=== PATIENT | female | born 1970 | race Caucasian/White ===

== ENCOUNTER → 2016-12-04 | Outpatient (CLI) | payer MEDICAID ==
[~2016-12-04] MED LIST: /AUGM875TA OR; /DIVA50TA PO; /RANI15TA PO; ACET500C OR; ALEVE; ASPI325T OR; ASTELIN; BACL10TA2 PO; CELE20TA PO; EPIP0.3I10 INJ; FERR325T3 PO; FOLI1TAB2 PO; GABA-279 PO; GABA250S6 PO; GABA300C3 PO; IBUPOTC PO; IMIT100T PO; KLON1TAB PO; MAGN400C2 PO; METH2.5TA PO; MOTR200T4 PO; MOTR200T44 PO; OMEP40CA2 PO; OXYC5CAP28 PO; PERC7.5T12 PO; PERCOCET PO; PLAQ200T PO; PLAV75TA2 OR; PRED1TAB32 PO; PRED5TA PO; PSEU30OTC OR; RANI1TAB6 PO; SIMV20TA2 OR; TIZA2CAP3 PO; TIZA4CAP3 PO; TIZA4TAB OR; TOPA100T PO; TOPI25TA2 OR; TRAZ100T2 PO; TRAZ150T14 PO; VICO5TAB OR; ZANA6CAP PO
--- NOTE | 2016-12-27 00:47 | ECWPNPC ---
PATIENT NAME: ACOSTA ALBRIGHT : 1970 GENDER: FEMALE VISIT DATE: 12/04/2016 DISCHARGE DATE: 12/04/16 1153 VISIT LOCKED DATE TIME: PHYSICIAN: TABITHA MCCOLLUM RESOURCE: TABITHA MCCOLLUM REASON FOR APPOINTMENT 1. BACK/NECK HISTORY OF PRESENT ILLNESS HISTORY OF PRESENT ILLNESS: PAIN THE PATIENT DESCRIBES THE PAIN... FALL RISK SCREENING: SCREENING :NO FALLS IN THE PAST YEAR TODAY'S VISIT: NOTES: IS S/P TPI 10/24/16. REPORTS THIS WAS HELPFUL IN DECREASING THE PAIN BY AT LEAST 6-% AND IMPROVING HER NECK AND SHOULDER RANGE OF MOTION. THIS LAST FOR OVER 3 WEEKS AND NOW IS NOTING PAIN AND SWELLING OVER RIGHT SHOULDER SIMILIAR TO LEFT. RATES PAIN TODAY 10/10 AND NOTES THIS IS A BAD DAY.. CURRENT MEDICATIONS TAKING ASTELIN 137 MCG/SPRAY SOLUTION 1 SPRAY IN EACH NOSTRIL NASALLY TWICE A DAY TAKING PLAVIX 75 MG TABLET 1 TABLET ORALLY ONCE A DAY/DR FERRIS TAKING ZOCOR 20 20MG TABLET 1 TABLET ORALLY DAILY AT BEDTIME TAKING CITALOPRAM HYDROBROMIDE 40MG TABLET 1 TABLET ORALLY ONCE A DAY TAKING EPIPEN 2-GISELL 0.3 MG/0.3ML (1:1000) DEVICE INJECTION INTRAMUSCULAR 1 TIME NEEDED FOR ANGIOEDEMA REACTION TAKING SUMATRIPTAN SUCCINATE 100 MG TABLET 1 TABLET ORALLY TWICE A DAY NEEDED FOR MIGRAINES MAX HEADACHES 15 PER MONTH TAKING TRAZODONE HCL 150 MG TABLET 1 TABLET AT BEDTIME NEEDED ORALLY ONCE A DAY TAKING AMBIEN 10 MG TABLET 1 TAB ORAL AT BEDTIME TAKING MOTRIN 200 MG TABLET 2 TABLETS NEEDED ORALLY 2-3 TIMES DAILY TAKING REQUIP 0.25 MG TABLET 1 TAB ORALLY 30 MINUTES BEFORE BEDTIME TAKING OMEPRAZOLE 40 MG CAPSULE DELAYED RELEASE 1 CAPSULE ORALLY ONCE A DAY TAKING TIZANIDINE HCL 4 MG TABLET 1 TABLET NEEDED ORALLY EVERY 8 HRS TAKING GABAPENTIN 300 MG CAPSULE 1 CAPSULE ORALLY TWICE A DAY TAKING RANITIDINE HCL 150 MG CAPSULE 1 CAPSULE ORALLY TWICE A DAY NOT-TAKING [facility] IRON 325 (65 FE) MG TABLET 1 TABLET ORALLY ONCE A DAY NOT-TAKING FOLIC ACID 1 MG TABLET 1 TABLET ORALLY ONCE A DAY, NOTES: MONTHS NOT-TAKING ZOFRAN 4 MG TABLET 1 TABLET ORALLY 4X/DAY NEEDED NOT-TAKING FLOMAX 0.4 MG CAPSULE 1 CAPSULE ORALLY ONCE A DAY NOT-TAKING OXYCODONE HCL 5 MG TABLET 1 TABLET ORALLY EVERY 6-8 HRS PRN PAIN MDD=3 NOT-TAKING NORCO 5-325 MG TABLET 1 TABLET ORALLY TAKE 1 TAB DAILY PRN PAIN MDD=1 NOT-TAKING TOPAMAX 100 MG TABLET 1/2 TABLET ORALLY ONCE A DAY (WALKER) NOT-TAKING MAGNESIUM 400 MG TABLET 1 TAB(S) ORALLY ONCE DAILY NOT-TAKING PERCOCET 5-325 MG TABLET 1 TABLET NEEDED ORALLY EVERY 6 HRS MEDICATION LIST REVIEWED AND RECONCILED WITH THE PATIENT PAST MEDICAL HISTORY HYPERLIPIDEMIA CAROTID ATHEROSCLEROSIS -- FOLLOWS WITH DR. 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, RADIATION AND CHEMOTHERAPY BILATERAL TMJ HX OF MULTIPLE THYROID NODULES PROVEN NON-MALIGNANT HX ABNORMAL PAP SMEAR HX OF CHEST PAIN 2008 WITH NEGATIVE HEART CATHETERIZATION MIGRAINE HEADACHES LUPUS ANGIOEDEMA OBSTRUCTIVE SLEEP APNEA ARTHRITIS BOTH KNEES KIDNEY STONES ALLERGIES SULFA (FOR ALLERGY USE ONLY): HIVES: ALLERGY FLEXERIL: MIGAINES: ALLERGY ASPIRIN: UNKNOWN: ALLERGY HYDROXYCHLOROQUINE SULFATE: UNKNOWN: ALLERGY BEE STINGS: UNKNOWN: ALLERGY SURGICAL HISTORY CSECTION 1992 TROUBLE WAKING FROM ANESTHESIA AND HYPOXIA S/P ANESTHESIA 01/2015 TUBAL LIGATION 1993 HEART CATH WITHOUT STENT 2008 LEFT SIDED CAROTID STENT 09/2009 LEFT SIDED CAROTID BYPASS WITH HOMOGRAFT SECONDARY TO RE-OCCULUSION 05/2010 LASER CERVICAL SURGERY/BIOPSY SECONDARY TO ABNORMAL PAP L CARPAL TUNNEL 12/28/2013 HYSTERECTOMY WITHOUT SALPINGOOPHORECTOMY 01/2015 KIDNEY STONES REMOVED SEP 21, 2016 SOCIAL HISTORY GENERAL: TOBACCO USE ARE YOU A:NONSMOKER LEARNING BARRIERS / SPECIAL NEEDS ORIENTED TO PLAN OF CARE: PATIENT, PAIN MANAGEMENT PATIENT, ORIENTED TO PLAN OF CARE: PATIENT, PAIN MANAGEMENT PATIENT. NEW PATIENT PAIN DIARY TODAY'S VISITNOTES FROM 0-10, WHAT LEVEL IS YOUR PAIN TODAY?0 PAIN CLINIC PFS, CLERGY, PUBLIC HEALTH REFERRALS PFS REFERRAL NEEDED?NO CLERGY REFERRAL NEEDED?NO PUBLIC HEALTH REFERRAL NEEDED?NO WAS THE PROVIDER NOTIFIED OF ANY PERTINENT INFO?NO PFS REFERRAL NEEDED?NO CLERGY REFERRAL NEEDED?NO PUBLIC HEALTH REFERRAL NEEDED?NO WAS THE PROVIDER NOTIFIED OF ANY PERTINENT INFO?NO HOSPITALIZATION/MAJOR DIAGNOSTIC PROCEDURE CAROTID STENT 2008 LEFT SIDED CAROTID BYPASS WITH HOMOGRAFT SECONDARY TO RE-OCCULUSION 05/2010 MENTAL HEALTH 07/2015 REVIEW OF SYSTEMS CONSTITUTIONAL: ANY CHANGE IN YOUR MEDICAL CONDITION? NO . CHILLS NO . FEVER NO . INFECTION: DO YOU HAVE NEW INFECTIONS? NO . DO YOU HAVE HISTORY OF MRSA? NO . MUSCULOSKELETAL: ANY NEW PATTERNS OF PAIN OR NUMBNESS? YES - RIGHT SHOULDER AREA . GASTROENTEROLOGY: ANY NEW CHANGE IN BOWEL CONTROL? NO . GENITOURINARY: ANY NEW CHANGE IN BLADDER CONTROL? NO . IS THERE A CHANCE YOU COULD BE ? NO . HEMATOLOGY/LYMPH: DO YOU TAKE ANY BLOOD THINNERS? (FOR EXAMPLE- COUMADIN, PLAVIX, AGGRENOX, PLATEL, PRADAXA, OR XARELTO) YES, PLAVIX . WHEN WAS YOUR LAST DOSE? DATE: TIME: . NEUROLOGY: HAVE YOU FALLEN IN THE PAST 6 MONTHS? YES . ANY NEW EXTREMITY NUMBNESS OR WEAKNESS? NO . CARDIOLOGY: DO YOU HAVE A PACEMAKER OR DEFIBRILLATOR? YES . RESPIRATORY: HAVE YOU BEEN SICK IN THE PAST WEEK? NO . FEVER NO . FLU LIKE SYMPTOMS? NO . COUGH NO . INTEGUMENTARY: DO YOU HAVE ANY RASHES OR OPEN SORES? YES . ALLERGIC/IMMUNO: ARE YOU ALLERGIC TO SHELLFISH OR IV DYE? NO . ANY NEW ALLERGIES? NO . PSYCHIATRIC: DO YOU HAVE THOUGHTS OF HURTING YOURSELF OR SOMEONE ELSE? NO . ARE YOU ABUSED, NEGLECTED, OR IN AN UNSAFE ENVIRONMENT? NO . ENDOCRINOLOGY: ARE YOU DIABETIC? NO . OTHER: DO YOU NEED ANY PRESCRIPTIONS? YES . IF YES, PLEASE LIST: ____ . ANY NEW PROBLEMS WITH YOUR MEDICATIONS? NO . WHEN DID YOU LAST EAT? ____ . WHEN DID YOU LAST DRINK? ____ . WHAT DID YOU LAST DRINK? ____ . NAME OF PERSON DRIVING YOU HOME? ____ . DO YOU HAVE ANY OTHER QUESTIONS OR CONCERNS NO . REVIEWED BY: PROVIDER: TABITHA REILLY . VITAL SIGNS WT 241 LBS, HT 66 IN, BMI 38.89 INDEX, BP 137/68 MM HG, HR 64 /MIN, RR 16 /MIN, TEMP 98.5 F, OXYGEN SAT % 96%, NA INITIALS SC 11:11, REVIEWED BY: WHIT. EXAMINATION GENERAL EXAMINATION: PSYCHALERT , ORIENTED X 3 , APPROPRIATE MOOD AND AFFECT . LUNGS:CLEAR TO AUSCULTATION BILATERALLY. HEART:HEART RATE REGULAR. MUSCULOSKELETAL:TRIGGER POINTS:, ELICITED WITH PALPATION OVER CERVICAL SPINOUS PROCESSES AND ACROSS THE TRAPEZIUS MUSCLES BILATERALLY. RESTRICTION OF ROM IS NOTED. TENDER BILATERALLY AT LEFT > RIGHT SHOULDER, TRIGGER POINTS:, ELICITED WITH PALPATION OVER LUMBAR PARAVERTEBRAL MUSCLES AND INTO THE SECRUM. RESTRICTION OF ROM IN THIS AREA. ASSESSMENTS MYALGIA - M79.1 (PRIMARY) LEFT SHOULDER PAIN - M25.512 TREATMENT MYALGIA REFILL GABAPENTIN CAPSULE, 300 MG, 1 CAPSULE, ORALLY, TWICE A DAY, 30 DAY(S), 60 CAPSULE, REFILLS 2 TRIGGER POINT 3 + AREAS NOTES: CONTINUE CURRENT MEDS. PREVENTIVE MEDICINE PAIN CLINIC TEACHING: PROCEDURE TEACHING PRE TRIGGER POINT INJECTION INSTRUCTIONS REVIEWED WITH PT. VERBALIZED UNDERSTANDING.. PROCEDURE CODES FA211 ESTABILISHED PATIENT [facility] CHARGE FOLLOW UP AFTER INJECTION (REASON: CHECK AUTH FOR TPI) ELECTRONICALLY SIGNED BY CINDA BUSTILLO ON 12/26/2016 AT 12:31 PM EST DISCLAIMER : THIS IS A VISIT SUMMARY EXTRACTED FROM THE [employer] CHART. IT IS NOT A COPY OF THE [employer] PROGRESS NOTE. VIVEK
== END ==
LOC: M PAIN 10:40
PROVIDERS: ATTEND Nurse Practitioner Family
DX: Z09 Encounter for follow-up examination after completed treatment for conditions other than malignant neoplasm (principal); G89.29 Other chronic pain; M79.1 Myalgia; M25.512 Pain in left shoulder; G43.909 Migraine, unspecified, not intractable, without status migrainosus; G47.33 Obstructive sleep apnea (adult) (pediatric); M17.0 Bilateral primary osteoarthritis of knee; M32.9 Systemic lupus erythematosus, unspecified; E78.5 Hyperlipidemia, unspecified; I65.29 Occlusion and stenosis of unspecified carotid artery; Z79.01 Long term (current) use of anticoagulants; Z79.1 Long term (current) use of non-steroidal anti-inflammatories (NSAID); Z79.899 Other long term (current) drug therapy; Z88.2 Allergy status to sulfonamides; Z88.6 Allergy status to analgesic agent; Z88.8 Allergy status to other drugs, medicaments and biological substances; Z91.030 Bee allergy status; Z87.39 Personal history of other diseases of the musculoskeletal system and connective tissue; Z85.9 Personal history of malignant neoplasm, unspecified; Z92.3 Personal history of irradiation; Z92.21 Personal history of antineoplastic chemotherapy; Z95.5 Presence of coronary angioplasty implant and graft

== ENCOUNTER → 2016-12-06 | Outpatient (REF) | payer OTHER | LOC: M LAB REF 13:18 | PROVIDERS: ATTEND Internal Medicine Medical Oncology | DX: Z85.89 Personal history of malignant neoplasm of other organs and systems (principal) ==

== ENCOUNTER 2016-12-16 14:35 | Emergency (ER) | payer OTHER ==
--- NOTE | 2016-12-16 16:28 | EDDOCDS ---
Physician Documentation [facility] Name: Jess Mckeon Age: 46 yrs Sex: Female : 1970 Arrival Date: 12/16/2016 Time: 14:35 Bed TR1 Private MD: Jakub Dan MD Disposition: 12/16/16 16:13 Discharged to Home/Self Care. Impression: Acute sinusitis, Cough. - Condition is Stable. - Discharge Instructions: Sinusitis, [id number], Cough, Adult, [id number]. - Prescriptions for Augmentin 875- 125 mg Oral Tablet - take 1 tablet by ORAL route every 12 hours for 10 days; 20 tablet. Claritin 10 mg Oral Tablet - take 1 tablet by ORAL route once daily As needed; 30 tablet. Mucinex 600 mg - take 1 tablet by ORAL route 2 times per day; 30 tablet. Albuterol Sulfate 90 mcg/actuation Inhalation HFA Aerosol Inhaler - inhale 2 puff by INHALATION route every 4 hours As needed; 1 Inhaler. - Medication Reconciliation, Local Pharmacy Hours form. - Follow up: Jakub Dan; When: 1 - 2 days; Reason: Recheck today's complaints, Continuance of care. Follow up: Emergency Department; Reason: Worsening of conditions. - Problem is new. - Symptoms are unchanged. Historical: - Allergies: Aspirin (Hives); SULFA (SULFONAMIDES) (Hives); - Home Meds: 1. Ambien 10 mg Oral tab 1 tab once daily 2. astelin 137 mcg/spray 1 spray in each nostril twice daily 3. citalopram 40 mg Oral tab 1 tab once daily 4. folic acid 1 mg Oral tab 1 tab once daily 5. gabapentin 300 mg Oral cap twice a day 6. Iron CR Oral 325 mg daily 7. magnesium oxide 400 mg Oral tab daily 8. Motrin 100 mg Oral tab 2 tabs every 4-6 hours 9. omeprazole 40 mg Oral cpDR 1 cap once daily 10. Plavix 75 mg Oral tab 1 tab once daily 11. ranitidine HCl 150 mg Oral cap 1 cap 2 times per day 12. Imitrex 25 mg Oral tab as needed 13. Topamax 100 mg Oral tab daily 14. tizanidine 4 mg oral cap 1 cap 3 times per day 15. trazodone 150 mg Oral tab nightly 16. Zocor 20 mg Oral tab 1 tab once daily - PMHx: CAD; cancer of the neck; Fibromyalgia; Hypercholesterolemia; Lupus; planaphasia; Rheumatoid Arthritis; - PSHx: Carotid stents 2008 with Carotid Bypass; Tubal ligation; Hysterectomy; ; Carpal Tunnel Repair- Bilateral; - Social history: Smoking status: Patient states was never smoker of tobacco. No barriers to communication noted, The patient speaks fluent Macedonian. - : The pt / caregiver states he / she is on anticoagulants: Plavix. Home medication list is obtained from the patient. - Exposure Risk Screening:: None identified. 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 6 in. (167.64 cm) (R); 16:14 BP 149 / 70 LA Sitting (man/lg); Pulse 71; Resp 20; Temp 97.9(T); Pulse Ox 93% on R/A; ar3 14:37 Body Mass Index 38.90 (109.32 kg, 167.64 cm) dd6 MDM: 16:13 Recheck B/P ordered. ef1 Signatures: Mary Campbell RN RN jjEli Pham PA-C PA-C ef1 Nany Villavicencio RN RN rs3 MTDD
--- NOTE | 2016-12-16 16:28 | EDDOCDS ---
Nurse's Notes [facility] Name: Jess Mckeon Age: 46 yrs Sex: Female : 1970 Arrival Date: 12/16/2016 Time: 14:35 Bed TR1 Private MD: Jakub Dan MD Diagnosis: Acute sinusitis;Cough Presentation: 12/16 14:46 Presenting complaint: Patient states: generalized body ache, cough, chest pain with rs3 cough. No relief with Robitussin, Motrin. Adult Sepsis Screening: The patient does not have new or worsening altered mentation. Patient's respiratory rate is less than 22. Systolic blood pressure is greater than 100. Patient has a qSOFA score of 0- Negative Sepsis Screen. Suicide/Homicide risk assessment- the patient denies having any suicidal and/or homicidal ideations and does not present with any other emotional, behavioral or mental health complaints. Status: Patient is not a billing services manager or dependent. Transition of care: patient was not received from another setting of care. 14:46 Acuity: AYDEE Level 4 rs3 14:46 Method Of Arrival: Walkin/Carried/Asstd rs3 Triage Assessment: 14:49 General: Appears in no apparent distress. Pain: Location: chest. HIV screening NA for rs3 this visit Offered previously. 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 Ambien 10 mg Oral tab 1 tab once daily 2. astelin 137 mcg/spray 1 spray in each nostril twice daily 3. citalopram 40 mg Oral tab 1 tab once daily 4. folic acid 1 mg Oral tab 1 tab once daily 5. gabapentin 300 mg Oral cap twice a day 6. Iron CR Oral 325 mg daily 7. magnesium oxide 400 mg Oral tab daily 8. Motrin 100 mg Oral tab 2 tabs every 4-6 hours 9. omeprazole 40 mg Oral cpDR 1 cap once daily 10. Plavix 75 mg Oral tab 1 tab once daily 11. ranitidine HCl 150 mg Oral cap 1 cap 2 times per day 12. Imitrex 25 mg Oral tab as needed 13. Topamax 100 mg Oral tab daily 14. tizanidine 4 mg oral cap 1 cap 3 times per day 15. trazodone 150 mg Oral tab nightly 16. Zocor 20 mg Oral tab 1 tab once daily - PMHx: CAD; cancer of the neck; Fibromyalgia; Hypercholesterolemia; Lupus; planaphasia; Rheumatoid Arthritis; - PSHx: Carotid stents 2008 with Carotid Bypass; Tubal ligation; Hysterectomy; ; Carpal Tunnel Repair- Bilateral; - Social history: Smoking status: Patient states was never smoker of tobacco. No barriers to communication noted, The patient speaks fluent Portuguese. - : The pt / caregiver states he / she is on anticoagulants: Plavix. Home medication list is obtained from the patient. - Exposure Risk Screening:: None identified. Screenin:26 Screening information is obtained from the patient. Fall risk: No risks identified. jjr Assistance ADL's: requires no assistance with activities of daily living. Abuse/DV Screen: The patient / caregiver reports he/she is: not in a situation that causes fear, pain or injury. Nutritional screening: No deficits noted. Advance Directives: There is no active DNR order. home support is adequate. Assessment: 16:26 General: Appears in no apparent distress, well nourished, well groomed, Behavior is jjr appropriate for age. Respiratory: Airway is patent Respiratory effort is even, unlabored, Respiratory pattern is regular. Derm: Skin is pink, warm & dry. Vital Signs: 14:37 BP 164 / 70; Pulse 79; Resp 22 S; Temp 97.1(O); Pulse Ox 94% on R/A; Weight 109.32 kg dd6 (R); Height 5 ft. 6 in. (167.64 cm) (R); 16:14 BP 149 / 70 LA Sitting (man/lg); Pulse 71; Resp 20; Temp 97.9(T); Pulse Ox 93% on R/A; ar3 14:37 Body Mass Index 38.90 (109.32 kg, 167.64 cm) dd6 Vitals: 14:37 Log In Time: December 16, 2016 at 14:35. dd6 ED Course: 14:37 Patient visited by Mikel Oneal PCA. dd6 14:37 Jakub Dan is Private Physician. dd6 14:37 Patient moved to Waiting dd6 14:39 Patient moved to Pre RCE dd6 14:47 Triage Initiated rs3 15:37 Patient moved to Triage 3 ar3 15:49 [facility] ef1 15:49 Kimber Snow MD is Attending Physician. ef1 16:00 Patient visited by Eli Cabral PA-C. ef1 16:13 Jakub Dna is Referral Physician. ef1 16:19 Patient visited by Ana M Smith PCA. ar3 16:26 Patient moved to TR1 jjr 16:26 The patient / caregiver is instructed regarding the plan of care and ED course. jjr 16:26 No IV's were initiated during this patient's visit. No procedures done that require jjr assistance. Order Results: There are currently no results for this order. Outcome: 16:13 Discharge ordered by Provider. ef1 16:26 Discharge Assessment: patient administered narcotics - no. The following High Risk jjr Discharge criteria are identified: None. Discharged to home ambulatory. Condition: stable. Discharge instructions given to patient, Instructed on discharge instructions, follow up and referral plans. medication usage, Demonstrated understanding of instructions, medications, Prescriptions given X 4. No special radiology studies were completed. Property sent home with patient. 16:27 Patient left the ED. jjr Signatures: Mary Campbell RN RN jjr Mikel Oneal, ISMAEL DIRECTOR SALES SUPPORT dd6 Eli Cabral PA-C PA-C ef1 Nany Villavicencio RN RN rs3 Ana M Smith, DIRECTOR SALES SUPPORT DIRECTOR SALES SUPPORT ar3 Corrections: (The following items were deleted from the chart) 14:50 14:49 LMP N/A - Irregular menses rs3 rs3 MTDD
--- NOTE | 2016-12-18 17:28 | EDDOCDS ---
Physician Documentation [facility] Name: Jess Mckeon Age: 46 yrs Sex: Female : 1970 Arrival Date: 12/16/2016 Time: 14:35 Bed TR1 Private MD: Jakub Dan MD Disposition: 12/16/16 16:13 Discharged to Home/Self Care. Impression: Acute sinusitis, Cough. - Condition is Stable. - Discharge Instructions: Sinusitis, Pszm-[id number], Cough, Adult, [id number]. - Prescriptions for Augmentin 875- 125 mg Oral Tablet - take 1 tablet by ORAL route every 12 hours for 10 days; 20 tablet. Claritin 10 mg Oral Tablet - take 1 tablet by ORAL route once daily As needed; 30 tablet. Mucinex 600 mg - take 1 tablet by ORAL route 2 times per day; 30 tablet. Albuterol Sulfate 90 mcg/actuation Inhalation HFA Aerosol Inhaler - inhale 2 puff by INHALATION route every 4 hours As needed; 1 Inhaler. - Medication Reconciliation, Local Pharmacy Hours form. - Follow up: Jakub Dan; When: 1 - 2 days; Reason: Recheck today's complaints, Continuance of care. Follow up: Emergency Department; Reason: Worsening of conditions. - Problem is new. - Symptoms are unchanged. Historical: - Allergies: Aspirin (Hives); SULFA (SULFONAMIDES) (Hives); - Home Meds: 1. Ambien 10 mg Oral tab 1 tab once daily 2. astelin 137 mcg/spray 1 spray in each nostril twice daily 3. citalopram 40 mg Oral tab 1 tab once daily 4. folic acid 1 mg Oral tab 1 tab once daily 5. gabapentin 300 mg Oral cap twice a day 6. Iron CR Oral 325 mg daily 7. magnesium oxide 400 mg Oral tab daily 8. Motrin 100 mg Oral tab 2 tabs every 4-6 hours 9. omeprazole 40 mg Oral cpDR 1 cap once daily 10. Plavix 75 mg Oral tab 1 tab once daily 11. ranitidine HCl 150 mg Oral cap 1 cap 2 times per day 12. Imitrex 25 mg Oral tab as needed 13. Topamax 100 mg Oral tab daily 14. tizanidine 4 mg oral cap 1 cap 3 times per day 15. trazodone 150 mg Oral tab nightly 16. Zocor 20 mg Oral tab 1 tab once daily - PMHx: CAD; cancer of the neck; Fibromyalgia; Hypercholesterolemia; Lupus; planaphasia; Rheumatoid Arthritis; - PSHx: Carotid stents 2008 with Carotid Bypass; Tubal ligation; Hysterectomy; ; Carpal Tunnel Repair- Bilateral; - Social history: Smoking status: Patient states was never smoker of tobacco. No barriers to communication noted, The patient speaks fluent Mongolian. - : The pt / caregiver states he / she is on anticoagulants: Plavix. Home medication list is obtained from the patient. - Exposure Risk Screening:: None identified. 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 6 in. (167.64 cm) (R); 16:14 BP 149 / 70 LA Sitting (man/lg); Pulse 71; Resp 20; Temp 97.9(T); Pulse Ox 93% on R/A; ar3 14:37 Body Mass Index 38.90 (109.32 kg, 167.64 cm) dd6 MDM: 16:13 Recheck B/P ordered. ef1 16:34 Financial registration complete. ks 16:36 [facility] Payment Agreement was scanned into [employer] and attached to record. ks16 20:59 T-Sheet-- Draft Copy was scanned into [employer] and attached to record. klr Signatures: Mary Campbell RN RN jjr Eli Cabral, PA-C PA-C ef1 Nany Villavicencio RN RN rs3 Nicki Kim, Reg Reg ks16 Irais Chin klr The chart was reviewed and I authenticate all verbal orders and agree with the evaluation and treatment provided.Attachments: 16:36 [facility] Payment Agreement [email or web address] 20:59 T-Sheet-- Draft Copy klr Chart Complete MTDD
--- NOTE | 2016-12-18 17:28 | EDDOCDS ---
Nurse's Notes [facility] Name: Jess Mckeon Age: 46 yrs Sex: Female : 1970 Arrival Date: 12/16/2016 Time: 14:35 Bed TR1 Private MD: Jakub Dan MD Diagnosis: Acute sinusitis;Cough Presentation: 12/16 14:46 Presenting complaint: Patient states: generalized body ache, cough, chest pain with rs3 cough. No relief with Robitussin, Motrin. Adult Sepsis Screening: The patient does not have new or worsening altered mentation. Patient's respiratory rate is less than 22. Systolic blood pressure is greater than 100. Patient has a qSOFA score of 0- Negative Sepsis Screen. Suicide/Homicide risk assessment- the patient denies having any suicidal and/or homicidal ideations and does not present with any other emotional, behavioral or mental health complaints. Status: Patient is not a escort service attendant or dependent. Transition of care: patient was not received from another setting of care. 14:46 Acuity: AYDEE Level 4 rs3 14:46 Method Of Arrival: Walkin/Carried/Asstd rs3 Triage Assessment: 14:49 General: Appears in no apparent distress. Pain: Location: chest. HIV screening NA for rs3 this visit Offered previously. 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 Ambien 10 mg Oral tab 1 tab once daily 2. astelin 137 mcg/spray 1 spray in each nostril twice daily 3. citalopram 40 mg Oral tab 1 tab once daily 4. folic acid 1 mg Oral tab 1 tab once daily 5. gabapentin 300 mg Oral cap twice a day 6. Iron CR Oral 325 mg daily 7. magnesium oxide 400 mg Oral tab daily 8. Motrin 100 mg Oral tab 2 tabs every 4-6 hours 9. omeprazole 40 mg Oral cpDR 1 cap once daily 10. Plavix 75 mg Oral tab 1 tab once daily 11. ranitidine HCl 150 mg Oral cap 1 cap 2 times per day 12. Imitrex 25 mg Oral tab as needed 13. Topamax 100 mg Oral tab daily 14. tizanidine 4 mg oral cap 1 cap 3 times per day 15. trazodone 150 mg Oral tab nightly 16. Zocor 20 mg Oral tab 1 tab once daily - PMHx: CAD; cancer of the neck; Fibromyalgia; Hypercholesterolemia; Lupus; planaphasia; Rheumatoid Arthritis; - PSHx: Carotid stents 2008 with Carotid Bypass; Tubal ligation; Hysterectomy; ; Carpal Tunnel Repair- Bilateral; - Social history: Smoking status: Patient states was never smoker of tobacco. No barriers to communication noted, The patient speaks fluent Bengali. - : The pt / caregiver states he / she is on anticoagulants: Plavix. Home medication list is obtained from the patient. - Exposure Risk Screening:: None identified. Screenin:26 Screening information is obtained from the patient. Fall risk: No risks identified. jjr Assistance ADL's: requires no assistance with activities of daily living. Abuse/DV Screen: The patient / caregiver reports he/she is: not in a situation that causes fear, pain or injury. Nutritional screening: No deficits noted. Advance Directives: There is no active DNR order. home support is adequate. Assessment: 16:26 General: Appears in no apparent distress, well nourished, well groomed, Behavior is jjr appropriate for age. Respiratory: Airway is patent Respiratory effort is even, unlabored, Respiratory pattern is regular. Derm: Skin is pink, warm & dry. Vital Signs: 14:37 BP 164 / 70; Pulse 79; Resp 22 S; Temp 97.1(O); Pulse Ox 94% on R/A; Weight 109.32 kg dd6 (R); Height 5 ft. 6 in. (167.64 cm) (R); 16:14 BP 149 / 70 LA Sitting (man/lg); Pulse 71; Resp 20; Temp 97.9(T); Pulse Ox 93% on R/A; ar3 14:37 Body Mass Index 38.90 (109.32 kg, 167.64 cm) dd6 Vitals: 14:37 Log In Time: December 16, 2016 at 14:35. dd6 ED Course: 14:37 Patient visited by Mikel Oneal PCA. dd6 14:37 Jakub Dan is Private Physician. dd6 14:37 Patient moved to Waiting dd6 14:39 Patient moved to Pre RCE dd6 14:47 Triage Initiated rs3 15:37 Patient moved to Triage 3 ar3 15:49 [facility] ef1 15:49 Kimber Snow MD is Attending Physician. ef1 16:00 Patient visited by Eli Cabral PA-C. ef1 16:13 Jakub Dan is Referral Physician. ef1 16:19 Patient visited by Ana M Smith PCA. ar3 16:26 Patient moved to TR1 jjr 16:26 The patient / caregiver is instructed regarding the plan of care and ED course. jjr 16:26 No IV's were initiated during this patient's visit. No procedures done that require jjr assistance. 16:36 [facility] Payment Agreement was scanned into [employer] and attached to record. ks16 20:59 T-Sheet-- Draft Copy was scanned into [employer] and attached to record. klr Order Results: There are currently no results for this order. Outcome: 16:13 Discharge ordered by Provider. ef1 16:26 Discharge Assessment: patient administered narcotics - no. The following High Risk jjr Discharge criteria are identified: None. Discharged to home ambulatory. Condition: stable. Discharge instructions given to patient, Instructed on discharge instructions, follow up and referral plans. medication usage, Demonstrated understanding of instructions, medications, Prescriptions given X 4. No special radiology studies were completed. Property sent home with patient. 16:27 Patient left the ED. jjr Signatures: Mary Campbell RN RN jjr Mikel Oneal, GARMENT SEWING MACHINE OPERATOR GARMENT SEWING MACHINE OPERATOR dd6 Eli Cabral PA-C PA-C ef1 Nany Villavicencio RN RN rs3 Ana M Smith, GARMENT SEWING MACHINE OPERATOR GARMENT SEWING MACHINE OPERATOR ar3 Nicki Kim, Reg Reg ks16 Irais Chin klr Corrections: (The following items were deleted from the chart) 14:50 14:49 LMP N/A - Irregular menses rs3 rs3 Chart Complete MTDD
--- NOTE | 2016-12-18 17:28 | EDDOCDS ---
Physician Documentation [facility] Name: Jess Mckeon Age: 46 yrs Sex: Female : 1970 Arrival Date: 12/16/2016 Time: 14:35 Bed TR1 Private MD: Jakub Dan MD Disposition: 12/16/16 16:13 Discharged to Home/Self Care. Impression: Acute sinusitis, Cough. - Condition is Stable. - Discharge Instructions: Sinusitis, [id number], Cough, Adult, [id number]. - Prescriptions for Augmentin 875- 125 mg Oral Tablet - take 1 tablet by ORAL route every 12 hours for 10 days; 20 tablet. Claritin 10 mg Oral Tablet - take 1 tablet by ORAL route once daily As needed; 30 tablet. Mucinex 600 mg - take 1 tablet by ORAL route 2 times per day; 30 tablet. Albuterol Sulfate 90 mcg/actuation Inhalation HFA Aerosol Inhaler - inhale 2 puff by INHALATION route every 4 hours As needed; 1 Inhaler. - Medication Reconciliation, Local Pharmacy Hours form. - Follow up: Jakub Dan; When: 1 - 2 days; Reason: Recheck today's complaints, Continuance of care. Follow up: Emergency Department; Reason: Worsening of conditions. - Problem is new. - Symptoms are unchanged. Historical: - Allergies: Aspirin (Hives); SULFA (SULFONAMIDES) (Hives); - Home Meds: 1. Ambien 10 mg Oral tab 1 tab once daily 2. astelin 137 mcg/spray 1 spray in each nostril twice daily 3. citalopram 40 mg Oral tab 1 tab once daily 4. folic acid 1 mg Oral tab 1 tab once daily 5. gabapentin 300 mg Oral cap twice a day 6. Iron CR Oral 325 mg daily 7. magnesium oxide 400 mg Oral tab daily 8. Motrin 100 mg Oral tab 2 tabs every 4-6 hours 9. omeprazole 40 mg Oral cpDR 1 cap once daily 10. Plavix 75 mg Oral tab 1 tab once daily 11. ranitidine HCl 150 mg Oral cap 1 cap 2 times per day 12. Imitrex 25 mg Oral tab as needed 13. Topamax 100 mg Oral tab daily 14. tizanidine 4 mg oral cap 1 cap 3 times per day 15. trazodone 150 mg Oral tab nightly 16. Zocor 20 mg Oral tab 1 tab once daily - PMHx: CAD; cancer of the neck; Fibromyalgia; Hypercholesterolemia; Lupus; planaphasia; Rheumatoid Arthritis; - PSHx: Carotid stents 2008 with Carotid Bypass; Tubal ligation; Hysterectomy; ; Carpal Tunnel Repair- Bilateral; - Social history: Smoking status: Patient states was never smoker of tobacco. No barriers to communication noted, The patient speaks fluent [place]. - : The pt / caregiver states he / she is on anticoagulants: Plavix. Home medication list is obtained from the patient. - Exposure Risk Screening:: None identified. 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 6 in. (167.64 cm) (R); 16:14 BP 149 / 70 LA Sitting (man/lg); Pulse 71; Resp 20; Temp 97.9(T); Pulse Ox 93% on R/A; ar3 14:37 Body Mass Index 38.90 (109.32 kg, 167.64 cm) dd6 MDM: 16:13 Recheck B/P ordered. ef1 16:34 Financial registration complete. ks 16:36 [facility] Payment Agreement was scanned into [employer] and attached to record. ks16 20:59 T-Sheet-- Draft Copy was scanned into [employer] and attached to record. klr Signatures: Mary Campbell RN RN jjr Eli Cabral, PA-C PA-C ef1 Nany Villavicencio RN RN rs3 Nicki Kim, Reg Reg ks16 Irais Chin klr The chart was reviewed and I authenticate all verbal orders and agree with the evaluation and treatment provided.Attachments: 16:36 [facility] Payment Agreement [email or web address] 20:59 T-Sheet-- Draft Copy klr Chart Complete MTDD
== END 2016-12-16 16:27 | disposition home or self-care (01) ==
LOC: M ED 14:35
DX: J01.90 Acute sinusitis, unspecified (principal); R05 Cough; H92.03 Otalgia, bilateral; I25.10 Atherosclerotic heart disease of native coronary artery without angina pectoris; E78.00 Pure hypercholesterolemia, unspecified; M06.9 Rheumatoid arthritis, unspecified; M79.7 Fibromyalgia; M32.9 Systemic lupus erythematosus, unspecified; R47.01 Aphasia; Z79.899 Other long term (current) drug therapy; Z79.02 Long term (current) use of antithrombotics/antiplatelets; Z88.6 Allergy status to analgesic agent; Z88.2 Allergy status to sulfonamides

== ENCOUNTER 2016-12-31 14:30 | Emergency (ER) | payer MEDICAID, OTHER ==
--- NOTE | 2016-12-31 16:54 | REP ---
Clinical: Trauma. Technique: AP, lateral, bilateral oblique, and sunrise views of the left knee. Comparison: 04/16/2016. Findings: Mild tricompartmental osteoarthritic degenerative changes are appreciated including cortical irregularity and subtle spurring/early osteophyte formation at the femoral condyles and proximal tibia as well as along the posterior patellar margin. Medial joint space narrowing noted. No acute fracture or dislocation. No definite effusion. Impression: Mild tricompartmental osteoarthritic degenerative changes. No acute fracture or dislocation. Signed by Esau Ga MD 12/31/2016 04:46 P
--- NOTE | 2016-12-31 16:55 | REP ---
Clinical: Trauma. Technique: AP, lateral, bilateral oblique views of the left elbow. Findings: No acute fracture or dislocation is appreciated. Joint spaces and surrounding soft tissues appear normal. Lateral view demonstrates normal positioning to the anterior and posterior fat pads without evidence for effusion/hemarthrosis. No subcutaneous emphysema or foreign body identified. Impression: No acute fracture or dislocation. Signed by Esau Ga MD 12/31/2016 04:47 P
--- NOTE | 2016-12-31 17:32 | EDDOCDS ---
Physician Documentation [facility] Name: Jess Mckeon Age: 46 yrs Sex: Female : 1970 Arrival Date: 12/31/2016 Time: 14:30 Bed TR7 Private MD: Jakub Dan MD Disposition: 12/31/16 17:14 Discharged to Home/Self Care. Impression: Fall on same level due to ice and snow, Contusion of right thigh, Contusion of left elbow, Contusion of left knee, Sprain of unspecified site of left knee. - Condition is Stable. - Discharge Instructions: Elastic Bandage and RICE, Contusion, Knee Sprain. - Medication Reconciliation, Local Pharmacy Hours form. - Follow up: Jakub Dan; When: Call to arrange an appointment; Reason: Recheck today's complaints. Follow up: Lester Young; When: As needed; Reason: Recheck today's complaints. Follow up: Emergency Department; When: As needed; Reason: worsening bruising, severe pain, swelling and warmth over bruised area. - Problem is new. - Symptoms are unchanged. Historical: - Allergies: Aspirin (Hives); SULFA (SULFONAMIDES) (Hives); - Home Meds: 1. Ambien 10 mg Oral tab 1 tab once daily 2. astelin 137 mcg/spray 1 spray in each nostril twice daily 3. citalopram 40 mg Oral tab 1 tab once daily 4. folic acid 1 mg Oral tab 1 tab once daily 5. gabapentin 300 mg Oral cap twice a day 6. Imitrex 25 mg Oral tab as needed 7. Iron CR Oral 325 mg daily 8. magnesium oxide 400 mg Oral tab daily 9. Motrin 100 mg Oral tab 2 tabs every 4-6 hours 10. omeprazole 40 mg Oral cpDR 1 cap once daily 11. Plavix 75 mg Oral tab 1 tab once daily 12. ranitidine HCl 150 mg Oral cap 1 cap 2 times per day 13. sumatriptan succinate 6 mg/0.5 mL Sub-Q pnij 14. tizanidine 4 mg oral cap 1 cap 3 times per day 15. Topamax 100 mg Oral tab daily 16. trazodone 150 mg Oral tab nightly 17. Zocor 20 mg Oral tab 1 tab once daily - PMHx: CAD; cancer of the neck; Fibromyalgia; Hypercholesterolemia; Lupus; planaphasia; Rheumatoid Arthritis; - PSHx: neck surgery; ; Tubal ligation; Hysterectomy; Carpal Tunnel Repair- Bilateral; - Social history: Smoking status: Patient/guardian denies using No barriers to communication noted, The patient speaks fluent Yakut. - Family history: Not pertinent. - : The pt / caregiver states he / she is not on anticoagulants. Home medication list is obtained from the patient, [employer] import data. - Exposure Risk Screening:: None identified. PETAL SHAPER HAND: 12/31 14:47 LMP N/A - Hysterectomy dls Vital Signs: 14:33 BP 147 / 62; Pulse 74; Resp 18; Temp 97.6(O); Pulse Ox 95% ; Weight 115.67 kg / 255.01 ct3 lbs (R); Height 5 ft. 5 in. (165.10 cm) (R); Pain 2/10; 17:23 Pain 9/10; ct3 14:33 Body Mass Index 42.43 (115.67 kg, 165.10 cm) ct3 MDM: 16:32 Elbow, Complete Ordered. EDMS 16:32 Knee, Complete Ordered. EDMS 16:44 Financial registration complete. gjb 16:56 [facility] Payment Agreement was scanned into [employer] and attached to record. gjb 17:11 Jose Wrap ordered. ar2 Signatures: Dispatcher [employer] EDAnna Marmolejo RN RN dls Maco Henry PA-C PA-C ar2 Shirley Solorzano RN RN mk4 Reyna Pizano The chart was reviewed and I authenticate all verbal orders and agree with the evaluation and treatment provided.Attachments: 16:56 [facility] Payment Agreement gjb MTDD
--- NOTE | 2016-12-31 17:32 | EDDOCDS ---
Nurse's Notes [facility] Name: Jess Mckeon Age: 46 yrs Sex: Female : 1970 Arrival Date: 12/31/2016 Time: 14:30 Bed TR7 Private MD: Jakub Dan MD Diagnosis: Fall on same level due to ice and snow;Contusion of right thigh;Contusion of left elbow;Contusion of left knee;Sprain of unspecified site of left knee Presentation: 12/31 14:43 Presenting complaint: Patient states: Pt presents with injury to left arm and elbow dls also right knee and leg after falling 3 days ago slipped on the ice outside. Pt is on plavix states noticed bruising today. Adult Sepsis Screening: The patient does not have new or worsening altered mentation. Patient's respiratory rate is less than 22. Systolic blood pressure is greater than 100. Patient has a qSOFA score of 0- Negative Sepsis Screen. Suicide/Homicide risk assessment- the patient denies having any suicidal and/or homicidal ideations and does not present with any other emotional, behavioral or mental health complaints. Status: Patient is not a family service center director or dependent. Transition of care: patient was not received from another setting of care. 14:43 Acuity: AYDEE Level 4 dls 14:43 Method Of Arrival: Walkin/Carried/Asstd dls Triage Assessment: 14:47 General: Appears uncomfortable, Behavior is cooperative. Pain: Pain currently is 8 out dls of 10 on a pain scale. HIV screening NA for this visit Offered previously. HEAD OF MARKETING ANALYTICS: 14:47 LMP N/A - Hysterectomy dls Historical: - Allergies: Aspirin (Hives); SULFA (SULFONAMIDES) (Hives); - Home Meds: 1. Ambien 10 mg Oral tab 1 tab once daily 2. astelin 137 mcg/spray 1 spray in each nostril twice daily 3. citalopram 40 mg Oral tab 1 tab once daily 4. folic acid 1 mg Oral tab 1 tab once daily 5. gabapentin 300 mg Oral cap twice a day 6. Imitrex 25 mg Oral tab as needed 7. Iron CR Oral 325 mg daily 8. magnesium oxide 400 mg Oral tab daily 9. Motrin 100 mg Oral tab 2 tabs every 4-6 hours 10. omeprazole 40 mg Oral cpDR 1 cap once daily 11. Plavix 75 mg Oral tab 1 tab once daily 12. ranitidine HCl 150 mg Oral cap 1 cap 2 times per day 13. sumatriptan succinate 6 mg/0.5 mL Sub-Q pnij 14. tizanidine 4 mg oral cap 1 cap 3 times per day 15. Topamax 100 mg Oral tab daily 16. trazodone 150 mg Oral tab nightly 17. Zocor 20 mg Oral tab 1 tab once daily - PMHx: CAD; cancer of the neck; Fibromyalgia; Hypercholesterolemia; Lupus; planaphasia; Rheumatoid Arthritis; - PSHx: neck surgery; ; Tubal ligation; Hysterectomy; Carpal Tunnel Repair- Bilateral; - Social history: Smoking status: Patient/guardian denies using No barriers to communication noted, The patient speaks fluent Yoruba. - Family history: Not pertinent. - : The pt / caregiver states he / she is not on anticoagulants. Home medication list is obtained from the patient, [employer] import data. - Exposure Risk Screening:: None identified. Screenin:29 Screening information is obtained from the patient. Fall risk: No risks identified. mk4 Assistance ADL's: requires no assistance with activities of daily living. Abuse/DV Screen: The patient / caregiver reports he/she is: not in a situation that causes fear, pain or injury. Nutritional screening: No deficits noted. Advance Directives: Currently, there is no health care proxy. There is no active DNR order. There is no living will. There is no Power of Fresh Work Wrapper Layer. home support is adequate. Assessment: 16:24 General: Appears in no apparent distress. mk4 17:29 Neurological: Level of Consciousness is awake, alert. Musculoskeletal: Circulation, mk4 motion, and sensation intact Capillary refill < 3 seconds in left fingers toes. Vital Signs: 14:33 BP 147 / 62; Pulse 74; Resp 18; Temp 97.6(O); Pulse Ox 95% ; Weight 115.67 kg (R); ct3 Height 5 ft. 5 in. (165.10 cm) (R); Pain 2/10; 17:23 Pain 9/10; ct3 14:33 Body Mass Index 42.43 (115.67 kg, 165.10 cm) ct3 Vitals: 14:33 Log In Time: December 31, 2016 at 14:30. ct3 ED Course: 14:32 Patient visited by Luz Weiss PCA. ct3 14:32 Jakub Dan is Private Physician. ct3 14:32 Patient moved to Waiting ct3 14:34 Patient moved to Pre RCE ct3 14:44 Triage Initiated dls 16:23 Patient moved to Triage 1 kcs 16:24 Maco Henry PA-C is PHCP. ar2 16:24 Drew Zacarias MD is Attending Physician. ar2 16:24 Patient visited by Maco Henry PA-C. ar2 16:33 Patient moved to TR1 ar2 16:55 Patient visited by Shirley Solorzano RN. mk4 16:56 [facility] Payment Agreement was scanned into [employer] and attached to record. gjb 17:10 Patient moved to PR1 / 25 kcs 17:13 Jakub Dan is Referral Physician. ar2 17:13 Lester Young is Referral Physician. ar2 17:23 Knee, Complete Returned. EDMS 17:23 Elbow, Complete Returned. EDMS 17:24 Jose wrap to left knee. ct3 17:27 Patient moved to TR7 mk4 17:29 The patient / caregiver is instructed regarding the plan of care and ED course. mk4 17:29 No IV's were initiated during this patient's visit. No procedures done that require mk4 assistance. Order Results: Radiology Order: Elbow, Complete Test: Elbow, Complete REASON FOR EXAMINATION: Trauma; Clinical: Trauma.; ; Technique: AP, lateral, bilateral oblique views of the left elbow.; ; Findings:; No acute fracture or dislocation is appreciated. Joint spaces and surrounding; soft tissues appear normal. Lateral view demonstrates normal positioning to the; anterior and posterior fat pads without evidence for effusion/hemarthrosis. No; subcutaneous emphysema or foreign body identified.; ; Impression:; No acute fracture or dislocation.; ; ; Signed by; Esau Ga MD 12/31/2016 04:47 P; Radiology Order: Knee, Complete Test: Knee, Complete REASON FOR EXAMINATION: Trauma; Clinical: Trauma.; ; Technique: AP, lateral, bilateral oblique, and sunrise views of the left knee.; ; Comparison: 04/16/2016.; ; Findings:; Mild tricompartmental osteoarthritic degenerative changes are appreciated; including cortical irregularity and subtle spurring/early osteophyte formation at; the femoral condyles and proximal tibia as well as along the posterior patellar; margin. Medial joint space narrowing noted. No acute fracture or dislocation.; No definite effusion.; ; Impression:; Mild tricompartmental osteoarthritic degenerative changes.; No acute fracture or dislocation.; ; ; Signed by; Esau Ga MD 12/31/2016 04:46 P; Outcome: 17:14 Discharge ordered by Provider. ar2 17:30 Discharge Assessment: Patient awake, alert and oriented x 3. No cognitive and/or mk4 functional deficits noted. Patient verbalized understanding of disposition instructions. Patient awake and alert. Discharge Assessment: patient administered narcotics - no. The following High Risk Discharge criteria are identified: None. Condition: good Condition: stable. No special radiology studies were completed. Property sent home with patient. 17:31 Patient left the ED. mk4 Signatures: Dispatcher [employer] EDMS Oxana Barcenas RN RN Anna Jaimes RN RN dls Robertshaw, Aaron, PA-C PA-C ar2 Luz Weiss, DRY BOSS DRY BOSS ct3 Shirley Solorzano RN RN mk4 Reyna Pizano MTDLavelle
--- NOTE | 2017-01-02 18:31 | EDDOCDS ---
Nurse's Notes [facility] Name: Jess Mckeon Age: 46 yrs Sex: Female : 1970 Arrival Date: 12/31/2016 Time: 14:30 Bed TR7 Private MD: Jakub Dan MD Diagnosis: Fall on same level due to ice and snow;Contusion of right thigh;Contusion of left elbow;Contusion of left knee;Sprain of unspecified site of left knee Presentation: 12/31 14:43 Presenting complaint: Patient states: Pt presents with injury to left arm and elbow dls also right knee and leg after falling 3 days ago slipped on the ice outside. Pt is on plavix states noticed bruising today. Adult Sepsis Screening: The patient does not have new or worsening altered mentation. Patient's respiratory rate is less than 22. Systolic blood pressure is greater than 100. Patient has a qSOFA score of 0- Negative Sepsis Screen. Suicide/Homicide risk assessment- the patient denies having any suicidal and/or homicidal ideations and does not present with any other emotional, behavioral or mental health complaints. 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 Transition of care: patient was not received from another setting of care. 14:43 Acuity: AYDEE Level 4 dls 14:43 Method Of Arrival: Walkin/Carried/Asstd dls Triage Assessment: 14:47 General: Appears uncomfortable, Behavior is cooperative. Pain: Pain currently is 8 out dls of 10 on a pain scale. HIV screening NA for this visit Offered previously. 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 Ambien 10 mg Oral tab 1 tab once daily 2. astelin 137 mcg/spray 1 spray in each nostril twice daily 3. citalopram 40 mg Oral tab 1 tab once daily 4. folic acid 1 mg Oral tab 1 tab once daily 5. gabapentin 300 mg Oral cap twice a day 6. Imitrex 25 mg Oral tab as needed 7. Iron CR Oral 325 mg daily 8. magnesium oxide 400 mg Oral tab daily 9. Motrin 100 mg Oral tab 2 tabs every 4-6 hours 10. omeprazole 40 mg Oral cpDR 1 cap once daily 11. Plavix 75 mg Oral tab 1 tab once daily 12. ranitidine HCl 150 mg Oral cap 1 cap 2 times per day 13. sumatriptan succinate 6 mg/0.5 mL Sub-Q pnij 14. tizanidine 4 mg oral cap 1 cap 3 times per day 15. Topamax 100 mg Oral tab daily 16. trazodone 150 mg Oral tab nightly 17. Zocor 20 mg Oral tab 1 tab once daily - PMHx: CAD; cancer of the neck; Fibromyalgia; Hypercholesterolemia; Lupus; planaphasia; Rheumatoid Arthritis; - PSHx: neck surgery; ; Tubal ligation; Hysterectomy; Carpal Tunnel Repair- Bilateral; - Social history: Smoking status: Patient/guardian denies using No barriers to communication noted, The patient speaks fluent Slovak. - Family history: Not pertinent. - : The pt / caregiver states he / she is not on anticoagulants. Home medication list is obtained from the patient, [employer] import data. - Exposure Risk Screening:: None identified. Screenin:29 Screening information is obtained from the patient. Fall risk: No risks identified. mk4 Assistance ADL's: requires no assistance with activities of daily living. Abuse/DV Screen: The patient / caregiver reports he/she is: not in a situation that causes fear, pain or injury. Nutritional screening: No deficits noted. Advance Directives: Currently, there is no health care proxy. There is no active DNR order. There is no living will. 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 home support is adequate. Assessment: 16:24 General: Appears in no apparent distress. mk4 17:29 Neurological: Level of Consciousness is awake, alert. Musculoskeletal: Circulation, mk4 motion, and sensation intact Capillary refill < 3 seconds in left fingers toes. Vital Signs: 14:33 BP 147 / 62; Pulse 74; Resp 18; Temp 97.6(O); Pulse Ox 95% ; Weight 115.67 kg (R); ct3 Height 5 ft. 5 in. (165.10 cm) (R); Pain 2/10; 17:23 Pain 9/10; ct3 14:33 Body Mass Index 42.43 (115.67 kg, 165.10 cm) ct3 Vitals: 14:33 Log In Time: December 31, 2016 at 14:30. ct3 ED Course: 14:32 Patient visited by Luz Weiss PCA. ct3 14:32 Jakub Dan is Private Physician. ct3 14:32 Patient moved to Waiting ct3 14:34 Patient moved to Pre RCE ct3 14:44 Triage Initiated dls 16:23 Patient moved to Triage 1 kcs 16:24 Maco Henry PA-C is PHCP. ar2 16:24 Drew Zacarias MD is Attending Physician. ar2 16:24 Patient visited by Maco Henry PA-C. ar2 16:33 Patient moved to TR1 ar2 16:55 Patient visited by Shirley Solorzano RN. mk4 16:56 [facility] Payment Agreement was scanned into [employer] and attached to record. gjb 17:10 Patient moved to PR1 / 25 kcs 17:13 Jakub Dan is Referral Physician. ar2 17:13 Lester Young is Referral Physician. ar2 17:23 Knee, Complete Returned. EDMS 17:23 Elbow, Complete Returned. EDMS 17:24 Jose wrap to left knee. ct3 17:27 Patient moved to TR7 mk4 17:29 The patient / caregiver is instructed regarding the plan of care and ED course. mk4 17:29 No IV's were initiated during this patient's visit. No procedures done that require mk4 assistance. 01/01 11:41 T-Sheet-- Draft Copy was scanned into [employer] and attached to record. gb 11:41 Radiology Report was scanned into [employer] and attached to record. gb Order Results: Radiology Order: Elbow, Complete Test: Elbow, Complete REASON FOR EXAMINATION: Trauma; Clinical: Trauma.; ; Technique: AP, lateral, bilateral oblique views of the left elbow.; ; Findings:; No acute fracture or dislocation is appreciated. Joint spaces and surrounding; soft tissues appear normal. Lateral view demonstrates normal positioning to the; anterior and posterior fat pads without evidence for effusion/hemarthrosis. No; subcutaneous emphysema or foreign body identified.; ; Impression:; No acute fracture or dislocation.; ; ; Signed by; Esau Ga MD 12/31/2016 04:47 P; Radiology Order: Knee, Complete Test: Knee, Complete REASON FOR EXAMINATION: Trauma; Clinical: Trauma.; ; Technique: AP, lateral, bilateral oblique, and sunrise views of the left knee.; ; Comparison: 04/16/2016.; ; Findings:; Mild tricompartmental osteoarthritic degenerative changes are appreciated; including cortical irregularity and subtle spurring/early osteophyte formation at; the femoral condyles and proximal tibia as well as along the posterior patellar; margin. Medial joint space narrowing noted. No acute fracture or dislocation.; No definite effusion.; ; Impression:; Mild tricompartmental osteoarthritic degenerative changes.; No acute fracture or dislocation.; ; ; Signed by; Esau Ga MD 12/31/2016 04:46 P; Outcome: 12/31 17:14 Discharge ordered by Provider. ar2 17:30 Discharge Assessment: Patient awake, alert and oriented x 3. No cognitive and/or mk4 functional deficits noted. Patient verbalized understanding of disposition instructions. Patient awake and alert. Discharge Assessment: patient administered narcotics - no. The following High Risk Discharge criteria are identified: None. Condition: good Condition: stable. No special radiology studies were completed. Property sent home with patient. 17:31 Patient left the ED. mk4 Signatures: Dispatcher [employer] EDMS Oxana Barcenas, RN RN Anna Jaimes RN RN dls Mercy Orta, Jack Reg Maco Guillermo PA-C PA-C ar2 Luz Weiss, FIRER ELECTRIC LOCOMOTIVE FIRER ELECTRIC LOCOMOTIVE ct3 Shirley Solorzano RN RN mk4 Reyna Pizano Chart Complete MTDD
--- NOTE | 2017-01-02 18:31 | EDDOCDS ---
Physician Documentation [facility] Name: Jess Mckeon Age: 46 yrs Sex: Female : 1970 Arrival Date: 12/31/2016 Time: 14:30 Bed TR7 Private MD: Jakub Dan MD Disposition: 12/31/16 17:14 Discharged to Home/Self Care. Impression: Fall on same level due to ice and snow, Contusion of right thigh, Contusion of left elbow, Contusion of left knee, Sprain of unspecified site of left knee. - Condition is Stable. - Discharge Instructions: Elastic Bandage and RICE, Contusion, Knee Sprain. - Medication Reconciliation, Local Pharmacy Hours form. - Follow up: Jakub Dan; When: Call to arrange an appointment; Reason: Recheck today's complaints. Follow up: Lester Young; When: As needed; Reason: Recheck today's complaints. Follow up: Emergency Department; When: As needed; Reason: worsening bruising, severe pain, swelling and warmth over bruised area. - Problem is new. - Symptoms are unchanged. Historical: - Allergies: Aspirin (Hives); SULFA (SULFONAMIDES) (Hives); - Home Meds: 1. Ambien 10 mg Oral tab 1 tab once daily 2. astelin 137 mcg/spray 1 spray in each nostril twice daily 3. citalopram 40 mg Oral tab 1 tab once daily 4. folic acid 1 mg Oral tab 1 tab once daily 5. gabapentin 300 mg Oral cap twice a day 6. Imitrex 25 mg Oral tab as needed 7. Iron CR Oral 325 mg daily 8. magnesium oxide 400 mg Oral tab daily 9. Motrin 100 mg Oral tab 2 tabs every 4-6 hours 10. omeprazole 40 mg Oral cpDR 1 cap once daily 11. Plavix 75 mg Oral tab 1 tab once daily 12. ranitidine HCl 150 mg Oral cap 1 cap 2 times per day 13. sumatriptan succinate 6 mg/0.5 mL Sub-Q pnij 14. tizanidine 4 mg oral cap 1 cap 3 times per day 15. Topamax 100 mg Oral tab daily 16. trazodone 150 mg Oral tab nightly 17. Zocor 20 mg Oral tab 1 tab once daily - PMHx: CAD; cancer of the neck; Fibromyalgia; Hypercholesterolemia; Lupus; planaphasia; Rheumatoid Arthritis; - PSHx: neck surgery; ; Tubal ligation; Hysterectomy; Carpal Tunnel Repair- Bilateral; - Social history: Smoking status: Patient/guardian denies using No barriers to communication noted, The patient speaks fluent Serbian. - Family history: Not pertinent. - : The pt / caregiver states he / she is not on anticoagulants. Home medication list is obtained from the patient, [employer] import data. - Exposure Risk Screening:: None identified. 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 5 in. (165.10 cm) (R); Pain 2/10; 17:23 Pain 9/10; ct3 14:33 Body Mass Index 42.43 (115.67 kg, 165.10 cm) ct3 MDM: 16:32 Elbow, Complete Ordered. EDMS 16:32 Knee, Complete Ordered. EDMS 16:44 Financial registration complete. gjb 16:56 [facility] [place] Agreement was scanned into [employer] and attached to record. gjb 17:11 Jose Wrap ordered. ar2 01/01 11:41 T-Sheet-- Draft Copy was scanned into [employer] and attached to record. gb 11:41 Radiology Report was scanned into [employer] and attached to record. gb Signatures: Dispatcher [employer] EDAnna Marmolejo RN RN dls Barnhardt, Gloria, Reg Reg gb Maco Henry, PAMelchor PAMelchor ar2 Shirley Solorzano RN RN mk4 Beck, Gabriela gjb The chart was reviewed and I authenticate all verbal orders and agree with the evaluation and treatment provided.Attachments: 12/31 16:56 [facility] Payment Agreement b 01/01 11:41 T-Sheet-- Draft Copy gb Chart Complete MTDD
--- NOTE | 2017-01-02 18:31 | EDDOCDS ---
Physician Documentation [facility] Name: Jess Mckeon Age: 46 yrs Sex: Female : 1970 Arrival Date: 12/31/2016 Time: 14:30 Bed TR7 Private MD: Jakub Dan MD Disposition: 12/31/16 17:14 Discharged to Home/Self Care. Impression: Fall on same level due to ice and snow, Contusion of right thigh, Contusion of left elbow, Contusion of left knee, Sprain of unspecified site of left knee. - Condition is Stable. - Discharge Instructions: Elastic Bandage and RICE, Contusion, Knee Sprain. - Medication Reconciliation, Local Pharmacy Hours form. - Follow up: Jakub Dan; When: Call to arrange an appointment; Reason: Recheck today's complaints. Follow up: Lester Young; When: As needed; Reason: Recheck today's complaints. Follow up: Emergency Department; When: As needed; Reason: worsening bruising, severe pain, swelling and warmth over bruised area. - Problem is new. - Symptoms are unchanged. Historical: - Allergies: Aspirin (Hives); SULFA (SULFONAMIDES) (Hives); - Home Meds: 1. Ambien 10 mg Oral tab 1 tab once daily 2. astelin 137 mcg/spray 1 spray in each nostril twice daily 3. citalopram 40 mg Oral tab 1 tab once daily 4. folic acid 1 mg Oral tab 1 tab once daily 5. gabapentin 300 mg Oral cap twice a day 6. Imitrex 25 mg Oral tab as needed 7. Iron CR Oral 325 mg daily 8. magnesium oxide 400 mg Oral tab daily 9. Motrin 100 mg Oral tab 2 tabs every 4-6 hours 10. omeprazole 40 mg Oral cpDR 1 cap once daily 11. Plavix 75 mg Oral tab 1 tab once daily 12. ranitidine HCl 150 mg Oral cap 1 cap 2 times per day 13. sumatriptan succinate 6 mg/0.5 mL Sub-Q pnij 14. tizanidine 4 mg oral cap 1 cap 3 times per day 15. Topamax 100 mg Oral tab daily 16. trazodone 150 mg Oral tab nightly 17. Zocor 20 mg Oral tab 1 tab once daily - PMHx: CAD; cancer of the neck; Fibromyalgia; Hypercholesterolemia; Lupus; planaphasia; Rheumatoid Arthritis; - PSHx: neck surgery; ; Tubal ligation; Hysterectomy; Carpal Tunnel Repair- Bilateral; - Social history: Smoking status: Patient/guardian denies using No barriers to communication noted, The patient speaks fluent Turkmen. - Family history: Not pertinent. - : The pt / caregiver states he / she is not on anticoagulants. Home medication list is obtained from the patient, [employer] import data. - Exposure Risk Screening:: None identified. 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 5 in. (165.10 cm) (R); Pain 2/10; 17:23 Pain 9/10; ct3 14:33 Body Mass Index 42.43 (115.67 kg, 165.10 cm) ct3 MDM: 16:32 Elbow, Complete Ordered. EDMS 16:32 Knee, Complete Ordered. EDMS 16:44 Financial registration complete. gjb 16:56 [facility] Payment Agreement was scanned into [employer] and attached to record. gjb 17:11 Jose Wrap ordered. ar2 01/01 11:41 T-Sheet-- Draft Copy was scanned into [employer] and attached to record. gb 11:41 Radiology Report was scanned into [employer] and attached to record. gb Signatures: Dispatcher [employer] EDAnna Marmolejo RN RN dls Barnhardt, Gloria, Reg Reg gb Maco Henry, PAMelchor PAMelchor ar2 Shirley Solorzano RN RN mk4 Beck, Gabriela gjb The chart was reviewed and I authenticate all verbal orders and agree with the evaluation and treatment provided.Attachments: 12/31 16:56 [facility] Payment Agreement b 01/01 11:41 T-Sheet-- Draft Copy gb Chart Complete MTDD
== END 2016-12-31 17:31 | disposition home or self-care (01) ==
LOC: M ED 14:30
DX: S50.02XA Contusion of left elbow, initial encounter (principal); S70.12XA Contusion of left thigh, initial encounter; S80.02XA Contusion of left knee, initial encounter; S83.92XA Sprain of unspecified site of left knee, initial encounter; W00.0XXA Fall on same level due to ice and snow, initial encounter; Y92.018 Other place in single-family (private) house as the place of occurrence of the external cause; Y93.89 Activity, other specified; Y99.8 Other external cause status; I25.10 Atherosclerotic heart disease of native coronary artery without angina pectoris; E78.00 Pure hypercholesterolemia, unspecified; M79.7 Fibromyalgia; D68.62 Lupus anticoagulant syndrome; M06.9 Rheumatoid arthritis, unspecified; Z85.89 Personal history of malignant neoplasm of other organs and systems; Z79.899 Other long term (current) drug therapy; Z79.01 Long term (current) use of anticoagulants; Z88.2 Allergy status to sulfonamides; Z88.6 Allergy status to analgesic agent

== ENCOUNTER 2017-01-16 18:24 | Emergency (ER) | payer OTHER ==
[~2017-01-16] VITALS: Ht 167.6 cm; Wt 113.4 kg
[2017-01-16] MEDS ORDERED: AUGM875T27 PO (18:52)
[2017-01-16] MEDS ORDERED: MORPHINE 4 MG/ML 1ML SYRINGE IV ONE ×2 (19:45→22:15)
[2017-01-16] MEDS ORDERED: KETOROLAC 30 MG/ML VIAL (J1885) IV ONE (19:45)
[2017-01-16] MEDS ORDERED: ONDANSETRON 4MG/2ML VIAL (J2405) IV ONE (19:45)
[2017-01-16 19:47] LABS: BASO % 0.7 % (0.0-1.0); EOS # 0.2 K/mm3 (0.0-0.50); EOS % 6.7 % (0.0-3.0); LARGE UNSTAINED CELL # 0.1 K/mm3 (0.0-0.4); LARGE UNSTAINED CELL % 2.2 % (0.0-4.0); LYMPH % 24.1 % (24.0-44.0); MEAN CORPUSCULAR HEMOGLOBIN 29.1 pg (27.0-33.0); MEAN CORPUSCULAR HGB CONC 32.9 g/dl (32.0-36.5); MEAN CORPUSCULAR VOLUME 88.4 fl (80.0-96.0); MONO # 0.2 K/mm3 (0.0-0.8); MONO % 5.9 % (0.0-5.0); NEUTROPHILS # 2.3 K/mm3 (1.8-7.7); NEUTROPHILS % 60.4 % (36.0-66.0); PLATELET COUNT, AUTOMATED 173 k/mm3 (150-450); RED CELL DISTRIBUTION WIDTH 14.6 % (11.5-14.5); WHITE BLOOD COUNT 3.8 K/mm3 (4.0-10.0)
--- NOTE | 2017-01-16 19:52 | ECGEPIP ---
Stationary ECG Study [facility] - ED Test Date: 2017-01-16 Pat Name: ACOSTA ALBRIGHT Department: Room: - Gender: F Book Author: lucian : 1970 Requested By: Mimi Rosales Order Number: [id number] Reading MD: Ellis Campbell Measurements Intervals [place] Rate: 71 P: 5 IN: 156 QRS: 31 QRSD: 93 T: 30 QT: 366 QTc: 400 Interpretive Statements SINUS RHYTHM EARLY REPOLARIZATION POSSIBLE PRIOR INFERIOR INFARCT SIMILAR TO 10/30/16 Electronically Signed On 01-16-2017 19:52:07 EST by Ellis Campbell
[2017-01-16 20:54] LABS: ANION GAP 6 MEQ/L (8-16); BLOOD UREA NITROGEN 13 MG/DL (7-18); CALCIUM LEVEL 9.1 MG/DL (8.5-10.1); CARBON DIOXIDE LEVEL 28 MEQ/L (21-32); CHLORIDE LEVEL 110 MEQ/L (98-107); CREATININE FOR GFR 0.76 MG/DL (0.55-1.02); GLOMERULAR FILTRATION RATE > 60.0 (>58); GLUCOSE, FASTING 102 MG/DL (70-105); POTASSIUM SERUM 4.3 MEQ/L (3.5-5.1); SODIUM LEVEL 144 MEQ/L (136-145)
[2017-01-16] MEDS ORDERED: OXYCODONE/APAP 5MG/325MG(BULK) 1 TAB TAB PO ONE (22:15)
[2017-01-16] MEDS ORDERED: PERC5TAB6 PO (22:31)
[2017-01-16] MEDS ORDERED: NAPR500T PO (22:31)
[2017-01-16 23:05] VITALS: BP 127/63
--- NOTE | 2017-01-17 07:26 | REP ---
AP PORTABLE CHEST: 01/16/2017 COMPARISON: 10/30/2016, 10/06/2013. CLINICAL HISTORY: 46-year-old female with chest pain. FINDINGS: Lung mariano are marginally adequate in the degree of inflation. There is no pleural effusion or definite infiltrate. No pleural thickening apical scarring or pneumothorax. Heart size not enlarged for portable technique and this degree of inflation. There is no vascular redistribution or pulmonary edema. No definite consolidation or mass. Bones intact. IMPRESSION: 1. Borderline degree of inflation but otherwise negative portable chest. No cardiomegaly, edema, effusion or visible infiltrate. Signed by Erick Castellon MD 01/17/2017 04:22 P
== END 2017-01-16 23:20 | disposition home or self-care (01) ==
LOC: EDBD 18:24 → M ED 19:54
DX: R07.89 Other chest pain (principal); Z88.6 Allergy status to analgesic agent; Z79.899 Other long term (current) drug therapy; Z88.2 Allergy status to sulfonamides; Z88.8 Allergy status to other drugs, medicaments and biological substances; Z95.5 Presence of coronary angioplasty implant and graft; D86.9 Sarcoidosis, unspecified; Z87.442 Personal history of urinary calculi; D64.9 Anemia, unspecified; F41.9 Anxiety disorder, unspecified; F32.9 Major depressive disorder, single episode, unspecified
CPT/HCPCS: 36415; 71010; 80048; 82550; 82553; 85025; 93005; 93041; 94760; 96374; 96375; 96376; 99285; J1885; J2405

== ENCOUNTER 2017-01-28 20:47 | Emergency (ER) | payer OTHER ==
[~2017-01-28] VITALS: Ht 165.1 cm; Wt 111.1 kg
[~2017-01-28 20:47] MED LIST changes: +AUGM875T27 PO; +NAPR500T PO; +PERC5TAB6 PO
[2017-01-28] MEDS ORDERED: AMBI10TA PO (21:25)
[2017-01-29] MEDS ORDERED: NORCO 5/325MG TABLET (BULK) PO ONE (01:00)
[2017-01-29 01:07] VITALS: BP 170/75
== END 2017-01-29 01:24 | disposition home or self-care (01) ==
LOC: M ED 22:40
DX: G56.03 Carpal tunnel syndrome, bilateral upper limbs (principal); I25.10 Atherosclerotic heart disease of native coronary artery without angina pectoris; Z95.5 Presence of coronary angioplasty implant and graft; Z79.02 Long term (current) use of antithrombotics/antiplatelets

== ENCOUNTER → 2017-02-07 | Outpatient (CLI) | payer OTHER, MEDICAID ==
[~2017-02-07] MED LIST changes: +AMBI10TA PO; +BUPIVACAINE HCL 0.25% 10 ML VIAL As Ordered ONE; +BUPIVACAINE HCL 0.25% 30 ML VIAL As Ordered ONE; +TRIAMCINOLONE ACETONIDE SUSP 40 MG/ML VIAL (J3301) As Ordered ONE
--- NOTE | 2017-02-12 01:58 | ECWPNPC ---
PATIENT NAME: ACOSTA ALBRIGHT : 1970 GENDER: FEMALE VISIT DATE: 02/07/2017 DISCHARGE DATE: 02/07/17 1354 VISIT LOCKED DATE TIME: PHYSICIAN: LUIS JAIMES RESOURCE: LUIS JAIMES REASON FOR APPOINTMENT 1. TPI, NECK AND SHOULDER HISTORY OF PRESENT ILLNESS HISTORY OF PRESENT ILLNESS: PAIN THE PATIENT DESCRIBES THE PAIN... FALL RISK SCREENING: SCREENING :NO FALLS IN THE PAST YEAR CURRENT MEDICATIONS TAKING ASTELIN 137 MCG/SPRAY SOLUTION 1 SPRAY IN EACH NOSTRIL NASALLY TWICE A DAY, NOTES: 02-06-172099 TAKING PLAVIX 75 MG TABLET 1 TABLET ORALLY ONCE A DAY/DR FERRIS, NOTES: 02-01-172129 TAKING ZOCOR 20 20MG TABLET 1 TABLET ORALLY DAILY AT BEDTIME, NOTES: 02-06-172099 TAKING CITALOPRAM HYDROBROMIDE 40MG TABLET 1 TABLET ORALLY ONCE A DAY, NOTES: 02-07-17729 TAKING EPIPEN 2-GISELL 0.3 MG/0.3ML (1:1000) DEVICE INJECTION INTRAMUSCULAR 1 TIME NEEDED FOR ANGIOEDEMA REACTION TAKING TRAZODONE HCL 150 MG TABLET 1 TABLET AT BEDTIME NEEDED ORALLY ONCE A DAY, NOTES: 02-06-172099 TAKING AMBIEN 10 MG TABLET 1 TAB ORAL AT BEDTIME, NOTES: FEW NIGHTS AGO TAKING MOTRIN 200 MG TABLET 2 TABLETS NEEDED ORALLY 2-3 TIMES DAILY, NOTES: 02-07-17729 TAKING RANITIDINE HCL 150 MG CAPSULE 1 CAPSULE ORALLY TWICE A DAY, NOTES: 02-07-17729 TAKING TIZANIDINE HCL 4 MG TABLET 1 TABLET NEEDED ORALLY EVERY 8 HRS, NOTES: 02-06-172099 TAKING GABAPENTIN 300 MG CAPSULE 1 CAPSULE ORALLY TWICE A DAY, NOTES: 02-06-172099 TAKING ALBUTEROL SULFATE HFA 108 (90 BASE) MCG/ACT AEROSOL SOLUTION 2 PUFFS NEEDED INHALATION EVERY 4 HRS, NOTES: NONE RECENT TAKING OMEPRAZOLE 40 MG CAPSULE DELAYED RELEASE 1 CAPSULE ORALLY ONCE A DAY, NOTES: 02-07-17729 TAKING FOLIC ACID 1 MG TABLET 1 TABLET ORALLY ONCE A DAY, NOTES: MONTHS TAKING MAGNESIUM 400 MG TABLET 1 TAB(S) ORALLY ONCE DAILY NOT-TAKING LORATADINE 10 MG TABLET 1 TABLET ORALLY ONCE A DAY DISCONTINUED SUMATRIPTAN SUCCINATE 100 MG TABLET 1 TABLET ORALLY TWICE A DAY NEEDED FOR MIGRAINES MAX HEADACHES 15 PER MONTH DISCONTINUED AMOXICILLIN-POT CLAVULANATE 875-125 MG TABLET 1 TABLET ORALLY EVERY 12 HRS DISCONTINUED MUCINEX 600 MG TABLET EXTENDED RELEASE 12 HOUR 1 TABLET NEEDED ORALLY EVERY 12 HRS DISCONTINUED REQUIP 0.25 MG TABLET 1 TAB ORALLY 30 MINUTES BEFORE BEDTIME DISCONTINUED [employer] IRON 325 (65 FE) MG TABLET 1 TABLET ORALLY ONCE A DAY DISCONTINUED ZOFRAN 4 MG TABLET 1 TABLET ORALLY 4X/DAY NEEDED DISCONTINUED FLOMAX 0.4 MG CAPSULE 1 CAPSULE ORALLY ONCE A DAY DISCONTINUED OXYCODONE HCL 5 MG TABLET 1 TABLET ORALLY EVERY 6-8 HRS PRN PAIN MDD=3 DISCONTINUED NORCO 5-325 MG TABLET 1 TABLET ORALLY TAKE 1 TAB DAILY PRN PAIN MDD=1 DISCONTINUED TOPAMAX 100 MG TABLET 1/2 TABLET ORALLY ONCE A DAY (CHUN) DISCONTINUED PERCOCET 5-325 MG TABLET 1 TABLET NEEDED ORALLY EVERY 6 HRS MEDICATION LIST REVIEWED AND RECONCILED WITH THE PATIENT PAST MEDICAL HISTORY HYPERLIPIDEMIA CAROTID ATHEROSCLEROSIS -- FOLLOWS WITH DR. 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 NO . CHILLS NO . FEVER NO . INFECTION: DO YOU HAVE NEW INFECTIONS? NO . DO YOU HAVE HISTORY OF MRSA? NO . MUSCULOSKELETAL: ANY NEW PATTERNS OF PAIN OR NUMBNESS? NO . GASTROENTEROLOGY: ANY NEW CHANGE IN BOWEL CONTROL? NO . GENITOURINARY: ANY NEW CHANGE IN BLADDER CONTROL? NO . IS THERE A CHANCE YOU COULD BE ? NO . HEMATOLOGY/LYMPH: DO YOU TAKE ANY BLOOD THINNERS? (FOR EXAMPLE- COUMADIN, PLAVIX, AGGRENOX, PLATEL, PRADAXA, OR XARELTO) YES, PLAVIX . WHEN WAS YOUR LAST DOSE? DATE: TIME: 02-01-17 @ 9:30 PM . NEUROLOGY: HAVE YOU FALLEN IN THE PAST 6 MONTHS? NO . ANY NEW EXTREMITY NUMBNESS OR WEAKNESS? NO . CARDIOLOGY: DO YOU HAVE A PACEMAKER OR DEFIBRILLATOR? NO . RESPIRATORY: HAVE YOU BEEN SICK IN THE PAST WEEK? NO . FEVER NO . FLU LIKE SYMPTOMS? NO . COUGH NO . INTEGUMENTARY: DO YOU HAVE ANY RASHES OR OPEN SORES? NO . ALLERGIC/IMMUNO: ARE YOU ALLERGIC TO SHELLFISH OR IV DYE? NO . ANY NEW ALLERGIES? NO . PSYCHIATRIC: DO YOU HAVE THOUGHTS OF HURTING YOURSELF OR SOMEONE ELSE? NO . ARE YOU ABUSED, NEGLECTED, OR IN AN UNSAFE ENVIRONMENT? NO . ENDOCRINOLOGY: ARE YOU DIABETIC? NO . OTHER: DO YOU NEED ANY PRESCRIPTIONS? NO . IF YES, PLEASE LIST: ____ . ANY NEW PROBLEMS WITH YOUR MEDICATIONS? NO . WHEN DID YOU LAST EAT? 02-06-17 730 PM . WHEN DID YOU LAST DRINK? 02-07-17 0730 . WHAT DID YOU LAST DRINK? WATER . NAME OF PERSON DRIVING YOU HOME? REYNA NELSON . DO YOU HAVE ANY OTHER QUESTIONS OR CONCERNS NO . REVIEWED BY: PROVIDER: . VITAL SIGNS WT 267.8 LBS, HT 66 IN, BMI 43.22 INDEX, BP 169/94 MM HG, HR 70 /MIN, RR 16 /MIN, TEMP 97.9 F, OXYGEN SAT % 97%, NA INITIALS SC 11:53, REVIEWED BY: CM. ASSESSMENTS MYALGIA - M79.1 (PRIMARY) PROCEDURES PN TRIGGER POINT INJECTION WITH STEROIDS PRE PROCEDURE DIAGNOSIS 1. MYALGIA 2. PAIN AT BILATERAL NECK AREA, BILATERAL SHOULDER AREA, AND BILATERAL LOWER BACK AREA. POST PROCEDURE DIAGNOSIS 1. MYALGIA 2. PAIN AT BILATERAL NECK AREA, BILATERAL SHOULDER AREA, AND BILATERAL LOWER BACK AREA. PROCEDURE TRIGGER POINT INJECTION AT BILATERAL NECK AREA, BILATERAL SHOULDER AREA, AND BILATERAL LOWER BACK AREA. SURGEON DR. LUIS JAIMES PRIMARY OPERATOR NONE ANESTHESIA LOCAL PRE PROCEDURE NOTE THE PATIENT HAS A HISTORY OF CHRONIC PAIN AT THE RIGHT AND LEFT NECK AREA, RIGHT AND LEFT SHOULDER AREA, AND RIGHT AND LEFT LOW BACK AREA. I EVALUATE THE PATIENT AND REVIEWED THE CHART. THERE IS EVIDENCE OF BANDS OF TISSUE WITH RESTRICTION OF MOVEMENT AND PRESENCE OF TRIGGER POINT AT THE AFFECTED AREA. I WENT OVER THE RISKS, ALTERNATIVES, AND BENEFITS ASSOCIATED WITH THIS PROCEDURE. THE PATIENT WOULD LIKE TO PROCEED AND GIVE CONSENT TO PERFORMED THE PROCEDURE. THE PATIENT DENIES UNEXPLAINABLE WEIGHT LOSS, FEVER, CHILLS, OR NEW CHANGES IN URINARY OR BOWEL CONTROL DESCRIPTION OF PROCEDURE THE PATIENT WAS BROUGHT TO THE PROCEDURE ROOM AND PLACED IN THE SITTING POSITION. THE AREA WAS CLEANED WITH ALCOHOL. THE PROCEDURE WAS DONE USING ASEPTIC STERILE TECHNIQUE. I CHECKED LATERALITY AND THE LEVEL WHERE THE PROCEDURE WAS GOING TO BE PERFORMED WITH THE PATIENT AND THE SUPPORTING STAFF AT THE MOMENT OF THE TIME OUT IN THE PROCEDURE ROOM. USING A 25-GAUGE NEEDLE, TRIGGER POINTS WERE INJECTED AT THE RIGHT AND LEFT NECK AREA, RIGHT AND LEFT SHOULDER AREA, AND RIGHT AND LEFT LOW BACK AREA WITH A TOTAL OF 40 ML OF BUPIVACAINE 0.25% AND KENALOG 40 MG. THERE WAS NO EVIDENCE OF BLOOD, PARESTHESIA OR CEREBROSPINAL FLUID DURING THE PROCEDURE. THE PATIENT WAS SENT TO THE RECOVERY ROOM. THE PATIENT WAS MOVING THE EXTREMITIES AND DOING WELL. THERE WAS NO COMPLICATION DURING THE PROCEDURE POST PROCEDURE NOTE THE PATIENT WILL BE SEEN IN A FOLLOW UP IN THE NEXT FEW WEEKS. INSTRUCTIONS WERE GIVEN, QUESTIONS WERE ANSWERED, AND THE PATIENT EXPRESSED UNDERSTANDING AND AGREES WITH THE PLAN. I, JELANI SO, DOCUMENTED THE ABOVE INFORMATION ACTING A SCRIBE FOR DR. JAIMES. I HAVE REVIEWED THE ABOVE DOCUMENT, WRITTEN BY JELANI SARMIENTOIBRaissa AND I VERIFY THAT IT IS ACCURATE PROCEDURE CODES 67503 INJECT TRIGGER POINTS 3/> DISPOSITION & COMMUNICATION FOLLOW UP 3 WEEKS ELECTRONICALLY SIGNED BY LUIS JAIMES MD ON 02/11/2017 AT 06:00 PM EDT DISCLAIMER : THIS IS A VISIT SUMMARY EXTRACTED FROM THE [employer] CHART. IT IS NOT A COPY OF THE [employer] PROGRESS NOTE. VIVEK
== END ==
LOC: M PAIN 11:40
PROVIDERS: ATTEND Anesthesiology
DX: G89.29 Other chronic pain (principal); M79.1 Myalgia; M54.2 Cervicalgia; M25.511 Pain in right shoulder; M25.512 Pain in left shoulder; M54.5 Low back pain; E78.5 Hyperlipidemia, unspecified; I65.29 Occlusion and stenosis of unspecified carotid artery; M32.9 Systemic lupus erythematosus, unspecified; G47.33 Obstructive sleep apnea (adult) (pediatric); M17.0 Bilateral primary osteoarthritis of knee; Z88.2 Allergy status to sulfonamides; Z88.8 Allergy status to other drugs, medicaments and biological substances; Z88.6 Allergy status to analgesic agent; Z91.030 Bee allergy status; Z79.01 Long term (current) use of anticoagulants; Z79.899 Other long term (current) drug therapy
CPT/HCPCS: 20553; J3301

== ENCOUNTER → 2017-02-27 | Outpatient (REF) | payer OTHER, MEDICAID ==
[~2017-02-27] MED LIST changes: -BUPIVACAINE HCL 0.25% 10 ML VIAL As Ordered ONE; -BUPIVACAINE HCL 0.25% 30 ML VIAL As Ordered ONE; +GABA-282 PO; -GABA300C3 PO; -TRIAMCINOLONE ACETONIDE SUSP 40 MG/ML VIAL (J3301) As Ordered ONE
[2017-02-27 18:19] LABS: MEAN CORPUSCULAR HGB CONC 32.8 g/dl (32.0-36.5); MEAN CORPUSCULAR VOLUME 88.6 fl (80.0-96.0); RED CELL DISTRIBUTION WIDTH 14.7 % (11.5-14.5)
[2017-02-27 19:05] LABS: ALBUMIN 3.8 GM/DL (3.2-5.2); ALBUMIN/GLOBULIN RATIO 1.36 (1.00-1.93); ALKALINE PHOSPHATASE 84 U/L (45-117); ALT/SGPT 24 U/L (12-78); ANION GAP 6 MEQ/L (8-16); AST/SGOT 18 U/L (15-37); BILIRUBIN,TOTAL 0.4 MG/DL (0.2-1.0); BLOOD UREA NITROGEN 19 MG/DL (7-18); CALCIUM LEVEL 9.9 MG/DL (8.5-10.1); CARBON DIOXIDE LEVEL 28 MEQ/L (21-32); CHLORIDE LEVEL 109 MEQ/L (98-107); CREATININE FOR GFR 0.84 MG/DL (0.55-1.02); GLOMERULAR FILTRATION RATE > 60.0 (>58); GLUCOSE, FASTING 87 MG/DL (70-105); POTASSIUM SERUM 4.5 MEQ/L (3.5-5.1); SODIUM LEVEL 143 MEQ/L (136-145); TOTAL PROTEIN 6.6 GM/DL (6.4-8.2)
== END ==
LOC: M SFHCLERA 13:34
PROVIDERS: ATTEND Family Medicine
DX: Z87.39 Personal history of other diseases of the musculoskeletal system and connective tissue (principal)

== ENCOUNTER → 2017-02-28 | Outpatient (CLI) | payer OTHER ==
--- NOTE | 2017-02-28 16:03 | REPMRS ---
Patient History The patient states she has not had a clinical breast exam in over a year. Patient has history of other cancer at age 2. Family history of unknown cancer in father at age 48, unknown cancer in mother at age 50 or over, and breast cancer in maternal aunt. Took hormonal contraceptives for 2 years. Digital Mammo Screening Bilat: February 28, 2017 - Exam #: [id number] Bilateral CC and MLO view(s) were taken. Technologist: Marielos Bro, Technologist Prior study comparison: February 13, 2016, digital bilateral screening mammo, performed at [facility]. October 29, 2014, bilateral digital mammo screening bilat performed at [facility]. FINDINGS: There are scattered fibroglandular densities. There has been no change in the appearance of the mammogram from the prior studies. There is a mild amount of residual fibroglandular tissue which is fairly symmetric. There is no interval development of dominant mass, architectural distortion, or clustered microcalcification suggestive of malignancy. ASSESSMENT: BI-RADS/ACR category 1 mammogram. Negative. Recommendation Routine screening mammogram in 1 year (for women over age 40). This mammogram was interpreted with the aid of an FDA-approved computer-aided dectection system. Electronically Signed By: Mason Jade MD 02/28/17 [id number]
== END ==
LOC: M RAD 09:25
PROVIDERS: ATTEND Family Medicine
DX: Z12.31 Encounter for screening mammogram for malignant neoplasm of breast (principal)

== ENCOUNTER → 2017-03-06 | Outpatient (CLI) | payer OTHER, MEDICAID ==
--- NOTE | 2017-03-21 01:07 | ECWPNPC ---
PATIENT NAME: ACOSTA ALBRIGHT : 1970 GENDER: FEMALE VISIT DATE: 03/06/2017 DISCHARGE DATE: 03/06/17 1128 VISIT LOCKED DATE TIME: PHYSICIAN: TABITHA MCCOLLUM RESOURCE: TABITHA MCCOLLUM REASON FOR APPOINTMENT 1. POST PROC, NECK AND BACK HISTORY OF PRESENT ILLNESS HISTORY OF PRESENT ILLNESS: PAIN THE PATIENT DESCRIBES THE PAIN... FALL RISK SCREENING: SCREENING :NO FALLS IN THE PAST YEAR TODAY'S VISIT: NOTES: RATES PAIN TODAY 07/28. IS S/P TPI TONECK/SHOULDER AND LOW BACK ON 02/07/17 WITH SOME DECREASE IN PAIN IN NECK AND SHOULDER AREAS FOR 2 WEEKS. NOTED NO IMPROVEMENT IN LOW BACK. HAD A FLAIR OF SEVERE LUNG PAIN - WAS BROUGHT TO ER BY AMBULANCE. IS TRYING TO GET INTO [facility] FOR NEUROLOGY AND RHEUM.WAS HAVING MORE PAIN IN LEFT HIPAND BACK AND LEG. . CURRENT MEDICATIONS TAKING ASTELIN 137 MCG/SPRAY SOLUTION 1 SPRAY IN EACH NOSTRIL NASALLY TWICE A DAY TAKING PLAVIX 75 MG TABLET 1 TABLET ORALLY ONCE A DAY/DR FERRIS TAKING ZOCOR 20 20MG TABLET 1 TABLET ORALLY DAILY AT BEDTIME TAKING CITALOPRAM HYDROBROMIDE 40MG TABLET 1 TABLET ORALLY ONCE A DAY TAKING EPIPEN 2-GISELL 0.3 MG/0.3ML (1:1000) DEVICE INJECTION INTRAMUSCULAR 1 TIME NEEDED FOR ANGIOEDEMA REACTION TAKING TRAZODONE HCL 150 MG TABLET 1 TABLET AT BEDTIME NEEDED ORALLY ONCE A DAY TAKING AMBIEN 10 MG TABLET 1 TAB ORAL AT BEDTIME, NOTES: FEW NIGHTS AGO TAKING MOTRIN 200 MG TABLET 2 TABLETS NEEDED ORALLY 2-3 TIMES DAILY TAKING TIZANIDINE HCL 4 MG TABLET 1 TABLET NEEDED ORALLY EVERY 8 HRS TAKING GABAPENTIN 300 MG CAPSULE 1 CAPSULE ORALLY TWICE A DAY TAKING ALBUTEROL SULFATE HFA 108 (90 BASE) MCG/ACT AEROSOL SOLUTION 2 PUFFS NEEDED INHALATION EVERY 4 HRS, NOTES: NONE RECENT TAKING OMEPRAZOLE 40 MG CAPSULE DELAYED RELEASE 1 CAPSULE ORALLY ONCE A DAY TAKING FOLIC ACID 1 MG TABLET 1 TABLET ORALLY ONCE A DAY, NOTES: MONTHS TAKING MAGNESIUM 400 MG TABLET 1 TAB(S) ORALLY ONCE DAILY TAKING KLONOPIN 0.5 MG TABLET 1 TABLET ORALLY TWICE A DAY TAKING SUMATRIPTAN SUCCINATE 25 MG TABLET 1 TABLET NEEDED ORALLY ONCE A DAY PRN 0.5 TAB AND IF NEEDED FULL TAB TAKING RANITIDINE HCL 150 MG CAPSULE 1 CAPSULE ORALLY TWICE A DAY NOT-TAKING LORATADINE 10 MG TABLET 1 TABLET ORALLY ONCE A DAY MEDICATION LIST REVIEWED AND RECONCILED WITH THE PATIENT PAST MEDICAL HISTORY HYPERLIPIDEMIA CAROTID ATHEROSCLEROSIS -- FOLLOWS WITH DR. 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NO PFS REFERRAL NEEDED?NO PUBLIC HEALTH REFERRAL NEEDED?NO PATIENT: ____. REVIEW OF SYSTEMS CONSTITUTIONAL: ANY CHANGE IN YOUR MEDICAL CONDITION? NO . CHILLS NO . FEVER NO . INFECTION: DO YOU HAVE NEW INFECTIONS? NO . DO YOU HAVE HISTORY OF MRSA? NO . MUSCULOSKELETAL: ANY NEW PATTERNS OF PAIN OR NUMBNESS? NO . GASTROENTEROLOGY: ANY NEW CHANGE IN BOWEL CONTROL? NO . GENITOURINARY: ANY NEW CHANGE IN BLADDER CONTROL? NO . IS THERE A CHANCE YOU COULD BE ? NO . HEMATOLOGY/LYMPH: DO YOU TAKE ANY BLOOD THINNERS? (FOR EXAMPLE- COUMADIN, PLAVIX, AGGRENOX, PLATEL, PRADAXA, OR XARELTO) NO . WHEN WAS YOUR LAST DOSE? DATE: TIME: . NEUROLOGY: HAVE YOU FALLEN IN THE PAST 6 MONTHS? NO . ANY NEW EXTREMITY NUMBNESS OR WEAKNESS? NO . CARDIOLOGY: DO YOU HAVE A PACEMAKER OR DEFIBRILLATOR? NO . RESPIRATORY: HAVE YOU BEEN SICK IN THE PAST WEEK? NO . FEVER NO . FLU LIKE SYMPTOMS? NO . COUGH NO . INTEGUMENTARY: DO YOU HAVE ANY RASHES OR OPEN SORES? NO . ALLERGIC/IMMUNO: ARE YOU ALLERGIC TO SHELLFISH OR IV DYE? NO . ANY NEW ALLERGIES? NO . PSYCHIATRIC: DO YOU HAVE THOUGHTS OF HURTING YOURSELF OR SOMEONE ELSE? NO . ARE YOU ABUSED, NEGLECTED, OR IN AN UNSAFE ENVIRONMENT? NO . ENDOCRINOLOGY: ARE YOU DIABETIC? NO . OTHER: DO YOU NEED ANY PRESCRIPTIONS? NO . IF YES, PLEASE LIST: ____ . ANY NEW PROBLEMS WITH YOUR MEDICATIONS? NO . WHEN DID YOU LAST EAT? ____ . WHEN DID YOU LAST DRINK? ____ . WHAT DID YOU LAST DRINK? ____ . NAME OF PERSON DRIVING YOU HOME? ____ . DO YOU HAVE ANY OTHER QUESTIONS OR CONCERNS NO . REVIEWED BY: PROVIDER: TABITHA REILLY . VITAL SIGNS WT 263.2 LBS, HT 66 IN, BMI 42.48 INDEX, BP 138/71 MM HG, HR 68 /MIN, RR 18 /MIN, TEMP 98.0 F, OXYGEN SAT % 94%, NA INITIALS SC 10:56, REVIEWED BY: KG. EXAMINATION GENERAL EXAMINATION: GENERAL APPEARANCE:NO ACUTE DISTRESS, WELL NOURISHED AND HYDRATED. LUNGS:CLEAR TO AUSCULTATION BILATERALLY, NO WHEEZES, RHONCHI, RALES. HEART:NO MURMURS, REGULAR RATE AND RHYTHM. MUSCULOSKELETAL:TRIGGER POINTS AND TIGHT FIBROUS BANDS PRESENT BUT WITH LESS RESTRICTION IN ROM OVER SHOULDERS AND NECK, LEFT > RIGHT.. EXTREMITIES:NO CLUBBING, NO EDEMA. NEUROLOGIC EXAM:INTACT, NO DEFICITS. ASSESSMENTS MYALGIA - M79.1 (PRIMARY) LEFT SHOULDER PAIN - M25.512 LUMBAGO WITH SCIATICA, LEFT SIDE - M54.42 OTHER CHRONIC PAIN - G89.29 LUMBAR BACK PAIN WITH RADICULOPATHY AFFECTING LEFT LOWER EXTREMITY - M54.17 TREATMENT MYALGIA [facility] MRI SPINE, L.S. WITHOUT [id number],SUSAN M 03/06/2017 11:23:16 AM > LEFT LUMBAR RADICULOPATHY NOTES: KEEP WALKING. PROCEDURE CODES FA211 ESTABILISHED PATIENT [facility] CHARGE DISPOSITION & COMMUNICATION FOLLOW UP 1 MONTH ELECTRONICALLY SIGNED BY CINDA BUSTILLO ON 03/20/2017 AT 08:45 AM EDT DISCLAIMER : THIS IS A VISIT SUMMARY EXTRACTED FROM THE [employer] CHART. IT IS NOT A COPY OF THE [employer] PROGRESS NOTE. VIVEK
== END ==
LOC: M PAIN 10:40
PROVIDERS: ATTEND Nurse Practitioner Family
DX: G89.29 Other chronic pain (principal); M79.1 Myalgia; M25.512 Pain in left shoulder; M54.42 Lumbago with sciatica, left side; M54.17 Radiculopathy, lumbosacral region; E78.5 Hyperlipidemia, unspecified; I25.10 Atherosclerotic heart disease of native coronary artery without angina pectoris; G43.909 Migraine, unspecified, not intractable, without status migrainosus; M32.9 Systemic lupus erythematosus, unspecified; G47.33 Obstructive sleep apnea (adult) (pediatric); M17.0 Bilateral primary osteoarthritis of knee; Z88.2 Allergy status to sulfonamides; Z88.6 Allergy status to analgesic agent; Z88.8 Allergy status to other drugs, medicaments and biological substances; Z91.030 Bee allergy status; Z79.899 Other long term (current) drug therapy

== ENCOUNTER → 2017-03-28 | Outpatient (REF) | payer OTHER ==
[2017-03-28 10:34] LABS: BASO % 0.5 % (0.0-1.0); EOS # 0.1 K/mm3 (0.0-0.50); EOS % 3.5 % (0.0-3.0); LARGE UNSTAINED CELL # 0.1 K/mm3 (0.0-0.4); LARGE UNSTAINED CELL % 1.8 % (0.0-4.0); LYMPH % 31.8 % (24.0-44.0); MEAN CORPUSCULAR HEMOGLOBIN 29.6 pg (27.0-33.0); MEAN CORPUSCULAR HGB CONC 33.1 g/dl (32.0-36.5); MEAN CORPUSCULAR VOLUME 89.5 fl (80.0-96.0); MONO # 0.2 K/mm3 (0.0-0.8); MONO % 5.7 % (0.0-5.0); NEUTROPHILS # 1.7 K/mm3 (1.8-7.7); NEUTROPHILS % 56.7 % (36.0-66.0); PLATELET COUNT, AUTOMATED 149 k/mm3 (150-450); RED CELL DISTRIBUTION WIDTH 14.5 % (11.5-14.5); WHITE BLOOD COUNT 2.9 K/mm3 (4.0-10.0)
[2017-03-28 11:56] LABS: ERYTHROCYTE SEDIMENTATION RATE 7 mm/hr (0-20)
[2017-03-30 00:06] LABS: Lyme Disease IgG/IgM Antibodie <0.91 ISR (0.00-0.90); Lyme Disease IgM Ab Quantitati <0.80 index (0.00-0.79)
== END ==
LOC: M LABDRAW1 09:23
PROVIDERS: ATTEND Orthopaedic Surgery
DX: G56.03 Carpal tunnel syndrome, bilateral upper limbs (principal)

== ENCOUNTER → 2017-04-05 | Outpatient (CLI) | payer OTHER, MEDICAID ==
--- NOTE | 2017-04-23 00:26 | ECWPNPC ---
PATIENT NAME: ACOSTA ALBRIGHT : 1970 GENDER: FEMALE VISIT DATE: 04/05/2017 DISCHARGE DATE: 04/05/17 1201 VISIT LOCKED DATE TIME: PHYSICIAN: TABITHA MCCOLLUM RESOURCE: TABITHA MCCOLLUM REASON FOR APPOINTMENT 1. SHOULDER/NECK /BACK HISTORY OF PRESENT ILLNESS HISTORY OF PRESENT ILLNESS: PAIN THE PATIENT DESCRIBES THE PAIN... FALL RISK SCREENING: SCREENING :NO FALLS IN THE PAST YEAR CURRENT MEDICATIONS TAKING ASTELIN 137 MCG/SPRAY SOLUTION 1 SPRAY IN EACH NOSTRIL NASALLY TWICE A DAY TAKING PLAVIX 75 MG TABLET 1 TABLET ORALLY ONCE A DAY/DR FERRIS TAKING ZOCOR 20 20MG TABLET 1 TABLET ORALLY DAILY AT BEDTIME TAKING CITALOPRAM HYDROBROMIDE 40MG TABLET 1 TABLET ORALLY ONCE A DAY TAKING EPIPEN 2-GISELL 0.3 MG/0.3ML (1:1000) DEVICE INJECTION INTRAMUSCULAR 1 TIME NEEDED FOR ANGIOEDEMA REACTION TAKING TRAZODONE HCL 150 MG TABLET 1 TABLET AT BEDTIME NEEDED ORALLY ONCE A DAY TAKING AMBIEN 10 MG TABLET 1 TAB ORAL AT BEDTIME, NOTES: FEW NIGHTS AGO TAKING MOTRIN 200 MG TABLET 2 TABLETS NEEDED ORALLY 2-3 TIMES DAILY TAKING TIZANIDINE HCL 4 MG TABLET 1 TABLET NEEDED ORALLY EVERY 8 HRS TAKING ALBUTEROL SULFATE HFA 108 (90 BASE) MCG/ACT AEROSOL SOLUTION 2 PUFFS NEEDED INHALATION EVERY 4 HRS, NOTES: NONE RECENT TAKING OMEPRAZOLE 40 MG CAPSULE DELAYED RELEASE 1 CAPSULE ORALLY ONCE A DAY TAKING FOLIC ACID 1 MG TABLET 1 TABLET ORALLY ONCE A DAY, NOTES: MONTHS TAKING MAGNESIUM 400 MG TABLET 1 TAB(S) ORALLY ONCE DAILY TAKING KLONOPIN 0.5 MG TABLET 1 TABLET ORALLY TWICE A DAY TAKING SUMATRIPTAN SUCCINATE 25 MG TABLET 1 TABLET NEEDED ORALLY ONCE A DAY PRN 0.5 TAB AND IF NEEDED FULL TAB TAKING RANITIDINE HCL 150 MG CAPSULE 1 CAPSULE ORALLY TWICE A DAY TAKING GABAPENTIN 300 MG CAPSULE 1 CAPSULE ORALLY TWICE A DAY NOT-TAKING LORATADINE 10 MG TABLET 1 TABLET ORALLY ONCE A DAY MEDICATION LIST REVIEWED AND RECONCILED WITH THE PATIENT PAST MEDICAL HISTORY HYPERLIPIDEMIA CAROTID ATHEROSCLEROSIS -- FOLLOWS WITH DR. 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, RADIATION AND CHEMOTHERAPY BILATERAL TMJ HX OF MULTIPLE THYROID NODULES PROVEN NON-MALIGNANT HX ABNORMAL PAP SMEAR HX OF CHEST PAIN 2008 WITH NEGATIVE HEART CATHETERIZATION MIGRAINE HEADACHES LUPUS ANGIOEDEMA OBSTRUCTIVE SLEEP APNEA ARTHRITIS BOTH KNEES KIDNEY STONES ALLERGIES SULFA (FOR ALLERGY USE ONLY): HIVES: ALLERGY FLEXERIL: MIGAINES: ALLERGY ASPIRIN: UNKNOWN: ALLERGY HYDROXYCHLOROQUINE SULFATE: UNKNOWN: ALLERGY BEE STINGS: UNKNOWN: ALLERGY SURGICAL HISTORY CSECTION 1992 TROUBLE WAKING FROM ANESTHESIA AND HYPOXIA S/P ANESTHESIA 01/2015 TUBAL LIGATION 1994 HEART CATH WITHOUT STENT 2009 LEFT SIDED CAROTID STENT 09/2009 LEFT SIDED CAROTID BYPASS WITH HOMOGRAFT SECONDARY TO RE-OCCULUSION 05/2010 LASER CERVICAL SURGERY/BIOPSY SECONDARY TO ABNORMAL PAP L CARPAL TUNNEL 12/28/2013 HYSTERECTOMY WITHOUT SALPINGOOPHORECTOMY 01/2015 KIDNEY STONES REMOVED SEP 21, 2016 HOSPITALIZATION/MAJOR DIAGNOSTIC PROCEDURE CAROTID STENT 2008 LEFT SIDED CAROTID BYPASS WITH HOMOGRAFT SECONDARY TO RE-OCCULUSION 05/2010 MENTAL HEALTH 07/2015 REVIEW OF SYSTEMS CONSTITUTIONAL: ANY CHANGE IN YOUR MEDICAL CONDITION? NO . CHILLS NO . FEVER NO . INFECTION: DO YOU HAVE NEW INFECTIONS? NO . DO YOU HAVE HISTORY OF MRSA? NO . MUSCULOSKELETAL: ANY NEW PATTERNS OF PAIN OR NUMBNESS? YES, LEG BILAT PAIN IS NEW . PT STATES MORE LEG PAIN REGARDLESS OF ACTIVITY OR REST. PT STATES SHE WAS SUPPOSED TO HAVE MRI DONE BUT IT HASN'T BEEN SCHEDULED YET, PT NOT SURE WHY.&NBSP;. GASTROENTEROLOGY: ANY NEW CHANGE IN BOWEL CONTROL? NO . GENITOURINARY: ANY NEW CHANGE IN BLADDER CONTROL? NO . IS THERE A CHANCE YOU COULD BE ? NO . HEMATOLOGY/LYMPH: DO YOU TAKE ANY BLOOD THINNERS? (FOR EXAMPLE- COUMADIN, PLAVIX, AGGRENOX, PLATEL, PRADAXA, OR XARELTO) NO . WHEN WAS YOUR LAST DOSE? DATE: TIME: . NEUROLOGY: HAVE YOU FALLEN IN THE PAST 6 MONTHS? NO . ANY NEW EXTREMITY NUMBNESS OR WEAKNESS? NO . CARDIOLOGY: DO YOU HAVE A PACEMAKER OR DEFIBRILLATOR? NO . RESPIRATORY: HAVE YOU BEEN SICK IN THE PAST WEEK? NO . FEVER NO . FLU LIKE SYMPTOMS? NO . COUGH NO . INTEGUMENTARY: DO YOU HAVE ANY RASHES OR OPEN SORES? NO . ALLERGIC/IMMUNO: ARE YOU ALLERGIC TO SHELLFISH OR IV DYE? NO . ANY NEW ALLERGIES? NO . PSYCHIATRIC: DO YOU HAVE THOUGHTS OF HURTING YOURSELF OR SOMEONE ELSE? NO . ARE YOU ABUSED, NEGLECTED, OR IN AN UNSAFE ENVIRONMENT? NO . ENDOCRINOLOGY: ARE YOU DIABETIC? NO . OTHER: DO YOU NEED ANY PRESCRIPTIONS? NO. PT TO DISCUSS WITH Newton MCCOLLUM . IF YES, PLEASE LIST: ____ . ANY NEW PROBLEMS WITH YOUR MEDICATIONS? NO . WHEN DID YOU LAST EAT? ____ . WHEN DID YOU LAST DRINK? ____ . WHAT DID YOU LAST DRINK? ____ . NAME OF PERSON DRIVING YOU HOME? ____ . DO YOU HAVE ANY OTHER QUESTIONS OR CONCERNS NO . REVIEWED BY: PROVIDER: TABITHA REILLY . VITAL SIGNS WT 264.0 LBS, HT 66 IN, BMI 42.61 INDEX, BP 154/93 MM HG, HR 77 /MIN, RR 16 /MIN, TEMP 97.1 F, OXYGEN SAT % 94%, SAFE IN ENV? (Y/N) Y, NA INITIALS TL 1041, REVIEWED BY: EM. EXAMINATION GENERAL EXAMINATION: GENERAL APPEARANCE:NO ACUTE DISTRESS, WELL NOURISHED AND HYDRATED. LUNGS:CLEAR TO AUSCULTATION BILATERALLY, NO WHEEZES, RHONCHI, RALES. HEART:NO MURMURS, REGULAR RATE AND RHYTHM. MUSCULOSKELETAL:TRIGGER POINTS AND TIGHT FIBROUS BANDS PRESENT BUT WITH LESS RESTRICTION IN ROM OVER SHOULDERS AND NECK, LEFT > RIGHT.. EXTREMITIES:NO CLUBBING, NO EDEMA. NO ERYTHEMA, NO EXCESSIVE WARTHM, NEGATIVE HOMANS SIGN BILATERALLY. ASSESSMENTS MYALGIA - M79.1 (PRIMARY) LEFT SHOULDER PAIN - M25.512 LUMBAGO WITH SCIATICA, LEFT SIDE - M54.42 OTHER CHRONIC PAIN - G89.29 LUMBAR BACK PAIN WITH RADICULOPATHY AFFECTING LEFT LOWER EXTREMITY - M54.17 TREATMENT MYALGIA TRIGGER POINT 3 + TABITHA SALEH 04/05/2017 11:45:06 AM > NECK/BILATERAL SHOULDERS NOTES: CALL PRIMARY ABOUT STOMACH PAIN. PREDISONE TAPER? CALL PULMONOLOGY ABOUT BREATHING. WEAR CPAP. PROCEDURE CODES FA211 ESTABILISHED PATIENT [facility] CHARGE DISPOSITION & COMMUNICATION FOLLOW UP AFTER INJECTION (REASON: CHECK AUTH FOR TPI) ELECTRONICALLY SIGNED BY CINDA BUSTILLO ON 04/22/2017 AT 10:49 AM EDT DISCLAIMER : THIS IS A VISIT SUMMARY EXTRACTED FROM THE [employer] CHART. IT IS NOT A COPY OF THE [employer] PROGRESS NOTE. MTDD
== END ==
LOC: M PAIN 10:40
PROVIDERS: ATTEND Nurse Practitioner Family
DX: G89.29 Other chronic pain (principal); M79.1 Myalgia; M25.512 Pain in left shoulder; M54.42 Lumbago with sciatica, left side; M54.17 Radiculopathy, lumbosacral region; E78.5 Hyperlipidemia, unspecified; G43.909 Migraine, unspecified, not intractable, without status migrainosus; G47.33 Obstructive sleep apnea (adult) (pediatric); M17.0 Bilateral primary osteoarthritis of knee; Z88.2 Allergy status to sulfonamides; Z88.6 Allergy status to analgesic agent; Z91.030 Bee allergy status; Z88.8 Allergy status to other drugs, medicaments and biological substances; Z79.899 Other long term (current) drug therapy

== ENCOUNTER → 2017-04-23 | Outpatient (CLI) | payer OTHER ==
--- NOTE | 2017-04-23 16:05 | REP ---
MR LUMBAR SPINE WITHOUT CONTRAST: HISTORY: Myalgias. Decreased signal intensity on T2-weighted images is present in the T12-L1 and L2-3 through L5-S1 intervertebral discs. The discs are decreased in height. These findings are consistent with disc degeneration. There is no disc bulge or herniation at the L1-2 through L3-4 and L5-S1 levels. There is hypertrophy of the posterior articulating facets at the L3-4 and L5-S1 levels. The nerves exit the neural foramina without compression. A diffuse disc bulge is present at the L4-5 level. There is minimal compression of the thecal sac. There is hypertrophy of the posterior articulating facets. The L4 nerves exit the neural foramina without compression. The conus medullaris is normal in appearance terminating at the level of the L1 intervertebral disc. Normal signal intensity is present in the lumbar vertebral bodies. IMPRESSION: Diffuse disc bulge at the L4-5 level with minimal thecal sac compression. Signed by Guille Elizalde MD 04/23/2017 04:36 P
== END ==
LOC: M RAD 14:04
PROVIDERS: ATTEND Nurse Practitioner Family
DX: M79.1 Myalgia (principal); M51.27 Other intervertebral disc displacement, lumbosacral region

== ENCOUNTER → 2017-05-01 | Outpatient (CLI) | payer OTHER, MEDICAID ==
[~2017-05-01] MED LIST changes: +BUPIVACAINE HCL 0.25% 10 ML VIAL As Ordered ONE; +BUPIVACAINE HCL 0.25% 30 ML VIAL As Ordered ONE; +TRIAMCINOLONE ACETONIDE SUSP 40 MG/ML VIAL (J3301) As Ordered ONE
--- NOTE | 2017-05-10 00:58 | ECWPNPC ---
PATIENT NAME: ACOSTA ALBRIGHT : 1970 GENDER: FEMALE VISIT DATE: 05/01/2017 DISCHARGE DATE: 05/01/17936 VISIT LOCKED DATE TIME: PHYSICIAN: LUIS JAIMES RESOURCE: LUIS JAIMES REASON FOR APPOINTMENT 1. TPI HISTORY OF PRESENT ILLNESS HISTORY OF PRESENT ILLNESS: PAIN THE PATIENT DESCRIBES THE PAIN... FALL RISK SCREENING: SCREENING :NO FALLS IN THE PAST YEAR CURRENT MEDICATIONS TAKING ASTELIN 137 MCG/SPRAY SOLUTION 1 SPRAY IN EACH NOSTRIL NASALLY TWICE A DAY, NOTES: 04-30-172199 TAKING PLAVIX 75 MG TABLET 1 TABLET ORALLY ONCE A DAY/DR FERRIS, NOTES: 04-25-17 08 TAKING ZOCOR 20 20MG TABLET 1 TABLET ORALLY DAILY AT BEDTIME, NOTES: 04-30-172199 TAKING CITALOPRAM HYDROBROMIDE 40MG TABLET 1 TABLET ORALLY ONCE A DAY, NOTES: 04-30-17 06 TAKING EPIPEN 2-GISELL 0.3 MG/0.3ML (1:1000) DEVICE INJECTION INTRAMUSCULAR 1 TIME NEEDED FOR ANGIOEDEMA REACTION TAKING TRAZODONE HCL 150 MG TABLET 1 TABLET AT BEDTIME NEEDED ORALLY ONCE A DAY, NOTES: 04-30-172199 TAKING AMBIEN 10 MG TABLET 1 TAB ORAL AT BEDTIME, NOTES: FEW NIGHTS AGO TAKING MOTRIN 200 MG TABLET 2 TABLETS NEEDED ORALLY 2-3 TIMES DAILY, NOTES: 04-29-172199 TAKING TIZANIDINE HCL 4 MG TABLET 1 TABLET NEEDED ORALLY EVERY 8 HRS, NOTES: 04-30-172199 TAKING ALBUTEROL SULFATE HFA 108 (90 BASE) MCG/ACT AEROSOL SOLUTION 2 PUFFS NEEDED INHALATION EVERY 4 HRS, NOTES: NONE RECENT TAKING OMEPRAZOLE 40 MG CAPSULE DELAYED RELEASE 1 CAPSULE ORALLY ONCE A DAY, NOTES: 599 TAKING FOLIC ACID 1 MG TABLET 1 TABLET ORALLY ONCE A DAY, NOTES: MONTHS TAKING KLONOPIN 0.5 MG TABLET 1 TABLET ORALLY TWICE A DAY, NOTES: 04-30-172199 TAKING SUMATRIPTAN SUCCINATE 25 MG TABLET 1 TABLET NEEDED ORALLY ONCE A DAY PRN 0.5 TAB AND IF NEEDED FULL TAB, NOTES: 04-30-172199 TAKING RANITIDINE HCL 150 MG CAPSULE 1 CAPSULE ORALLY TWICE A DAY, NOTES: 6-13-17 2200 TAKING GABAPENTIN 300 MG CAPSULE 1 CAPSULE ORALLY TWICE A DAY, NOTES: 05-01-17 0600 TAKING BUPROPION HCL ER (XL) 150 MG TABLET EXTENDED RELEASE 24 HOUR 1 TABLET IN THE MORNING ORALLY ONCE A DAY TAKING HYDROCHLOROTHIAZIDE 25 MG TABLET 1 TABLET IN THE MORNING ORALLY DAILY NOT-TAKING MAGNESIUM 400 MG TABLET 1 TAB(S) ORALLY ONCE DAILY, NOTES: 6- NOT-TAKING LORATADINE 10 MG TABLET 1 TABLET ORALLY ONCE A DAY MEDICATION LIST REVIEWED AND RECONCILED WITH THE PATIENT PAST MEDICAL HISTORY HYPERLIPIDEMIA CAROTID ATHEROSCLEROSIS -- FOLLOWS WITH DR. 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, RADIATION AND CHEMOTHERAPY BILATERAL TMJ HX OF MULTIPLE THYROID NODULES PROVEN NON-MALIGNANT HX ABNORMAL PAP SMEAR HX OF CHEST PAIN 2008 WITH NEGATIVE HEART CATHETERIZATION MIGRAINE HEADACHES LUPUS ANGIOEDEMA OBSTRUCTIVE SLEEP APNEA ARTHRITIS BOTH KNEES KIDNEY STONES ALLERGIES SULFA (FOR ALLERGY USE ONLY): HIVES: ALLERGY FLEXERIL: MIGAINES: ALLERGY ASPIRIN: UNKNOWN: ALLERGY HYDROXYCHLOROQUINE SULFATE: UNKNOWN: ALLERGY BEE STINGS: UNKNOWN: ALLERGY REVIEW OF SYSTEMS REVIEWED BY: PROVIDER: . CONSTITUTIONAL: ANY CHANGE IN YOUR MEDICAL CONDITION? NO . CHILLS NO . FEVER NO . INFECTION: DO YOU HAVE NEW INFECTIONS? NO . DO YOU HAVE HISTORY OF MRSA? NO . MUSCULOSKELETAL: ANY NEW PATTERNS OF PAIN OR NUMBNESS? NO . GASTROENTEROLOGY: ANY NEW CHANGE IN BOWEL CONTROL? NO . GENITOURINARY: ANY NEW CHANGE IN BLADDER CONTROL? NO . IS THERE A CHANCE YOU COULD BE ? NO . HEMATOLOGY/LYMPH: DO YOU TAKE ANY BLOOD THINNERS? (FOR EXAMPLE- COUMADIN, PLAVIX, AGGRENOX, PLATEL, PRADAXA, OR XARELTO) NO . WHEN WAS YOUR LAST DOSE? DATE: TIME: . NEUROLOGY: HAVE YOU FALLEN IN THE PAST 6 MONTHS? NO . ANY NEW EXTREMITY NUMBNESS OR WEAKNESS? NO . CARDIOLOGY: DO YOU HAVE A PACEMAKER OR DEFIBRILLATOR? NO . RESPIRATORY: HAVE YOU BEEN SICK IN THE PAST WEEK? NO . FEVER NO . FLU LIKE SYMPTOMS? NO . COUGH NO . INTEGUMENTARY: DO YOU HAVE ANY RASHES OR OPEN SORES? NO . ALLERGIC/IMMUNO: ARE YOU ALLERGIC TO SHELLFISH OR IV DYE? NO . ANY NEW ALLERGIES? NO . PSYCHIATRIC: DO YOU HAVE THOUGHTS OF HURTING YOURSELF OR SOMEONE ELSE? NO . ARE YOU ABUSED, NEGLECTED, OR IN AN UNSAFE ENVIRONMENT? NO . ENDOCRINOLOGY: ARE YOU DIABETIC? NO . OTHER: DO YOU NEED ANY PRESCRIPTIONS? NO . IF YES, PLEASE LIST: ____ . ANY NEW PROBLEMS WITH YOUR MEDICATIONS? NO . WHEN DID YOU LAST EAT? LAST NIGHT AT MIDNIGHT____ . WHEN DID YOU LAST DRINK? ____0555 THIS AM . WHAT DID YOU LAST DRINK? ____WATER . NAME OF PERSON DRIVING YOU HOME? ____ROXANA NELSON . DO YOU HAVE ANY OTHER QUESTIONS OR CONCERNS NO . VITAL SIGNS WT 265 LBS, HT 66 IN, BMI 42.77 INDEX, BP 148/87 MM HG, HR 66 /MIN, RR 16 /MIN, TEMP 98.9 F, OXYGEN SAT % 94%, NA INITIALS SC 08:40. ASSESSMENTS MYALGIA - M79.1 (PRIMARY) PROCEDURES PN TRIGGER POINT INJECTION WITH STEROIDS PRE PROCEDURE DIAGNOSIS 1. MYALGIA 2. PAIN AT BILATERAL SHOULDER AREA AND BILATERAL LOWER BACK AREA POST PROCEDURE DIAGNOSIS 1. MYALGIA 2. PAIN AT BILATERAL SHOULDER AREA AND BILATERAL LOWER BACK AREA PROCEDURE TRIGGER POINT INJECTION AT BILATERAL SHOULDER AREA AND BILATERAL LOWER BACK AREA SURGEON DR. LUIS JAIMES FEED PROJECT ENGINEER NONE ANESTHESIA LOCAL PRE PROCEDURE NOTE THE PATIENT HAS A HISTORY OF CHRONIC PAIN AT THE RIGHT AND LEFT SHOULDER AREA AND RIGHT AND LEFT LOWER BACK AREA. I EVALUATE THE PATIENT AND REVIEWED THE CHART. THERE IS EVIDENCE OF BANDS OF TISSUE WITH RESTRICTION OF MOVEMENT AND PRESENCE OF TRIGGER POINT AT THE AFFECTED AREA. I WENT OVER THE RISKS, ALTERNATIVES, AND BENEFITS ASSOCIATED WITH THIS PROCEDURE. THE PATIENT WOULD LIKE TO PROCEED AND GIVE CONSENT TO PERFORMED THE PROCEDURE. THE PATIENT DENIES UNEXPLAINABLE WEIGHT LOSS, FEVER, CHILLS, OR NEW CHANGES IN URINARY OR BOWEL CONTROL DESCRIPTION OF PROCEDURE THE PATIENT WAS BROUGHT TO THE PROCEDURE ROOM AND PLACED IN THE SITTING POSITION. THE AREA WAS CLEANED WITH ALCOHOL. THE PROCEDURE WAS DONE USING ASEPTIC STERILE TECHNIQUE. I CHECKED LATERALITY AND THE LEVEL WHERE THE PROCEDURE WAS GOING TO BE PERFORMED WITH THE PATIENT AND THE SUPPORTING STAFF AT THE MOMENT OF THE TIME OUT IN THE PROCEDURE ROOM. USING A 25-GAUGE NEEDLE, TRIGGER POINTS WERE INJECTED AT THE RIGHT AND LEFT SHOULDER AREA AND RIGHT AND LEFT LOWER BACK AREA WITH A TOTAL OF 40 ML OF BUPIVACAINE 0.25% AND KENALOG 40 MG. THERE WAS NO EVIDENCE OF BLOOD, PARESTHESIA OR CEREBROSPINAL FLUID DURING THE PROCEDURE. THE PATIENT WAS SENT TO THE RECOVERY ROOM. THE PATIENT WAS MOVING THE EXTREMITIES AND DOING WELL. THERE WAS NO COMPLICATION DURING THE PROCEDURE POST PROCEDURE NOTE THE PATIENT WILL BE SEEN IN A FOLLOW UP IN THE NEXT FEW WEEKS. INSTRUCTIONS WERE GIVEN, QUESTIONS WERE ANSWERED, AND THE PATIENT EXPRESSED UNDERSTANDING AND AGREES WITH THE PLAN. I, GEORGE BARRIOS, DOCUMENTED THE ABOVE INFORMATION ACTING A SCRIBE FOR DR. JAIMES. I HAVE REVIEWED THE ABOVE DOCUMENT, WRITTEN BY GEORGE JULES AND I VERIFY THAT IT IS ACCURATE PROCEDURE CODES 80022 INJECT TRIGGER POINTS 3/> DISPOSITION & COMMUNICATION FOLLOW UP 3 WEEKS ELECTRONICALLY SIGNED BY LUIS JAIMES MD ON 05/09/2017 AT 11:59 AM EDT DISCLAIMER : THIS IS A VISIT SUMMARY EXTRACTED FROM THE [employer] CHART. IT IS NOT A COPY OF THE [employer] PROGRESS NOTE. VIVEK
== END ==
LOC: M PAIN 08:30
PROVIDERS: ATTEND Anesthesiology
DX: G89.29 Other chronic pain (principal); M79.1 Myalgia; M25.511 Pain in right shoulder; M25.512 Pain in left shoulder; E78.5 Hyperlipidemia, unspecified; I65.29 Occlusion and stenosis of unspecified carotid artery; G43.909 Migraine, unspecified, not intractable, without status migrainosus; M32.9 Systemic lupus erythematosus, unspecified; G47.33 Obstructive sleep apnea (adult) (pediatric); M17.0 Bilateral primary osteoarthritis of knee; Z91.030 Bee allergy status; Z88.2 Allergy status to sulfonamides; Z88.6 Allergy status to analgesic agent; Z88.8 Allergy status to other drugs, medicaments and biological substances; Z79.1 Long term (current) use of non-steroidal anti-inflammatories (NSAID); Z79.899 Other long term (current) drug therapy

== ENCOUNTER → 2017-05-09 | Outpatient (CLI) | payer OTHER, MEDICAID ==
[~2017-05-09] MED LIST changes: -BUPIVACAINE HCL 0.25% 10 ML VIAL As Ordered ONE; -BUPIVACAINE HCL 0.25% 30 ML VIAL As Ordered ONE; -TRIAMCINOLONE ACETONIDE SUSP 40 MG/ML VIAL (J3301) As Ordered ONE
[2017-05-09 17:22] LABS: ANION GAP 6 MEQ/L (8-16); BLOOD UREA NITROGEN 21 MG/DL (7-18); CALCIUM LEVEL 10.1 MG/DL (8.5-10.1); CARBON DIOXIDE LEVEL 31 MEQ/L (21-32); CHLORIDE LEVEL 104 MEQ/L (98-107); CREATININE FOR GFR 0.84 MG/DL (0.55-1.02); GLOMERULAR FILTRATION RATE > 60.0 (>58); GLUCOSE, FASTING 84 MG/DL (70-105); POTASSIUM SERUM 4.1 MEQ/L (3.5-5.1); SODIUM LEVEL 141 MEQ/L (136-145)
== END ==
LOC: M LRY 13:58
PROVIDERS: ATTEND Internal Medicine Cardiovascular Disease
DX: I10 Essential (primary) hypertension (principal)

== ENCOUNTER → 2017-05-30 | Outpatient (CLI) | payer OTHER ==
[~2017-05-30] MED LIST changes: -AUGM875T27 PO; +AUGM875T28 PO; +CYMB1CAP5 PO; -FOLI1TAB2 PO; +FOLI1TAB4 PO; +PERC5TAB12 PO; -PERC5TAB6 PO; +PLAV1TAB2 PO; -TRAZ150T14 PO; +TRAZ1TAB14 PO
--- NOTE | 2017-06-24 00:15 | ECWPNPC ---
PATIENT NAME: ACOSTA ALBRIGHT : 1970 GENDER: FEMALE VISIT DATE: 05/30/2017 DISCHARGE DATE: 05/30/17 1043 VISIT LOCKED DATE TIME: PHYSICIAN: TABITHA MCCOLLUM RESOURCE: TABITHA MCCOLLUM HISTORY OF PRESENT ILLNESS HISTORY OF PRESENT ILLNESS: PAIN THE PATIENT DESCRIBES THE PAIN... FALL RISK SCREENING: SCREENING :NO FALLS IN THE PAST YEAR TODAY'S VISIT: NOTES: RATES PAIN 08/27. IS S/P TPI WITH STEROIDS. .05/01/17 IS NOTING MARKED PAIN IN ALL JOINTS ESPECIALLY KNEES. WILL BE SEEING RHEUMATOLOGY 06/17/17 AND IS STILL LOOKING FOR A NEUROLOGY. HAD EMG BUT WAS NOT ABLE TO DO FULL STUDY YET DUE TO PLAVIX. . CURRENT MEDICATIONS TAKING ASTELIN 137 MCG/SPRAY SOLUTION 1 SPRAY IN EACH NOSTRIL NASALLY TWICE A DAY TAKING PLAVIX 75 MG TABLET 1 TABLET ORALLY ONCE A DAY/DR FERRIS TAKING ZOCOR 20 20MG TABLET 1 TABLET ORALLY DAILY AT BEDTIME TAKING CITALOPRAM HYDROBROMIDE 40MG TABLET 1 TABLET ORALLY ONCE A DAY TAKING EPIPEN 2-GISELL 0.3 MG/0.3ML (1:1000) DEVICE INJECTION INTRAMUSCULAR 1 TIME NEEDED FOR ANGIOEDEMA REACTION TAKING TRAZODONE HCL 150 MG TABLET 1 TABLET AT BEDTIME NEEDED ORALLY ONCE A DAY TAKING AMBIEN 10 MG TABLET 1 TAB ORAL AT BEDTIME TAKING MOTRIN 200 MG TABLET 2 TABLETS NEEDED ORALLY 2-3 TIMES DAILY TAKING TIZANIDINE HCL 4 MG TABLET 1 TABLET NEEDED ORALLY EVERY 8 HRS TAKING ALBUTEROL SULFATE HFA 108 (90 BASE) MCG/ACT AEROSOL SOLUTION 2 PUFFS NEEDED INHALATION EVERY 4 HRS TAKING FOLIC ACID 1 MG TABLET 1 TABLET ORALLY ONCE A DAY TAKING KLONOPIN 0.5 MG TABLET 1 TABLET ORALLY TWICE A DAY TAKING SUMATRIPTAN SUCCINATE 25 MG TABLET 1 TABLET NEEDED ORALLY ONCE A DAY PRN 0.5 TAB AND IF NEEDED FULL TAB TAKING RANITIDINE HCL 150 MG CAPSULE 1 CAPSULE ORALLY TWICE A DAY TAKING GABAPENTIN 300 MG CAPSULE 1 CAPSULE ORALLY TWICE A DAY TAKING BUPROPION HCL ER (XL) 150 MG TABLET EXTENDED RELEASE 24 HOUR 1 TABLET IN THE MORNING ORALLY ONCE A DAY TAKING HYDROCHLOROTHIAZIDE 25 MG TABLET 1 TABLET IN THE MORNING ORALLY DAILY TAKING OMEPRAZOLE 40 MG CAPSULE DELAYED RELEASE 1 CAPSULE ORALLY ONCE A DAY TAKING WELLBUTRIN SR 150 MG TABLET EXTENDED RELEASE 12 HOUR 1 TABLET ORALLY ONCE A DAY NOT-TAKING MAGNESIUM 400 MG TABLET 1 TAB(S) ORALLY ONCE DAILY, NOTES: 6- NOT-TAKING LORATADINE 10 MG TABLET 1 TABLET ORALLY ONCE A DAY MEDICATION LIST REVIEWED AND RECONCILED WITH THE PATIENT PAST MEDICAL HISTORY HYPERLIPIDEMIA CAROTID ATHEROSCLEROSIS -- FOLLOWS WITH DR. 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, RADIATION AND CHEMOTHERAPY BILATERAL TMJ HX OF MULTIPLE THYROID NODULES PROVEN NON-MALIGNANT HX ABNORMAL PAP SMEAR HX OF CHEST PAIN 2008 WITH NEGATIVE HEART CATHETERIZATION MIGRAINE HEADACHES LUPUS ANGIOEDEMA OBSTRUCTIVE SLEEP APNEA ARTHRITIS BOTH KNEES KIDNEY STONES ALLERGIES SULFA (FOR ALLERGY USE ONLY): HIVES: ALLERGY FLEXERIL: MIGAINES: ALLERGY ASPIRIN: UNKNOWN: ALLERGY HYDROXYCHLOROQUINE SULFATE: UNKNOWN: ALLERGY BEE STINGS: UNKNOWN: ALLERGY REVIEW OF SYSTEMS REVIEWED BY: PROVIDER: TABITHA REILLY . CONSTITUTIONAL: ANY CHANGE IN YOUR MEDICAL CONDITION? NO . CHILLS NO . FEVER NO . INFECTION: DO YOU HAVE NEW INFECTIONS? NO . DO YOU HAVE HISTORY OF MRSA? NO . MUSCULOSKELETAL: ANY NEW PATTERNS OF PAIN OR NUMBNESS? YES, KNEES HURT MORE AND THEY KEEP GIVING OUT. . GASTROENTEROLOGY: ANY NEW CHANGE IN BOWEL CONTROL? NO . GENITOURINARY: ANY NEW CHANGE IN BLADDER CONTROL? NO . IS THERE A CHANCE YOU COULD BE ? NO . HEMATOLOGY/LYMPH: DO YOU TAKE ANY BLOOD THINNERS? (FOR EXAMPLE- COUMADIN, PLAVIX, AGGRENOX, PLATEL, PRADAXA, OR XARELTO) YES PLAVIX . WHEN WAS YOUR LAST DOSE? DATE: TIME: 05-29-17 9PM . NEUROLOGY: HAVE YOU FALLEN IN THE PAST 6 MONTHS? YES, FELL SATURDAY BECAUSE LEFT KNEE GAVE OUT. . ANY NEW EXTREMITY NUMBNESS OR WEAKNESS? NO . CARDIOLOGY: DO YOU HAVE A PACEMAKER OR DEFIBRILLATOR? NO . RESPIRATORY: HAVE YOU BEEN SICK IN THE PAST WEEK? NO . FEVER NO . FLU LIKE SYMPTOMS? NO . COUGH NO . INTEGUMENTARY: DO YOU HAVE ANY RASHES OR OPEN SORES? NO . ALLERGIC/IMMUNO: ARE YOU ALLERGIC TO SHELLFISH OR IV DYE? NO . ANY NEW ALLERGIES? NO . PSYCHIATRIC: DO YOU HAVE THOUGHTS OF HURTING YOURSELF OR SOMEONE ELSE? NO . ARE YOU ABUSED, NEGLECTED, OR IN AN UNSAFE ENVIRONMENT? NO . ENDOCRINOLOGY: ARE YOU DIABETIC? NO . OTHER: DO YOU NEED ANY PRESCRIPTIONS? NO . IF YES, PLEASE LIST: ____ . ANY NEW PROBLEMS WITH YOUR MEDICATIONS? NO . WHEN DID YOU LAST EAT? ____ . WHEN DID YOU LAST DRINK? ____ . WHAT DID YOU LAST DRINK? ____ . NAME OF PERSON DRIVING YOU HOME? ____ . DO YOU HAVE ANY OTHER QUESTIONS OR CONCERNS YES, TRIGGER POINT INJECTIONS HELPED FOR LIKE 5 DAYS. HAD AN EMG STUDY DONE AT ORTHOPEDIC OFFICE ON MAY 23. . VITAL SIGNS WT 266.6 LBS, HT 66 IN, BMI 43.03 INDEX, BP 142/71 MM HG, HR 72 /MIN, RR 16 /MIN, TEMP 98.8 F, OXYGEN SAT % 93%, NA INITIALS SC 10:02, REVIEWED BY: MAGDALENA. EXAMINATION GENERAL EXAMINATION: GENERAL APPEARANCE:NO ACUTE DISTRESS, WELL NOURISHED AND HYDRATED. PSYCHAPPROPRIATE MOOD AND AFFECT . LUNGS:CLEAR TO AUSCULTATION BILATERALLY, NO WHEEZES, RHONCHI, RALES. HEART:NO MURMURS, REGULAR RATE AND RHYTHM. ABDOMEN:SOFT, NON-TENDER, NO ORGANOMEGALY, BOWEL SOUNDS ARE NORMAL. MUSCULOSKELETAL:MUSCLE STRENGTH TESTING 5/5 BILATERAL UPPER AND LOWER EXTREMITIES., TRIGGER POINTS: ACROSS TRAP AND LSA. . JOINTS:BILATERAL, KNEE , PAIN , AT REST , WITH RANGE OF MOTION . DIAGNOSTIC TESTS REVIEWEDMRI OF LUMBARE SPINE COMPLETED 04/23/17 REVIEWED WITH PATIENT. DIFFUSE DISC BULGE WITH MINIMAL COMPRESSION OF THECAL SAC NOTED AT L4-5. HYPERTROPHY OF POSTERIOR ARTICULATING FACETS NOTED AT L3-4, L4-5 AND L5-S1. ASSESSMENTS MYALGIA - M79.1 (PRIMARY) LEFT SHOULDER PAIN - M25.512 LUMBAGO WITH SCIATICA, LEFT SIDE - M54.42 OTHER CHRONIC PAIN - G89.29 LUMBAR BACK PAIN WITH RADICULOPATHY AFFECTING LEFT LOWER EXTREMITY - M54.17 TREATMENT MYALGIA STOP GABAPENTIN CAPSULE, 300 MG, 1 CAPSULE, ORALLY, TWICE A DAY STOP TIZANIDINE HCL TABLET, 4 MG, 1 TABLET NEEDED, ORALLY, EVERY 8 HRS TRIGGER POINT 3 + DELFINOTABITHA Poppy 05/30/2017 10:29:05 AM > NECK OR LOW BACK NOTES: USE ICE AND HEAT NEEDED. DO EXERCISES AND STRETCHES . STOP PLAVIX 5 DAYS BEFORE IJECTION,TRIGGER POINT INJECTION MATERIAL WAS PRINTED. PROCEDURE CODES FA211 ESTABILISHED PATIENT [facility] CHARGE DISPOSITION & COMMUNICATION FOLLOW UP MID JUN TRIGGER POINTS (REASON: CHECK AUTH TPI - ON PLAVIX) ELECTRONICALLY SIGNED BY CINDA BUSTILLO ON 06/23/2017 AT 11:24 AM EDT DISCLAIMER : THIS IS A VISIT SUMMARY EXTRACTED FROM THE [employer] CHART. IT IS NOT A COPY OF THE [employer] PROGRESS NOTE. VIVEK
== END ==
LOC: M PAIN 09:40
PROVIDERS: ATTEND Nurse Practitioner Family
DX: G89.29 Other chronic pain (principal); M25.512 Pain in left shoulder; M54.42 Lumbago with sciatica, left side; M54.17 Radiculopathy, lumbosacral region; M79.1 Myalgia; E78.5 Hyperlipidemia, unspecified; G43.909 Migraine, unspecified, not intractable, without status migrainosus; M32.9 Systemic lupus erythematosus, unspecified; G47.33 Obstructive sleep apnea (adult) (pediatric); M17.0 Bilateral primary osteoarthritis of knee; Z88.2 Allergy status to sulfonamides; Z88.6 Allergy status to analgesic agent; Z88.8 Allergy status to other drugs, medicaments and biological substances; Z91.030 Bee allergy status; Z79.01 Long term (current) use of anticoagulants; Z79.899 Other long term (current) drug therapy

== ENCOUNTER → 2017-06-10 | Outpatient (CLI) | payer OTHER ==
[2017-06-10 10:45] LABS: BLOOD UREA NITROGEN 16 MG/DL (7-18); CREATININE FOR GFR 0.83 MG/DL (0.55-1.02); GLOMERULAR FILTRATION RATE > 60.0 (>58)
== END ==
LOC: M LAB 09:14
PROVIDERS: ATTEND Orthopaedic Surgery
DX: M54.12 Radiculopathy, cervical region (principal)

== ENCOUNTER → 2017-06-17 | Outpatient (CLI) | payer OTHER ==
--- NOTE | 2017-06-17 17:41 | REP ---
MR CERVICAL SPINE WITHOUT AND WITH CONTRAST: HISTORY: Radiculopathy. CONTRAST: ProHance 24 mL. COMPARISON: 06/28/2014. There is no disc bulge or herniation. The spinal canal and the neural foramina are patent. The spinal cord is normal in signal intensity. There is no abnormal enhancement. Normal signal intensity is present in the cervical vertebral bodies. A hemangioma is present in the T1 vertebral body. IMPRESSION:There is no disc bulge or herniation. Signed by Guille Elizalde MD 06/18/2017 08:12 A
== END ==
LOC: M RAD 14:55
PROVIDERS: ATTEND Orthopaedic Surgery
DX: M54.12 Radiculopathy, cervical region (principal)

== ENCOUNTER → 2017-07-02 | Outpatient (CLI) | payer OTHER ==
[~2017-07-02] MED LIST changes: +BUPIVACAINE HCL 0.25% 10 ML VIAL As Ordered ONE; +BUPIVACAINE HCL 0.25% 30 ML VIAL As Ordered ONE; +TRIAMCINOLONE ACETONIDE SUSP 40 MG/ML VIAL (J3301) As Ordered ONE
--- NOTE | 2017-07-08 00:23 | ECWPNPC ---
PATIENT NAME: ACOSTA ALBRIGHT : 1970 GENDER: FEMALE VISIT DATE: 07/02/2017 DISCHARGE DATE: 07/02/17955 VISIT LOCKED DATE TIME: PHYSICIAN: LUIS JAIMES RESOURCE: LUIS JAIMES REASON FOR APPOINTMENT 1. NECK/LOW BACK HISTORY OF PRESENT ILLNESS HISTORY OF PRESENT ILLNESS: PAIN THE PATIENT DESCRIBES THE PAIN... FALL RISK SCREENING: SCREENING :NO FALLS IN THE PAST YEAR CURRENT MEDICATIONS TAKING ASTELIN 137 MCG/SPRAY SOLUTION 1 SPRAY IN EACH NOSTRIL NASALLY TWICE A DAY, NOTES: 07/01 2100 TAKING PLAVIX 75 MG TABLET 1 TABLET ORALLY ONCE A DAY/DR FERRIS, NOTES: 06/26/172099 TAKING ZOCOR 20 20MG TABLET 1 TABLET ORALLY DAILY AT BEDTIME, NOTES: 07/01/172099 TAKING CITALOPRAM HYDROBROMIDE 40MG TABLET 1 TABLET ORALLY ONCE A DAY, NOTES: 07/02/17629 TAKING EPIPEN 2-GISELL 0.3 MG/0.3ML (1:1000) DEVICE INJECTION INTRAMUSCULAR 1 TIME NEEDED FOR ANGIOEDEMA REACTION TAKING TRAZODONE HCL 150 MG TABLET 1 TABLET AT BEDTIME NEEDED ORALLY ONCE A DAY, NOTES: 07/01/172099 TAKING AMBIEN 10 MG TABLET 1 TAB ORAL AT BEDTIME, NOTES: 06/29/172099 TAKING MOTRIN 200 MG TABLET 2 TABLETS NEEDED ORALLY 2-3 TIMES DAILY, NOTES: 07/02/17629 TAKING ALBUTEROL SULFATE HFA 108 (90 BASE) MCG/ACT AEROSOL SOLUTION 2 PUFFS NEEDED INHALATION EVERY 4 HRS, NOTES: 07/01/172099 TAKING FOLIC ACID 1 MG TABLET 1 TABLET ORALLY ONCE A DAY, NOTES: 07/02/17629 TAKING KLONOPIN 0.5 MG TABLET 1 TABLET ORALLY TWICE A DAY, NOTES: 07/01/172099 TAKING SUMATRIPTAN SUCCINATE 25 MG TABLET 1 TABLET NEEDED ORALLY ONCE A DAY PRN 0.5 TAB AND IF NEEDED FULL TAB, NOTES: 07/01/17899 TAKING RANITIDINE HCL 150 MG CAPSULE 1 CAPSULE ORALLY TWICE A DAY, NOTES: 07/02/17629 TAKING BUPROPION HCL ER (XL) 150 MG TABLET EXTENDED RELEASE 24 HOUR 1 TABLET IN THE MORNING ORALLY ONCE A DAY, NOTES: 07/02/17629 TAKING HYDROCHLOROTHIAZIDE 25 MG TABLET 1 TABLET IN THE MORNING ORALLY DAILY, NOTES: 07/02/17629 TAKING OMEPRAZOLE 40 MG CAPSULE DELAYED RELEASE 1 CAPSULE ORALLY ONCE A DAY, NOTES: 07/02/17629 TAKING WELLBUTRIN SR 150 MG TABLET EXTENDED RELEASE 12 HOUR 1 TABLET ORALLY ONCE A DAY, NOTES: 07/02/17629 NOT-TAKING MAGNESIUM 400 MG TABLET 1 TAB(S) ORALLY ONCE DAILY, NOTES: 6- NOT-TAKING LORATADINE 10 MG TABLET 1 TABLET ORALLY ONCE A DAY MEDICATION LIST REVIEWED AND RECONCILED WITH THE PATIENT PAST MEDICAL HISTORY HYPERLIPIDEMIA CAROTID ATHEROSCLEROSIS -- FOLLOWS WITH DR. 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, RADIATION AND CHEMOTHERAPY BILATERAL TMJ HX OF MULTIPLE THYROID NODULES PROVEN NON-MALIGNANT HX ABNORMAL PAP SMEAR HX OF CHEST PAIN 2008 WITH NEGATIVE HEART CATHETERIZATION MIGRAINE HEADACHES LUPUS ANGIOEDEMA OBSTRUCTIVE SLEEP APNEA ARTHRITIS BOTH KNEES KIDNEY STONES ALLERGIES SULFA (FOR ALLERGY USE ONLY): HIVES: ALLERGY FLEXERIL: MIGAINES: ALLERGY ASPIRIN: UNKNOWN: ALLERGY HYDROXYCHLOROQUINE SULFATE: UNKNOWN: ALLERGY BEE STINGS: UNKNOWN: ALLERGY REVIEW OF SYSTEMS REVIEWED BY: PROVIDER: . CONSTITUTIONAL: ANY CHANGE IN YOUR MEDICAL CONDITION? NO . CHILLS NO . FEVER NO . INFECTION: DO YOU HAVE NEW INFECTIONS? NO . DO YOU HAVE HISTORY OF MRSA? NO . MUSCULOSKELETAL: ANY NEW PATTERNS OF PAIN OR NUMBNESS? YES PT REPORTS SHE WAS TAKEN OFF HER GABAPENTIN AND HER TIZANIDINE BECAUSE SHE FELT THEY WERE INEFFECTIVE. NOW STATES HER PAIN IS WORSE, &QUOT;PAIN IS REALLY BAD ALL OVER THE PLACE&QUOT; . GASTROENTEROLOGY: ANY NEW CHANGE IN BOWEL CONTROL? NO . GENITOURINARY: ANY NEW CHANGE IN BLADDER CONTROL? NO . IS THERE A CHANCE YOU COULD BE ? NO . HEMATOLOGY/LYMPH: DO YOU TAKE ANY BLOOD THINNERS? (FOR EXAMPLE- COUMADIN, PLAVIX, AGGRENOX, PLATEL, PRADAXA, OR XARELTO) YES . WHEN WAS YOUR LAST DOSE? DATE: TIME: 06/26/17 2100 . NEUROLOGY: HAVE YOU FALLEN IN THE PAST 6 MONTHS? NO . ANY NEW EXTREMITY NUMBNESS OR WEAKNESS? NO . CARDIOLOGY: DO YOU HAVE A PACEMAKER OR DEFIBRILLATOR? NO . RESPIRATORY: HAVE YOU BEEN SICK IN THE PAST WEEK? NO . FEVER NO . FLU LIKE SYMPTOMS? NO . COUGH NO . INTEGUMENTARY: DO YOU HAVE ANY RASHES OR OPEN SORES? NO . ALLERGIC/IMMUNO: ARE YOU ALLERGIC TO SHELLFISH OR IV DYE? NO . ANY NEW ALLERGIES? NO . PSYCHIATRIC: DO YOU HAVE THOUGHTS OF HURTING YOURSELF OR SOMEONE ELSE? NO . ARE YOU ABUSED, NEGLECTED, OR IN AN UNSAFE ENVIRONMENT? NO . ENDOCRINOLOGY: ARE YOU DIABETIC? NO . OTHER: DO YOU NEED ANY PRESCRIPTIONS? NO . IF YES, PLEASE LIST: ____ . ANY NEW PROBLEMS WITH YOUR MEDICATIONS? NO . WHEN DID YOU LAST EAT? ____07/01/17 2400 . WHEN DID YOU LAST DRINK? ____07/02/17 0700 . WHAT DID YOU LAST DRINK? ____WATER . NAME OF PERSON DRIVING YOU HOME? ____DONNALEE . DO YOU HAVE ANY OTHER QUESTIONS OR CONCERNS NO . VITAL SIGNS WT 273.6 LBS, HT 66 IN, BMI 44.16 INDEX, BP 114/63 MM HG, HR 66 /MIN, RR 16 /MIN, TEMP 97.4 F, OXYGEN SAT % 94%, NA INITIALS AW 0851. ASSESSMENTS MYALGIA - M79.1 (PRIMARY) PROCEDURES PN TRIGGER POINT INJECTION WITH STEROIDS PRE PROCEDURE DIAGNOSIS 1. MYALGIA 2. PAIN AT BILATERAL LOWER NECK AREA AND BILATERAL LOWER BACK AREA POST PROCEDURE DIAGNOSIS 1. MYALGIA 2. PAIN AT BILATERAL LOWER BACK AREA AND BILATERAL NECK AREA PROCEDURE TRIGGER POINT INJECTION AT BILATERAL NECK AREA AND BILATERAL LOWER BACK AREA SURGEON DR. LUIS JAIMES CATHOLIC PRIEST NONE ANESTHESIA LOCAL PRE PROCEDURE NOTE THE PATIENT HAS A HISTORY OF CHRONIC PAIN AT THE RIGHT AND LEFT NECK AREA AND RIGHT AND LEFT LOWER BACK AREA. I EVALUATE THE PATIENT AND REVIEWED THE CHART. THERE IS EVIDENCE OF BANDS OF TISSUE WITH RESTRICTION OF MOVEMENT AND PRESENCE OF TRIGGER POINT AT THE AFFECTED AREA. I WENT OVER THE RISKS, ALTERNATIVES, AND BENEFITS ASSOCIATED WITH THIS PROCEDURE. THE PATIENT WOULD LIKE TO PROCEED AND GIVE CONSENT TO PERFORMED THE PROCEDURE. THE PATIENT DENIES UNEXPLAINABLE WEIGHT LOSS, FEVER, CHILLS, OR NEW CHANGES IN URINARY OR BOWEL CONTROL DESCRIPTION OF PROCEDURE THE PATIENT WAS BROUGHT TO THE PROCEDURE ROOM AND PLACED IN THE SITTING POSITION. THE AREA WAS CLEANED WITH ALCOHOL. THE PROCEDURE WAS DONE USING ASE[employer]IC STERILE TECHNIQUE. I CHECKED LATERALITY AND THE LEVEL WHERE THE PROCEDURE WAS GOING TO BE PERFORMED WITH THE PATIENT AND THE SUPPORTING STAFF AT THE MOMENT OF THE TIME OUT IN THE PROCEDURE ROOM. USING A 25-GAUGE NEEDLE, TRIGGER POINTS WERE INJECTED AT THE RIGHT AND LEFT NECK AREA AND RIGHT AND LOWER BACK AREA WITH A TOTAL OF 40 ML OF BUPIVACAINE 0.25% AND KENALOG 40 MG. THERE WAS NO EVIDENCE OF BLOOD, PARESTHESIA OR CEREBROSPINAL FLUID DURING THE PROCEDURE. THE PATIENT WAS SENT TO THE RECOVERY ROOM. THE PATIENT WAS MOVING THE EXTREMITIES AND DOING WELL. THERE WAS NO COMPLICATION DURING THE PROCEDURE POST PROCEDURE NOTE THE PATIENT WILL BE SEEN IN A FOLLOW UP IN THE NEXT FEW WEEKS. INSTRUCTIONS WERE GIVEN, QUESTIONS WERE ANSWERED, AND THE PATIENT EXPRESSED UNDERSTANDING AND AGREES WITH THE PLAN. I, GEORGE BARRIOS, DOCUMENTED THE ABOVE INFORMATION ACTING A SCRIBE FOR DR. JAIMES. I, DR. JAIMES, HAVE REVIEWED THE ABOVE DOCUMENT, SCRIBED BY GEORGE BARRIOS, AND I VERIFY THAT IT IS ACCURATE PROCEDURE CODES 69539 INJECT TRIGGER POINTS 3/> DISPOSITION & COMMUNICATION FOLLOW UP 3 WEEKS ELECTRONICALLY SIGNED BY LUIS JAIMES MD ON 07/07/2017 AT 07:08 PM EDT DISCLAIMER : THIS IS A VISIT SUMMARY EXTRACTED FROM THE [employer] CHART. IT IS NOT A COPY OF THE [employer] PROGRESS NOTE. MTDD
== END ==
LOC: M PAIN 08:30
PROVIDERS: ATTEND Anesthesiology
DX: G89.29 Other chronic pain (principal); M54.2 Cervicalgia; M54.5 Low back pain; M79.1 Myalgia; E78.5 Hyperlipidemia, unspecified; G43.909 Migraine, unspecified, not intractable, without status migrainosus; M32.9 Systemic lupus erythematosus, unspecified; G47.33 Obstructive sleep apnea (adult) (pediatric); M17.0 Bilateral primary osteoarthritis of knee; Z88.2 Allergy status to sulfonamides; Z88.6 Allergy status to analgesic agent; Z88.8 Allergy status to other drugs, medicaments and biological substances; Z91.030 Bee allergy status; Z79.01 Long term (current) use of anticoagulants; Z79.1 Long term (current) use of non-steroidal anti-inflammatories (NSAID); Z79.899 Other long term (current) drug therapy
CPT/HCPCS: 20553; J3301

== ENCOUNTER → 2017-07-03 | Outpatient (CLI) | payer OTHER ==
[~2017-07-03] MED LIST changes: -BUPIVACAINE HCL 0.25% 10 ML VIAL As Ordered ONE; -BUPIVACAINE HCL 0.25% 30 ML VIAL As Ordered ONE; +GASTROGRAFIN SOLUTION 30ML (Q9963) As Ordered ONE; +ISOVUE-370 76% 100ML VIAL (Q9967) As Ordered ONE; -TRIAMCINOLONE ACETONIDE SUSP 40 MG/ML VIAL (J3301) As Ordered ONE
--- NOTE | 2017-07-03 11:15 | REP ---
CT of the abdomen and pelvis without and with IV and bowel contrast. Imaging without IV contrast is performed through the liver. Following this scanning is performed of the abdomen and pelvis with IV contrast. Comparison is 09/03/2016. The visualized lung mariano are unremarkable. The hepatic parenchyma, gallbladder, pancreas and spleen are unremarkable on both phases of the study. The adrenals, kidneys and abdominal aorta are unremarkable. The previous left hydronephrosis has resolved. The previous distal left ureteral calculus is no longer present. There is no bowel distension or obstruction. No inflammatory changes in the mesentery. Pelvis: The appendix has a normal appearance. There is a hysterectomy. Vaginal cuff and adnexa are unremarkable. The bladder is unremarkable. There is no ascites or adenopathy. The pelvic bowel loops are unremarkable. Impression: Essentially negative CT study of the abdomen and pelvis. The previous left ureteral calculus and hydronephrosis have resolved. Signed by Mason Floyd MD 07/03/2017 11:07 A
== END ==
LOC: M RAD 08:09
PROVIDERS: ATTEND Internal Medicine Gastroenterology
DX: R10.13 Epigastric pain (principal)
CPT/HCPCS: 74178; Q9963; Q9967

== ENCOUNTER → 2017-07-04 | Outpatient (CLI) | payer OTHER ==
[~2017-07-04] MED LIST changes: +E-Z-GAS II EFFERVESCENT PACKET (SODIUM BICARB./CITRIC ACID/SIMETHICONE) As Ordered ONE; +E-Z-HD 98% w/w 340GM SUSP BTL As Ordered ONE; +E-Z-PAQUE 96% w/w SUSP 176GM BTL As Ordered ONE; -GASTROGRAFIN SOLUTION 30ML (Q9963) As Ordered ONE; -ISOVUE-370 76% 100ML VIAL (Q9967) As Ordered ONE
--- NOTE | 2017-07-04 16:24 | REP ---
ESOPHAGRAM: The procedure was performed by VERNON Ang under the direct supervision of Dr. Jade. All imaging was reviewed with Dr Jade prior to dictation. The patient was able to ingest liquid barium and air in a quantity sufficient to produce a double contrast examination. The oral and pharyngeal stages of deglutition appeared unremarkable. Esophageal transport was prompt and efficient. There was no evidence of esophagitis, stricture, mucosal ring or hiatal hernia. Gastroesophageal reflux was observed on this exam to above the level of the francis. IMPRESSION: Gastroesophageal reflux to above the francis, otherwise unremarkable esophagram. Fluoroscopy time of 1 minute and 33 seconds. Reviewed by VERNON Henson 07/04/2017 04:29 PEdited and Signed by Mason Jade MD 07/04/2017 04:59 P
== END ==
LOC: M RAD 09:28
PROVIDERS: ATTEND Internal Medicine Gastroenterology
DX: R10.13 Epigastric pain (principal); K21.9 Gastro-esophageal reflux disease without esophagitis

== ENCOUNTER → 2017-07-11 | Outpatient (CLI) | payer OTHER ==
[~2017-07-11] MED LIST changes: -E-Z-GAS II EFFERVESCENT PACKET (SODIUM BICARB./CITRIC ACID/SIMETHICONE) As Ordered ONE; -E-Z-HD 98% w/w 340GM SUSP BTL As Ordered ONE; -E-Z-PAQUE 96% w/w SUSP 176GM BTL As Ordered ONE; +ISOVUE-370 76% 100ML VIAL (Q9967) As Ordered ONE
--- NOTE | 2017-07-11 17:43 | REP ---
CT NECK WITH CONTRAST: HISTORY: Dysphagia. CONTRAST: Isovue-370, 75 mL. The naso- latricia- and hypopharynx, larynx and subglottic trachea are normal in appearance. The parotid glands are normal in size and density. The submandibular glands are normal in density, however, atrophic. The thyroid gland is heterogeneous in density. There is slight enlargement of the right thyroid lobe. Atherosclerotic calcification is present at the carotid bifurcations. Degenerative change is present in the cervical spine. The lung apices are clear. The visualized sinuses are clear. IMPRESSION: 1. There is no neck mass or adenopathy. 2. The thyroid gland is heterogeneous in density. The right thyroid lobe is enlarged. Ultrasound may be helpful for further evaluation. Signed by Guille Elizalde MD 07/12/2017 08:24 A
== END ==
LOC: M RAD 16:24
PROVIDERS: ATTEND Internal Medicine Gastroenterology
DX: R10.13 Epigastric pain (principal); E04.9 Nontoxic goiter, unspecified
CPT/HCPCS: 70491; Q9967

== ENCOUNTER → 2017-07-24 | Outpatient (CLI) | payer OTHER ==
[~2017-07-24] MED LIST changes: -ISOVUE-370 76% 100ML VIAL (Q9967) As Ordered ONE
--- NOTE | 2017-08-13 01:20 | ECWPNPC ---
PATIENT NAME: ACOSTA ALBRIGHT : 1970 GENDER: FEMALE VISIT DATE: 07/24/2017 DISCHARGE DATE: 07/24/17 1037 VISIT LOCKED DATE TIME: PHYSICIAN: TABITHA MCCOLLUM RESOURCE: TABITHA MCCOLLUM REASON FOR APPOINTMENT 1. POST PROCEDURE HISTORY OF PRESENT ILLNESS HISTORY OF PRESENT ILLNESS: PAIN THE PATIENT DESCRIBES THE PAIN... FALL RISK SCREENING: SCREENING :NO FALLS IN THE PAST YEAR TODAY'S VISIT: NOTES: S/P TRIGGER POINT INJECTIONS WITH STEROIDS COMPLETED 07/02/17. PAIN LEVEL WAS 9/10 PRIOR TO INJECTION AND DECREASED TO 5/10 TIMES 1 WEE. GRADUALLY HAS BEEN INCREASING BACK TO BASELINE. . CURRENT MEDICATIONS TAKING ASTELIN 137 MCG/SPRAY SOLUTION 1 SPRAY IN EACH NOSTRIL NASALLY TWICE A DAY TAKING PLAVIX 75 MG TABLET 1 TABLET ORALLY ONCE A DAY/DR FERRIS TAKING ZOCOR 20 20MG TABLET 1 TABLET ORALLY DAILY AT BEDTIME TAKING CITALOPRAM HYDROBROMIDE 40MG TABLET 1 TABLET ORALLY ONCE A DAY TAKING EPIPEN 2-GISELL 0.3 MG/0.3ML (1:1000) DEVICE INJECTION INTRAMUSCULAR 1 TIME NEEDED FOR ANGIOEDEMA REACTION TAKING TRAZODONE HCL 150 MG TABLET 1 TABLET AT BEDTIME NEEDED ORALLY ONCE A DAY TAKING AMBIEN 10 MG TABLET 1 TAB ORAL AT BEDTIME TAKING MOTRIN 200 MG TABLET 2 TABLETS NEEDED ORALLY 2-3 TIMES DAILY TAKING ALBUTEROL SULFATE HFA 108 (90 BASE) MCG/ACT AEROSOL SOLUTION 2 PUFFS NEEDED INHALATION EVERY 4 HRS TAKING FOLIC ACID 1 MG TABLET 1 TABLET ORALLY ONCE A DAY TAKING KLONOPIN 0.5 MG TABLET 1 TABLET ORALLY TWICE A DAY TAKING SUMATRIPTAN SUCCINATE 25 MG TABLET 1 TABLET NEEDED ORALLY ONCE A DAY PRN 0.5 TAB AND IF NEEDED FULL TAB TAKING RANITIDINE HCL 150 MG CAPSULE 1 CAPSULE ORALLY TWICE A DAY TAKING BUPROPION HCL ER (XL) 150 MG TABLET EXTENDED RELEASE 24 HOUR 1 TABLET IN THE MORNING ORALLY ONCE A DAY TAKING HYDROCHLOROTHIAZIDE 25 MG TABLET 1 TABLET IN THE MORNING ORALLY DAILY TAKING OMEPRAZOLE 40 MG CAPSULE DELAYED RELEASE 1 CAPSULE ORALLY ONCE A DAY TAKING WELLBUTRIN SR 150 MG TABLET EXTENDED RELEASE 12 HOUR 1 TABLET ORALLY ONCE A DAY NOT-TAKING MAGNESIUM 400 MG TABLET 1 TAB(S) ORALLY ONCE DAILY, NOTES: 6- NOT-TAKING LORATADINE 10 MG TABLET 1 TABLET ORALLY ONCE A DAY MEDICATION LIST REVIEWED AND RECONCILED WITH THE PATIENT PAST MEDICAL HISTORY HYPERLIPIDEMIA CAROTID ATHEROSCLEROSIS -- FOLLOWS WITH DR. 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, RADIATION AND CHEMOTHERAPY BILATERAL TMJ HX OF MULTIPLE THYROID NODULES PROVEN NON-MALIGNANT HX ABNORMAL PAP SMEAR HX OF CHEST PAIN 2009 WITH NEGATIVE HEART CATHETERIZATION MIGRAINE HEADACHES LUPUS ANGIOEDEMA OBSTRUCTIVE SLEEP APNEA ARTHRITIS BOTH KNEES KIDNEY STONES ALLERGIES SULFA (FOR ALLERGY USE ONLY): HIVES: ALLERGY FLEXERIL: MIGAINES: ALLERGY ASPIRIN: UNKNOWN: ALLERGY HYDROXYCHLOROQUINE SULFATE: UNKNOWN: ALLERGY BEE STINGS: UNKNOWN: ALLERGY REVIEW OF SYSTEMS REVIEWED BY: PROVIDER: TABITHA REILLY . CONSTITUTIONAL: ANY CHANGE IN YOUR MEDICAL CONDITION? NO . CHILLS NO . FEVER NO . INFECTION: DO YOU HAVE NEW INFECTIONS? NO . DO YOU HAVE HISTORY OF MRSA? NO . MUSCULOSKELETAL: ANY NEW PATTERNS OF PAIN OR NUMBNESS? NO . GASTROENTEROLOGY: ANY NEW CHANGE IN BOWEL CONTROL? NO . GENITOURINARY: ANY NEW CHANGE IN BLADDER CONTROL? YES, URGENCY WITH INCONTINENCE . IS THERE A CHANCE YOU COULD BE ? NO . HEMATOLOGY/LYMPH: DO YOU TAKE ANY BLOOD THINNERS? (FOR EXAMPLE- COUMADIN, PLAVIX, AGGRENOX, PLATEL, PRADAXA, OR XARELTO) NO . WHEN WAS YOUR LAST DOSE? DATE: TIME: . NEUROLOGY: HAVE YOU FALLEN IN THE PAST 6 MONTHS? YES, FALL 1 WEEK AGO/ KNEE GAVE OUT FALL A COUPLE DAYS AGO/ HURT LEFT ARM . ANY NEW EXTREMITY NUMBNESS OR WEAKNESS? NO . CARDIOLOGY: DO YOU HAVE A PACEMAKER OR DEFIBRILLATOR? NO . RESPIRATORY: HAVE YOU BEEN SICK IN THE PAST WEEK? NO . FEVER NO . FLU LIKE SYMPTOMS? NO . COUGH NO . INTEGUMENTARY: DO YOU HAVE ANY RASHES OR OPEN SORES? NO . ALLERGIC/IMMUNO: ARE YOU ALLERGIC TO SHELLFISH OR IV DYE? NO . ANY NEW ALLERGIES? NO . PSYCHIATRIC: DO YOU HAVE THOUGHTS OF HURTING YOURSELF OR SOMEONE ELSE? NO . ARE YOU ABUSED, NEGLECTED, OR IN AN UNSAFE ENVIRONMENT? NO . ENDOCRINOLOGY: ARE YOU DIABETIC? NO . OTHER: DO YOU NEED ANY PRESCRIPTIONS? NO . IF YES, PLEASE LIST: ____ . ANY NEW PROBLEMS WITH YOUR MEDICATIONS? NO . WHEN DID YOU LAST EAT? ____ . WHEN DID YOU LAST DRINK? ____ . WHAT DID YOU LAST DRINK? ____ . NAME OF PERSON DRIVING YOU HOME? ____ . DO YOU HAVE ANY OTHER QUESTIONS OR CONCERNS FALLING ALOT/ DOES NOT LIKE WALKER/ COULD SHE GET A QUAD CANE?? . UROLOGY: URINARY INCONTINENCE URINARY URGENCY AND LOSS OF URINE CONTROL - OCCURRING 3-4X/WEEK . VITAL SIGNS WT 273.6 LBS, HT 66 IN, BMI 44.16 INDEX, BP 120/58 MM HG, HR 70 /MIN, RR 16 /MIN, TEMP 96.8 F, OXYGEN SAT % 93%, NA INITIALS SC 09:49, REVIEWED BY: NL. EXAMINATION GENERAL EXAMINATION: GENERAL APPEARANCE:NO ACUTE DISTRESS, WELL NOURISHED AND HYDRATED. PSYCHAPPROPRIATE MOOD AND AFFECT . LUNGS:CLEAR TO AUSCULTATION BILATERALLY, NO WHEEZES, RHONCHI, RALES. HEART:NO MURMURS, REGULAR RATE AND RHYTHM. ABDOMEN:SOFT, NON-TENDER, NO ORGANOMEGALY, BOWEL SOUNDS ARE NORMAL. MUSCULOSKELETAL:MUSCLE STRENGTH TESTING 5/5 BILATERAL UPPER AND LOWER EXTREMITIES., TRIGGER POINTS: ACROSS TRAP AND LSA. . JOINTS:BILATERAL, KNEE , PAIN , AT REST , WITH RANGE OF MOTION . SKIN:MULTIPLE ECCYMOTIC AREAS ON LEFT BUTTUCK AND LEFT FOREARM.. ASSESSMENTS MYALGIA - M79.1 (PRIMARY) LEFT SHOULDER PAIN - M25.512 LUMBAGO WITH SCIATICA, LEFT SIDE - M54.42 OTHER CHRONIC PAIN - G89.29 LUMBAR BACK PAIN WITH RADICULOPATHY AFFECTING LEFT LOWER EXTREMITY - M54.17 FIBROMYALGIA - M79.7 TREATMENT MYALGIA START CYMBALTA CAPSULE DELAYED RELEASE PARTICLES, 30 MG, 1 CAPSULE, ORALLY, BEFORE BEDTIME, 30 DAY(S), 30, REFILLS 1 NOTES: CALL DR CARY ABOUT POSSIBLE LEFT SHOULDER SURGERY. PROCEDURE CODES FA211 ESTABILISHED PATIENT [facility] FACILITY CHARGE DISPOSITION & COMMUNICATION FOLLOW UP 1 MONTH (REASON: FIBRO, NECK PAIN) ELECTRONICALLY SIGNED BY CINDA BUSTILLO ON 08/12/2017 AT 07:09 PM EDT DISCLAIMER : THIS IS A VISIT SUMMARY EXTRACTED FROM THE [employer] CHART. IT IS NOT A COPY OF THE [employer] PROGRESS NOTE. VIVEK
== END ==
LOC: M PAIN 09:45
PROVIDERS: ATTEND Nurse Practitioner Family
DX: G89.29 Other chronic pain (principal); M25.512 Pain in left shoulder; M54.42 Lumbago with sciatica, left side; M54.17 Radiculopathy, lumbosacral region; M79.7 Fibromyalgia; I10 Essential (primary) hypertension; G47.00 Insomnia, unspecified; G43.909 Migraine, unspecified, not intractable, without status migrainosus; Z88.2 Allergy status to sulfonamides; Z88.6 Allergy status to analgesic agent; Z88.8 Allergy status to other drugs, medicaments and biological substances; Z91.030 Bee allergy status; Z79.899 Other long term (current) drug therapy

== ENCOUNTER 2017-08-06 07:20 | Outpatient (CLI) | payer OTHER ==
[~2017-08-06] VITALS: Ht 165.1 cm; Wt 124.7 kg
[2017-08-06] MEDS ORDERED: NS 1,000 ML IV SCH (07:45)
[2017-08-06] MEDS ORDERED: PROPOFOL 200 MG/20 ML VIAL As Ordered ONE (08:14)
[2017-08-06] MEDS ORDERED: LIDOCAINE 2% INJ 100 MG/5 ML SDV (FOR ANES.) As Ordered ONE (08:14)
--- NOTE | 2017-08-06 08:28 | ROOR ---
Patient Name: Jess Mckeon Procedure Date: 08/06/2017 8:02 AM Date of : 1970 Age: 46 Room: [facility] Gender: Female Note Status: Finalized Procedure: Colonoscopy Indications: Hematochezia, Constipation Providers: Bardley Chaves MD Referring MD: Jakub Dan MD Requesting Provider: Medicines: Monitored Anesthesia Care Complications: No immediate complications. Procedure: Pre-Anesthesia Assessment: - Prior to the procedure, a History and Physical was performed, and patient medications and allergies were reviewed. The patient is competent. The risks and benefits of the procedure and the sedation options and risks were discussed with the patient. All questions were answered and informed consent was obtained. Patient identification and proposed procedure were verified by the physician, the nurse and the financial service representative in the procedure room. Mental Status Examination: alert and oriented. Airway Examination: normal oropharyngeal airway and neck mobility. Respiratory Examination: clear to auscultation. CV Examination: normal. Prophylactic Antibiotics: The patient does not require prophylactic antibiotics. Prior Anticoagulants: The patient has taken no previous anticoagulant or antiplatelet agents. ASA Grade Assessment: IV - A patient with severe systemic disease that is a constant threat to life. After reviewing the risks and benefits, the patient was deemed in satisfactory condition to undergo the procedure. The anesthesia plan was to use monitored anesthesia care (MAC). Immediately prior to administration of medications, the patient was re-assessed for adequacy to receive sedatives. The heart rate, respiratory rate, oxygen saturations, blood pressure, adequacy of pulmonary ventilation, and response to care were monitored throughout the procedure. The physical status of the patient was re-assessed after the procedure. The Colonoscope was introduced through the anus and advanced to the terminal ileum, with identification of the appendiceal orifice and IC valve. The colonoscopy was performed without difficulty. The patient tolerated the procedure well. The quality of the bowel preparation was good. The terminal ileum, ileocecal valve, appendiceal orifice, and rectum were photographed. Scope insertion time was 4 minutes. Scope withdrawal time was 11 minutes. The total duration of the procedure was 15 minutes. Findings: The perianal and digital rectal examinations were normal. External hemorrhoids were found during retroflexion. The hemorrhoids were medium-sized. The exam was otherwise without abnormality on direct and retroflexion views. The terminal ileum appeared normal. Impression: - External hemorrhoids. - The examination was otherwise normal on direct and retroflexion views. - The examined portion of the ileum was normal. - No specimens collected. Recommendation: - Patient has a contact number available for emergencies. The signs and symptoms of potential delayed complications were discussed with the patient. Return to normal activities tomorrow. Written discharge instructions were provided to the patient. - High fiber diet. - Continue present medications. - Resume Plavix (clopidogrel) at prior dose today. - Repeat colonoscopy in 10 years for screening purposes. - Return to GI clinic as previously scheduled. - Return to primary care physician. Bradley Chaves MD Bradley Chaves MD 08/06/2017 8:27:56 AM This report has been signed electronically. Number of Addenda: 0 Note Initiated On: 08/06/2017 8:02 AM Estimated Blood Loss: Estimated blood loss: none.
[2017-08-06 08:48] VITALS: BP 155/88
== END 2017-08-06 08:50 | disposition home or self-care (01) ==
LOC: M OPP 07:20
PROVIDERS: ATTEND Internal Medicine Gastroenterology
DX: K92.1 Melena (principal); K59.00 Constipation, unspecified; K64.4 Residual hemorrhoidal skin tags; K21.9 Gastro-esophageal reflux disease without esophagitis; I10 Essential (primary) hypertension; I25.10 Atherosclerotic heart disease of native coronary artery without angina pectoris; E78.5 Hyperlipidemia, unspecified; R01.1 Cardiac murmur, unspecified; I73.9 Peripheral vascular disease, unspecified; R12 Heartburn; R23.3 Spontaneous ecchymoses; F41.9 Anxiety disorder, unspecified; M32.13 Lung involvement in systemic lupus erythematosus; R06.02 Shortness of breath; M19.90 Unspecified osteoarthritis, unspecified site; M79.7 Fibromyalgia; E66.9 Obesity, unspecified; M81.0 Age-related osteoporosis without current pathological fracture; G43.909 Migraine, unspecified, not intractable, without status migrainosus; G47.30 Sleep apnea, unspecified; G47.00 Insomnia, unspecified; R06.83 Snoring; Z92.3 Personal history of irradiation; Z92.21 Personal history of antineoplastic chemotherapy; Z87.442 Personal history of urinary calculi; Z95.5 Presence of coronary angioplasty implant and graft; Z88.8 Allergy status to other drugs, medicaments and biological substances; Z88.2 Allergy status to sulfonamides; Z91.030 Bee allergy status; Z79.01 Long term (current) use of anticoagulants; Z79.899 Other long term (current) drug therapy; Z80.9 Family history of malignant neoplasm, unspecified

== ENCOUNTER → 2017-08-13 | Outpatient (CLI) | payer OTHER ==
[2017-08-13 19:53] LABS: BASO % 0.9 % (0.0-1.0); EOS # 0.1 10^3/uL (0.0-0.50); IMMATURE GRANULOCYTE % 0.2 % (0-0); LYMPH # 1.3 10^3/uL (1.5-4.5); LYMPH % 29.4 % (24.0-44.0); MEAN CORPUSCULAR HEMOGLOBIN 28.8 pg (27.0-33.0); MEAN CORPUSCULAR HGB CONC 32.1 g/dl (32.0-36.5); MEAN CORPUSCULAR VOLUME 89.7 fl (80.0-96.0); MONO # 0.3 10^3/uL (0.0-0.8); MONO % 5.8 % (0.0-5.0); NEUTROPHILS # 2.6 10^3/uL (1.8-7.7); NEUTROPHILS % 60.7 % (36.0-66.0); PLATELET COUNT, AUTOMATED 169 10^3/uL (150-450); RED CELL DISTRIBUTION WIDTH 14.4 % (11.5-14.5); WHITE BLOOD COUNT 4.3 10^3/uL (4.0-10.0)
[2017-08-13 20:24] LABS: ADD MORPHOLOGY? NO
== END ==
LOC: M LAB 17:01
PROVIDERS: ATTEND Orthopaedic Surgery
DX: Z01.818 Encounter for other preprocedural examination (principal)

== ENCOUNTER → 2017-08-28 | Outpatient (CLI) | payer OTHER ==
--- NOTE | 2017-10-07 00:41 | ECWPNPC ---
PATIENT NAME: ACOSTA ALBRIGHT : 1970 GENDER: FEMALE VISIT DATE: 08/28/2017 DISCHARGE DATE: 08/28/17 0957 VISIT LOCKED DATE TIME: PHYSICIAN: TABITHA MCCOLLUM RESOURCE: TABITHA MCCOLLUM REASON FOR APPOINTMENT 1. NECK,BACK, SHOULDERS HISTORY OF PRESENT ILLNESS HISTORY OF PRESENT ILLNESS: PAIN THE PATIENT DESCRIBES THE PAIN... FALL RISK SCREENING: SCREENING :NO FALLS IN THE PAST YEAR TODAY'S VISIT: NOTES: RATES PAIN TODAY 9/10. DESCRIBES PAIN ACHING, SHARP, STABBING TENDER AND ORE. WAS ADVISED BY HER NEUROLOGY IN [place] TO STOP CYMBALTA AND CITALOPRAM AND START VENLAFAXINE. SHOULDER SURGERY IS SCHED FOR OCTOBER. NOTES TIGHTNESS ACROSS SHOULDERS AND IS WONDERING IF SHE CAN HAVE TRIGGER POINTS TO THIS AREA. . CURRENT MEDICATIONS TAKING ASTELIN 137 MCG/SPRAY SOLUTION 1 SPRAY IN EACH NOSTRIL NASALLY TWICE A DAY TAKING PLAVIX 75 MG TABLET 1 TABLET ORALLY ONCE A DAY/DR FERRIS TAKING ZOCOR 20 20MG TABLET 1 TABLET ORALLY DAILY AT BEDTIME TAKING EPIPEN 2-GISELL 0.3 MG/0.3ML (1:1000) DEVICE INJECTION INTRAMUSCULAR 1 TIME NEEDED FOR ANGIOEDEMA REACTION TAKING TRAZODONE HCL 150 MG TABLET 1 TABLET AT BEDTIME NEEDED ORALLY ONCE A DAY TAKING AMBIEN 10 MG TABLET 1 TAB ORAL AT BEDTIME TAKING ALBUTEROL SULFATE HFA 108 (90 BASE) MCG/ACT AEROSOL SOLUTION 2 PUFFS NEEDED INHALATION EVERY 4 HRS TAKING FOLIC ACID 1 MG TABLET 1 TABLET ORALLY ONCE A DAY TAKING KLONOPIN 0.5 MG TABLET 1 TABLET ORALLY TWICE A DAY TAKING RANITIDINE HCL 150 MG CAPSULE 1 CAPSULE ORALLY TWICE A DAY TAKING BUPROPION HCL ER (XL) 150 MG TABLET EXTENDED RELEASE 24 HOUR 1 TABLET IN THE MORNING ORALLY ONCE A DAY TAKING HYDROCHLOROTHIAZIDE 25 MG TABLET 1 TABLET IN THE MORNING ORALLY DAILY NEEDED FOR LEG EDEMA TAKING OMEPRAZOLE 40 MG CAPSULE DELAYED RELEASE 1 CAPSULE ORALLY ONCE A DAY TAKING WELLBUTRIN SR 150 MG TABLET EXTENDED RELEASE 12 HOUR 1 TABLET ORALLY ONCE A DAY TAKING CYMBALTA 30 MG CAPSULE DELAYED RELEASE PARTICLES 1 CAPSULE ORALLY BEFORE BEDTIME TAKING SUMATRIPTAN SUCCINATE 25 MG TABLET 1 TABLET NEEDED ORALLY ONCE A DAY PRN 0.5 TAB AND IF NEEDED FULL TAB TAKING ALEVE 220 MG TABLET 1 TABLET NEEDED ORALLY EVERY 12 HRS TAKING VENLAFAXINE HCL ER 37.5 MG CAPSULE EXTENDED RELEASE 24 HOUR 1 CAPSULE WITH FOOD ORALLY ONCE A DAY, NOTES: NOT STARTED DISCONTINUED CITALOPRAM HYDROBROMIDE 40MG TABLET 1 TABLET ORALLY ONCE A DAY DISCONTINUED MOTRIN 200 MG TABLET 2 TABLETS NEEDED ORALLY 2-3 TIMES DAILY UNKNOWN MAGNESIUM 400 MG TABLET 1 TAB(S) ORALLY ONCE DAILY, NOTES: 6- UNKNOWN LORATADINE 10 MG TABLET 1 TABLET ORALLY ONCE A DAY MEDICATION LIST REVIEWED AND RECONCILED WITH THE PATIENT PAST MEDICAL HISTORY HYPERLIPIDEMIA CAROTID ATHEROSCLEROSIS -- FOLLOWS WITH DR. 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, RADIATION AND CHEMOTHERAPY BILATERAL TMJ HX OF MULTIPLE THYROID NODULES PROVEN NON-MALIGNANT HX ABNORMAL PAP SMEAR HX OF CHEST PAIN 2008 WITH NEGATIVE HEART CATHETERIZATION MIGRAINE HEADACHES LUPUS ANGIOEDEMA OBSTRUCTIVE SLEEP APNEA ARTHRITIS BOTH KNEES KIDNEY STONES ALLERGIES SULFA (FOR ALLERGY USE ONLY): HIVES: ALLERGY FLEXERIL: MIGAINES: ALLERGY ASPIRIN: UNKNOWN: ALLERGY HYDROXYCHLOROQUINE SULFATE: UNKNOWN: ALLERGY BEE STINGS: UNKNOWN: ALLERGY SOCIAL HISTORY GENERAL: TOBACCO USE ARE YOU A:NONSMOKER PAIN CLINIC PFS, CLERGY, PUBLIC HEALTH REFERRALS PFS REFERRAL NEEDED?NO CLERGY REFERRAL NEEDED?NO PUBLIC HEALTH REFERRAL NEEDED?NO WAS THE PROVIDER NOTIFIED OF ANY PERTINENT INFO?NO HAS THE PATIENT BEEN EDUCATED REGARDING HIS/HER PLAN OF CARE?YES HAS THE PATIENT BEEN EDUCATED REGARDING PAIN, THE RISK FOR PAIN, THE IMPORTANCE OF EFFECTIVE PAIN MANAGEMENT, AND THE PAIN ASSESSMENT PROCESS?YES PATIENT: ____. REVIEW OF SYSTEMS REVIEWED BY: PROVIDER: TABITHA REILLY . CONSTITUTIONAL: ANY CHANGE IN YOUR MEDICAL CONDITION? NO . CHILLS NO . FEVER NO . INFECTION: DO YOU HAVE NEW INFECTIONS? NO . DO YOU HAVE HISTORY OF MRSA? NO . MUSCULOSKELETAL: ANY NEW PATTERNS OF PAIN OR NUMBNESS? NO . GASTROENTEROLOGY: ANY NEW CHANGE IN BOWEL CONTROL? NO . GENITOURINARY: ANY NEW CHANGE IN BLADDER CONTROL? NO . IS THERE A CHANCE YOU COULD BE ? NO . HEMATOLOGY/LYMPH: DO YOU TAKE ANY BLOOD THINNERS? (FOR EXAMPLE- COUMADIN, PLAVIX, AGGRENOX, PLATEL, PRADAXA, OR XARELTO) YES, PLAVIX . WHEN WAS YOUR LAST DOSE? DATE: TIME: 08-27-17 9 PM . NEUROLOGY: HAVE YOU FALLEN IN THE PAST 6 MONTHS? YES . ANY NEW EXTREMITY NUMBNESS OR WEAKNESS? NO . CARDIOLOGY: DO YOU HAVE A PACEMAKER OR DEFIBRILLATOR? NO . CHEST PAIN RECENT CARDIAC STRESS TEST - ALL OK. HAVING INTERMITTANT CHEST PAIN. HAS 75-80% BLOCKED RIGHT CAROTID ARTERY. . RESPIRATORY: HAVE YOU BEEN SICK IN THE PAST WEEK? NO . FEVER NO . FLU LIKE SYMPTOMS? NO . COUGH NO . INTEGUMENTARY: DO YOU HAVE ANY RASHES OR OPEN SORES? NO . ALLERGIC/IMMUNO: ARE YOU ALLERGIC TO SHELLFISH OR IV DYE? NO . ANY NEW ALLERGIES? NO . PSYCHIATRIC: DO YOU HAVE THOUGHTS OF HURTING YOURSELF OR SOMEONE ELSE? NO . ARE YOU ABUSED, NEGLECTED, OR IN AN UNSAFE ENVIRONMENT? NO . ENDOCRINOLOGY: ARE YOU DIABETIC? NO . OTHER: DO YOU NEED ANY PRESCRIPTIONS? NO . IF YES, PLEASE LIST: ____ . ANY NEW PROBLEMS WITH YOUR MEDICATIONS? NO . WHEN DID YOU LAST EAT? ____ . WHEN DID YOU LAST DRINK? ____ . WHAT DID YOU LAST DRINK? ____ . NAME OF PERSON DRIVING YOU HOME? ____ . DO YOU HAVE ANY OTHER QUESTIONS OR CONCERNS NO . VITAL SIGNS WT 265. LBS, HT 66 IN, BMI 42.77 INDEX, BP 120/58 MM HG, HR 76 /MIN, RR 16 /MIN, TEMP 98.1 F, OXYGEN SAT % 94%, NA INITIALS CM 0902. EXAMINATION GENERAL EXAMINATION: GENERAL APPEARANCE:NO ACUTE DISTRESS, WELL NOURISHED AND HYDRATED. PSYCHAPPROPRIATE MOOD AND AFFECT . LUNGS:CLEAR TO AUSCULTATION BILATERALLY, NO WHEEZES, RHONCHI, RALES. HEART:NO MURMURS, REGULAR RATE AND RHYTHM. ABDOMEN:SOFT, NON-TENDER, NO ORGANOMEGALY, BOWEL SOUNDS ARE NORMAL. MUSCULOSKELETAL:MUSCLE STRENGTH TESTING 5/5 BILATERAL UPPER AND LOWER EXTREMITIES., TRIGGER POINTS: ACROSS TRAPEZIUS AND ACROSS THE LUMBOSACRAL AXIS. SPECIFIC TENDERNESS OVER BILATERAL SACRAL ILIAC JOINTS.. ASSESSMENTS MYALGIA - M79.1 (PRIMARY) LEFT SHOULDER PAIN - M25.512 LUMBAGO WITH SCIATICA, LEFT SIDE - M54.42 OTHER CHRONIC PAIN - G89.29 LUMBAR BACK PAIN WITH RADICULOPATHY AFFECTING LEFT LOWER EXTREMITY - M54.17 FIBROMYALGIA - M79.7 TREATMENT MYALGIA TRIGGER POINT 3 + TABITHA SALEH 08/28/2017 9:42:39 AM > NECK/SHOULDERS NOTES: OK TO STOP THE CYMBALTA.,TRIGGER POINT INJECTION MATERIAL WAS PRINTED. PROCEDURE CODES FA211 ESTABILISHED PATIENT [facility] FACILITY CHARGE DISPOSITION & COMMUNICATION FOLLOW UP AFTER INJECTION (REASON: CHECK AUTH FOR TPI) ELECTRONICALLY SIGNED BY CINDA BUSTILLO ON 10/06/2017 AT 07:44 PM EST DISCLAIMER : THIS IS A VISIT SUMMARY EXTRACTED FROM THE [employer] CHART. IT IS NOT A COPY OF THE [employer] PROGRESS NOTE. VIVEK
== END ==
LOC: M PAIN 09:00
PROVIDERS: ATTEND Nurse Practitioner Family
DX: M79.1 Myalgia (principal); M25.512 Pain in left shoulder; M54.42 Lumbago with sciatica, left side; G89.29 Other chronic pain; M54.17 Radiculopathy, lumbosacral region; I10 Essential (primary) hypertension; E78.5 Hyperlipidemia, unspecified; Z79.01 Long term (current) use of anticoagulants; Z79.899 Other long term (current) drug therapy; Z88.2 Allergy status to sulfonamides; Z88.8 Allergy status to other drugs, medicaments and biological substances; Z88.6 Allergy status to analgesic agent; Z91.030 Bee allergy status

== ENCOUNTER → 2017-08-29 | Outpatient (CLI) | payer OTHER ==
--- NOTE | 2017-09-03 23:37 | SLEEPCENT ---
DATE OF PROCEDURE: 08/29/2017 ORDERED BY: Raven Lambert Nocturnal polysomnography was performed for the titration of pressure therapy in this patient with obstructive sleep apnea syndrome. For testing, a [employer]Med Mirage Quattro full face mask of extra-small size was used, 4 cm of water pressure was initially applied to the circuit and the lights were extinguished. 8 hours and 28 minutes of data were reviewed. There were 462 minutes of sleep identified. Sleep latency was short at 30 seconds. Rapid eye movement (REM) latency was prolonged at 253 minutes. The sleep architecture improved late in the study. Overall sleep efficiency was 92%. The EKG showed a sinus rhythm with an average heart rate of 75 beats per minute. EEG showed fairly normal waveforms for awake and sleep. Pressure titration was performed between 4 and 7 cm. On review, best sleep was seen at a pressure of 7 cm. There were some persistent hypopneic events and an occasional central apnea but oxygen saturations were maintained at 89% or better. Some limb activity was noted, particularly late in the study. Limb movement arousal index was only 5.1. IMPRESSION: Obstructive sleep apnea syndrome (G47.33). RECOMMENDATION: Nightly use of pressure therapy 7 cm of water. Copy To: Newton Mata NP
== END ==
LOC: M SLEEP 19:40
PROVIDERS: ATTEND Nurse Practitioner Adult Health
DX: G47.33 Obstructive sleep apnea (adult) (pediatric) (principal)

== ENCOUNTER → 2017-09-04 | Outpatient (REF) | payer OTHER, MEDICAID ==
[2017-09-04 13:54] LABS: ALBUMIN 3.9 GM/DL (3.2-5.2); ALBUMIN/GLOBULIN RATIO 1.56 (1.00-1.93); ALKALINE PHOSPHATASE 83 U/L (45-117); ALT/SGPT 20 U/L (12-78); ANION GAP 6 MEQ/L (8-16); AST/SGOT 13 U/L (15-37); BILIRUBIN,TOTAL 0.4 MG/DL (0.2-1.0); BLOOD UREA NITROGEN 12 MG/DL (7-18); CALCIUM LEVEL 9.4 MG/DL (8.5-10.1); CARBON DIOXIDE LEVEL 27 MEQ/L (21-32); CHLORIDE LEVEL 110 MEQ/L (98-107); CHOLESTEROL LEVEL 148 MG/DL (<200); CREATININE FOR GFR 0.75 MG/DL (0.55-1.02); GLOMERULAR FILTRATION RATE > 60.0 (>58); GLUCOSE, FASTING 99 MG/DL (70-105); SODIUM LEVEL 143 MEQ/L (136-145); TOTAL PROTEIN 6.4 GM/DL (6.4-8.2); TRIGLYCERIDES LEVEL 55 MG/DL (<150)
== END ==
LOC: M LAB REF 12:36
PROVIDERS: ATTEND Family Medicine Addiction Medicine
DX: E78.5 Hyperlipidemia, unspecified (principal)

== ENCOUNTER → 2017-11-25 | Outpatient (CLI) | payer OTHER | LOC: M PAIN 08:45 | DX: M25.512 Pain in left shoulder (principal); M54.42 Lumbago with sciatica, left side; G89.29 Other chronic pain; M54.17 Radiculopathy, lumbosacral region; M79.7 Fibromyalgia; E78.5 Hyperlipidemia, unspecified; I65.23 Occlusion and stenosis of bilateral carotid arteries; G43.909 Migraine, unspecified, not intractable, without status migrainosus; M32.9 Systemic lupus erythematosus, unspecified; G47.33 Obstructive sleep apnea (adult) (pediatric); M17.0 Bilateral primary osteoarthritis of knee; F17.200 Nicotine dependence, unspecified, uncomplicated; Z88.2 Allergy status to sulfonamides; Z88.6 Allergy status to analgesic agent; Z88.8 Allergy status to other drugs, medicaments and biological substances; Z91.030 Bee allergy status; Z79.01 Long term (current) use of anticoagulants; Z79.899 Other long term (current) drug therapy | CPT/HCPCS: G0463 ==

== ENCOUNTER 2017-12-11 13:24 | Outpatient (RCR) | payer OTHER | END 2017-12-18 | LOC: M PT 13:24 | DX: Z51.89 Encounter for other specified aftercare (principal); Z98.890 Other specified postprocedural states | CPT/HCPCS: 97010 ==

== ENCOUNTER 2017-12-23 12:34 | Outpatient (RCR) | payer OTHER | END 2018-01-15 | LOC: M PT 12:34 | DX: Z51.89 Encounter for other specified aftercare (principal); Z98.890 Other specified postprocedural states; M25.512 Pain in left shoulder | CPT/HCPCS: 97010 ==

== ENCOUNTER → 2018-01-03 | Outpatient (CLI) | payer OTHER ==
[~2018-01-03] MED LIST changes: -/AUGM875TA OR; -/DIVA50TA PO; -/RANI15TA PO; -ACET500C OR; -ALEVE; -AMBI10TA PO; -ASPI325T OR; -ASTELIN; -AUGM875T28 PO; -BACL10TA2 PO; +BUPIVACAINE HCL 0.25% 10 ML VIAL As Ordered; +BUPIVACAINE HCL 0.25% 30 ML VIAL As Ordered; -CELE20TA PO; -CYMB1CAP5 PO; -EPIP0.3I10 INJ; -FERR325T3 PO; -FOLI1TAB4 PO; -GABA-279 PO; -GABA-282 PO; -GABA250S6 PO; -IBUPOTC PO; -IMIT100T PO; -KLON1TAB PO; -MAGN400C2 PO; -METH2.5TA PO; -MOTR200T4 PO; -MOTR200T44 PO; -NAPR500T PO; -OMEP40CA2 PO; -OXYC5CAP28 PO; -PERC5TAB12 PO; -PERC7.5T12 PO; -PERCOCET PO; -PLAQ200T PO; -PLAV1TAB2 PO; -PLAV75TA2 OR; -PRED1TAB32 PO; -PRED5TA PO; -PSEU30OTC OR; -RANI1TAB6 PO; -SIMV20TA2 OR; -TIZA2CAP3 PO; -TIZA4CAP3 PO; -TIZA4TAB OR; -TOPA100T PO; -TOPI25TA2 OR; -TRAZ100T2 PO; -TRAZ1TAB14 PO; +TRIAMCINOLONE ACETONIDE SUSP 40 MG/ML VIAL (J3301) As Ordered; -VICO5TAB OR; -ZANA6CAP PO; +diazePAM 5 MG TAB As Ordered; +oxyCODONE 5MG TAB As Ordered
== END ==
LOC: M PAIN 11:45
DX: G89.29 Other chronic pain (principal); M25.511 Pain in right shoulder; M25.512 Pain in left shoulder; M54.2 Cervicalgia; M79.1 Myalgia; E78.5 Hyperlipidemia, unspecified; I65.29 Occlusion and stenosis of unspecified carotid artery; G43.909 Migraine, unspecified, not intractable, without status migrainosus; M32.9 Systemic lupus erythematosus, unspecified; G47.33 Obstructive sleep apnea (adult) (pediatric); M17.0 Bilateral primary osteoarthritis of knee; Z79.01 Long term (current) use of anticoagulants; Z79.899 Other long term (current) drug therapy; Z88.2 Allergy status to sulfonamides; Z88.6 Allergy status to analgesic agent; Z88.8 Allergy status to other drugs, medicaments and biological substances; Z91.030 Bee allergy status; Z92.21 Personal history of antineoplastic chemotherapy; Z92.3 Personal history of irradiation; Z85.831 Personal history of malignant neoplasm of soft tissue
CPT/HCPCS: J3301

== ENCOUNTER → 2018-01-16 | Outpatient (REF) | payer OTHER ==
[2018-01-16 14:05] LABS: INFLUENZA A AMPLIFICATION NEGATIVE (NEGATIVE); INFLUENZA B AMPLIFICATION NEGATIVE (NEGATIVE)
== END ==
LOC: M LAB REF 12:59
DX: Z11.59 Encounter for screening for other viral diseases (principal)

== ENCOUNTER → 2018-01-22 | Outpatient (CLI) | payer OTHER | LOC: M PAIN 08:30 | DX: M79.1 Myalgia (principal); M25.512 Pain in left shoulder; M54.42 Lumbago with sciatica, left side; G89.29 Other chronic pain; M54.17 Radiculopathy, lumbosacral region; M32.10 Systemic lupus erythematosus, organ or system involvement unspecified; I10 Essential (primary) hypertension; E78.5 Hyperlipidemia, unspecified; Z79.899 Other long term (current) drug therapy; Z88.8 Allergy status to other drugs, medicaments and biological substances; Z91.030 Bee allergy status | CPT/HCPCS: G0463 ==

== ENCOUNTER 2018-01-28 12:24 | Day surgery (SDC) | payer OTHER ==
[2018-01-28] MEDS: NS 1,000 ML IV (12:45)
[2018-01-28] MEDS ORDERED: LEVALBUTEROL 1.25 MG/0.5 ML CONCENTRATE NEB NEB (13:30)
[2018-01-28] MEDS ORDERED: PROPOFOL 200 MG/20 ML VIAL As Ordered (13:53)
[2018-01-28] MEDS ORDERED: LIDOCAINE 2% INJ 100 MG/5 ML SDV (FOR ANES.) As Ordered (13:53)
== END 2018-01-28 14:27 | disposition home or self-care (01) ==
LOC: M OPP 12:24
DX: K21.9 Gastro-esophageal reflux disease without esophagitis (principal); K31.89 Other diseases of stomach and duodenum; R07.89 Other chest pain; I25.10 Atherosclerotic heart disease of native coronary artery without angina pectoris; I10 Essential (primary) hypertension; E78.5 Hyperlipidemia, unspecified; R01.1 Cardiac murmur, unspecified; I73.9 Peripheral vascular disease, unspecified; E04.1 Nontoxic single thyroid nodule; R12 Heartburn; D64.9 Anemia, unspecified; R23.3 Spontaneous ecchymoses; M32.13 Lung involvement in systemic lupus erythematosus; R06.02 Shortness of breath; M19.90 Unspecified osteoarthritis, unspecified site; M79.7 Fibromyalgia; M81.0 Age-related osteoporosis without current pathological fracture; G47.00 Insomnia, unspecified; F41.9 Anxiety disorder, unspecified; F32.9 Major depressive disorder, single episode, unspecified; F34.1 Dysthymic disorder; G43.909 Migraine, unspecified, not intractable, without status migrainosus; F43.10 Post-traumatic stress disorder, unspecified; R56.9 Unspecified convulsions; G47.30 Sleep apnea, unspecified; E66.9 Obesity, unspecified; Z87.442 Personal history of urinary calculi; Z92.21 Personal history of antineoplastic chemotherapy; Z88.8 Allergy status to other drugs, medicaments and biological substances; Z88.2 Allergy status to sulfonamides; Z91.030 Bee allergy status; Z79.02 Long term (current) use of antithrombotics/antiplatelets; Z79.899 Other long term (current) drug therapy; Z80.8 Family history of malignant neoplasm of other organs or systems; Z80.1 Family history of malignant neoplasm of trachea, bronchus and lung
CPT/HCPCS: 91035

== ENCOUNTER → 2018-03-03 | Outpatient (CLI) | payer OTHER | LOC: M RAD 08:59 | DX: Z12.31 Encounter for screening mammogram for malignant neoplasm of breast (principal) | CPT/HCPCS: 77067 ==

== ENCOUNTER → 2018-03-04 | Outpatient (CLI) | payer OTHER | LOC: M PAIN 14:45 | DX: G89.29 Other chronic pain (principal); M79.1 Myalgia; M54.5 Low back pain; E78.5 Hyperlipidemia, unspecified; G43.909 Migraine, unspecified, not intractable, without status migrainosus; M32.9 Systemic lupus erythematosus, unspecified; G47.30 Sleep apnea, unspecified; M17.0 Bilateral primary osteoarthritis of knee; Z79.01 Long term (current) use of anticoagulants; Z79.899 Other long term (current) drug therapy; Z88.2 Allergy status to sulfonamides; Z88.6 Allergy status to analgesic agent; Z88.8 Allergy status to other drugs, medicaments and biological substances; Z91.030 Bee allergy status; Z92.21 Personal history of antineoplastic chemotherapy; Z92.3 Personal history of irradiation; Z85.9 Personal history of malignant neoplasm, unspecified; Z86.79 Personal history of other diseases of the circulatory system | CPT/HCPCS: J3301 ==

== ENCOUNTER → 2018-04-08 | Outpatient (CLI) | payer OTHER | LOC: M PAIN 14:15 | DX: M25.552 Pain in left hip (principal); M79.1 Myalgia; M54.42 Lumbago with sciatica, left side; E78.5 Hyperlipidemia, unspecified; G43.909 Migraine, unspecified, not intractable, without status migrainosus; M32.9 Systemic lupus erythematosus, unspecified; G47.33 Obstructive sleep apnea (adult) (pediatric); M17.0 Bilateral primary osteoarthritis of knee; Z79.01 Long term (current) use of anticoagulants; Z79.899 Other long term (current) drug therapy; Z88.2 Allergy status to sulfonamides; Z88.6 Allergy status to analgesic agent; Z88.8 Allergy status to other drugs, medicaments and biological substances; Z91.030 Bee allergy status; Z95.5 Presence of coronary angioplasty implant and graft | CPT/HCPCS: G0463 ==

== ENCOUNTER 2018-04-20 21:37 | Emergency (ER) | payer OTHER ==
[2018-04-20] MEDS ORDERED: NITROGLYCERIN 0.4 MG SUBL TABLET SL (22:30)
[2018-04-20 22:38] LABS: BASO % 0.7 % (0.0-1.0); EOS # 0.1 10^3/uL (0.0-0.50); EOS % 2.4 % (0.0-3.0); HEMATOCRIT 39.4 % (36.0-47.0); HEMOGLOBIN 12.9 g/dl (12.0-15.5); IMMATURE GRANULOCYTE % 0.4 % (0-3.0); LYMPH # 1.3 10^3/uL (1.5-4.5); LYMPH % 27.7 % (24.0-44.0); MEAN CORPUSCULAR HEMOGLOBIN 29.3 pg (27.0-33.0); MEAN CORPUSCULAR HGB CONC 32.7 g/dl (32.0-36.5); MEAN CORPUSCULAR VOLUME 89.3 fl (80.0-96.0); MONO # 0.3 10^3/uL (0.0-0.8); MONO % 7.3 % (0.0-5.0); NEUTROPHILS # 2.8 10^3/uL (1.8-7.7); NEUTROPHILS % 61.5 % (36.0-66.0); PLATELET COUNT, AUTOMATED 156 10^3/uL (150-450); RED BLOOD COUNT 4.41 10^6/uL (4.00-5.40); RED CELL DISTRIBUTION WIDTH 14.3 % (11.5-14.5); WHITE BLOOD COUNT 4.5 10^3/uL (4.0-10.0)
[2018-04-20 22:41] LABS: INR 0.97
[2018-04-20 22:53] LABS: ALBUMIN 3.6 GM/DL (3.2-5.2); ALBUMIN/GLOBULIN RATIO 1.06 (1.00-1.93); ALKALINE PHOSPHATASE 80 U/L (45-117); ALT/SGPT 21 U/L (12-78); ANION GAP 5 MEQ/L (8-16); AST/SGOT 14 U/L (7-37); BILIRUBIN,DIRECT 0.1 MG/DL (0.0-0.2); BILIRUBIN,TOTAL 0.3 MG/DL (0.2-1.0); BLOOD UREA NITROGEN 20 MG/DL (7-18); CALCIUM LEVEL 9.3 MG/DL (8.5-10.1); CARBON DIOXIDE LEVEL 28 MEQ/L (21-32); CHLORIDE LEVEL 109 MEQ/L (98-107); CPK CREATINE PHOSPHOKINASE 66 U/L (26-192); CREATININE FOR GFR 0.76 MG/DL (0.55-1.30); GLOMERULAR FILTRATION RATE > 60.0 (>58); GLUCOSE, FASTING 107 MG/DL (70-100); LIPASE 77 U/L (73-393); POTASSIUM SERUM 3.8 MEQ/L (3.5-5.1); SODIUM LEVEL 142 MEQ/L (136-145); TROPONIN I < 0.02 NG/ML (< 0.10)
[2018-04-20 22:54] LABS: CK-MB VALUE MASS < 1.0 NG/ML (<3.6); MB/CK RELATIVE INDEX 1.51 (< OR =4)
[2018-04-21] MEDS ORDERED: ACETAMINOPHEN 325 MG TAB As Ordered (00:07)
[2018-04-21] MEDS: ACETAMINOPHEN TAB 650MG DOSE (2X325MG) PO (00:10)
[2018-04-21 03:50] LABS: CK-MB VALUE MASS < 1.0 NG/ML (<3.6); CPK CREATINE PHOSPHOKINASE 68 U/L (26-192); MB/CK RELATIVE INDEX 1.47 (< OR =4); TROPONIN I < 0.02 NG/ML (< 0.10)
== END 2018-04-21 05:18 | disposition home or self-care (01) ==
LOC: M ED 04-21 05:18
DX: R07.89 Other chest pain (principal); I51.9 Heart disease, unspecified; I10 Essential (primary) hypertension; J45.909 Unspecified asthma, uncomplicated; Z79.899 Other long term (current) drug therapy; Z88.6 Allergy status to analgesic agent; Z88.2 Allergy status to sulfonamides; Z88.8 Allergy status to other drugs, medicaments and biological substances
CPT/HCPCS: 71045

== ENCOUNTER → 2018-05-19 | Outpatient (CLI) | payer OTHER | LOC: M PAIN 10:00 | DX: M25.552 Pain in left hip (principal); M79.1 Myalgia; M54.42 Lumbago with sciatica, left side; E78.5 Hyperlipidemia, unspecified; Z79.899 Other long term (current) drug therapy; Z88.8 Allergy status to other drugs, medicaments and biological substances; Z91.030 Bee allergy status; Z95.828 Presence of other vascular implants and grafts | CPT/HCPCS: G0463 ==

== ENCOUNTER → 2018-06-30 | Outpatient (CLI) | payer OTHER | LOC: M PAIN 11:00 | DX: M25.552 Pain in left hip (principal); M54.42 Lumbago with sciatica, left side; M79.7 Fibromyalgia; M32.9 Systemic lupus erythematosus, unspecified; M54.12 Radiculopathy, cervical region; E78.5 Hyperlipidemia, unspecified; I65.29 Occlusion and stenosis of unspecified carotid artery; G43.909 Migraine, unspecified, not intractable, without status migrainosus; G47.33 Obstructive sleep apnea (adult) (pediatric); M17.0 Bilateral primary osteoarthritis of knee; Z87.442 Personal history of urinary calculi; Z85.89 Personal history of malignant neoplasm of other organs and systems; Z79.02 Long term (current) use of antithrombotics/antiplatelets; Z79.899 Other long term (current) drug therapy; Z88.2 Allergy status to sulfonamides; Z88.6 Allergy status to analgesic agent; Z88.8 Allergy status to other drugs, medicaments and biological substances; Z91.030 Bee allergy status | CPT/HCPCS: G0463 ==

== ENCOUNTER → 2018-08-14 | Outpatient (CLI) | payer OTHER | LOC: M PAIN 11:15 | DX: M79.1 Myalgia (principal); M25.552 Pain in left hip; M54.42 Lumbago with sciatica, left side; M32.9 Systemic lupus erythematosus, unspecified; M54.12 Radiculopathy, cervical region; E78.5 Hyperlipidemia, unspecified; G43.909 Migraine, unspecified, not intractable, without status migrainosus; G47.33 Obstructive sleep apnea (adult) (pediatric); M17.0 Bilateral primary osteoarthritis of knee; Z87.442 Personal history of urinary calculi; M26.603 Bilateral temporomandibular joint disorder, unspecified; Z85.89 Personal history of malignant neoplasm of other organs and systems; Z92.21 Personal history of antineoplastic chemotherapy; Z92.3 Personal history of irradiation; Z79.02 Long term (current) use of antithrombotics/antiplatelets; Z79.899 Other long term (current) drug therapy; Z88.2 Allergy status to sulfonamides; Z88.8 Allergy status to other drugs, medicaments and biological substances; Z88.6 Allergy status to analgesic agent; Z91.030 Bee allergy status | CPT/HCPCS: G0463 ==

== ENCOUNTER → 2018-09-02 | Outpatient (CLI) | payer OTHER ==
[2018-09-02 15:08] LABS: PTH INTACT 135.8 PG/ML (18.5-88.0)
== END ==
LOC: M LAB 13:52
DX: E21.0 Primary hyperparathyroidism (principal)
CPT/HCPCS: 82310

== ENCOUNTER → 2018-09-02 | Outpatient (CLI) | payer OTHER ==
[~2018-09-02] MED LIST changes: -BUPIVACAINE HCL 0.25% 10 ML VIAL As Ordered
== END ==
LOC: M PAIN 14:30
DX: M79.18 Myalgia, other site (principal); M32.9 Systemic lupus erythematosus, unspecified; G47.33 Obstructive sleep apnea (adult) (pediatric); M17.0 Bilateral primary osteoarthritis of knee; G43.909 Migraine, unspecified, not intractable, without status migrainosus; M26.603 Bilateral temporomandibular joint disorder, unspecified; Z87.442 Personal history of urinary calculi; Z88.2 Allergy status to sulfonamides; Z88.6 Allergy status to analgesic agent; Z88.8 Allergy status to other drugs, medicaments and biological substances; Z91.030 Bee allergy status
CPT/HCPCS: J3301

== ENCOUNTER → 2018-10-02 | Outpatient (CLI) | payer OTHER | LOC: M PAIN 13:00 | DX: M79.7 Fibromyalgia (principal); E78.5 Hyperlipidemia, unspecified; G43.909 Migraine, unspecified, not intractable, without status migrainosus; G47.33 Obstructive sleep apnea (adult) (pediatric); M17.0 Bilateral primary osteoarthritis of knee; Z79.01 Long term (current) use of anticoagulants; Z79.899 Other long term (current) drug therapy; Z88.2 Allergy status to sulfonamides; Z88.6 Allergy status to analgesic agent; Z88.8 Allergy status to other drugs, medicaments and biological substances; Z91.030 Bee allergy status; Z87.39 Personal history of other diseases of the musculoskeletal system and connective tissue; Z86.79 Personal history of other diseases of the circulatory system | CPT/HCPCS: G0463 ==

== ENCOUNTER → 2018-10-13 | Outpatient (CLI) | payer OTHER | LOC: M RAD 09:06 | DX: M47.812 Spondylosis without myelopathy or radiculopathy, cervical region (principal); E07.9 Disorder of thyroid, unspecified; M79.7 Fibromyalgia | CPT/HCPCS: 72125 ==

== ENCOUNTER → 2018-12-15 | Outpatient (CLI) | payer OTHER ==
[~2018-12-15] MED LIST changes: +/AUGM875TA OR; +/DIVA50TA PO; +/RANI15TA PO; +ACET500C OR; +ALEVE; +AMBI10TA PO; +ASPI325T OR; +ASTELIN; +AUGM875T28 PO; +BACL10TA2 PO; +BENA25CA4 PO; -BUPIVACAINE HCL 0.25% 30 ML VIAL As Ordered; +CELE20TA PO; +CLON0.5T8 PO; +CVS20TAB PO; +CYMB1CAP5 PO; +CYMB60CA3 PO; +EPIP0.3I10 INJ; +FERR325T3 PO; +FOLI1TAB11 PO; +GABA-1171 PO; +GABA-843 PO; +GABA250S6 PO; +IBUPOTC PO; +IMIT100T PO; +KLON1TAB PO; +MAGN400C2 PO; +METH2.5T48 PO; +MOTR200T4 PO; +MOTR200T44 PO; +NAPR-50 PO; +OMEP40CA2 PO; +OXYC5CAP28 PO; +PERC5TAB12 PO; +PERC7.5T12 PO; +PERCOCET PO; +PLAQ200T PO; +PLAV1TAB2 PO; +PLAV75TA2 OR; +PRED1TAB32 PO; +PRED5TA PO; +PSEU30OTC OR; +RANI1TAB6 PO; +SIMV20TA2 OR; +TIZA2CAP PO; +TIZA4CAP PO; +TIZA4TAB OR; +TOPA100T PO; +TOPI25TA2 OR; +TRAZ100T2 PO; +TRAZ1TAB14 PO; -TRIAMCINOLONE ACETONIDE SUSP 40 MG/ML VIAL (J3301) As Ordered; +VENTAER IN; +VICO5TAB OR; +WELLTAB38 PO; +ZANA6CAP PO; -diazePAM 5 MG TAB As Ordered; -oxyCODONE 5MG TAB As Ordered
--- NOTE | 2018-12-27 00:45 | ECWPNPC ---
PATIENT NAME: ACOSTA ALBRIGHT : 1970 GENDER: FEMALE VISIT DATE: 12/15/2018 DISCHARGE DATE: 12/15/18 1400 VISIT LOCKED DATE TIME: PHYSICIAN: GERMÁN YI RESOURCE: GERMÁN YI REASON FOR APPOINTMENT 1. NECK/BACK/SHOULDERS HISTORY OF PRESENT ILLNESS HISTORY OF PRESENT ILLNESS: HERE FOR F/U AND MEDICINE MANAGEMENT OF CHRONIC PAIN.LAST VISIT WE STARTED LYRICA 100MG BID AT LAST VISIT AND AFTR 2 DOSES SHE BEGAN TO HAVE FACIAL SWELLING.HAS TRIALED MULTIPLE PAIN MEDICATIONS OVER THE YEARS AND THEY ALL HAVE CAUSED ANAPHYLACTIC LIKE SIDE EFFECTS.CONTINUES TO HAVE GENERALIZED BODY PAIN AND RATING PAIN VAS 8/10. PAIN THE PATIENT DESCRIBES THE PAIN... THE PATIENT DESCRIBES THE PAIN... FALL RISK SCREENING: SCREENING :NO FALLS IN THE PAST YEAR :NO FALLS IN THE PAST YEAR SCREENING :NO FALLS IN THE PAST YEAR :NO FALLS IN THE PAST YEAR CURRENT MEDICATIONS TAKING ASTELIN 137 MCG/SPRAY SOLUTION 1 SPRAY IN EACH NOSTRIL NASALLY TWICE A DAY TAKING PLAVIX 75 MG TABLET 1 TABLET ORALLY ONCE A DAY/DR FERRIS TAKING EPIPEN 2-GISELL 0.3 MG/0.3ML (1:1000) DEVICE INJECTION INTRAMUSCULAR 1 TIME NEEDED FOR ANGIOEDEMA REACTION TAKING TRAZODONE HCL 150 MG TABLET 1 TABLET AT BEDTIME NEEDED ORALLY ONCE A DAY TAKING ALBUTEROL SULFATE HFA 108 (90 BASE) MCG/ACT AEROSOL SOLUTION 2 PUFFS NEEDED INHALATION EVERY 4 HRS TAKING KLONOPIN 0.5 MG TABLET 1 TABLET ORALLY TWICE A DAY NEEDED TAKING SUMATRIPTAN SUCCINATE 25 MG TABLET 100MG TABLET NEEDED ORALLY BID, MDD 2 IN 24 HOURS TAKING OMEPRAZOLE 20 MG CAPSULE DELAYED RELEASE 1 CAPSULE ORALLY ONCE A DAY TAKING RANITIDINE HCL 150 MG CAPSULE 1 CAPSULE ORALLY TWICE A DAY TAKING SOY ISOFLAVONES EXTRACT 50 MG CAPSULE 40 MG ORALLY BID TAKING VITAMIN D3 COMPLETE - TABLET 1,000 ORALLY DAILY TAKING CURCUMIN 95 500 MG CAPSULE ORALLY TAKING STOOL SOFTENER 100 MG CAPSULE 1 CAPSULE NEEDED ORALLY BID TAKING TYLENOL EXTRA STRENGTH 500 MG TABLET 2 TABLET NEEDED ORALLY BID TAKING DIPHENHYDRAMINE HCL 25 MG CAPSULE 2 CAPSULE NEEDED ORALLY AT BEDTIME NEEDED TAKING ATORVASTATIN CALCIUM 20 MG TABLET 1 TABLET ORALLY BEFORE BEDTIME TAKING VERAPAMIL HCL 40 MG TABLET 1 TABLET ORALLY DAILY TAKING REFRESH LIQUIGEL 1 % SOLUTION 2 DROP INTO AFFECTED EYE NEEDED OPHTHALMIC BID TAKING KETOCONAZOLE 2 % CREAM 1 APPLICATION TO AFFECTED AREA EXTERNALLY BID TAKING MELATONIN 10 MG CAPSULE ORALLY DAILY TAKING DULOXETINE HCL 30 MG CAPSULE DELAYED RELEASE PARTICLES 1 CAPSULE ORALLY ONCE A DAY TDD=90 MG TAKING CYMBALTA 60 MG CAPSULE DELAYED RELEASE PARTICLES 1 CAPSULE ORALLY ONCE DAILY NOT-TAKING DIVALPROEX SODIUM 500 MG TABLET DELAYED RELEASE ORALLY NOT-TAKING LYRICA 100 MG CAPSULE 1 CAPSULE ORALLY BID MDD2 UNKNOWN [id number] 50-325-40 MG TABLET 1 TABLET NEEDED ORALLY EVERY 4 HRS PRN PAIN MDD=2 UNKNOWN TRAMADOL HCL 50 MG TABLET 1 TABLET NEEDED ORALLY BID PRN PAIN MDD=2 UNKNOWN ZOCOR 20 20MG TABLET 1 TABLET ORALLY DAILY AT BEDTIME UNKNOWN PREDNISONE TAPER 1 TAB ORAL , NOTES: DIRECTED FOR [employer] UNKNOWN MOTRIN 200MG PO PRN, NOTES: NONE RECENT MEDICATION LIST REVIEWED AND RECONCILED WITH THE PATIENT PAST MEDICAL HISTORY HYPERLIPIDEMIA CAROTID ATHEROSCLEROSIS -- FOLLOWS WITH DR. 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, RADIATION AND CHEMOTHERAPY BILATERAL TMJ HX OF MULTIPLE THYROID NODULES PROVEN NON-MALIGNANT HX ABNORMAL PAP SMEAR HX OF CHEST PAIN 2008 WITH NEGATIVE HEART CATHETERIZATION MIGRAINE HEADACHES LUPUS ANGIOEDEMA OBSTRUCTIVE SLEEP APNEA ARTHRITIS BOTH KNEES KIDNEY STONES RIGHT 4TH TOE BROKEN 09/2018 ALLERGIES SULFA (FOR ALLERGY USE ONLY): HIVES: ALLERGY FLEXERIL: MIGAINES: ALLERGY ASPIRIN: UNKNOWN: ALLERGY HYDROXYCHLOROQUINE SULFATE: UNKNOWN: ALLERGY BEE STINGS: UNKNOWN: ALLERGY VENLAFEXINE: WORSENING SYMPTOMS/ BLACKED OUT WELLBUTRIN: WORSENS MIGRAINS,SWEATS: ALLERGY LYRICA: FACIAL SWELLING SURGICAL HISTORY CSECTION 1992 TROUBLE WAKING FROM ANESTHESIA AND HYPOXIA S/P ANESTHESIA 01/2015 TUBAL LIGATION 1994 HEART CATH WITHOUT STENT 2008 LEFT SIDED CAROTID STENT 09/2009 LEFT SIDED CAROTID BYPASS WITH HOMOGRAFT SECONDARY TO RE-OCCULUSION 05/2010 LASER CERVICAL SURGERY/BIOPSY SECONDARY TO ABNORMAL PAP L CARPAL TUNNEL 12/28/2013 HYSTERECTOMY WITHOUT SALPINGOOPHORECTOMY 01/2015 KIDNEY STONES REMOVED SEP 21, 2016 FAMILY HISTORY FATHER: , DIAGNOSED WITH HYPERTENSION, HEART DISEASE MOTHER: , DIAGNOSED WITH CANCER HOSPITALIZATION/MAJOR DIAGNOSTIC PROCEDURE CAROTID STENT 2008 LEFT SIDED CAROTID BYPASS WITH HOMOGRAFT SECONDARY TO RE-OCCULUSION 05/2010 MENTAL HEALTH 07/2015 REVIEW OF SYSTEMS REVIEWED BY: PROVIDER: , GERMÁN YI MAINSPRING STRIP INSPECTOR . CONSTITUTIONAL: ANY CHANGE IN YOUR MEDICAL CONDITION? NO, NO . CHILLS NO, NO . FEVER NO, NO . INFECTION: DO YOU HAVE NEW INFECTIONS? NO, NO . DO YOU HAVE HISTORY OF MRSA? NO, NO . MUSCULOSKELETAL: ANY NEW PATTERNS OF PAIN OR NUMBNESS? NO, NO . GASTROENTEROLOGY: ANY NEW CHANGE IN BOWEL CONTROL? NO, NO . GENITOURINARY: ANY NEW CHANGE IN BLADDER CONTROL? NO, NO . IS THERE A CHANCE YOU COULD BE ? NO, NO . HEMATOLOGY/LYMPH: DO YOU TAKE ANY BLOOD THINNERS? (FOR EXAMPLE- COUMADIN, PLAVIX, AGGRENOX, PLATEL, PRADAXA, OR XARELTO) NO, NO . WHEN WAS YOUR LAST DOSE? DATE: TIME: , DATE: TIME: . NEUROLOGY: HAVE YOU FALLEN IN THE PAST 12 MONTHS? NO, NO . ANY NEW EXTREMITY NUMBNESS OR WEAKNESS? NO, NO . CARDIOLOGY: DO YOU HAVE A PACEMAKER OR DEFIBRILLATOR? NO, NO . RESPIRATORY: HAVE YOU BEEN SICK IN THE PAST WEEK? NO, NO . FEVER NO, NO . FLU LIKE SYMPTOMS? NO, NO . COUGH NO, NO . INTEGUMENTARY: DO YOU HAVE ANY RASHES OR OPEN SORES? YES RSH AROUND HER MOUTH PUTTING OINTMENT ON . ALLERGIC/IMMUNO: ARE YOU ALLERGIC TO IV DYE? NO, NO . ANY NEW ALLERGIES? NO, NO . PSYCHIATRIC: DO YOU HAVE THOUGHTS OF HURTING YOURSELF OR SOMEONE ELSE? NO, NO . ARE YOU ABUSED, NEGLECTED, OR IN AN UNSAFE ENVIRONMENT? NO, NO . ENDOCRINOLOGY: ARE YOU DIABETIC? NO, NO . OTHER: DO YOU NEED ANY PRESCRIPTIONS? NO, NO . IF YES, PLEASE LIST: ____, ____ . ANY NEW PROBLEMS WITH YOUR MEDICATIONS? NO, NO . WHEN DID YOU LAST EAT? ____, ____ . WHEN DID YOU LAST DRINK? ____, ____ . WHAT DID YOU LAST DRINK? ____, ____ . NAME OF PERSON DRIVING YOU HOME? ____, ____ . DO YOU HAVE ANY OTHER QUESTIONS OR CONCERNS NO, NO . VITAL SIGNS WT 268.6 LBS, HT 66 IN, BMI 43.35 INDEX, BP 145/76 MM HG, HR 90 /MIN, RR 16 /MIN, TEMP 97.9 F, OXYGEN SAT % 93%, REVIEWED BY: WHIT. EXAMINATION GENERAL EXAMINATION: GENERAL APPEARANCE:AWAKE,ALERT ,PLEAASANT . PSYCHAFFECT NORMAL . LUNGS:LUNG HARPER ARE CLEAR TO AUSCULTATION BILATERALLY. GOOD MOVEMENT OF AIR . HEART:S1, S2 IN A REGULAR RATE AND RHYTHM. NO SIGNIFICANT MURMURS, RUBS OR GALLOPS NOTED . MUSCULOSKELETAL:MUSCLE STRENGTH TESTING 5/5 BILATERAL UPPER/LOWER EXTREMITIES. LUMBAR SACRAL SPINEPALPATION: + FOR PAIN OVER L/S SPINE. + FOR PAIN OVER L/S PARSPINALS. CERVICAL+ FOR PAIN WITH PALPATION OF CERVICAL SPINE. + FOR PAIN WITH PALPATION OF CERVICAL PARASPINALS. + FOR PAIN WITH PALPATION OF TRAPEZIUS BILAT. DIAGNOSTIC TESTS REVIEWEDCT EXAM-10/13/18-REVIEWED. MULTIPLE AREAS OF TENDER SPOTS UPPER/LOWER TORSO INDICATIVE OF FIBROMYALGIA. ASSESSMENTS LUPUS (SYSTEMIC LUPUS ERYTHEMATOSUS) - M32.9 (PRIMARY) FIBROMYALGIA - M79.7 TREATMENT LUPUS (SYSTEMIC LUPUS ERYTHEMATOSUS) START BUTRANS PATCH WEEKLY, 10 MCG/HR, 1 PATCH TO SKIN, TRANSDERMAL, 1 PATCH Q7 DAYS=MDD, 30 DAY(S), 4, REFILLS 2 NOTES: ISTOP REGISTRY REVIEWED AND DEMONSTRATES COMPLLIANCE. PROCEDURE CODES FA211 ESTABILISHED PATIENT [facility] FAC[facility] CHARGE DISPOSITION & COMMUNICATION FOLLOW UP 3 MONTHS ELECTRONICALLY SIGNED BY TOMMIE WEBB ON 12/26/2018 AT 03:54 PM EST DISCLAIMER : THIS IS A VISIT SUMMARY EXTRACTED FROM THE [employer] CHART. IT IS NOT A COPY OF THE [employer] PROGRESS NOTE. VIVEK
== END ==
LOC: M PAIN 13:00
PROVIDERS: ATTEND Nurse Practitioner Family
DX: M32.9 Systemic lupus erythematosus, unspecified (principal); M79.7 Fibromyalgia; G89.29 Other chronic pain; E78.5 Hyperlipidemia, unspecified; G43.909 Migraine, unspecified, not intractable, without status migrainosus; G47.33 Obstructive sleep apnea (adult) (pediatric); M17.0 Bilateral primary osteoarthritis of knee; E66.01 Morbid (severe) obesity due to excess calories; Z68.41 Body mass index [BMI] 40.0-44.9, adult; Z79.899 Other long term (current) drug therapy; Z88.2 Allergy status to sulfonamides; Z88.6 Allergy status to analgesic agent; Z88.8 Allergy status to other drugs, medicaments and biological substances; Z91.030 Bee allergy status; Z86.79 Personal history of other diseases of the circulatory system

== ENCOUNTER → 2018-12-23 | Outpatient (CLI) | payer OTHER ==
--- NOTE | 2018-12-23 20:19 | REP ---
Parathyroid sestamibi nuclear scintigraphy with SPECT imaging: History: Hyperparathyroidism. Technique: 26.8 mCi of technetium 99 sestamibi is injected. 15-minute delay and three hour delayed planar images are acquired along with a 180 degrees SPECT acquisition. Multiplanar re-formation images are generated and reviewed as well as the 3-D acquisition images. Scintigraphic findings: Initial 15-minute delayed images demonstrate normal salivary gland and bilateral thyroid lobe uptake. Delayed images demonstrate normal expected washout from the thyroid lobes. No persistent uptake focus is seen in the chest or mediastinum to suggest a parathyroid adenoma. Tomographic images show no focal abnormality. Impression: Negative sestamibi parathyroid nuclear scintigraphy. Electronically Signed by Derick Rodriguez MD 12/23/2018 08:45 P
== END ==
LOC: M RAD 09:48
PROVIDERS: ATTEND Internal Medicine Endocrinology, Diabetes & Metabolism
DX: E21.3 Hyperparathyroidism, unspecified (principal)

== ENCOUNTER → 2019-03-16 | Outpatient (CLI) | payer OTHER ==
[~2019-03-16] MED LIST changes: -/DIVA50TA PO; -/RANI15TA PO; -CVS20TAB PO; +DEPA1TAB3 PO; -NAPR-50 PO; +NAPR-837 PO; +OMEP20TA9 PO; +OXYC1TAB23 PO; -PERCOCET PO; +RANI1TAB17 PO; +TIZA6CAP8 PO; -ZANA6CAP PO
--- NOTE | 2019-04-02 01:50 | ECWPNPC ---
PATIENT NAME: ACOSTA ALBRIGHT : 1970 GENDER: FEMALE VISIT DATE: 03/16/2019 DISCHARGE DATE: 03/16/19 1344 VISIT LOCKED DATE TIME: PHYSICIAN: GERMÁN YI RESOURCE: GERMÁN YI DISCLAIMER : THIS IS A VISIT SUMMARY [facility]TRACTED FROM THE [facility]. IT IS NOT A COPY OF THE [employer] PROGRESS NOTE. VIVEK
== END ==
LOC: M PAIN 13:00
PROVIDERS: ATTEND Nurse Practitioner Family
DX: M32.9 Systemic lupus erythematosus, unspecified (principal); M79.7 Fibromyalgia; E78.5 Hyperlipidemia, unspecified; Z92.3 Personal history of irradiation; Z92.21 Personal history of antineoplastic chemotherapy; G43.909 Migraine, unspecified, not intractable, without status migrainosus; G47.33 Obstructive sleep apnea (adult) (pediatric); M17.0 Bilateral primary osteoarthritis of knee; Z88.2 Allergy status to sulfonamides; Z88.5 Allergy status to narcotic agent; Z88.6 Allergy status to analgesic agent; Z88.8 Allergy status to other drugs, medicaments and biological substances; Z91.030 Bee allergy status; Z79.01 Long term (current) use of anticoagulants; E66.01 Morbid (severe) obesity due to excess calories; Z68.41 Body mass index [BMI] 40.0-44.9, adult; Z79.899 Other long term (current) drug therapy

== ENCOUNTER → 2019-05-27 | Outpatient (CLI) | payer OTHER ==
--- NOTE | 2019-06-02 01:47 | ECWPNPC ---
PATIENT NAME: ACOSTA ALBRIGHT : 1970 GENDER: FEMALE VISIT DATE: 05/27/2019 DISCHARGE DATE: 05/27/19 1429 VISIT LOCKED DATE TIME: PHYSICIAN: KUSHAL MONTGOMERY RESOURCE: KUSHAL MONTGOMERY REASON FOR APPOINTMENT 1. 2 MONTHS HISTORY OF PRESENT ILLNESS HISTORY OF PRESENT ILLNESS: PAIN THE PATIENT DESCRIBES THE PAIN... 48 YEAR OLD FEMALE IN FOR FOLLOW UP RELATED TO CHRONIC PAIN. SHE DENIES MED SIDE EFFECTS AT THIS TIME AND FEELS THE MEDICATIONS HAVE BEEN HELPFUL. SHE CURRENTLY RATES HER PAIN AT AN 8/10. FALL RISK SCREENING: SCREENING :NO FALLS REPORTED IN THE LAST YEAR CURRENT MEDICATIONS TAKING ASTELIN 137 MCG/SPRAY SOLUTION 1 SPRAY IN EACH NOSTRIL NASALLY TWICE A DAY TAKING PLAVIX 75 MG TABLET 1 TABLET ORALLY ONCE A DAY/DR FERRIS TAKING EPIPEN 2-GISELL 0.3 MG/0.3ML (1:1000) DEVICE INJECTION INTRAMUSCULAR 1 TIME NEEDED FOR ANGIOEDEMA REACTION, NOTES: PRN TAKING TRAZODONE HCL 150 MG TABLET 1 TABLET AT BEDTIME NEEDED ORALLY ONCE A DAY TAKING ALBUTEROL SULFATE HFA 108 (90 BASE) MCG/ACT AEROSOL SOLUTION 2 PUFFS NEEDED INHALATION EVERY 4 HRS, NOTES: PRN TAKING SUMATRIPTAN SUCCINATE 25 MG TABLET 100MG TABLET NEEDED ORALLY BID, MDD 2 IN 24 HOURS TAKING OMEPRAZOLE 20 MG CAPSULE DELAYED RELEASE 1 CAPSULE ORALLY ONCE A DAY TAKING RANITIDINE HCL 150 MG CAPSULE 1 CAPSULE ORALLY DAILY TAKING VITAMIN D3 COMPLETE - TABLET 3,000 ORALLY DAILY TAKING STOOL SOFTENER 100 MG CAPSULE 1 CAPSULE NEEDED ORALLY BID TAKING DIPHENHYDRAMINE HCL 25 MG CAPSULE 2 CAPSULE NEEDED ORALLY AT BEDTIME NEEDED, NOTES: AT NIGHT TAKING ATORVASTATIN CALCIUM 20 MG TABLET 1 TABLET ORALLY BEFORE BEDTIME TAKING REFRESH LIQUIGEL 1 % SOLUTION 2 DROP INTO AFFECTED EYE NEEDED OPHTHALMIC BID TAKING DULOXETINE HCL 30 MG CAPSULE DELAYED RELEASE PARTICLES 1 CAPSULE ORALLY DAILY TAKING VERAPAMIL HCL ER 120 MG TABLET EXTENDED RELEASE 1 TABLET ORALLY ONCE A DAY TAKING TRIAMCINOLONE ACETONIDE 0.025 % OINTMENT 1 APPLICATION TO FACIAL RASH EXTERNALLY TWICE A DAY TAKING KLONOPIN 0.5 MG TABLET 1 TABLET ORALLY TWICE A DAY NEEDED, NOTES: PRN TAKING XTAMPZA ER 9 MG CAPSULE ER 12 HOUR ABUSE-DETERRENT 1 CAPSULE WITH FOOD ORALLY EVERY 12 HRS MDD2 NOT-TAKING TYLENOL EXTRA STRENGTH 500 MG TABLET 2 TABLET NEEDED ORALLY BID NOT-TAKING CYMBALTA 60 MG CAPSULE DELAYED RELEASE PARTICLES 1 CAPSULE ORALLY ONCE DAILY, NOTES: 90MG TOTAL ONCE DAILY NOT-TAKING VERAPAMIL HCL 40 MG TABLET 1 TABLET ORALLY DAILY MEDICATION LIST REVIEWED AND RECONCILED WITH THE PATIENT PAST MEDICAL HISTORY CAROTID ATHEROSCLEROSIS -- FOLLOWS WITH DR. 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, RADIATION AND CHEMOTHERAPY BILATERAL TMJ HYPER PARA THYROIDISM HX OF MULTIPLE THYROID NODULES PROVEN NON-MALIGNANT HX ABNORMAL PAP SMEAR HX OF CHEST PAIN 2008 WITH NEGATIVE HEART CATHETERIZATION MIGRAINE HEADACHES LUPUS ANGIOEDEMA OBSTRUCTIVE SLEEP APNEA ARTHRITIS BOTH KNEES KIDNEY STONES RIGHT 4TH TOE BROKEN 09/2018 CHRONIC PAIN ALLERGIES SULFA (FOR ALLERGY USE ONLY): HIVES - ALLERGY FLEXERIL: MIGAINES - ALLERGY ASPIRIN: UNKNOWN - ALLERGY HYDROXYCHLOROQUINE SULFATE: UNKNOWN - ALLERGY BEE STINGS: UNKNOWN - ALLERGY VENLAFEXINE: WORSENING SYMPTOMS/ BLACKED OUT WELLBUTRIN: WORSENS MIGRAINS,SWEATS - ALLERGY LYRICA: ANAPHYLAXIS - ALLERGY BUTRANS: NAUSEA/BLISTERS - ALLERGY SURGICAL HISTORY CSECTION 1992 TROUBLE WAKING FROM ANESTHESIA AND HYPOXIA S/P ANESTHESIA 01/2015 TUBAL LIGATION 1993 HEART CATH WITHOUT STENT 2008 LEFT SIDED CAROTID STENT 09/2009 LEFT SIDED CAROTID BYPASS WITH HOMOGRAFT SECONDARY TO RE-OCCULUSION 05/2010 LASER CERVICAL SURGERY/BIOPSY SECONDARY TO ABNORMAL PAP L CARPAL TUNNEL 12/28/2013 HYSTERECTOMY WITHOUT SALPINGOOPHORECTOMY 01/2015 KIDNEY STONES REMOVED SEP 21, 2016 COLONOSCOPY AND EDG AT [facility] 2017 FAMILY HISTORY FATHER: , DIAGNOSED WITH HYPERTENSION, HEART DISEASE MOTHER: , CANCER 1 SISTER\N1 SHARED BROTHER THRU DAD--STOMACH CANCER 60% REMOVED\N2 BROTHERS\N. SOCIAL HISTORY GENERAL: TOBACCO USE ARE YOU A:NONSMOKER PAIN CLINIC PFS, CLERGY, PUBLIC HEALTH REFERRALS PFS REFERRAL NEEDED?NO CLERGY REFERRAL NEEDED?NO PUBLIC HEALTH REFERRAL NEEDED?NO WAS THE PROVIDER NOTIFIED OF ANY PERTINENT INFO?YES HAS THE PATIENT BEEN EDUCATED REGARDING HIS/HER PLAN OF CARE?YES HAS THE PATIENT BEEN EDUCATED REGARDING PAIN, THE RISK FOR PAIN, THE IMPORTANCE OF EFFECTIVE PAIN MANAGEMENT, AND THE PAIN ASSESSMENT PROCESS?YES LATEX QUESTIONNAIRE LATEX ALLERGY : HAVE YOU EVER DEVELOPED ANY TYPE OF REACTION AFTER HANDLING LATEX PRODUCTS SUCH RUBBER GLOVES, CONDOMS, DIAPHRAGMS, BALLOONS, SOCKS, OR UNDERWEAR?NO LATEX ALLERGY : HAVE YOU EVER DEVELOPED ANY TYPE OF REACTION DURING OR AFTER DENTAL APPOINTMENT, VAGINAL/RECTAL EXAMINATION, SURGICAL PROCEDURE, OR ANY OTHER EXPOSURE?NO LATEX RISK : HAVE YOU EVER HAD ANY DIFFICULTY BREATHING OR HIVES AFTER EATING OR HANDLING ANY FRUITS, OR VEGETABLES; SUCH KIWI, BANANAS, STONE FRUITS, OR CHESTNUTSNO LATEX RISK : DO YOU HAVE A PREVIOUS PERSONAL HISTORY OF MORE THAN NINE SURGERIES, SPINA BIFIDA, OR REPEATED CATHERTIZATIONS? YES - PLEASE INDICATE : > 9 SURGERIES LATEX RISK : ARE YOU FREQUENTLY EXPOSED TO LATEX PRODUCTS IN YOUR OCCUPATION?YES DATE ASKED : 03/16/2019 HIV / HEP-C SCREENING HIV TEST OFFERED TO PATIENT:YES DATE OFFERED:03/11/2019 TEST ACCEPTED:NO HEP-C TEST OFFERED TO PATIENT:YES DATE OFFERED:03/11/2019 REASON:PATIENT DECLINED TEST ACCEPTED:NO REASON:PATIENT DECLINED BROCHURE PROVIDED TO PATIENTYES CAFFEINE CAFFEINE USE?YES HOW OFTEN AND HOW MUCH? 2 SODAS DAILY ADVANCE DIRECTIVE ADVANCE DIRECTIVE DISCUSSED WITH PATIENT:YES HCP - BRUNA YNES PEDRAZA (DAUGHTER) [phone] VOODOO [id number] SABIANIST LANGUAGE LANGUAGES SPOKEN:SINGAPOREAN ALCOHOL SCREENING DID YOU HAVE A DRINK CONTAINING ALCOHOL IN THE PAST YEAR?YES HOW OFTEN DID YOU HAVE SIX OR MORE DRINKS ON ONE OCCASION IN THE PAST YEAR?NEVER (0 POINTS) HOW MANY DRINKS DID YOU HAVE ON A TYPICAL DAY WHEN YOU WERE DRINKING IN THE PAST YEAR?1 OR 2 (0 POINTS) HOW OFTEN DID YOU HAVE A DRINK CONTAINING ALCOHOL IN THE PAST YEAR?MONTHLY OR LESS (1 POINT) POINTS1 INTERPRETATIONNEGATIVE RECREATIONAL DRUG USE DRUG USE?NO LEARNING BARRIERS / SPECIAL NEEDS CHANGE FROM LAST VISIT?NO BARRIERS TO LEARNING?NO HEARING IMPAIRED?NO VISION IMPAIRED?NO COGNITIVELY IMPAIRED?NO READINESS TO LEARN?YES LEARNING PREFERENCES?NO LEARNING CAPABILITIES PRESENT?YES EMOTIONAL BARRIERS?NO SPECIAL DEVICES?NO REMOTE SENSING ANALYST NEEDED?NO REVIEWED WITH PATIENT 08/14/18 1151 JSREVIEWED WITH PATIENT 03/16/19 1307 JSREVIEWED WITH PATIENT 05/27/19 1335 LAS. HOSPITALIZATION/MAJOR DIAGNOSTIC PROCEDURE CAROTID STENT 2008 LEFT SIDED CAROTID BYPASS WITH HOMOGRAFT SECONDARY TO RE-OCCULUSION 05/2010 MENTAL HEALTH 07/2015 REVIEW OF SYSTEMS REVIEWED BY: PROVIDER: ADITI LOO . CONSTITUTIONAL: ANY CHANGE IN YOUR MEDICAL CONDITION? NO . CHILLS NO . FEVER NO . INFECTION: DO YOU HAVE NEW INFECTIONS? NO . DO YOU HAVE HISTORY OF MRSA? NO . MUSCULOSKELETAL: ANY NEW PATTERNS OF PAIN OR NUMBNESS? NO . GASTROENTEROLOGY: ANY NEW CHANGE IN BOWEL CONTROL? NO . GENITOURINARY: ANY NEW CHANGE IN BLADDER CONTROL? YES PT REPORTS INCREASE IN URINARY URGENCY, STRESS INCONTINENCE. . IS THERE A CHANCE YOU COULD BE ? NO . HEMATOLOGY/LYMPH: DO YOU TAKE ANY BLOOD THINNERS? (FOR EXAMPLE- COUMADIN, PLAVIX, AGGRENOX, PLATEL, PRADAXA, OR XARELTO) NO . WHEN WAS YOUR LAST DOSE? DATE: TIME: . NEUROLOGY: HAVE YOU FALLEN IN THE PAST 12 MONTHS? NO . ANY NEW EXTREMITY NUMBNESS OR WEAKNESS? NO . CARDIOLOGY: DO YOU HAVE A PACEMAKER OR DEFIBRILLATOR? NO . RESPIRATORY: HAVE YOU BEEN SICK IN THE PAST WEEK? NO . FEVER NO . FLU LIKE SYMPTOMS? NO . COUGH NO . INTEGUMENTARY: DO YOU HAVE ANY RASHES OR OPEN SORES? NO . ALLERGIC/IMMUNO: ARE YOU ALLERGIC TO IV DYE? NO . ANY NEW ALLERGIES? NO . PSYCHIATRIC: DO YOU HAVE THOUGHTS OF HURTING YOURSELF OR SOMEONE ELSE? NO . ARE YOU ABUSED, NEGLECTED, OR IN AN UNSAFE ENVIRONMENT? NO . ENDOCRINOLOGY: ARE YOU DIABETIC? NO . OTHER: DO YOU NEED ANY PRESCRIPTIONS? NO . IF YES, PLEASE LIST: ____ . ANY NEW PROBLEMS WITH YOUR MEDICATIONS? NO . WHEN DID YOU LAST EAT? ____ . WHEN DID YOU LAST DRINK? ____ . WHAT DID YOU LAST DRINK? ____ . NAME OF PERSON DRIVING YOU HOME? ____ . DO YOU HAVE ANY OTHER QUESTIONS OR CONCERNS NO . VITAL SIGNS WT 274.8 LBS, HT 66 IN, BMI 44.35 INDEX, BP 158/62 MM HG, HR 83 /MIN, RR 18 /MIN, TEMP 97.4 F, OXYGEN SAT % 96%, SAFE IN ENV? (Y/N) YES, NA INITIALS SC 13:22, REVIEWED BY: TONNY. EXAMINATION GENERAL EXAMINATION: GENERALNO ACUTE DISTRESS, WELL NOURISHED AND HYDRATED. PSYCHAPPROPRIATE MOOD AND AFFECT . LUNGS:CLEAR TO AUSCULTATION BILATERALLY, NO WHEEZES, RHONCHI, RALES. HEART: HRR,, II/ SYSTOLIC MURMUR. ASSESSMENTS LUPUS (SYSTEMIC LUPUS ERYTHEMATOSUS) - M32.9 (PRIMARY) FIBROMYALGIA - M79.7 TREATMENT LUPUS (SYSTEMIC LUPUS ERYTHEMATOSUS) CONTINUE XTAMPZA ER CAPSULE ER 12 HOUR ABUSE-DETERRENT, 9 MG, 1 CAPSULE WITH FOOD, ORALLY, EVERY 12 HRS MDD2 CLINICAL NOTES: 48 YEAR OLD FEMALE IN FOR FOLLOW UP RELATED TO CHRONIC PAIN. GIVEN PRESENTING SYMPTOMS AND RESULTS OF PHYSICAL EXAMINATION RECOMMENDED CONTINUATION OF CURRENT MEDICATION REGIMEN WITH FOLLOW UP IN 3 MONTHS. PATIENT HAS EXPRESSED UNDERSTANDING OF AND WAS IN AGREEMENT WITH TX PLAN. GIVEN TIME TO ASK QUESTIONS AND EXPRESS CONCERNS. ENCOURAGED TO CALL OR COME IN SHOULD FURTHER ASSISTANCE BE NEEDED. [employer] REGISTRY REVIEWED AND DEMONSTRATES COMPLLIANCE. (REF #[id number] ) BRINGS IN MEDICATIONS WHICH IS APPROPRIATE FOR WHAT WAS DISPENSED. RECENT URINE TOXICOLOGY REVIEWED. NO UNAUTHORIZED MEDICATIONS. NO ILLICIT SUBSTANCES AND PRESCRIBED MEDICATIONS WERE PRESENT. , REVIEWED WITH PATIENT THE POTENTIAL RISK OF INCREASED SEDATION, RESPIRATORY SUPPRESSION AND WITH THE COMBINATION OF BENZODIAZAPINE AND OPIOD MEDICATIONS. PATIENT STATES HE UNDERSTANDS THIS RISK AND WISHES TO CONTINUE WITH THERAPY , RISKS AND BENEFITS OF NARCOTIC/OPIOD MEDICATIONS WERE REVIEWED WITH PATIENT - THIS INCLUDES BUT IS NOT LIMITED TO RISK OF DEPENDANCE/DEVELOPMENT OF ADDICTION, MOOD DISTURBANCE AND DEPRESSION, OSTEOPOROSIS, HORMONAL AND LABIDAL CHANGES, RESPIRATORY DEPRESSION AND . PATIENT IS ADVISED NOT TO DRIVE OR DRINK ALCOHOL WHILE ON THESE MEDICATIONS. PROCEDURE CODES FA211 ESTABILISHED PATIENT [facility] CHARGE DISPOSITION & COMMUNICATION FOLLOW UP 3 MONTHS (REASON: CHRONIC PAIN FOLLOW UP ) ELECTRONICALLY SIGNED BY TOMMIE MURILLO ON 06/01/2019 AT 03:59 PM EDT DISCLAIMER : THIS IS A VISIT SUMMARY EXTRACTED FROM THE [employer] CHART. IT IS NOT A COPY OF THE [employer] PROGRESS NOTE. VIVEK
== END ==
LOC: M PAIN 13:15
PROVIDERS: ATTEND Nurse Practitioner Family
DX: M32.9 Systemic lupus erythematosus, unspecified (principal); M79.7 Fibromyalgia; G89.29 Other chronic pain; E78.5 Hyperlipidemia, unspecified; G47.33 Obstructive sleep apnea (adult) (pediatric); M17.0 Bilateral primary osteoarthritis of knee; I65.29 Occlusion and stenosis of unspecified carotid artery; M26.603 Bilateral temporomandibular joint disorder, unspecified; Z87.442 Personal history of urinary calculi; Z90.710 Acquired absence of both cervix and uterus; E21.3 Hyperparathyroidism, unspecified; Z85.89 Personal history of malignant neoplasm of other organs and systems; Z79.02 Long term (current) use of antithrombotics/antiplatelets; Z79.899 Other long term (current) drug therapy; Z88.2 Allergy status to sulfonamides; Z88.6 Allergy status to analgesic agent; Z88.8 Allergy status to other drugs, medicaments and biological substances; Z91.013 Allergy to seafood

== ENCOUNTER → 2019-07-07 | Outpatient (CLI) | payer MEDICARE, MEDICAID ==
[~2019-07-07] MED LIST changes: +EPIP0.3I2 IM; +ISOVUE-370 76% 100ML VIAL (Q9967) As Ordered ONE; +SIMV20TA2 PO; +SUMA100T2 PO; +VERA120C PO
--- NOTE | 2019-07-07 16:49 | REP ---
HISTORY: Pulmonary fibrosis. COMPARISON: 06/26/2013, the latest prior. CONTRAST: 100 mL Isovue-370 There is no mediastinal or hilar adenopathy. The superior pericardial recess is generous, status quo. There are no pleural or pericardial effusions. The imaged upper abdomen is within normal limits. The imaged osseous structures are within normal limits for the patient's age. Evaluation of the lung mariano show no abnormal nodules, masses, or opacities. There is no evidence of bronchiectasis. There are no abnormal septal opacities on this standard contrast enhanced chest CT. IMPRESSION: CT findings are within normal limits. The parenchymal abnormality seen on the prior examination have all resolved. Electronically Signed by Lopez Levi DO 07/07/2019 05:06 P
== END ==
LOC: M RAD 15:04
PROVIDERS: ATTEND Internal Medicine Pulmonary Disease
DX: J84.10 Pulmonary fibrosis, unspecified (principal)
CPT/HCPCS: 71260; Q9967

== ENCOUNTER → 2019-08-03 | Outpatient (CLI) | payer MEDICARE, MEDICAID ==
[~2019-08-03] MED LIST changes: +CLON0.5T2 PO; -CLON0.5T8 PO; -ISOVUE-370 76% 100ML VIAL (Q9967) As Ordered ONE; +RANI-397 PO; -RANI1TAB6 PO; -SIMV20TA2 PO; +SIMV20TA22 PO
[2019-08-03 10:07] LABS: ALBUMIN 3.8 GM/DL (3.2-5.2); ALT/SGPT 16 U/L (12-78); BILIRUBIN,TOTAL 0.4 MG/DL (0.2-1.0); BLOOD UREA NITROGEN 17 MG/DL (7-18); CALCIUM LEVEL 9.9 MG/DL (8.5-10.1); CARBON DIOXIDE LEVEL 27 MEQ/L (21-32); CHLORIDE LEVEL 110 MEQ/L (98-107); FREE T4 0.79 NG/DL (0.76-1.46); GLOMERULAR FILTRATION RATE > 60.0 (>51); GLUCOSE, FASTING 103 MG/DL (70-100); SODIUM LEVEL 143 MEQ/L (136-145); TOTAL PROTEIN 6.7 GM/DL (6.4-8.2)
== END ==
LOC: M LAB 08:45
PROVIDERS: ATTEND Nurse Practitioner Adult Health
DX: M32.9 Systemic lupus erythematosus, unspecified (principal); E05.90 Thyrotoxicosis, unspecified without thyrotoxic crisis or storm

== ENCOUNTER → 2019-08-06 | Outpatient (REF) | payer MEDICARE, MEDICAID ==
[~2019-08-06] MED LIST changes: -CLON0.5T2 PO; +CLON0.5T8 PO; +RANI-356 PO; -RANI-397 PO; +SIMV20TA2 PO; -SIMV20TA22 PO
== END ==
LOC: M LAB REF 12:35
PROVIDERS: ATTEND Physician Assistant
DX: J02.9 Acute pharyngitis, unspecified (principal)

== ENCOUNTER → 2019-08-28 | Outpatient (CLI) | payer MEDICARE, MEDICAID | LOC: M PAIN 08:45 | PROVIDERS: ATTEND Family Medicine | DX: M32.9 Systemic lupus erythematosus, unspecified (principal); I65.29 Occlusion and stenosis of unspecified carotid artery; E78.5 Hyperlipidemia, unspecified; M26.603 Bilateral temporomandibular joint disorder, unspecified; Z85.89 Personal history of malignant neoplasm of other organs and systems; E21.3 Hyperparathyroidism, unspecified; G43.909 Migraine, unspecified, not intractable, without status migrainosus; G47.33 Obstructive sleep apnea (adult) (pediatric); Z87.442 Personal history of urinary calculi; G89.29 Other chronic pain; Z79.02 Long term (current) use of antithrombotics/antiplatelets; Z79.899 Other long term (current) drug therapy; Z88.2 Allergy status to sulfonamides; Z88.6 Allergy status to analgesic agent; Z88.8 Allergy status to other drugs, medicaments and biological substances; Z91.030 Bee allergy status ==

== ENCOUNTER → 2019-09-07 | Outpatient (CLI) | payer MEDICARE, MEDICAID ==
--- NOTE | 2019-09-07 15:43 | REPMRS ---
Patient History The patient states she has not had a clinical breast exam in over a year. Family history of breast cancer in maternal aunt, unknown cancer at age 48 in father, unknown cancer at age 50 or over in mother. Took hormonal contraceptives for 2 years. 3D TOMOSYNTHESIS WAS PERFORMED. [facility] for [facility] 10.4%. Digital Mammo Screening Bilat: September 07, 2019 - Exam #: [id number] Bilateral CC and MLO view(s) were taken. Technologist: Ana M Garcia, Technologist Prior study comparison: March 03, 2018, bilateral digital mammo screening bilat performed at [facility], [place]. February 28, 2017, bilateral digital mammo screening bilat performed at [facility], [place]. FINDINGS: There are scattered fibroglandular densities. There has been no change in the appearance of the mammogram from the prior studies. There is a mild amount of residual fibroglandular tissue which is fairly symmetric. There is no interval development of dominant mass, architectural distortion, or clustered microcalcification suggestive of malignancy. Assessment: BI-RADS/ACR category 1 mammogram. Negative Mammogram. Recommendation Routine screening mammogram in 1 year (for women over age 40). This mammogram was interpreted with the aid of an FDA-approved computer-aided dectection system. Electronically Signed By: Mason Jade MD 09/07/19 2548
== END ==
LOC: M RAD 14:14
PROVIDERS: ATTEND Internal Medicine Hematology & Oncology
DX: Z12.31 Encounter for screening mammogram for malignant neoplasm of breast (principal)

== ENCOUNTER → 2019-10-07 | Outpatient (CLI) | payer MEDICARE, MEDICAID ==
--- NOTE | 2019-10-09 01:13 | ECWPNPC ---
PATIENT NAME: ACOSTA ALBRIGHT : 1970 GENDER: FEMALE VISIT DATE: 10/07/2019 DISCHARGE DATE: 10/07/19 1415 VISIT LOCKED DATE TIME: PHYSICIAN: KUSHAL MONTGOMERY RESOURCE: KUSHAL MONTGOMERY REASON FOR APPOINTMENT 1. CHRONIC PAIN HISTORY OF PRESENT ILLNESS HISTORY OF PRESENT ILLNESS: PAIN THE PATIENT DESCRIBES THE PAIN... 48-YEAR-OLD FEMALE IN FOR CHRONIC PAIN FOLLOW-UP. SHE RATES HER PAIN CURRENTLY AT A 9 OUT OF 10 AND DESCRIBES IT ACHING, STABBING, SORE, AND TENDER. SHE STARTED ON TIZANIDINE AT LAST CLINIC VISIT AND HAD TO DISCONTINUE USE IT WAS CAUSING HER TO HAVE MIGRAINE HEADACHES. FALL RISK SCREENING: SCREENING :NO FALLS REPORTED IN THE LAST YEAR CURRENT MEDICATIONS TAKING PLAVIX 75 MG TABLET 1 TABLET ORALLY ONCE A DAY/DR FERRIS TAKING EPIPEN 2-GISELL 0.3 MG/0.3ML (1:1000) DEVICE INJECTION INTRAMUSCULAR 1 TIME NEEDED FOR ANGIOEDEMA REACTION TAKING ALBUTEROL SULFATE HFA 108 (90 BASE) MCG/ACT AEROSOL SOLUTION 2 PUFFS NEEDED INHALATION EVERY 4 HRS TAKING SUMATRIPTAN SUCCINATE 25 MG TABLET 100MG TABLET NEEDED ORALLY BID, MDD 2 IN 24 HOURS TAKING VITAMIN D3 COMPLETE - TABLET 3,000 ORALLY DAILY TAKING STOOL SOFTENER 100 MG CAPSULE 1 CAPSULE NEEDED ORALLY BID TAKING DIPHENHYDRAMINE HCL 25 MG CAPSULE 2 CAPSULE NEEDED ORALLY AT BEDTIME NEEDED TAKING REFRESH LIQUIGEL 1 % SOLUTION 2 DROP INTO AFFECTED EYE NEEDED OPHTHALMIC BID TAKING DULOXETINE HCL 30 MG CAPSULE DELAYED RELEASE PARTICLES 1 CAPSULE ORALLY DAILY TAKING VERAPAMIL HCL ER 120 MG TABLET EXTENDED RELEASE 1 TABLET ORALLY ONCE A DAY TAKING KLONOPIN 0.5 MG TABLET 1 TABLET ORALLY TWICE A DAY NEEDED, NOTES: PRN- MAXIMUM OF 10 TABS PER MONTH TAKING OMEPRAZOLE 20 MG CAPSULE DELAYED RELEASE 1 CAPSULE ORALLY ONCE A DAY TAKING ASTELIN 137 MCG/SPRAY SOLUTION 1 SPRAY IN EACH NOSTRIL NASALLY TWICE A DAY TAKING TRAZODONE HCL 150 MG TABLET 1 TABLET AT BEDTIME NEEDED ORALLY ONCE A DAY TAKING ATORVASTATIN CALCIUM 20 MG TABLET 1 TABLET ORALLY DAILY TAKING ERYTHROMYCIN 5 MG/GM OINTMENT 1 APPLICATION OPHTHALMIC BID TO AREAS OF FACE WHEN RASH FLARES (VERY SMALL AMOUNT NEEDED, 1/4 PEA SIZE) TAKING TIZANIDINE HCL 4 MG TABLET 1 TABLET NEEDED ORALLY THREE TIMES A DAY, NOTES: STOPPED TAKING BECAUSE IT MAKES HEADACHES WORSE TAKING XTAMPZA ER 9 MG CAPSULE ER 12 HOUR ABUSE-DETERRENT 1 CAPSULE WITH FOOD ORALLY EVERY 12 HRS MDD2 NOT-TAKING TYLENOL EXTRA STRENGTH 500 MG TABLET 2 TABLET NEEDED ORALLY BID NOT-TAKING CYMBALTA 60 MG CAPSULE DELAYED RELEASE PARTICLES 1 CAPSULE ORALLY ONCE DAILY, NOTES: 90MG TOTAL ONCE DAILY NOT-TAKING VERAPAMIL HCL 40 MG TABLET 1 TABLET ORALLY DAILY MEDICATION LIST REVIEWED AND RECONCILED WITH THE PATIENT PAST MEDICAL HISTORY CAROTID ATHEROSCLEROSIS -- FOLLOWS WITH DR. 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, RADIATION AND CHEMOTHERAPY BILATERAL TMJ HYPER PARA THYROIDISM HX OF MULTIPLE THYROID NODULES PROVEN NON-MALIGNANT HX ABNORMAL PAP SMEAR HX OF CHEST PAIN 2008 WITH NEGATIVE HEART CATHETERIZATION MIGRAINE HEADACHES LUPUS ANGIOEDEMA OBSTRUCTIVE SLEEP APNEA ARTHRITIS BOTH KNEES KIDNEY STONES RIGHT 4TH TOE BROKEN 09/2018 CHRONIC PAIN ALLERGIES SULFA (FOR ALLERGY USE ONLY): HIVES - ALLERGY FLEXERIL: MIGAINES - ALLERGY ASPIRIN: UNKNOWN - ALLERGY HYDROXYCHLOROQUINE SULFATE: UNKNOWN - ALLERGY BEE STINGS: UNKNOWN - ALLERGY VENLAFEXINE: WORSENING SYMPTOMS/ BLACKED OUT WELLBUTRIN: WORSENS MIGRAINS,SWEATS - ALLERGY LYRICA: ANAPHYLAXIS - ALLERGY BUTRANS: NAUSEA/BLISTERS - ALLERGY TIZANIDINE : MAKES HEADACHES WORSE - SIDE EFFECTS SURGICAL HISTORY CSECTION 1992 TROUBLE WAKING FROM ANESTHESIA AND HYPOXIA S/P ANESTHESIA 01/2015 TUBAL LIGATION 1993 HEART CATH WITHOUT STENT 2008 LEFT SIDED CAROTID STENT 09/2009 LEFT SIDED CAROTID BYPASS WITH HOMOGRAFT SECONDARY TO RE-OCCULUSION 05/2010 LASER CERVICAL SURGERY/BIOPSY SECONDARY TO ABNORMAL PAP L CARPAL TUNNEL 12/28/2013 HYSTERECTOMY WITHOUT SALPINGOOPHORECTOMY 01/2015 KIDNEY STONES REMOVED SEP 21, 2016 COLONOSCOPY AND EDG AT [facility] 2018 FAMILY HISTORY FATHER: , DIAGNOSED WITH HYPERTENSION, UNSPECIFIED HEART DISEASE MOTHER: , OTHER MALIGNANT NEOPLASM OF UNSPECIFIED SITE 1 SISTER\N1 SHARED BROTHER THRU DAD--STOMACH CANCER 60% REMOVED\N2 BROTHERS\N. PT DENIES FH OF MELANOMA OR PANCREATIC CANCER. SOCIAL HISTORY GENERAL: TOBACCO USE ARE YOU A:NONSMOKER PAIN CLINIC PFS, CLERGY, PUBLIC HEALTH REFERRALS PFS REFERRAL NEEDED?NO CLERGY REFERRAL NEEDED?NO PUBLIC HEALTH REFERRAL NEEDED?NO WAS THE PROVIDER NOTIFIED OF ANY PERTINENT INFO?YES HAS THE PATIENT BEEN EDUCATED REGARDING HIS/HER PLAN OF CARE?YES HAS THE PATIENT BEEN EDUCATED REGARDING PAIN, THE RISK FOR PAIN, THE IMPORTANCE OF EFFECTIVE PAIN MANAGEMENT, AND THE PAIN ASSESSMENT PROCESS?YES LATEX QUESTIONNAIRE LATEX ALLERGY : HAVE YOU EVER DEVELOPED ANY TYPE OF REACTION AFTER HANDLING LATEX PRODUCTS SUCH RUBBER GLOVES, CONDOMS, DIAPHRAGMS, BALLOONS, SOCKS, OR UNDERWEAR?NO LATEX ALLERGY : HAVE YOU EVER DEVELOPED ANY TYPE OF REACTION DURING OR AFTER DENTAL APPOINTMENT, VAGINAL/RECTAL EXAMINATION, SURGICAL PROCEDURE, OR ANY OTHER EXPOSURE?NO DATE ASKED : 03/16/2019 LATEX RISK : HAVE YOU EVER HAD ANY DIFFICULTY BREATHING OR HIVES AFTER EATING OR HANDLING ANY FRUITS, OR VEGETABLES; SUCH KIWI, BANANAS, STONE FRUITS, OR CHESTNUTSNO LATEX RISK : DO YOU HAVE A PREVIOUS PERSONAL HISTORY OF MORE THAN NINE SURGERIES, SPINA BIFIDA, OR REPEATED CATHERIZATIONS? YES - PLEASE INDICATE : > 9 SURGERIES LATEX RISK : ARE YOU FREQUENTLY EXPOSED TO LATEX PRODUCTS IN YOUR OCCUPATION?YES HIV / HEP-C SCREENING HIV TEST OFFERED TO PATIENT:YES DATE OFFERED:03/11/2019 TEST ACCEPTED:NO HEP-C TEST OFFERED TO PATIENT:YES DATE OFFERED:03/11/2019 REASON:PATIENT DECLINED TEST ACCEPTED:NO REASON:PATIENT DECLINED BROCHURE PROVIDED TO PATIENTYES CAFFEINE CAFFEINE USE?YES HOW OFTEN AND HOW MUCH? 2 SODAS DAILY ADVANCE DIRECTIVE ADVANCE DIRECTIVE DISCUSSED WITH PATIENT:YES HCP - BRUNARaissa QUICK MILO (DAUGHTER) [phone] MANDAEN [id number] GNOSTICISM LANGUAGE LANGUAGES SPOKEN:GUAMANIAN ALCOHOL SCREENING DID YOU HAVE A DRINK CONTAINING ALCOHOL IN THE PAST YEAR?YES HOW OFTEN DID YOU HAVE SIX OR MORE DRINKS ON ONE OCCASION IN THE PAST YEAR?NEVER (0 POINTS) HOW MANY DRINKS DID YOU HAVE ON A TYPICAL DAY WHEN YOU WERE DRINKING IN THE PAST YEAR?1 OR 2 (0 POINTS) HOW OFTEN DID YOU HAVE A DRINK CONTAINING ALCOHOL IN THE PAST YEAR?MONTHLY OR LESS (1 POINT) POINTS1 INTERPRETATIONNEGATIVE RECREATIONAL DRUG USE DRUG USE?NO LEARNING BARRIERS / SPECIAL NEEDS CHANGE FROM LAST VISIT?NO 08/27/19 BARRIERS TO LEARNING?NO HEARING IMPAIRED?NO VISION IMPAIRED?YES COGNITIVELY IMPAIRED?NO :CORRECTIVE LENSES READINESS TO LEARN?YES LEARNING PREFERENCES?NO LEARNING CAPABILITIES PRESENT?YES EMOTIONAL BARRIERS?NO SPECIAL DEVICES?NO MARKETING ACCOUNT MANAGER NEEDED?NO REVIEWED WITH PATIENT 08/14/18 1151 JSREVIEWED WITH PATIENT 03/16/19 1307 JSREVIEWED WITH PATIENT 05/27/19 1335 LASREVIEWED WITH PAIENT 08/28/19 0850 NLJREVIEWED WITH PATIENT 10/07/19 1333 NLJ. HOSPITALIZATION/MAJOR DIAGNOSTIC PROCEDURE CAROTID STENT 2008 LEFT SIDED CAROTID BYPASS WITH HOMOGRAFT SECONDARY TO RE-OCCULUSION 05/2010 MENTAL HEALTH 07/2015 REVIEW OF SYSTEMS REVIEWED BY: PROVIDER: ADITI REILLY-C . CONSTITUTIONAL: ANY CHANGE IN YOUR MEDICAL CONDITION? NO . CHILLS NO . FEVER NO . INFECTION: DO YOU HAVE NEW INFECTIONS? NO . DO YOU HAVE HISTORY OF MRSA? NO . MUSCULOSKELETAL: ANY NEW PATTERNS OF PAIN OR NUMBNESS? YES- STATES LEG AND FOOT PAIN IS WORSE . GASTROENTEROLOGY: ANY NEW CHANGE IN BOWEL CONTROL? NO . GENITOURINARY: ANY NEW CHANGE IN BLADDER CONTROL? NO . IS THERE A CHANCE YOU COULD BE ? NO . HEMATOLOGY/LYMPH: DO YOU TAKE ANY BLOOD THINNERS? (FOR EXAMPLE- COUMADIN, PLAVIX, AGGRENOX, PLATEL, PRADAXA, OR XARELTO) YES- PLAVIX . WHEN WAS YOUR LAST DOSE? DATE:10/06/19 TIME:2129 . NEUROLOGY: HAVE YOU FALLEN IN THE PAST 12 MONTHS? NO- NO FALLS SINCE LAST VISIT . ANY NEW EXTREMITY NUMBNESS OR WEAKNESS? YES- STATES BILATERAL KNEES FEEL LIKE THEY ARE TWISTING, STATES LIKE IT FEELS WEAK . CARDIOLOGY: DO YOU HAVE A PACEMAKER OR DEFIBRILLATOR? NO . RESPIRATORY: HAVE YOU BEEN SICK IN THE PAST WEEK? NO . FEVER NO . FLU LIKE SYMPTOMS? NO . COUGH NO . INTEGUMENTARY: DO YOU HAVE ANY RASHES OR OPEN SORES? NO . ALLERGIC/IMMUNO: ARE YOU ALLERGIC TO IV DYE? NO . ANY NEW ALLERGIES? NO . PSYCHIATRIC: DO YOU HAVE THOUGHTS OF HURTING YOURSELF OR SOMEONE ELSE? NO . ARE YOU ABUSED, NEGLECTED, OR IN AN UNSAFE ENVIRONMENT? NO . ENDOCRINOLOGY: ARE YOU DIABETIC? NO . OTHER: DO YOU NEED ANY PRESCRIPTIONS? NO . IF YES, PLEASE LIST: ____ . ANY NEW PROBLEMS WITH YOUR MEDICATIONS? NO . WHEN DID YOU LAST EAT? ____ . WHEN DID YOU LAST DRINK? ____ . WHAT DID YOU LAST DRINK? ____ . NAME OF PERSON DRIVING YOU HOME? ____ . DO YOU HAVE ANY OTHER QUESTIONS OR CONCERNS YES- INCREASE IN PAIN IN BILATERAL KNEES, STATES SHE STOPPED TAKING TIZANIDINE BECASUE IT MAKES HEADAHES WORSE . VITAL SIGNS WT 282.2 LBS, HT 66 IN, BMI 45.54 INDEX, BP 143/71 MM HG, HR 92 /MIN, RR 18 /MIN, TEMP 96.3 F, OXYGEN SAT % 98%, SAFE IN ENV? (Y/N) YES, REVIEWED BY: TRAM. EXAMINATION GENERAL EXAMINATION: GENERALNO ACUTE DISTRESS, WELL NOURISHED AND HYDRATED. PSYCHAPPROPRIATE MOOD AND AFFECT . LUNGS:CLEAR TO AUSCULTATION BILATERALLY, NO WHEEZES, RHONCHI, RALES. HEART:NO MURMURS, REGULAR RATE AND RHYTHM. ASSESSMENTS LUMBAR BACK PAIN WITH RADICULOPATHY AFFECTING LEFT LOWER EXTREMITY - M54.17 (PRIMARY) TREATMENT LUMBAR BACK PAIN WITH RADICULOPATHY AFFECTING LEFT LOWER EXTREMITY INCREASE XTAMPZA ER CAPSULE ER 12 HOUR ABUSE-DETERRENT, 13.5 MG, 1 CAPSULE WITH FOOD, ORALLY, EVERY 12 HRS MDD2, 30 DAYS, 60 CLINICAL NOTES: 48-YEAR-OLD FEMALE IN FOR CHRONIC PAIN FOLLOW-UP. GIVEN PRESENTING SYMPTOMS AND RESULTS OF PHYSICAL EXAMINATION RECOMMENDED INCREASING XTAMPZA WITH FOLLOW-UP IN 2 MONTHS TO DETERMINE EFFICACY OF TREATMENT. PATIENT HAS EXPRESSED UNDERSTANDING OF AND WAS IN AGREEMENT WITH TREATMENT PLAN. GIVEN TIME TO ASK QUESTIONS AND EXPRESS CONCERNS., ISTOP REGISTRY REVIEWED AND DEMONSTRATES COMPLLIANCE. (REF # [id number] ) BRINGS IN MEDICATIONS WHICH IS APPROPRIATE FOR WHAT WAS DISPENSED. RECENT URINE TOXICOLOGY REVIEWED. NO UNAUTHORIZED MEDICATIONS. NO ILLICIT SUBSTANCES AND PRESCRIBED MEDICATIONS WERE PRESENT. PROCEDURE CODES [id number] ESTABILISHED PATIENT [facility] CHARGE DISPOSITION & COMMUNICATION FOLLOW UP 2 MONTHS (REASON: LOW BACK PAIN WITH RADICULOPATHY) ELECTRONICALLY SIGNED BY TOMMIE MURILLO ON 10/08/2019 AT 01:17 PM EST DISCLAIMER : THIS IS A VISIT SUMMARY EXTRACTED FROM THE [employer] CHART. IT IS NOT A COPY OF THE [employer] PROGRESS NOTE. VIVEK
== END ==
LOC: M PAIN 13:30
PROVIDERS: ATTEND Family Medicine
DX: M54.17 Radiculopathy, lumbosacral region (principal); G89.29 Other chronic pain; E78.5 Hyperlipidemia, unspecified; G43.909 Migraine, unspecified, not intractable, without status migrainosus; G47.33 Obstructive sleep apnea (adult) (pediatric); Z88.2 Allergy status to sulfonamides; Z88.6 Allergy status to analgesic agent; Z88.8 Allergy status to other drugs, medicaments and biological substances; Z91.030 Bee allergy status; E66.01 Morbid (severe) obesity due to excess calories; Z68.42 Body mass index [BMI] 45.0-49.9, adult; Z79.891 Long term (current) use of opiate analgesic; Z79.899 Other long term (current) drug therapy

== ENCOUNTER → 2019-12-07 | Outpatient (CLI) | payer MEDICARE, MEDICAID ==
[~2019-12-07] MED LIST changes: +CLON0.5T2 PO; -CLON0.5T8 PO; -RANI-356 PO; +RANI-397 PO; -SIMV20TA2 PO; +SIMV20TA22 PO
--- NOTE | 2019-12-09 05:02 | ECWPNPC ---
PATIENT NAME: ACOSTA ALBRIGHT : 1970 GENDER: FEMALE VISIT DATE: 12/07/2019 DISCHARGE DATE: 12/07/19 1402 VISIT LOCKED DATE TIME: PHYSICIAN: KUSHAL MONTGOMERY RESOURCE: KUSHAL MONTGOMERY REASON FOR APPOINTMENT 1. LOW BACK PAIN WITH RADICULOPATHY HISTORY OF PRESENT ILLNESS HISTORY OF PRESENT ILLNESS: PAIN THE PATIENT DESCRIBES THE PAIN... 49-YEAR-OLD FEMALE IN FOR CHRONIC PAIN FOLLOW-UP. HER XTAMPZA WAS INCREASED AT LAST VISIT AND SHE FEELS THIS HAS BEEN HELPFUL HOWEVER SHE IS QUESTIONING AN INCREASE IN MEDICATION TO BETTER MANAGE HER SYMPTOMS. SHE RATES HER PAIN CURRENTLY AT A 7 OUT OF 10 AND DESCRIBES IT ACHING, SHARP, STABBING, SHOOTING, AND TENDER. FALL RISK SCREENING: SCREENING :NO FALLS REPORTED IN THE LAST YEAR CURRENT MEDICATIONS TAKING PLAVIX 75 MG TABLET 1 TABLET ORALLY ONCE A DAY/DR FERRIS TAKING EPIPEN 2-GISELL 0.3 MG/0.3ML (1:1000) DEVICE INJECTION INTRAMUSCULAR 1 TIME NEEDED FOR ANGIOEDEMA REACTION TAKING ALBUTEROL SULFATE HFA 108 (90 BASE) MCG/ACT AEROSOL SOLUTION 2 PUFFS NEEDED INHALATION EVERY 4 HRS TAKING SUMATRIPTAN SUCCINATE 100 MG TABLET DIRECTED ORALLY BID, MDD 2 IN 24 HOURS TAKING VITAMIN D3 COMPLETE - TABLET 3,000 ORALLY DAILY TAKING STOOL SOFTENER 100 MG CAPSULE 1 CAPSULE NEEDED ORALLY BID TAKING DIPHENHYDRAMINE HCL 25 MG CAPSULE 2 CAPSULE NEEDED ORALLY AT BEDTIME NEEDED TAKING REFRESH LIQUIGEL 1 % SOLUTION 2 DROP INTO AFFECTED EYE NEEDED OPHTHALMIC BID TAKING DULOXETINE HCL 30 MG CAPSULE DELAYED RELEASE PARTICLES 1 CAPSULE ORALLY DAILY TAKING VERAPAMIL HCL ER 120 MG TABLET EXTENDED RELEASE 1 TABLET ORALLY ONCE A DAY TAKING KLONOPIN 0.5 MG TABLET 1 TABLET ORALLY TWICE A DAY NEEDED, NOTES: PRN- MAXIMUM OF 10 TABS PER MONTH TAKING OMEPRAZOLE 20 MG CAPSULE DELAYED RELEASE 1 CAPSULE ORALLY ONCE A DAY TAKING ASTELIN 137 MCG/SPRAY SOLUTION 1 SPRAY IN EACH NOSTRIL NASALLY TWICE A DAY TAKING TRAZODONE HCL 150 MG TABLET 1 TABLET AT BEDTIME NEEDED ORALLY ONCE A DAY TAKING ATORVASTATIN CALCIUM 20 MG TABLET 1 TABLET ORALLY DAILY TAKING ERYTHROMYCIN 5 MG/GM OINTMENT 1 APPLICATION OPHTHALMIC BID TO AREAS OF FACE WHEN RASH FLARES (VERY SMALL AMOUNT NEEDED, 1/4 PEA SIZE) TAKING XTAMPZA ER 13.5 MG CAPSULE ER 12 HOUR ABUSE-DETERRENT 1 CAPSULE WITH FOOD ORALLY EVERY 12 HRS MDD2 NOT-TAKING TYLENOL EXTRA STRENGTH 500 MG TABLET 2 TABLET NEEDED ORALLY BID NOT-TAKING CYMBALTA 60 MG CAPSULE DELAYED RELEASE PARTICLES 1 CAPSULE ORALLY ONCE DAILY, NOTES: 90MG TOTAL ONCE DAILY NOT-TAKING VERAPAMIL HCL 40 MG TABLET 1 TABLET ORALLY DAILY DISCONTINUED TIZANIDINE HCL 4 MG TABLET 1 TABLET NEEDED ORALLY THREE TIMES A DAY, NOTES: STOPPED TAKING BECAUSE IT MAKES HEADACHES WORSE MEDICATION LIST REVIEWED AND RECONCILED WITH THE PATIENT PAST MEDICAL HISTORY CAROTID ATHEROSCLEROSIS -- FOLLOWS WITH DR. 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, RADIATION AND CHEMOTHERAPY BILATERAL TMJ HYPER PARA THYROIDISM HX OF MULTIPLE THYROID NODULES PROVEN NON-MALIGNANT HX ABNORMAL PAP SMEAR HX OF CHEST PAIN 2008 WITH NEGATIVE HEART CATHETERIZATION MIGRAINE HEADACHES LUPUS ANGIOEDEMA OBSTRUCTIVE SLEEP APNEA ARTHRITIS BOTH KNEES KIDNEY STONES RIGHT 4TH TOE BROKEN 09/2018 CHRONIC PAIN ALLERGIES SULFA (FOR ALLERGY USE ONLY): HIVES - ALLERGY FLEXERIL: MIGAINES - ALLERGY ASPIRIN: UNKNOWN - ALLERGY HYDROXYCHLOROQUINE SULFATE: UNKNOWN - ALLERGY BEE STINGS: UNKNOWN - ALLERGY VENLAFEXINE: WORSENING SYMPTOMS/ BLACKED OUT WELLBUTRIN: WORSENS MIGRAINS,SWEATS - ALLERGY LYRICA: ANAPHYLAXIS - ALLERGY BUTRANS: NAUSEA/BLISTERS - ALLERGY TIZANIDINE : MAKES HEADACHES WORSE - SIDE EFFECTS SURGICAL HISTORY CSECTION 1992 TROUBLE WAKING FROM ANESTHESIA AND HYPOXIA S/P ANESTHESIA 01/2015 TUBAL LIGATION 1993 HEART CATH WITHOUT STENT 2008 LEFT SIDED CAROTID STENT 09/2009 LEFT SIDED CAROTID BYPASS WITH HOMOGRAFT SECONDARY TO RE-OCCULUSION 05/2010 LASER CERVICAL SURGERY/BIOPSY SECONDARY TO ABNORMAL PAP L CARPAL TUNNEL 12/28/2013 HYSTERECTOMY WITHOUT SALPINGOOPHORECTOMY 01/2015 KIDNEY STONES REMOVED SEP 21, 2016 COLONOSCOPY AND EDG AT [facility] 2017 FAMILY HISTORY FATHER: , DIAGNOSED WITH HYPERTENSION, UNSPECIFIED HEART DISEASE MOTHER: , OTHER MALIGNANT NEOPLASM OF UNSPECIFIED SITE 1 SISTER\\N1 SHARED BROTHER THRU DAD--STOMACH CANCER 60% REMOVED\\N2 BROTHERS\\N. PT DENIES FH OF MELANOMA OR PANCREATIC CANCER. SOCIAL HISTORY GENERAL: TOBACCO USE ARE YOU A:NONSMOKER PAIN CLINIC PFS, CLERGY, PUBLIC HEALTH REFERRALS PFS REFERRAL NEEDED?NO CLERGY REFERRAL NEEDED?NO PUBLIC HEALTH REFERRAL NEEDED?NO WAS THE PROVIDER NOTIFIED OF ANY PERTINENT INFO?YES HAS THE PATIENT BEEN EDUCATED REGARDING HIS/HER PLAN OF CARE?YES HAS THE PATIENT BEEN EDUCATED REGARDING PAIN, THE RISK FOR PAIN, THE IMPORTANCE OF EFFECTIVE PAIN MANAGEMENT, AND THE PAIN ASSESSMENT PROCESS?YES LATEX QUESTIONNAIRE LATEX ALLERGY : HAVE YOU EVER DEVELOPED ANY TYPE OF REACTION AFTER HANDLING LATEX PRODUCTS SUCH RUBBER GLOVES, CONDOMS, DIAPHRAGMS, BALLOONS, SOCKS, OR UNDERWEAR?NO LATEX ALLERGY : HAVE YOU EVER DEVELOPED ANY TYPE OF REACTION DURING OR AFTER DENTAL APPOINTMENT, VAGINAL/RECTAL EXAMINATION, SURGICAL PROCEDURE, OR ANY OTHER EXPOSURE?NO LATEX RISK : HAVE YOU EVER HAD ANY DIFFICULTY BREATHING OR HIVES AFTER EATING OR HANDLING ANY FRUITS, OR VEGETABLES; SUCH KIWI, BANANAS, STONE FRUITS, OR CHESTNUTSNO LATEX RISK : DO YOU HAVE A PREVIOUS PERSONAL HISTORY OF MORE THAN NINE SURGERIES, SPINA BIFIDA, OR REPEATED CATHERIZATIONS? YES - PLEASE INDICATE : > 9 SURGERIES LATEX RISK : ARE YOU FREQUENTLY EXPOSED TO LATEX PRODUCTS IN YOUR OCCUPATION?YES DATE ASKED : 03/16/2019 HIV / HEP-C SCREENING HIV TEST OFFERED TO PATIENT:YES DATE OFFERED:03/11/2019 TEST ACCEPTED:NO HEP-C TEST OFFERED TO PATIENT:YES DATE OFFERED:03/11/2019 REASON:PATIENT DECLINED TEST ACCEPTED:NO REASON:PATIENT DECLINED BROCHURE PROVIDED TO PATIENTYES CAFFEINE CAFFEINE USE?YES HOW OFTEN AND HOW MUCH? 2 SODAS DAILY ADVANCE DIRECTIVE ADVANCE DIRECTIVE DISCUSSED WITH PATIENT:YES HCP - BRUNA QUICK MILO (DAUGHTER) [phone] BAHAI [id number] [employer] L[employer] SPOKEN:ROMANIAN ALCOHOL SCREENING DID YOU HAVE A DRINK CONTAINING ALCOHOL IN THE PAST YEAR?YES HOW OFTEN DID YOU HAVE SIX OR MORE DRINKS ON ONE OCCASION IN THE PAST YEAR?NEVER (0 POINTS) HOW MANY DRINKS DID YOU HAVE ON A TYPICAL DAY WHEN YOU WERE DRINKING IN THE PAST YEAR?1 OR 2 (0 POINTS) HOW OFTEN DID YOU HAVE A DRINK CONTAINING ALCOHOL IN THE PAST YEAR?MONTHLY OR LESS (1 POINT) POINTS1 INTERPRETATIONNEGATIVE RECREATIONAL DRUG USE DRUG USE?NO LEARNING BARRIERS / SPECIAL NEEDS CHANGE FROM LAST VISIT?NO 08/27/19 BARRIERS TO LEARNING?NO HEARING IMPAIRED?NO VISION IMPAIRED?YES COGNITIVELY IMPAIRED?NO :CORRECTIVE LENSES READINESS TO LEARN?YES LEARNING PREFERENCES?NO LEARNING CAPABILITIES PRESENT?YES EMOTIONAL BARRIERS?NO SPECIAL DEVICES?NO TECHNICAL OPERATIONS MANAGER NEEDED?NO REVIEWED WITH PATIENT 08/14/18 1151 JSREVIEWED WITH PATIENT 03/16/19 1307 JSREVIEWED WITH PATIENT 05/27/19 1335 LASREVIEWED WITH PAIENT 08/28/19 0850 NLJREVIEWED WITH PATIENT 10/07/19 1333 NLJREVIEWED WITH PATIENT 12/07/19 1336 BV. HOSPITALIZATION/MAJOR DIAGNOSTIC PROCEDURE CAROTID STENT 2008 LEFT SIDED CAROTID BYPASS WITH HOMOGRAFT SECONDARY TO RE-OCCULUSION 05/2010 MENTAL HEALTH 07/2015 REVIEW OF SYSTEMS REVIEWED BY: PROVIDER: ADITI LOO . CONSTITUTIONAL: ANY CHANGE IN YOUR MEDICAL CONDITION? NO . CHILLS NO . FEVER NO . INFECTION: DO YOU HAVE NEW INFECTIONS? NO . DO YOU HAVE HISTORY OF MRSA? NO . MUSCULOSKELETAL: ANY NEW PATTERNS OF PAIN OR NUMBNESS? NO . GASTROENTEROLOGY: ANY NEW CHANGE IN BOWEL CONTROL? NO . GENITOURINARY: ANY NEW CHANGE IN BLADDER CONTROL? NO . IS THERE A CHANCE YOU COULD BE ? NO . HEMATOLOGY/LYMPH: DO YOU TAKE ANY BLOOD THINNERS? (FOR EXAMPLE- COUMADIN, PLAVIX, AGGRENOX, PLATEL, PRADAXA, OR XARELTO) NO . WHEN WAS YOUR LAST DOSE? DATE: TIME: . NEUROLOGY: HAVE YOU FALLEN IN THE PAST 12 MONTHS? NO . ANY NEW EXTREMITY NUMBNESS OR WEAKNESS? NO . CARDIOLOGY: DO YOU HAVE A PACEMAKER OR DEFIBRILLATOR? NO . RESPIRATORY: HAVE YOU BEEN SICK IN THE PAST WEEK? NO . FEVER NO . FLU LIKE SYMPTOMS? NO . COUGH NO . INTEGUMENTARY: DO YOU HAVE ANY RASHES OR OPEN SORES? NO . ALLERGIC/IMMUNO: ARE YOU ALLERGIC TO IV DYE? NO . ANY NEW ALLERGIES? NO . PSYCHIATRIC: DO YOU HAVE THOUGHTS OF HURTING YOURSELF OR SOMEONE ELSE? NO . ARE YOU ABUSED, NEGLECTED, OR IN AN UNSAFE ENVIRONMENT? NO . ENDOCRINOLOGY: ARE YOU DIABETIC? NO . OTHER: DO YOU NEED ANY PRESCRIPTIONS? NO . IF YES, PLEASE LIST: ____ . ANY NEW PROBLEMS WITH YOUR MEDICATIONS? NO . WHEN DID YOU LAST EAT? ____ . WHEN DID YOU LAST DRINK? ____ . WHAT DID YOU LAST DRINK? ____ . NAME OF PERSON DRIVING YOU HOME? ____ . DO YOU HAVE ANY OTHER QUESTIONS OR CONCERNS PT STATES SHE HAS BEEN HAVING TROUBLE WITH LEFT KNEE FEELING LIKE IT IS "TWISTING" ON HER . VITAL SIGNS WT 286.6 LBS, HT 66 IN, BMI 46.25 INDEX, BP 123/60 MM HG, HR 80 /MIN, RR 18 /MIN, TEMP 97.8 F, OXYGEN SAT % 92%, NA INITIALS 1331, REVIEWED BY: BV. EXAMINATION GENERAL EXAMINATION: GENERALNO ACUTE DISTRESS, WELL NOURISHED AND HYDRATED. PSYCHAPPROPRIATE MOOD AND AFFECT . LUNGS:CLEAR TO AUSCULTATION BILATERALLY, NO WHEEZES, RHONCHI, RALES. HEART:NO MURMURS, REGULAR RATE AND RHYTHM. ASSESSMENTS LUMBAR BACK PAIN WITH RADICULOPATHY AFFECTING LEFT LOWER EXTREMITY - M54.17 (PRIMARY) TREATMENT LUMBAR BACK PAIN WITH RADICULOPATHY AFFECTING LEFT LOWER EXTREMITY INCREASE XTAMPZA ER CAPSULE ER 12 HOUR ABUSE-DETERRENT, 18 MG, 1 CAPSULE WITH FOOD, ORALLY, EVERY 12 HRS MDD2, 30 DAYS, 60 CLINICAL NOTES: 49-YEAR-OLD FEMALE IN FOR CHRONIC PAIN FOLLOW-UP. GIVEN PRESENTING SYMPTOMS AND RESULTS OF PHYSICAL EXAMINATION RECOMMENDED INCREASING XTAMPZA WITH FOLLOW-UP IN 2 MONTHS TO DETERMINE EFFICACY OF TREATMENT. PATIENT EXPRESSED UNDERSTANDING OF AND WAS IN AGREEMENT WITH TREATMENT PLAN. GIVEN TIME TO ASK QUESTIONS AND EXPRESS CONCERNS., ISTOP REGISTRY REVIEWED AND DEMONSTRATES COMPLLIANCE. (REF # [id number] ) BRINGS IN MEDICATIONS WHICH IS APPROPRIATE FOR WHAT WAS DISPENSED. RECENT URINE TOXICOLOGY REVIEWED. NO UNAUTHORIZED MEDICATIONS. NO ILLICIT SUBSTANCES AND PRESCRIBED MEDICATIONS WERE PRESENT. PROCEDURE CODES FA211 ESTABILISHED [facility] DISPOSITION & COMMUNICATION FOLLOW UP 2 MONTHS (REASON: LOW BACK PAIN, INCREASE IN MEDICATION) ELECTRONICALLY SIGNED BY TOMMIE MURILLO ON 12/08/2019 AT 10:01 AM EST DISCLAIMER : THIS IS A VISIT SUMMARY EXTRACTED FROM THE [employer] CHART. IT IS NOT A COPY OF THE [employer] PROGRESS NOTE. VIVEK
== END ==
LOC: M PAIN 13:15
PROVIDERS: ATTEND Family Medicine
DX: M54.17 Radiculopathy, lumbosacral region (principal); G89.29 Other chronic pain; E78.5 Hyperlipidemia, unspecified; G43.909 Migraine, unspecified, not intractable, without status migrainosus; G47.33 Obstructive sleep apnea (adult) (pediatric); Z88.2 Allergy status to sulfonamides; Z88.6 Allergy status to analgesic agent; Z88.8 Allergy status to other drugs, medicaments and biological substances; Z91.030 Bee allergy status; E66.01 Morbid (severe) obesity due to excess calories; Z68.42 Body mass index [BMI] 45.0-49.9, adult; Z79.01 Long term (current) use of anticoagulants; Z79.891 Long term (current) use of opiate analgesic; Z79.899 Other long term (current) drug therapy

== ENCOUNTER → 2020-03-07 | Outpatient (CLI) | payer MEDICARE, MEDICAID ==
--- NOTE | 2020-03-09 03:17 | ECWPNPC ---
PATIENT NAME: ACOSTA ALBRIGHT : 1970 GENDER: FEMALE VISIT DATE: 03/07/2020 DISCHARGE DATE: 03/07/20 1039 VISIT LOCKED DATE TIME: PHYSICIAN: KUSHAL MONTGOMERY RESOURCE: KUSHAL MONTGOMERY REASON FOR APPOINTMENT 1. LOW BACK PAIN, INCREASE IN [phone] HISTORY OF PRESENT ILLNESS HISTORY OF PRESENT ILLNESS: PAIN THE PATIENT DESCRIBES THE PAIN... PERMISSION REQUESTED AND RECEIVED FROM PATIENT TO PERFORM TELEHEALTH VISIT. 49-YEAR-OLD FEMALE IN FOR CHRONIC PAIN FOLLOW-UP. AT LAST CLINIC VISIT HER X-TAMPAZA WAS INCREASED TO 18 MG TWICE A DAY SHE ADMITS TODAY THAT SHE FEELS THIS HELPS WITH HER PAIN BUT DOES NOT LAST THROUGHOUT THE DAY. SHE RATES HER PAIN CURRENTLY AT A 9 OUT OF 10. FALL RISK SCREENING: SCREENING :NO FALLS REPORTED IN THE LAST YEAR CURRENT MEDICATIONS TAKING PLAVIX 75 MG TABLET 1 TABLET ORALLY ONCE A DAY/DR FERRIS TAKING EPIPEN 2-GISELL 0.3 MG/0.3ML (1:1000) DEVICE INJECTION INTRAMUSCULAR 1 TIME NEEDED FOR ANGIOEDEMA REACTION TAKING ALBUTEROL SULFATE HFA 108 (90 BASE) MCG/ACT AEROSOL SOLUTION 2 PUFFS NEEDED INHALATION EVERY 4 HRS TAKING SUMATRIPTAN SUCCINATE 100 MG TABLET DIRECTED ORALLY BID, MDD 2 IN 24 HOURS TAKING VITAMIN D3 COMPLETE - TABLET 3,000 ORALLY DAILY TAKING STOOL SOFTENER 100 MG CAPSULE 1 CAPSULE NEEDED ORALLY BID TAKING DIPHENHYDRAMINE HCL 25 MG CAPSULE 2 CAPSULE NEEDED ORALLY AT BEDTIME NEEDED TAKING REFRESH LIQUIGEL 1 % SOLUTION 2 DROP INTO AFFECTED EYE NEEDED OPHTHALMIC BID TAKING DULOXETINE HCL 30 MG CAPSULE DELAYED RELEASE PARTICLES 1 CAPSULE ORALLY DAILY TAKING VERAPAMIL HCL ER 120 MG TABLET EXTENDED RELEASE 1 TABLET ORALLY ONCE A DAY TAKING KLONOPIN 0.5 MG TABLET 1 TABLET ORALLY TWICE A DAY NEEDED, NOTES: PRN- MAXIMUM OF 10 TABS PER MONTH TAKING ASTELIN 137 MCG/SPRAY SOLUTION 1 SPRAY IN EACH NOSTRIL NASALLY TWICE A DAY TAKING TRAZODONE HCL 150 MG TABLET 1 TABLET AT BEDTIME NEEDED ORALLY ONCE A DAY TAKING ATORVASTATIN CALCIUM 20 MG TABLET 1 TABLET ORALLY DAILY TAKING ERYTHROMYCIN 5 MG/GM OINTMENT 1 APPLICATION OPHTHALMIC BID TO AREAS OF FACE WHEN RASH FLARES (VERY SMALL AMOUNT NEEDED, 1/4 PEA SIZE) TAKING OMEPRAZOLE 20 MG CAPSULE DELAYED RELEASE 1 CAPSULE ORALLY ONCE A DAY TAKING XTAMPZA ER 18 MG CAPSULE ER 12 HOUR ABUSE-DETERRENT 1 CAPSULE WITH FOOD ORALLY EVERY 12 HRS MDD2 NOT-TAKING TYLENOL EXTRA STRENGTH 500 MG TABLET 2 TABLET NEEDED ORALLY BID NOT-TAKING CYMBALTA 60 MG CAPSULE DELAYED RELEASE PARTICLES 1 CAPSULE ORALLY ONCE DAILY, NOTES: 90MG TOTAL ONCE DAILY NOT-TAKING VERAPAMIL HCL 40 MG TABLET 1 TABLET ORALLY DAILY MEDICATION LIST REVIEWED AND RECONCILED WITH THE PATIENT PAST MEDICAL HISTORY CAROTID ATHEROSCLEROSIS -- FOLLOWS WITH DR. 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, RADIATION AND CHEMOTHERAPY BILATERAL TMJ HYPER PARA THYROIDISM HX OF MULTIPLE THYROID NODULES PROVEN NON-MALIGNANT HX ABNORMAL PAP SMEAR HX OF CHEST PAIN 2008 WITH NEGATIVE HEART CATHETERIZATION MIGRAINE HEADACHES LUPUS ANGIOEDEMA OBSTRUCTIVE SLEEP APNEA ARTHRITIS BOTH KNEES KIDNEY STONES RIGHT 4TH TOE BROKEN 09/2018 CHRONIC PAIN ALLERGIES SULFA (FOR ALLERGY USE ONLY): HIVES - ALLERGY FLEXERIL: MIGAINES - ALLERGY ASPIRIN: UNKNOWN - ALLERGY HYDROXYCHLOROQUINE SULFATE: UNKNOWN - ALLERGY BEE STINGS: UNKNOWN - ALLERGY VENLAFEXINE: WORSENING SYMPTOMS/ BLACKED OUT WELLBUTRIN: WORSENS MIGRAINS,SWEATS - ALLERGY LYRICA: ANAPHYLAXIS - ALLERGY BUTRANS: NAUSEA/BLISTERS - ALLERGY TIZANIDINE : MAKES HEADACHES WORSE - SIDE EFFECTS SURGICAL HISTORY CSECTION 1992 TROUBLE WAKING FROM ANESTHESIA AND HYPOXIA S/P ANESTHESIA 01/2015 TUBAL LIGATION 1993 HEART CATH WITHOUT STENT 2008 LEFT SIDED CAROTID STENT 09/2009 LEFT SIDED CAROTID BYPASS WITH HOMOGRAFT SECONDARY TO RE-OCCULUSION 05/2010 LASER CERVICAL SURGERY/BIOPSY SECONDARY TO ABNORMAL PAP L CARPAL TUNNEL 12/28/2013 HYSTERECTOMY WITHOUT SALPINGOOPHORECTOMY 01/2015 KIDNEY STONES REMOVED SEP 21, 2016 COLONOSCOPY AND EDG AT [facility] 2018 FAMILY HISTORY FATHER: , DIAGNOSED WITH HYPERTENSION, UNSPECIFIED HEART DISEASE MOTHER: , OTHER MALIGNANT NEOPLASM OF UNSPECIFIED SITE 1 SISTER\N1 SHARED BROTHER THRU DAD--STOMACH CANCER 60% REMOVED\N2 BROTHERS\N. PT DENIES FH OF MELANOMA OR PANCREATIC CANCER. SOCIAL HISTORY GENERAL: TOBACCO USE ARE YOU A:NONSMOKER LATEX QUESTIONNAIRE LATEX ALLERGY : HAVE YOU EVER DEVELOPED ANY TYPE OF REACTION AFTER HANDLING LATEX PRODUCTS SUCH RUBBER GLOVES, CONDOMS, DIAPHRAGMS, BALLOONS, SOCKS, OR UNDERWEAR?NO LATEX ALLERGY : HAVE YOU EVER DEVELOPED ANY TYPE OF REACTION DURING OR AFTER DENTAL APPOINTMENT, VAGINAL/RECTAL EXAMINATION, SURGICAL PROCEDURE, OR ANY OTHER EXPOSURE?NO DATE ASKED : 03/16/2019 LATEX RISK : HAVE YOU EVER HAD ANY DIFFICULTY BREATHING OR HIVES AFTER EATING OR HANDLING ANY FRUITS, OR VEGETABLES; SUCH KIWI, BANANAS, STONE FRUITS, OR CHESTNUTSNO LATEX RISK : DO YOU HAVE A PREVIOUS PERSONAL HISTORY OF MORE THAN NINE SURGERIES, SPINA BIFIDA, OR REPEATED CATHERIZATIONS? YES - PLEASE INDICATE : > 9 SURGERIES LATEX RISK : ARE YOU FREQUENTLY EXPOSED TO LATEX PRODUCTS IN YOUR OCCUPATION?YES ALCOHOL SCREENING DID YOU HAVE A DRINK CONTAINING ALCOHOL IN THE PAST YEAR?YES HOW OFTEN DID YOU HAVE SIX OR MORE DRINKS ON ONE OCCASION IN THE PAST YEAR?NEVER (0 POINTS) HOW MANY DRINKS DID YOU HAVE ON A TYPICAL DAY WHEN YOU WERE DRINKING IN THE PAST YEAR?1 OR 2 (0 POINTS) HOW OFTEN DID YOU HAVE A DRINK CONTAINING ALCOHOL IN THE PAST YEAR?MONTHLY OR LESS (1 POINT) POINTS1 INTERPRETATIONNEGATIVE RECREATIONAL DRUG USE DRUG USE?NO CAFFEINE CAFFEINE USE?YES HOW OFTEN AND HOW MUCH? 2 SODAS DAILY HIV / HEP-C SCREENING HIV TEST OFFERED TO PATIENT:YES DATE OFFERED:03/11/2019 TEST ACCEPTED:NO HEP-C TEST OFFERED TO PATIENT:YES DATE OFFERED:03/11/2019 REASON:PATIENT DECLINED TEST ACCEPTED:NO REASON:PATIENT DECLINED BROCHURE PROVIDED TO PATIENTYES JUDAISM [id number] [employer]ANG[employer] LANGUAGES SPOKEN:TAMAZIGHT LEARNING BARRIERS / SPECIAL NEEDS CHANGE FROM LAST VISIT?NO 08/27/19 BARRIERS TO LEARNING?NO HEARING IMPAIRED?NO VISION IMPAIRED?YES COGNITIVELY IMPAIRED?NO :CORRECTIVE LENSES READINESS TO LEARN?YES LEARNING PREFERENCES?NO LEARNING CAPABILITIES PRESENT?YES EMOTIONAL BARRIERS?NO SPECIAL DEVICES?NO CLOCK AND WATCH HANDS MOUNTER NEEDED?NO NEW PATIENT PAIN DIARY TODAY'S VISIT 03/07/20 PATIENT DESCRIBES PAIN :ACHING, IT COMES AND GOES, THROBBING, SHOOTING FROM 0-10, WHAT LEVEL IS YOUR PAIN TODAY?9 PAIN CLINIC PFS, CLERGY, PUBLIC HEALTH REFERRALS PFS REFERRAL NEEDED?NO CLERGY REFERRAL NEEDED?NO PUBLIC HEALTH REFERRAL NEEDED?NO WAS THE PROVIDER NOTIFIED OF ANY PERTINENT INFO?YES HAS THE PATIENT BEEN EDUCATED REGARDING HIS/HER PLAN OF CARE?YES HAS THE PATIENT BEEN EDUCATED REGARDING PAIN, THE RISK FOR PAIN, THE IMPORTANCE OF EFFECTIVE PAIN MANAGEMENT, AND THE PAIN ASSESSMENT PROCESS?YES ADVANCE DIRECTIVE ADVANCE DIRECTIVE DISCUSSED WITH PATIENT:YES HCP - BRUNA QUICK MILO (DAUGHTER) [phone] HOSPITALIZATION/MAJOR DIAGNOSTIC PROCEDURE CAROTID STENT 2008 LEFT SIDED CAROTID BYPASS WITH HOMOGRAFT SECONDARY TO RE-OCCULUSION 05/2010 MENTAL HEALTH 07/2015 REVIEW OF SYSTEMS REVIEWED BY: PROVIDER: ADITI LOO . CONSTITUTIONAL: ANY CHANGE IN YOUR MEDICAL CONDITION? NO . CHILLS NO . FEVER NO . INFECTION: DO YOU HAVE NEW INFECTIONS? NO . DO YOU HAVE HISTORY OF MRSA? NO . MUSCULOSKELETAL: ANY NEW PATTERNS OF PAIN OR NUMBNESS? NO . GASTROENTEROLOGY: ANY NEW CHANGE IN BOWEL CONTROL? NO . GENITOURINARY: ANY NEW CHANGE IN BLADDER CONTROL? NO . IS THERE A CHANCE YOU COULD BE ? NO . HEMATOLOGY/LYMPH: DO YOU TAKE ANY BLOOD THINNERS? (FOR EXAMPLE- COUMADIN, PLAVIX, AGGRENOX, PLATEL, PRADAXA, OR XARELTO) YES PLAVIX . WHEN WAS YOUR LAST DOSE? DATE: TIME: . NEUROLOGY: HAVE YOU FALLEN IN THE PAST 12 MONTHS? YES PT REPORTS A FALL JANUARY, KNEES GAVE OUT WENT TO [facility], HAD AN MRI DONE, PT DIAGNOSED WITH A TORN MENISCUS- GOING TO HAVE SURGERY ON HER LEFT KNEE WHEN COVID RESTRICTIONS ON ELECTIVE SURGERY ARE LIFTED . ANY NEW EXTREMITY NUMBNESS OR WEAKNESS? NO . CARDIOLOGY: DO YOU HAVE A PACEMAKER OR DEFIBRILLATOR? NO . RESPIRATORY: HAVE YOU BEEN SICK IN THE PAST WEEK? NO . FEVER NO . FLU LIKE SYMPTOMS? NO . COUGH NO . INTEGUMENTARY: DO YOU HAVE ANY RASHES OR OPEN SORES? NO . ALLERGIC/IMMUNO: ARE YOU ALLERGIC TO IV DYE? NO . ANY NEW ALLERGIES? NO . PSYCHIATRIC: DO YOU HAVE THOUGHTS OF HURTING YOURSELF OR SOMEONE ELSE? NO . ARE YOU ABUSED, NEGLECTED, OR IN AN UNSAFE ENVIRONMENT? NO . ENDOCRINOLOGY: ARE YOU DIABETIC? NO . OTHER: DO YOU NEED ANY PRESCRIPTIONS? YES . IF YES, PLEASE LIST: ____XTAMPSA . ANY NEW PROBLEMS WITH YOUR MEDICATIONS? NO . WHEN DID YOU LAST EAT? ____ . WHEN DID YOU LAST DRINK? ____ . WHAT DID YOU LAST DRINK? ____ . NAME OF PERSON DRIVING YOU HOME? ____ . DO YOU HAVE ANY OTHER QUESTIONS OR CONCERNS NO . EXAMINATION GENERAL EXAMINATION: GENERALNO ACUTE DISTRESS, WELL NOURISHED AND HYDRATED. PSYCHAPPROPRIATE MOOD AND AFFECT , ALERT, ORIENTED X 3. ASSESSMENTS LUMBAR BACK PAIN WITH RADICULOPATHY AFFECTING LEFT LOWER EXTREMITY - M54.17 (PRIMARY) TREATMENT LUMBAR BACK PAIN WITH RADICULOPATHY AFFECTING LEFT LOWER EXTREMITY INCREASE XTAMPZA ER CAPSULE ER 12 HOUR ABUSE-DETERRENT, 27 MG, 1 CAPSULE WITH FOOD, ORALLY, EVERY 12 HRS MDD2, 30 DAYS, 60, REFILLS 0 CLINICAL NOTES: 49-YEAR-OLD FEMALE IN FOR CHRONIC PAIN FOLLOW-UP. GIVEN PRESENTING SYMPTOMS RECOMMEND INCREASING XTAMPZA TO 27 MG TWICE A DAY WITH FOLLOW-UP IN 2 MONTHS TO DETERMINE EFFICACY OF TREATMENT. PATIENT HAS EXPRESSED UNDERSTANDING OF AND WAS IN AGREEMENT WITH TREATMENT PLAN. GIVEN TIME TO ASK QUESTIONS AND EXPRESS CONCERNS. , ISTOP REGISTRY REVIEWED AND DEMONSTRATES COMPLLIANCE. (REF # [id number] ) BRINGS IN MEDICATIONS WHICH IS APPROPRIATE FOR WHAT WAS DISPENSED. RECENT URINE TOXICOLOGY REVIEWED. NO UNAUTHORIZED MEDICATIONS. NO ILLICIT SUBSTANCES AND PRESCRIBED MEDICATIONS WERE PRESENT. TELEHEALTH VISIT PERFORMED VIA ZOOM. TIME SPENT WITH PATIENT 8 MINUTES. OTHERS NOTES: UNABLE TO TAKE VITAL SIGNS, THIS IS A VIRTUAL/TELEPHONE VISIT. DISPOSITION & COMMUNICATION FOLLOW UP 2 MONTHS (REASON: CHRONIC PAIN) ELECTRONICALLY SIGNED BY TOMMIE MURILLO ON 03/08/2020 AT 08:29 AM EDT DISCLAIMER : THIS IS A VISIT SUMMARY EXTRACTED FROM THE [employer] CHART. IT IS NOT A COPY OF THE [employer] PROGRESS NOTE. VIVEK
== END ==
LOC: M PAIN 09:30 → M TMPAIN 09:30
PROVIDERS: ATTEND Family Medicine
DX: M54.17 Radiculopathy, lumbosacral region (principal); Z79.899 Other long term (current) drug therapy; Z88.6 Allergy status to analgesic agent; Z88.2 Allergy status to sulfonamides; Z88.8 Allergy status to other drugs, medicaments and biological substances; Z91.030 Bee allergy status

== ENCOUNTER → 2020-05-16 | Outpatient (CLI) | payer MEDICARE, MEDICAID ==
--- NOTE | 2020-05-18 04:30 | ECWPNPC ---
PATIENT NAME: ACOSTA ALBRIGHT : 1970 GENDER: FEMALE VISIT DATE: 05/16/2020 DISCHARGE DATE: 05/16/20 1209 VISIT LOCKED DATE TIME: PHYSICIAN: KUSHAL MONTGOMERY RESOURCE: KUSHAL MONTGOMERY REASON FOR APPOINTMENT 1. CHRONIC PAIN HISTORY OF PRESENT ILLNESS GENERAL: - 49-YEAR-OLD FEMALE IN FOR CHRONIC PAIN FOLLOW-UP. SHE RATES HER PAIN CURRENTLY AT AN 8 OUT OF 10 AND DESCRIBES IT ACHING, CONTINUOUS,, SHARP, AND STABBING. PATIENT FEELS THE MEDICATIONS ARE HELPFUL AND DENIES MED SIDE EFFECTS AT THIS TIME. AT LAST CLINIC VISIT PATIENT'S MEDICATION WAS INCREASED AND SHE FEELS THIS HAS BEEN HELPFUL. FALL RISK SCREENING: SCREENING :ONE FALL WITHOUT INJURY IN THE PAST YEAR PAIN SCREENING: PATIENT HAS A COMPLAINT OF ACUTE OR CHRONIC PAIN :YES LOCATION OF PAIN: ALL OVER BODY INTENSITY OF PAIN (SCALE OF 1 TO 10):8 WHAT DOES YOUR PAIN FEEL LIKE:ACHING, CONTINOUS, SHARP, STABBING DURATION:CONTINOUS, CONSTANT, ALL DAY PAIN IS INCREASED BY:ACTIVITIES PAIN IS DECREASED BY:USE OF PAIN MEDICATIONS PAIN HAS INTERFERED WITH THE FOLLOWING:MOOD, HOUSEWORK, RELATIONSHIP WITH OTHERS, ENJOYMENT OF LIFE PLAN/GOALS/TREATMENT/INTERVENTION/FOLLOW UP:SEE PLAN NURSING NOTE: -. PAIN CENTER INTAKE QUESTIONS: DO YOU HAVE A HISTORY OF MRSA? :NO DO YOU TAKE A BLOOD THINNERS? :YES PLAVIX @ 9/30PM ON 05/15/20 DO YOU HAVE ANY BLEEDING DISORDERS? :NO ANY NEW NUMBNESS OR WEAKNESS IN YOUR LEGS OR ARMS? :NO ANY PACEMAKER,DEFIBRILLATOR, OR DORSAL COLUMN STIMULATOR? :NO DO YOU HAVE ANY RASHES OR OPEN SORES? :NO ARE YOU ALLERGIC TO IV DYE? :NO ARE YOU DIABETIC? :NO ANY NEW PROBLEMS WITH YOUR MEDICATIONS? :NO HAVE YOU RECEIVED A VACCINE IN THE PAST 30 DAYS? :NO DO YOU PLAN TO RECEIVE A VACCINE IN THE NEXT 21 DAYS? :NO DO YOU NEED ANY PRESCRIPTION? :NO DO YOU TAKE ANY IMMUNOSUPPRESSIVE MEDICATIONS? :NO IS THERE A CHANCE YOU COULD BE ? :NO ARE YOU BREAST FEEDING? :NO CURRENT MEDICATIONS TAKING PLAVIX 75 MG TABLET 1 TABLET ORALLY ONCE A DAY/DR FERRIS TAKING EPIPEN 2-GISELL 0.3 MG/0.3ML (1:1000) DEVICE INJECTION INTRAMUSCULAR 1 TIME NEEDED FOR ANGIOEDEMA REACTION TAKING ALBUTEROL SULFATE HFA 108 (90 BASE) MCG/ACT AEROSOL SOLUTION 2 PUFFS NEEDED INHALATION EVERY 4 HRS TAKING SUMATRIPTAN SUCCINATE 100 MG TABLET DIRECTED ORALLY BID, MDD 2 IN 24 HOURS TAKING VITAMIN D3 COMPLETE - TABLET 3,000 ORALLY DAILY TAKING STOOL SOFTENER 100 MG CAPSULE 1 CAPSULE NEEDED ORALLY BID TAKING DIPHENHYDRAMINE HCL 25 MG CAPSULE 2 CAPSULE NEEDED ORALLY AT BEDTIME NEEDED TAKING REFRESH LIQUIGEL 1 % SOLUTION 2 DROP INTO AFFECTED EYE NEEDED OPHTHALMIC BID TAKING DULOXETINE HCL 30 MG CAPSULE DELAYED RELEASE PARTICLES 1 CAPSULE ORALLY DAILY TAKING VERAPAMIL HCL ER 120 MG TABLET EXTENDED RELEASE 1 TABLET ORALLY ONCE A DAY TAKING KLONOPIN 0.5 MG TABLET 1 TABLET ORALLY TWICE A DAY NEEDED, NOTES: PRN- MAXIMUM OF 10 TABS PER MONTH TAKING ASTELIN 137 MCG/SPRAY SOLUTION 1 SPRAY IN EACH NOSTRIL NASALLY TWICE A DAY TAKING TRAZODONE HCL 150 MG TABLET 1 TABLET AT BEDTIME NEEDED ORALLY ONCE A DAY TAKING ATORVASTATIN CALCIUM 20 MG TABLET 1 TABLET ORALLY DAILY TAKING ERYTHROMYCIN 5 MG/GM OINTMENT 1 APPLICATION OPHTHALMIC BID TO AREAS OF FACE WHEN RASH FLARES (VERY SMALL AMOUNT NEEDED, 1/4 PEA SIZE) TAKING OMEPRAZOLE 20 MG CAPSULE DELAYED RELEASE 1 CAPSULE ORALLY ONCE A DAY TAKING XTAMPZA ER 27 MG CAPSULE ER 12 HOUR ABUSE-DETERRENT 1 CAPSULE WITH FOOD ORALLY EVERY 12 HRS MDD2 NOT-TAKING TYLENOL EXTRA STRENGTH 500 MG TABLET 2 TABLET NEEDED ORALLY BID NOT-TAKING CYMBALTA 60 MG CAPSULE DELAYED RELEASE PARTICLES 1 CAPSULE ORALLY ONCE DAILY, NOTES: 90MG TOTAL ONCE DAILY NOT-TAKING VERAPAMIL HCL 40 MG TABLET 1 TABLET ORALLY DAILY MEDICATION LIST REVIEWED AND RECONCILED WITH THE PATIENT PAST MEDICAL HISTORY CAROTID ATHEROSCLEROSIS -- FOLLOWS WITH DR. 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, RADIATION AND CHEMOTHERAPY BILATERAL TMJ HYPER PARA THYROIDISM HX OF MULTIPLE THYROID NODULES PROVEN NON-MALIGNANT HX ABNORMAL PAP SMEAR HX OF CHEST PAIN 2008 WITH NEGATIVE HEART CATHETERIZATION MIGRAINE HEADACHES LUPUS ANGIOEDEMA OBSTRUCTIVE SLEEP APNEA ARTHRITIS BOTH KNEES KIDNEY STONES RIGHT 4TH TOE BROKEN 09/2018 CHRONIC PAIN ALLERGIES SULFA (FOR ALLERGY USE ONLY): HIVES - ALLERGY FLEXERIL: MIGAINES - ALLERGY ASPIRIN: UNKNOWN - ALLERGY HYDROXYCHLOROQUINE SULFATE: UNKNOWN - ALLERGY BEE STINGS: UNKNOWN - ALLERGY VENLAFEXINE: WORSENING SYMPTOMS/ BLACKED OUT WELLBUTRIN: WORSENS MIGRAINS,SWEATS - ALLERGY LYRICA: ANAPHYLAXIS - ALLERGY BUTRANS: NAUSEA/BLISTERS - ALLERGY TIZANIDINE : MAKES HEADACHES WORSE - SIDE EFFECTS SURGICAL HISTORY CSECTION 1992 TROUBLE WAKING FROM ANESTHESIA AND HYPOXIA S/P ANESTHESIA 01/2015 TUBAL LIGATION 1993 HEART CATH WITHOUT STENT 2008 LEFT SIDED CAROTID STENT 09/2009 LEFT SIDED CAROTID BYPASS WITH HOMOGRAFT SECONDARY TO RE-OCCULUSION 05/2010 LASER CERVICAL SURGERY/BIOPSY SECONDARY TO ABNORMAL PAP L CARPAL TUNNEL 12/28/2013 HYSTERECTOMY WITHOUT SALPINGOOPHORECTOMY 01/2015 KIDNEY STONES REMOVED SEP 21, 2016 COLONOSCOPY AND EDG AT [facility] 2018 FAMILY HISTORY FATHER: , DIAGNOSED WITH HYPERTENSION, UNSPECIFIED HEART DISEASE MOTHER: , OTHER MALIGNANT NEOPLASM OF UNSPECIFIED SITE 1 SISTER\N1 SHARED BROTHER THRU DAD--STOMACH CANCER 60% REMOVED\N2 BROTHERS\N. PT DENIES FH OF MELANOMA OR PANCREATIC CANCER. SOCIAL HISTORY GENERAL: TOBACCO USE ARE YOU A:NONSMOKER LATEX QUESTIONNAIRE LATEX ALLERGY : HAVE YOU EVER DEVELOPED ANY TYPE OF REACTION AFTER HANDLING LATEX PRODUCTS SUCH RUBBER GLOVES, CONDOMS, DIAPHRAGMS, BALLOONS, SOCKS, OR UNDERWEAR?NO LATEX ALLERGY : HAVE YOU EVER DEVELOPED ANY TYPE OF REACTION DURING OR AFTER DENTAL APPOINTMENT, VAGINAL/RECTAL EXAMINATION, SURGICAL PROCEDURE, OR ANY OTHER EXPOSURE?NO LATEX RISK : HAVE YOU EVER HAD ANY DIFFICULTY BREATHING OR HIVES AFTER EATING OR HANDLING ANY FRUITS, OR VEGETABLES; SUCH KIWI, BANANAS, STONE FRUITS, OR CHESTNUTSNO LATEX RISK : DO YOU HAVE A PREVIOUS PERSONAL HISTORY OF MORE THAN NINE SURGERIES, SPINA BIFIDA, OR REPEATED CATHERIZATIONS? YES - PLEASE INDICATE : > 9 SURGERIES LATEX RISK : ARE YOU FREQUENTLY EXPOSED TO LATEX PRODUCTS IN YOUR OCCUPATION?YES DATE ASKED : 05/16/2020 ALCOHOL SCREENING DID YOU HAVE A DRINK CONTAINING ALCOHOL IN THE PAST YEAR?YES HOW OFTEN DID YOU HAVE SIX OR MORE DRINKS ON ONE OCCASION IN THE PAST YEAR?NEVER (0 POINTS) HOW MANY DRINKS DID YOU HAVE ON A TYPICAL DAY WHEN YOU WERE DRINKING IN THE PAST YEAR?1 OR 2 (0 POINTS) HOW OFTEN DID YOU HAVE A DRINK CONTAINING ALCOHOL IN THE PAST YEAR?MONTHLY OR LESS (1 POINT) POINTS1 INTERPRETATIONNEGATIVE RECREATIONAL DRUG USE DRUG USE?NO CAFFEINE CAFFEINE USE?YES HOW OFTEN AND HOW MUCH? 2 SODAS DAILY HIV / HEP-C SCREENING HIV TEST OFFERED TO PATIENT:YES DATE OFFERED:03/11/2019 TEST ACCEPTED:NO HEP-C TEST OFFERED TO PATIENT:YES DATE OFFERED:03/11/2019 REASON:PATIENT DECLINED TEST ACCEPTED:NO REASON:PATIENT DECLINED BROCHURE PROVIDED TO PATIENTYES TAOISM [id number] EPISCOPAL LANGUAGE LANGUAGES SPOKEN:TOGOLESE LEARNING BARRIERS / SPECIAL NEEDS CHANGE FROM LAST VISIT?NO 08/27/19 BARRIERS TO LEARNING?NO HEARING IMPAIRED?NO VISION IMPAIRED?YES COGNITIVELY IMPAIRED?NO :CORRECTIVE LENSES READINESS TO LEARN?YES LEARNING PREFERENCES?NO LEARNING CAPABILITIES PRESENT?YES EMOTIONAL BARRIERS?NO SPECIAL DEVICES?NO CLINICAL ACCOUNT LIAISON NEEDED?NO NEW PATIENT PAIN DIARY TODAY'S VISIT 03/07/20 PATIENT DESCRIBES PAIN :ACHING, IT COMES AND GOES, THROBBING, SHOOTING FROM 0-10, WHAT LEVEL IS YOUR PAIN TODAY?9 PAIN CLINIC PFS, CLERGY, PUBLIC HEALTH REFERRALS PFS REFERRAL NEEDED?NO CLERGY REFERRAL NEEDED?NO PUBLIC HEALTH REFERRAL NEEDED?NO WAS THE PROVIDER NOTIFIED OF ANY PERTINENT INFO?YES HAS THE PATIENT BEEN EDUCATED REGARDING HIS/HER PLAN OF CARE?YES HAS THE PATIENT BEEN EDUCATED REGARDING PAIN, THE RISK FOR PAIN, THE IMPORTANCE OF EFFECTIVE PAIN MANAGEMENT, AND THE PAIN ASSESSMENT PROCESS?YES ADVANCE DIRECTIVE ADVANCE DIRECTIVE DISCUSSED WITH PATIENT:YES HCP - BRUNA PEDRAZA (DAUGHTER) [phone] HOSPITALIZATION/MAJOR DIAGNOSTIC PROCEDURE CAROTID STENT 2008 LEFT SIDED CAROTID BYPASS WITH HOMOGRAFT SECONDARY TO RE-OCCULUSION 05/2010 MENTAL HEALTH 07/2015 REVIEW OF SYSTEMS CONSTITUTIONAL: ANY RECENT FEVER NO . CHILLS NO . WEIGHT CHANGE OF UNKNOWN REASONS NO . GASTROENTEROLOGY: NEW UNEXPLAINABLE CHANGES IN BOWEL CONTROL NO . CONSTIPATION NO . GENITOURINARY: ANY NEW CHANGE IN BLADDER CONTROL? NO . NEUROLOGY: NEW ONSET DIZZINESS OR NEUROLOGICAL CHANGES NOT MENTIONED NO . NEW NUMBNESS OR PAIN PATTERNS NOT MENTIONED AND PERTINENT TO TODAY'S VISIT NO . CARDIOLOGY: NEW CHEST PRESSURE NO . NEW CHEST PAIN NO . RESPIRATORY: UNEXPLAINABLE COUGH NO . NEW SHORTNESS OF BREATH NO . VITAL SIGNS WT 287.9 LBS, HT 66 IN, BMI 46.46 INDEX, BP 183/80 MM HG, HR 79 /MIN, RR 18 /MIN, TEMP 96.4 F, OXYGEN SAT % 92%, SAFE IN ENV? (Y/N) Y, NA INITIALS AW [id number] ASUMADU PILE TRIMMER. EXAMINATION GENERAL EXAMINATION: GENERALNO ACUTE DISTRESS, WELL NOURISHED AND HYDRATED. PSYCHAPPROPRIATE MOOD AND AFFECT . LUNGS:CLEAR TO AUSCULTATION BILATERALLY, NO WHEEZES, RHONCHI, RALES. HEART:NO MURMURS, REGULAR RATE AND RHYTHM. ASSESSMENTS LUMBAR BACK PAIN WITH RADICULOPATHY AFFECTING LEFT LOWER EXTREMITY - M54.17 (PRIMARY) CHRONIC PRESCRIPTION OPIATE USE - Z79.899 TREATMENT LUMBAR BACK PAIN WITH RADICULOPATHY AFFECTING LEFT LOWER EXTREMITY CLINICAL NOTES: 49-YEAR-OLD FEMALE IN FOR CHRONIC PAIN FOLLOW-UP. GIVEN PRESENTING SYMPTOMS RECOMMENDED CONTINUATION OF CURRENT MEDICATION REGIMEN WITH FOLLOW-UP IN 3 MONTHS. U TOX WILL BE COLLECTED TODAY. PATIENT HAS EXPRESSED UNDERSTANDING OF AND WAS IN AGREEMENT WITH TREATMENT PLAN. GIVEN TIME TO ASK QUESTIONS AND EXPRESS CONCERNS. , ISTOP REGISTRY REVIEWED AND DEMONSTRATES COMPLLIANCE. (REF # [id number] ) BRINGS IN MEDICATIONS WHICH IS APPROPRIATE FOR WHAT WAS DISPENSED. RECENT URINE TOXICOLOGY REVIEWED. NO UNAUTHORIZED MEDICATIONS. NO ILLICIT SUBSTANCES AND PRESCRIBED MEDICATIONS WERE PRESENT. PROCEDURE CODES FA211 ESTABILISHED PATIENT [facility] CHARGE DISPOSITION & COMMUNICATION FOLLOW UP 3 MONTHS (REASON: BACK PAIN) ELECTRONICALLY SIGNED BY TOMMIE MURILLO ON 05/17/2020 AT 08:26 AM EDT DISCLAIMER : THIS IS A VISIT SUMMARY EXTRACTED FROM THE [facility] CHART. IT IS NOT A COPY OF THE [facility] PROGRESS NOTE. VIVEK
== END ==
LOC: M PAIN 11:30
PROVIDERS: ATTEND Family Medicine
DX: M54.17 Radiculopathy, lumbosacral region (principal); Z79.899 Other long term (current) drug therapy; Z88.2 Allergy status to sulfonamides; Z88.6 Allergy status to analgesic agent; Z88.8 Allergy status to other drugs, medicaments and biological substances; Z91.030 Bee allergy status

== ENCOUNTER → 2020-08-15 | Outpatient (CLI) | payer MEDICARE, MEDICAID ==
[~2020-08-15] MED LIST changes: +XTAM27CA
== END ==
LOC: M PAIN 10:09
PROVIDERS: ATTEND Family Medicine
DX: M54.17 Radiculopathy, lumbosacral region (principal)

== ENCOUNTER 2020-08-23 10:59 | Emergency (ER) | payer MEDICARE, MEDICAID ==
[~2020-08-23] VITALS: Ht 165.1 cm; Wt 133.0 kg
[~2020-08-23 10:59] MED LIST changes: -XTAM27CA
[2020-08-23] MEDS ORDERED: XTAM27CA (11:56)
[2020-08-23 12:14] LABS: HEMATOCRIT 38.9 % (36.0-47.0); HEMOGLOBIN 12.1 g/dl (12.0-15.5); MEAN CORPUSCULAR HEMOGLOBIN 26.9 pg (27.0-33.0); MEAN CORPUSCULAR HGB CONC 31.1 g/dl (32.0-36.5); MEAN CORPUSCULAR VOLUME 86.4 fl (80.0-96.0); PLATELET COUNT, AUTOMATED 163 10^3/uL (150-450)
[2020-08-23 12:35] LABS: ALBUMIN 3.7 GM/DL (3.2-5.2); ALT/SGPT 18 U/L (12-78); BILIRUBIN,TOTAL 0.5 MG/DL (0.2-1.0); BLOOD UREA NITROGEN 16 MG/DL (7-18); CALCIUM LEVEL 9.8 MG/DL (8.5-10.1); CARBON DIOXIDE LEVEL 28 MEQ/L (21-32); CHLORIDE LEVEL 112 MEQ/L (98-107); CREATININE FOR GFR 0.68 MG/DL (0.55-1.30); GLOMERULAR FILTRATION RATE > 60.0 (>51); GLUCOSE, FASTING 86 MG/DL (70-100); SODIUM LEVEL 142 MEQ/L (136-145); TOTAL PROTEIN 6.7 GM/DL (6.4-8.2)
[2020-08-23 12:45] LABS: ERYTHROCYTE SEDIMENTATION RATE 12 mm/hr (0-30)
--- NOTE | 2020-08-23 13:14 | REPVR ---
PROCEDURE INFORMATION: Exam: CT Head Without Contrast Exam date and time: 08/23/2020 12:49 PM Age: 49 years old Clinical indication: Other: Vision; Additional info: Vision change TECHNIQUE: Imaging protocol: Computed tomography of the head without contrast. Radiation optimization: All CT scans at this facility use at least one of these dose optimization techniques: automated exposure control; mA and/or kV adjustment per patient size (includes targeted exams where dose is matched to clinical indication); or iterative reconstruction. COMPARISON: No relevant prior studies available. FINDINGS: Brain: No hemorrhage. Unremarkable white matter for the patient's age. No mass effect. No evolving territorial infarct. Cerebral ventricles: No ventriculomegaly. Bones/joints: Unremarkable. No acute fracture. Paranasal sinuses: Visualized sinuses are unremarkable. No fluid levels. Mastoid air cells: Visualized mastoid air cells are well aerated. Soft tissues: Unremarkable. IMPRESSION: No acute intracranial abnormality seen. Electronically signed by: Yasemin Pollard On 08/23/2020 13:14:35 PM
--- NOTE | 2020-08-23 14:31 | REPVR ---
PROCEDURE INFORMATION: Exam: CT Abdomen And Pelvis Without Contrast Exam date and time: 08/23/2020 1:52 PM Age: 49 years old Clinical indication: Abdominal pain; Generalized; Additional info: Abd pain TECHNIQUE: Imaging protocol: Computed tomography of the abdomen and pelvis without contrast. Radiation optimization: All CT scans at this facility use at least one of these dose optimization techniques: automated exposure control; mA and/or kV adjustment per patient size (includes targeted exams where dose is matched to clinical indication); or iterative reconstruction. COMPARISON: CT ABD PELVIS W/O FOL BY WIT 07/03/2017 10:00 AM FINDINGS: Lungs: Lingular as well as right middle and lower lobe subsegmental atelectasis. Liver: Normal. No mass. Gallbladder and bile ducts: Normal. No calcified stones. No ductal dilation. Pancreas: Normal. No ductal dilation. Spleen: Normal. No splenomegaly. Adrenals: Normal. No mass. Kidneys and ureters: The kidneys demonstrate punctate nonobstructing calculi. No hydronephrosis. Stomach and bowel: A moderate amount of stool in the distal colon. No obstruction. No bowel wall mucosal thickening. Appendix: A normal appendix is seen. Intraperitoneal space: Unremarkable. No free air. No significant fluid collection. Vasculature: Unremarkable. No abdominal aortic aneurysm. Lymph nodes: Unremarkable. No enlarged lymph nodes. Urinary bladder: Unremarkable as visualized. Reproductive: Prior hysterectomy. Bones/joints: Several small sclerotic lesions are seen in the bony skeleton which are felt to represent bone islands. Prominent degenerative changes of the symphysis pubis. No acute fracture seen. Soft tissues: Unremarkable. IMPRESSION: No acute findings identified. Electronically signed by: Yasemin Pollard On 08/23/2020 14:30:44 PM
--- NOTE | 2020-08-23 16:18 | REPVR ---
PROCEDURE INFORMATION: Exam: MR Head Without Contrast Exam date and time: 08/23/2020 1:24 PM Age: 49 years old Clinical indication: Visual disturbance; Additional info: Visionloss TECHNIQUE: Imaging protocol: MR of the head without contrast. COMPARISON: CT Head without contrast 08/23/2020 12:46 PM FINDINGS: Brain: No acute infarct identified on the diffusion-weighted imaging. No parenchymal hemorrhage. The T2 weighted imaging demonstrates foci of increased signal intensity in the deep white matter most likely representing mild chronic small vessel ischemic change. Cerebral ventricles: Normal. No ventriculomegaly. Bones/joints: Unremarkable. Paranasal sinuses: Trace ethmoid mucosal thickening. No acute sinusitis. Mastoid air cells: Normal as visualized. No mastoid effusion. Orbits: Unremarkable. Soft tissues: Unremarkable. IMPRESSION: No evidence of acute infarct. Electronically signed by: Yasemin Pollard On 08/23/2020 16:17:59 PM
--- NOTE | 2020-08-23 16:23 | REPVR ---
PROCEDURE INFORMATION: Exam: MR Angiogram Head Without Contrast, Arteries Exam date and time: 08/23/2020 1:24 PM Age: 49 years old Clinical indication: Visual disturbance; Sudden visual loss; Additional info: Visionloss TECHNIQUE: Imaging protocol: MR angiogram head without contrast. Exam focused on the arteries. 3D rendering (Not supervised by radiologist): MIP and/or 3D reconstructed images were created by the technologist. COMPARISON: CT Head without contrast 08/23/2020 12:46 PM FINDINGS: ANTERIOR CIRCULATION: Right internal carotid artery: Intracranial segment is patent with no significant stenosis. No aneurysm. Right middle cerebral artery: No occlusion or significant stenosis. No aneurysm. Right anterior cerebral artery: No occlusion or significant stenosis. No aneurysm. Left internal carotid artery: Intracranial segment is patent with no significant stenosis. No aneurysm. Left middle cerebral artery: No occlusion or significant stenosis. No aneurysm. Left anterior cerebral artery: No occlusion or significant stenosis. No aneurysm. POSTERIOR CIRCULATION: Right vertebral artery: No occlusion or significant stenosis. No aneurysm. Left vertebral artery: No occlusion or significant stenosis. No aneurysm. Basilar artery: No occlusion or significant stenosis. No aneurysm. Right posterior cerebral artery: No occlusion or significant stenosis. No aneurysm. Left posterior cerebral artery: No occlusion or significant stenosis. No aneurysm. IMPRESSION: No major proximal vessel branch occlusion seen. Electronically signed by: Yasemin Pollard On 08/23/2020 16:23:19 PM
[2020-08-23 16:34] VITALS: BP 142/63
--- NOTE | 2020-08-24 08:27 | ECGEPIP ---
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
== END 2020-08-23 16:35 | disposition home or self-care (01) ==
LOC: M ED 10:59
DX: H53.123 Transient visual loss, bilateral (principal); R10.9 Unspecified abdominal pain; G43.909 Migraine, unspecified, not intractable, without status migrainosus; M79.7 Fibromyalgia; D86.9 Sarcoidosis, unspecified; Z79.899 Other long term (current) drug therapy; Z88.2 Allergy status to sulfonamides; Z88.8 Allergy status to other drugs, medicaments and biological substances

== ENCOUNTER → 2020-09-14 | Outpatient (CLI) | payer MEDICARE, MEDICAID ==
[~2020-09-14] MED LIST changes: +XTAM27CA
--- NOTE | 2020-09-16 07:21 | ECWPNPC ---
PATIENT NAME: ACOSTA ALBRIGHT : 1970 GENDER: FEMALE VISIT DATE: 09/14/2020 DISCHARGE DATE: 09/14/20 1054 VISIT LOCKED DATE TIME: PHYSICIAN: KUSHAL MONTGOMERY PHYSICIAN PAGER NO: ACTIVE RESOURCE: KUSHAL MONTGOMERY REASON FOR APPOINTMENT 1. NECK PAIN HISTORY OF PRESENT ILLNESS GENERAL: 49-YEAR-OLD FEMALE IN FOR CHRONIC PAIN FOLLOW-UP. AT LAST CLINIC VISIT PATIENT WAS STARTED ON BACLOFEN AND SHE ADMITS TODAY THAT SHE HAD TO STOP USE IT WAS CAUSING HER TO BE NAUSEOUS. SHE RATES HER PAIN CURRENTLY AT AN 8 OUT OF 10 AND DESCRIBES IT ACHING, AND THROBBING. CURRENT MEDICATIONS TAKING TRAZODONE HCL 150 MG TABLET 1 TABLET AT BEDTIME NEEDED ORALLY ONCE A DAY TAKING OMEPRAZOLE 20 MG CAPSULE DELAYED RELEASE 1 CAPSULE ORALLY ONCE A DAY TAKING PLAVIX 75 MG TABLET 1 TABLET ORALLY ONCE A DAY/DR FERRIS TAKING EPIPEN 2-GISELL 0.3 MG/0.3ML (1:1000) DEVICE INJECTION INTRAMUSCULAR 1 TIME NEEDED FOR ANGIOEDEMA REACTION TAKING ALBUTEROL SULFATE HFA 108 (90 BASE) MCG/ACT AEROSOL SOLUTION 2 PUFFS NEEDED INHALATION EVERY 4 HRS TAKING SUMATRIPTAN SUCCINATE 100 MG TABLET DIRECTED ORALLY BID, MDD 2 IN 24 HOURS TAKING VITAMIN D3 COMPLETE - TABLET 3,000 ORALLY DAILY TAKING STOOL SOFTENER 100 MG CAPSULE 1 CAPSULE NEEDED ORALLY BID TAKING DIPHENHYDRAMINE HCL 25 MG CAPSULE 2 CAPSULE NEEDED ORALLY AT BEDTIME NEEDED TAKING REFRESH LIQUIGEL 1 % SOLUTION 2 DROP INTO AFFECTED EYE NEEDED OPHTHALMIC BID TAKING DULOXETINE HCL 30 MG CAPSULE DELAYED RELEASE PARTICLES 1 CAPSULE ORALLY DAILY TAKING VERAPAMIL HCL ER 120 MG TABLET EXTENDED RELEASE 1 TABLET ORALLY ONCE A DAY TAKING KLONOPIN 0.5 MG TABLET 1 TABLET ORALLY TWICE A DAY NEEDED, NOTES: PRN- MAXIMUM OF 10 TABS PER MONTH TAKING ASTELIN 137 MCG/SPRAY SOLUTION 1 SPRAY IN EACH NOSTRIL NASALLY TWICE A DAY TAKING ATORVASTATIN CALCIUM 20 MG TABLET 1 TABLET ORALLY DAILY TAKING ERYTHROMYCIN 5 MG/GM OINTMENT 1 APPLICATION OPHTHALMIC BID TO AREAS OF FACE WHEN RASH FLARES (VERY SMALL AMOUNT NEEDED, 1/4 PEA SIZE) TAKING SKELAXIN 800 MG TABLET 1 TABLET ORALLY THREE TIMES A DAY TAKING XTAMPZA ER 27 MG CAPSULE ER 12 HOUR ABUSE-DETERRENT 1 CAPSULE WITH FOOD ORALLY EVERY 12 HRS MDD2 PAST MEDICAL HISTORY CAROTID ATHEROSCLEROSIS -- FOLLOWS WITH DR. 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, RADIATION AND CHEMOTHERAPY BILATERAL TMJ FISH HYPER PARA THYROIDISM HX OF MULTIPLE THYROID NODULES PROVEN NON-MALIGNANT HX ABNORMAL PAP SMEAR HX OF CHEST PAIN 2009 WITH NEGATIVE HEART CATHETERIZATION MIGRAINE HEADACHES LUPUS ANGIOEDEMA OBSTRUCTIVE SLEEP APNEA ARTHRITIS BOTH KNEES KIDNEY STONES RIGHT 4TH TOE BROKEN 09/2018 CHRONIC PAIN ALLERGIES SULFA (FOR ALLERGY USE ONLY): HIVES - ALLERGY FLEXERIL: MIGAINES - ALLERGY ASPIRIN: UNKNOWN - ALLERGY HYDROXYCHLOROQUINE SULFATE: UNKNOWN - ALLERGY BEE STINGS: UNKNOWN - ALLERGY VENLAFEXINE: WORSENING SYMPTOMS/ BLACKED OUT WELLBUTRIN: WORSENS MIGRAINS,SWEATS - ALLERGY LYRICA: ANAPHYLAXIS - ALLERGY BUTRANS: NAUSEA/BLISTERS - ALLERGY TIZANIDINE : MAKES HEADACHES WORSE - SIDE EFFECTS SURGICAL HISTORY CSECTION 1992 TROUBLE WAKING FROM ANESTHESIA AND HYPOXIA S/P ANESTHESIA 01/2015 TUBAL LIGATION 1993 HEART CATH WITHOUT STENT 2008 LEFT SIDED CAROTID STENT 09/2009 LEFT SIDED CAROTID BYPASS WITH HOMOGRAFT SECONDARY TO RE-OCCULUSION 05/2010 LASER CERVICAL SURGERY/BIOPSY SECONDARY TO ABNORMAL PAP L CARPAL TUNNEL 12/28/2013 HYSTERECTOMY WITHOUT SALPINGOOPHORECTOMY 01/2015 KIDNEY STONES REMOVED SEP 21, 2016 COLONOSCOPY AND EDG AT [facility] 2017 FAMILY HISTORY FATHER: , DIAGNOSED WITH HYPERTENSION, UNSPECIFIED HEART DISEASE MOTHER: , OTHER MALIGNANT NEOPLASM OF UNSPECIFIED SITE 1 SISTER\N1 SHARED BROTHER THRU DAD--STOMACH CANCER 60% REMOVED\N2 BROTHERS\N. PT DENIES FH OF MELANOMA OR PANCREATIC CANCER. SOCIAL HISTORY GENERAL: TOBACCO USE ARE YOU A:NONSMOKER LATEX QUESTIONNAIRE LATEX ALLERGY : HAVE YOU EVER DEVELOPED ANY TYPE OF REACTION AFTER HANDLING LATEX PRODUCTS SUCH RUBBER GLOVES, CONDOMS, DIAPHRAGMS, BALLOONS, SOCKS, OR UNDERWEAR?NO LATEX ALLERGY : HAVE YOU EVER DEVELOPED ANY TYPE OF REACTION DURING OR AFTER DENTAL APPOINTMENT, VAGINAL/RECTAL EXAMINATION, SURGICAL PROCEDURE, OR ANY OTHER EXPOSURE?NO DATE ASKED : 05/16/2020 LATEX RISK : HAVE YOU EVER HAD ANY DIFFICULTY BREATHING OR HIVES AFTER EATING OR HANDLING ANY FRUITS, OR VEGETABLES; SUCH KIWI, BANANAS, STONE FRUITS, OR CHESTNUTSNO LATEX RISK : DO YOU HAVE A PREVIOUS PERSONAL HISTORY OF MORE THAN NINE SURGERIES, SPINA BIFIDA, OR REPEATED CATHERIZATIONS? YES - PLEASE INDICATE : > 9 SURGERIES LATEX RISK : ARE YOU FREQUENTLY EXPOSED TO LATEX PRODUCTS IN YOUR OCCUPATION?YES ALCOHOL SCREENING DID YOU HAVE A DRINK CONTAINING ALCOHOL IN THE PAST YEAR?YES HOW OFTEN DID YOU HAVE SIX OR MORE DRINKS ON ONE OCCASION IN THE PAST YEAR?NEVER (0 POINTS) HOW MANY DRINKS DID YOU HAVE ON A TYPICAL DAY WHEN YOU WERE DRINKING IN THE PAST YEAR?1 OR 2 (0 POINTS) HOW OFTEN DID YOU HAVE A DRINK CONTAINING ALCOHOL IN THE PAST YEAR?MONTHLY OR LESS (1 POINT) POINTS1 INTERPRETATIONNEGATIVE RECREATIONAL DRUG USE DRUG USE?NO CAFFEINE CAFFEINE USE?YES HOW OFTEN AND HOW MUCH? 2 SODAS DAILY HIV / HEP-C SCREENING HIV TEST OFFERED TO PATIENT:YES DATE OFFERED:03/11/2019 TEST ACCEPTED:NO HEP-C TEST OFFERED TO PATIENT:YES DATE OFFERED:03/11/2019 REASON:PATIENT DECLINED TEST ACCEPTED:NO REASON:PATIENT DECLINED BROCHURE PROVIDED TO PATIENTYES SIKH [id number] MANDAEISM LANGUAGE LANGUAGES SPOKEN:IRISH LEARNING BARRIERS / SPECIAL NEEDS CHANGE FROM LAST VISIT?NO 08/27/19 BARRIERS TO LEARNING?NO HEARING IMPAIRED?NO VISION IMPAIRED?YES COGNITIVELY IMPAIRED?NO :CORRECTIVE LENSES READINESS TO LEARN?YES LEARNING PREFERENCES?NO LEARNING CAPABILITIES PRESENT?YES EMOTIONAL BARRIERS?NO SPECIAL DEVICES?NO PIPELINE ENGINEER NEEDED?NO NEW PATIENT PAIN DIARY TODAY'S VISIT 03/07/20 PATIENT DESCRIBES PAIN :ACHING, IT COMES AND GOES, THROBBING, SHOOTING FROM 0-10, WHAT LEVEL IS YOUR PAIN TODAY?9 PAIN CLINIC PFS, CLERGY, PUBLIC HEALTH REFERRALS PFS REFERRAL NEEDED?NO CLERGY REFERRAL NEEDED?NO PUBLIC HEALTH REFERRAL NEEDED?NO WAS THE PROVIDER NOTIFIED OF ANY PERTINENT INFO?YES HAS THE PATIENT BEEN EDUCATED REGARDING HIS/HER PLAN OF CARE?YES HAS THE PATIENT BEEN EDUCATED REGARDING PAIN, THE RISK FOR PAIN, THE IMPORTANCE OF EFFECTIVE PAIN MANAGEMENT, AND THE PAIN ASSESSMENT PROCESS?YES ADVANCE DIRECTIVE ADVANCE DIRECTIVE DISCUSSED WITH PATIENT:YES HCP - BRUNA PEDRAZA (DAUGHTER) [phone] HOSPITALIZATION/MAJOR DIAGNOSTIC PROCEDURE CAROTID STENT 2008 LEFT SIDED CAROTID BYPASS WITH HOMOGRAFT SECONDARY TO RE-OCCULUSION 05/2010 MENTAL HEALTH 07/2015 REVIEW OF SYSTEMS CONSTITUTIONAL: ANY RECENT FEVER NO . CHILLS NO . WEIGHT CHANGE OF UNKNOWN REASONS NO . GASTROENTEROLOGY: NEW UNEXPLAINABLE CHANGES IN BOWEL CONTROL NO . CONSTIPATION NO . GENITOURINARY: ANY NEW CHANGE IN BLADDER CONTROL? NO . NEUROLOGY: NEW ONSET DIZZINESS OR NEUROLOGICAL CHANGES NOT MENTIONED NO . NEW NUMBNESS OR PAIN PATTERNS NOT MENTIONED AND PERTINENT TO TODAY'S VISIT NO . CARDIOLOGY: NEW CHEST PRESSURE NO . NEW CHEST PAIN NO . RESPIRATORY: UNEXPLAINABLE COUGH NO . NEW SHORTNESS OF BREATH NO . VITAL SIGNS WT 288.2 LBS, HT 66 IN, BMI 46.51 INDEX, BP 136/62 MM HG, HR 75 /MIN, RR 18 /MIN, TEMP 97.5 F, OXYGEN SAT % 94%, NA INITIALS SC 10:28. EXAMINATION GENERAL EXAMINATION: GENERALNO ACUTE DISTRESS, WELL NOURISHED AND HYDRATED. PSYCHAPPROPRIATE MOOD AND AFFECT . LUNGS:CLEAR TO AUSCULTATION BILATERALLY, NO WHEEZES, RHONCHI, RALES. HEART:NO MURMURS, REGULAR RATE AND RHYTHM. ASSESSMENTS LUMBAR BACK PAIN WITH RADICULOPATHY AFFECTING LEFT LOWER EXTREMITY - M54.17 (PRIMARY) TREATMENT LUMBAR BACK PAIN WITH RADICULOPATHY AFFECTING LEFT LOWER EXTREMITY START SKELAXIN TABLET, 800 MG, 1 TABLET, ORALLY, THREE TIMES A DAY, 30 DAY(S), 90 NOTES: 49-YEAR-OLD FEMALE IN FOR CHRONIC PAIN FOLLOW-UP. GIVEN PRESENTING SYMPTOMS RECOMMEND STOPPING BACLOFEN AND STARTING SKELAXIN WITH FOLLOW-UP IN 2 MONTHS. PATIENT HAS EXPRESSED UNDERSTANDING OF AND WAS IN AGREEMENT WITH TREATMENT PLAN. GIVEN TIME TO ASK QUESTIONS AND EXPRESS CONCERNS. , ISTOP REGISTRY REVIEWED AND DEMONSTRATES COMPLLIANCE. (REF # ) BRINGS IN MEDICATIONS WHICH IS APPROPRIATE FOR WHAT WAS DISPENSED. RECENT URINE TOXICOLOGY REVIEWED. NO UNAUTHORIZED MEDICATIONS. NO ILLICIT SUBSTANCES AND PRESCRIBED MEDICATIONS WERE PRESENT. SKELAXIN TEACHING INFORMATION PRINTED AND DISCUSSED WITH THE PATIENT. -ROSAURA ASHBY RN. PROCEDURE CODES [id number] ESTABILISHED PATIENT [facility] CHARGE DISPOSITION & COMMUNICATION FOLLOW UP 2 MONTHS (REASON: BACK PAIN) ELECTRONICALLY SIGNED BY TOMMIE MURILLO ON 09/15/2020 AT 08:39 AM EDT DISCLAIMER : THIS IS A VISIT SUMMARY EXTRACTED FROM THE [employer] CHART. IT IS NOT A COPY OF THE [employer] PROGRESS NOTE. VIVEK
== END ==
LOC: M PAIN 10:00
PROVIDERS: ATTEND Family Medicine
DX: M54.17 Radiculopathy, lumbosacral region (principal); E78.5 Hyperlipidemia, unspecified; G43.909 Migraine, unspecified, not intractable, without status migrainosus; G47.33 Obstructive sleep apnea (adult) (pediatric); M17.0 Bilateral primary osteoarthritis of knee; G89.29 Other chronic pain; Z79.899 Other long term (current) drug therapy; Z88.2 Allergy status to sulfonamides; Z88.6 Allergy status to analgesic agent; Z88.8 Allergy status to other drugs, medicaments and biological substances; Z91.030 Bee allergy status

== ENCOUNTER → 2020-11-15 | Outpatient (CLI) | payer MEDICARE, MEDICAID ==
--- NOTE | 2020-11-17 04:04 | ECWPNPC ---
PATIENT NAME: ACOSTA ALBRIGHT : 1970 GENDER: FEMALE VISIT DATE: 11/15/2020 DISCHARGE DATE: 11/15/20 1030 VISIT LOCKED DATE TIME: PHYSICIAN: KUSHAL MONTGOMERY PHYSICIAN PAGER NO: ACTIVE RESOURCE: KUSHAL MONTGOMERY REASON FOR APPOINTMENT 1. NECK/BACK PAIN HISTORY OF PRESENT ILLNESS DEPRESSION SCREENING: PHQ-2 (2015 EDITION) LITTLE INTEREST OR PLEASURE IN DOING THINGS?NOT AT ALL FEELING DOWN, DEPRESSED, OR HOPELESS?NOT AT ALL TOTAL SCORE0 49-YEAR-OLD FEMALE IN FOR CHRONIC PAIN FOLLOW-UP. SHE RATES HER PAIN CURRENTLY AT AN 8 OUT OF 10 AND DESCRIBES IT ACHING, TENDER, AND SORE. PATIENT DOES ADMITS TO NEW ONSET OF RADICULAR SYMPTOMS DOWN HER BILATERAL LOWER EXTREMITIES. SHE FEELS MEDICATIONS ARE HELPFUL AND DENIES MED SIDE EFFECTS THIS TIME. GENERAL: -. FALL RISK SCREENING: SCREENING :ONE FALL WITHOUT INJURY IN THE PAST YEAR PAIN SCREENING: PATIENT HAS A COMPLAINT OF ACUTE OR CHRONIC PAIN :YES LOCATION OF PAIN:NECK, LOW BACK, OTHER: FIBROMYALGIA INTENSITY OF PAIN (SCALE OF 1 TO 10):8 WHAT DOES YOUR PAIN FEEL LIKE:ACHING, TENDER, SORE DURATION:CONTINOUS, STEADY, ALL DAY PAIN IS INCREASED BY:ACTIVITIES, PROLONGED STANDING, OTHERS WALKING, PAIN IS DECREASED BY:USE OF PAIN MEDICATIONS, SITTING, OTHERS HEATING PAD, ICE PACK NURSING NOTE: -. PAIN CENTER INTAKE QUESTIONS: DO YOU HAVE A HISTORY OF MRSA? :NO DO YOU TAKE A BLOOD THINNERS? :YES DO YOU HAVE ANY BLEEDING DISORDERS? :NO ANY NEW NUMBNESS OR WEAKNESS IN YOUR LEGS OR ARMS? :YES A ZAP FEELING IN BOTH LEGS ANY PACEMAKER,DEFIBRILLATOR, OR DORSAL COLUMN STIMULATOR? :NO DO YOU HAVE ANY RASHES OR OPEN SORES? :NO ARE YOU ALLERGIC TO IV DYE? :NO ARE YOU DIABETIC? :NO ANY NEW PROBLEMS WITH YOUR MEDICATIONS? :YES REVIEW MUSCLE RELAXER WITH PATIENT HAVE YOU RECEIVED A VACCINE IN THE PAST 30 DAYS? :NO DO YOU PLAN TO RECEIVE A VACCINE IN THE NEXT 21 DAYS? :NO DO YOU NEED ANY PRESCRIPTION? :NO DO YOU TAKE ANY IMMUNOSUPPRESSIVE MEDICATIONS? :NO ANY HISTORY OF SEIZURES? :YES LAST : 2009 ANY HISTORY OF CARDIAC ISSUES OR EVENTS? :YES CARDIAC CATHERIZATION, CAROTID ENDARTECTOMY DO YOU HAVE SLEEP APNEA? :YES DO YOU WEAR A CPAP?YES ANY RECENT HEAD INJURY? :NO DO YOU HAVE ANY NEW INFECTIONS? :NO IS THERE A CHANCE YOU COULD BE ? :NO ARE YOU BREAST FEEDING? :NO CURRENT MEDICATIONS TAKING TRAZODONE HCL 150 MG TABLET 1 TABLET AT BEDTIME NEEDED ORALLY ONCE A DAY TAKING OMEPRAZOLE 20 MG CAPSULE DELAYED RELEASE 1 CAPSULE ORALLY ONCE A DAY TAKING PLAVIX 75 MG TABLET 1 TABLET ORALLY ONCE A DAY/DR FERRIS TAKING EPIPEN 2-GISELL 0.3 MG/0.3ML (1:1000) DEVICE INJECTION INTRAMUSCULAR 1 TIME NEEDED FOR ANGIOEDEMA REACTION TAKING ALBUTEROL SULFATE HFA 108 (90 BASE) MCG/ACT AEROSOL SOLUTION 2 PUFFS NEEDED INHALATION EVERY 4 HRS TAKING SUMATRIPTAN SUCCINATE 100 MG TABLET DIRECTED ORALLY BID, MDD 2 IN 24 HOURS TAKING VITAMIN D3 COMPLETE - TABLET 3,000 ORALLY DAILY TAKING STOOL SOFTENER 100 MG CAPSULE 1 CAPSULE NEEDED ORALLY BID TAKING DIPHENHYDRAMINE HCL 25 MG CAPSULE 2 CAPSULE NEEDED ORALLY AT BEDTIME NEEDED TAKING REFRESH LIQUIGEL 1 % SOLUTION 2 DROP INTO AFFECTED EYE NEEDED OPHTHALMIC BID TAKING DULOXETINE HCL 30 MG CAPSULE DELAYED RELEASE PARTICLES 1 CAPSULE ORALLY DAILY TAKING VERAPAMIL HCL ER 120 MG TABLET EXTENDED RELEASE 1 TABLET ORALLY ONCE A DAY TAKING KLONOPIN 0.5 MG TABLET 1 TABLET ORALLY TWICE A DAY NEEDED TAKING ASTELIN 137 MCG/SPRAY SOLUTION 1 SPRAY IN EACH NOSTRIL NASALLY TWICE A DAY TAKING ATORVASTATIN CALCIUM 20 MG TABLET 1 TABLET ORALLY DAILY TAKING ERYTHROMYCIN 5 MG/GM OINTMENT 1 APPLICATION OPHTHALMIC BID TO AREAS OF FACE WHEN RASH FLARES (VERY SMALL AMOUNT NEEDED, 1/4 PEA SIZE) TAKING XTAMPZA ER 27 MG CAPSULE ER 12 HOUR ABUSE-DETERRENT 1 CAPSULE WITH FOOD ORALLY EVERY 12 HRS MDD2 TAKING TURMERIC 1 TAB ORALLY DAILY TAKING FLAXSEED OIL - OIL 1 TAB ORALLY DAILY NOT-TAKING SKELAXIN 800 MG TABLET 1 TABLET ORALLY THREE TIMES A DAY NOT-TAKING SKELAXIN 800 MG TABLET 1 TABLET ORALLY THREE TIMES A DAY MEDICATION LIST REVIEWED AND RECONCILED WITH THE PATIENT PAST MEDICAL HISTORY CAROTID ATHEROSCLEROSIS -- FOLLOWS WITH DR. 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, RADIATION AND CHEMOTHERAPY BILATERAL TMJ HYPER PARA THYROIDISM HX OF MULTIPLE THYROID NODULES PROVEN NON-MALIGNANT HX ABNORMAL PAP SMEAR HX OF CHEST PAIN 2008 WITH NEGATIVE HEART CATHETERIZATION MIGRAINE HEADACHES LUPUS ANGIOEDEMA OBSTRUCTIVE SLEEP APNEA ARTHRITIS BOTH KNEES KIDNEY STONES RIGHT 4TH TOE BROKEN 09/2018 CHRONIC PAIN ALLERGIES SULFA (FOR ALLERGY USE ONLY): HIVES - ALLERGY FLEXERIL: MIGAINES - ALLERGY ASPIRIN: UNKNOWN - ALLERGY HYDROXYCHLOROQUINE SULFATE: UNKNOWN - ALLERGY BEE STINGS: UNKNOWN - ALLERGY VENLAFEXINE: WORSENING SYMPTOMS/ BLACKED OUT WELLBUTRIN: WORSENS MIGRAINS,SWEATS - ALLERGY LYRICA: ANAPHYLAXIS - ALLERGY BUTRANS: NAUSEA/BLISTERS - ALLERGY TIZANIDINE : MAKES HEADACHES WORSE - SIDE EFFECTS SURGICAL HISTORY CSECTION 1992 TROUBLE WAKING FROM ANESTHESIA AND HYPOXIA S/P ANESTHESIA 01/2015 TUBAL LIGATION 1993 HEART CATH WITHOUT STENT 2008 LEFT SIDED CAROTID STENT 09/2009 LEFT SIDED CAROTID BYPASS WITH HOMOGRAFT SECONDARY TO RE-OCCULUSION 05/2010 LASER CERVICAL SURGERY/BIOPSY SECONDARY TO ABNORMAL PAP L CARPAL TUNNEL 12/28/2013 HYSTERECTOMY WITHOUT SALPINGOOPHORECTOMY 01/2015 KIDNEY STONES REMOVED SEP 21, 2016 COLONOSCOPY AND EDG AT [facility] 2017 FAMILY HISTORY FATHER: , DIAGNOSED WITH HYPERTENSION, UNSPECIFIED HEART DISEASE MOTHER: , OTHER MALIGNANT NEOPLASM OF UNSPECIFIED SITE 1 SISTER\N1 SHARED BROTHER THRU DAD--STOMACH CANCER 60% REMOVED\N2 BROTHERS\N. PT DENIES FH OF MELANOMA OR PANCREATIC CANCER. SOCIAL HISTORY GENERAL: TOBACCO USE ARE YOU A:NONSMOKER LATEX QUESTIONNAIRE LATEX ALLERGY : HAVE YOU EVER DEVELOPED ANY TYPE OF REACTION AFTER HANDLING LATEX PRODUCTS SUCH RUBBER GLOVES, CONDOMS, DIAPHRAGMS, BALLOONS, SOCKS, OR UNDERWEAR?NO LATEX ALLERGY : HAVE YOU EVER DEVELOPED ANY TYPE OF REACTION DURING OR AFTER DENTAL APPOINTMENT, VAGINAL/RECTAL EXAMINATION, SURGICAL PROCEDURE, OR ANY OTHER EXPOSURE?NO LATEX RISK : HAVE YOU EVER HAD ANY DIFFICULTY BREATHING OR HIVES AFTER EATING OR HANDLING ANY FRUITS, OR VEGETABLES; SUCH KIWI, BANANAS, STONE FRUITS, OR CHESTNUTSNO LATEX RISK : DO YOU HAVE A PREVIOUS PERSONAL HISTORY OF MORE THAN NINE SURGERIES, SPINA BIFIDA, OR REPEATED CATHERIZATIONS? YES - PLEASE INDICATE : > 9 SURGERIES LATEX RISK : ARE YOU FREQUENTLY EXPOSED TO LATEX PRODUCTS IN YOUR OCCUPATION?YES DATE ASKED : 11/15/2020 ALCOHOL SCREENING DID YOU HAVE A DRINK CONTAINING ALCOHOL IN THE PAST YEAR?YES HOW OFTEN DID YOU HAVE SIX OR MORE DRINKS ON ONE OCCASION IN THE PAST YEAR?NEVER (0 POINTS) HOW MANY DRINKS DID YOU HAVE ON A TYPICAL DAY WHEN YOU WERE DRINKING IN THE PAST YEAR?1 OR 2 (0 POINTS) HOW OFTEN DID YOU HAVE A DRINK CONTAINING ALCOHOL IN THE PAST YEAR?MONTHLY OR LESS (1 POINT) POINTS1 INTERPRETATIONNEGATIVE RECREATIONAL DRUG USE DRUG USE?NO CAFFEINE CAFFEINE USE?YES HOW OFTEN AND HOW MUCH? 2 SODAS DAILY HIV / HEP-C SCREENING HIV TEST OFFERED TO PATIENT:YES DATE OFFERED:03/11/2019 TEST ACCEPTED:NO HEP-C TEST OFFERED TO PATIENT:YES DATE OFFERED:03/11/2019 REASON:PATIENT DECLINED TEST ACCEPTED:NO REASON:PATIENT DECLINED BROCHURE PROVIDED TO PATIENTYES [id number] SPIRITISM LANGUAGE LANGUAGES SPOKEN:ESTONIAN LEARNING BARRIERS / SPECIAL NEEDS CHANGE FROM LAST VISIT?NO 08/27/19 BARRIERS TO LEARNING?NO HEARING IMPAIRED?NO VISION IMPAIRED?YES COGNITIVELY IMPAIRED?NO :CORRECTIVE LENSES READINESS TO LEARN?YES LEARNING PREFERENCES?NO LEARNING CAPABILITIES PRESENT?YES EMOTIONAL BARRIERS?NO SPECIAL DEVICES?NO HOME CARE AIDE NEEDED?NO TODAY'S VISIT 03/07/20 PATIENT DESCRIBES PAIN :ACHING, IT COMES AND GOES, THROBBING, SHOOTING FROM 0-10, WHAT LEVEL IS YOUR PAIN TODAY?9 PAIN CLINIC PFS, CLERGY, PUBLIC HEALTH REFERRALS PFS REFERRAL NEEDED?NO CLERGY REFERRAL NEEDED?NO PUBLIC HEALTH REFERRAL NEEDED?NO WAS THE PROVIDER NOTIFIED OF ANY PERTINENT INFO?YES HAS THE PATIENT BEEN EDUCATED REGARDING HIS/HER PLAN OF CARE?YES HAS THE PATIENT BEEN EDUCATED REGARDING PAIN, THE RISK FOR PAIN, THE IMPORTANCE OF EFFECTIVE PAIN MANAGEMENT, AND THE PAIN ASSESSMENT PROCESS?YES ADVANCE DIRECTIVE ADVANCE DIRECTIVE DISCUSSED WITH PATIENT:YES HCP - BRUNA PEDRAZA (DAUGHTER) [phone] HOSPITALIZATION/MAJOR DIAGNOSTIC PROCEDURE CAROTID STENT 2008 LEFT SIDED CAROTID BYPASS WITH HOMOGRAFT SECONDARY TO RE-OCCULUSION 05/2010 MENTAL HEALTH 07/2015 REVIEW OF SYSTEMS CONSTITUTIONAL: ANY RECENT FEVER NO . CHILLS NO . WEIGHT CHANGE OF UNKNOWN REASONS NO . GASTROENTEROLOGY: NEW UNEXPLAINABLE CHANGES IN BOWEL CONTROL NO . CONSTIPATION NO . GENITOURINARY: ANY NEW CHANGE IN BLADDER CONTROL? NO . NEUROLOGY: NEW ONSET DIZZINESS OR NEUROLOGICAL CHANGES NOT MENTIONED NO . NEW NUMBNESS OR PAIN PATTERNS NOT MENTIONED AND PERTINENT TO TODAY'S VISIT NO . CARDIOLOGY: NEW CHEST PRESSURE NO . NEW CHEST PAIN NO . RESPIRATORY: UNEXPLAINABLE COUGH NO . NEW SHORTNESS OF BREATH NO . VITAL SIGNS WT 290.8 LBS, HT 66 IN, BMI 46.93 INDEX, BP 124/52 MM HG, HR 83 /MIN, RR 18 /MIN, TEMP 91.6 F, OXYGEN SAT % 96%, SAFE IN ENV? (Y/N) YES, NA INITIALS VT 09:26, REVIEWED BY: GUILLERMO GASTON. EXAMINATION GENERAL EXAMINATION: GENERALNO ACUTE DISTRESS, WELL NOURISHED AND HYDRATED. PSYCHAPPROPRIATE MOOD AND AFFECT . LUNGS:CLEAR TO AUSCULTATION BILATERALLY, NO WHEEZES, RHONCHI, RALES. HEART:NO MURMURS, REGULAR RATE AND RHYTHM. ASSESSMENTS LUMBAR BACK PAIN WITH RADICULOPATHY AFFECTING LEFT LOWER EXTREMITY - M54.17 (PRIMARY) TREATMENT LUMBAR BACK PAIN WITH RADICULOPATHY AFFECTING LEFT LOWER EXTREMITY LAB: PAIN CENTER URINE TOX (SEND OUT) KEE MEREDITH 11/15/2020 10:30:01 AM > UTOX SENT 11/15/2020 N [facility] LOMBARDO NICOLE 11/15/2020 10:30:23 AM > CP- [id number] [facility] MRI SPINE, L.S. WITHOUT [id number] NOTES: 49-YEAR-OLD FEMALE IN FOR CHRONIC PAIN FOLLOW-UP. GIVEN PRESENTING SYMPTOMS RECOMMEND MRI OF THE LUMBAR SPINE WITH FOLLOW-UP POST IMAGING. PATIENT HAS EXPRESSED UNDERSTANDING OF WAS IN AGREEMENT WITH TREATMENT PLAN. GIVEN TIME TO ASK QUESTIONS AND EXPRESS CONCERNS. , ISTOP REGISTRY REVIEWED AND DEMONSTRATES COMPLLIANCE. (REF # [id number] ) BRINGS IN MEDICATIONS WHICH IS APPROPRIATE FOR WHAT WAS DISPENSED. RECENT URINE TOXICOLOGY REVIEWED. NO UNAUTHORIZED MEDICATIONS. NO ILLICIT SUBSTANCES AND PRESCRIBED MEDICATIONS WERE PRESENT. PROCEDURE CODES FA211 ESTABILISHED PATIENT [facility]AC[facility] CHARGE DISPOSITION & COMMUNICATION FOLLOW UP POST IMAGING (REASON: MRI OF THE LUMBAR SPINE) ELECTRONICALLY SIGNED BY TOMMIE MURILLO ON 11/16/2020 AT 09:15 AM EST DISCLAIMER : THIS IS A VISIT SUMMARY EXTRACTED FROM THE [employer] CHART. IT IS NOT A COPY OF THE [employer] PROGRESS NOTE. VIVEK
== END ==
LOC: M PAIN 10:00
PROVIDERS: ATTEND Family Medicine
DX: M54.17 Radiculopathy, lumbosacral region (principal); G89.29 Other chronic pain; G47.33 Obstructive sleep apnea (adult) (pediatric); G43.909 Migraine, unspecified, not intractable, without status migrainosus; Z95.5 Presence of coronary angioplasty implant and graft; Z88.2 Allergy status to sulfonamides; Z88.6 Allergy status to analgesic agent; Z88.8 Allergy status to other drugs, medicaments and biological substances; Z91.030 Bee allergy status; E66.01 Morbid (severe) obesity due to excess calories; Z68.42 Body mass index [BMI] 45.0-49.9, adult; Z79.01 Long term (current) use of anticoagulants; Z79.891 Long term (current) use of opiate analgesic; Z79.899 Other long term (current) drug therapy

== ENCOUNTER → 2020-11-29 | Outpatient (CLI) | payer MEDICARE, MEDICAID ==
[~2020-11-29] MED LIST changes: +GABA-282 PO; -GABA-843 PO
--- NOTE | 2020-11-29 13:20 | REPVR ---
PROCEDURE INFORMATION: Exam: MR Lumbar Spine Without Contrast. Exam date and time: 11/29/2020 12:22 PM Age: 49 years old Clinical indication: Low back pain; Additional info: Back pain with radiculopathy TECHNIQUE: Imaging protocol: Multiplanar magnetic resonance images of the lumbar spine without intravenous contrast. COMPARISON: MRI-Spine, L.S. without con 04/23/2017 2:35 PM FINDINGS: Vertebrae: There is no fracture or listhesis. Normal vertebral body alignment and heights are preserved. Spinal cord: Normal signal. No cord compression. L1-L2: There is shallow disc bulging. There is mild facet hypertrophy. The spinal canal and neural foramina are patent. L2-L3: There is shallow disc bulging. There is moderate facet and ligamentous hypertrophy. The spinal canal and neural foramina are patent. L3-L4: There is diffuse disc bulging. There is moderate facet and ligamentous hypertrophy. The spinal canal and neural foramina are patent. L4-L5: There is shallow disc bulging. There is moderate facet hypertrophy. The spinal canal and neural foramina are patent. L5-S1: There is shallow disc bulging with a prominent right foraminal component. There is moderate facet hypertrophy. Trace fluid is noted within the facet joints. There is mild right neural foraminal narrowing. Disc material comes into close contact with the right L5 nerve root. Soft tissues: Unremarkable. IMPRESSION: Degenerative disc disease and spondylosis. At L5/S1, disc bulge with prominent right foraminal component contributes to mild right neural foraminal narrowing. Disc material comes into close contact with the right S1 nerve root. Electronically signed by: Lea Murphy On 11/29/2020 13:20:58 PM
== END ==
LOC: M RAD 11:18
PROVIDERS: ATTEND Family Medicine
DX: M54.17 Radiculopathy, lumbosacral region (principal); M51.37 Other intervertebral disc degeneration, lumbosacral region; M51.26 Other intervertebral disc displacement, lumbar region

== ENCOUNTER → 2020-12-06 | Outpatient (CLI) | payer MEDICARE, MEDICAID ==
--- NOTE | 2020-12-07 23:44 | ECWPNPC ---
PATIENT NAME: ACOSTA ALBRIGHT : 1970 GENDER: FEMALE VISIT DATE: 12/06/2020 DISCHARGE DATE: 12/06/20 1522 VISIT LOCKED DATE TIME: PHYSICIAN: KUSHAL MONTGOMERY PHYSICIAN PAGER NO: ACTIVE RESOURCE: KUSHAL MONTGOMERY REASON FOR APPOINTMENT 1. REVIEW OF MRI OF THE LUMBAR SPINE HISTORY OF PRESENT ILLNESS DEPRESSION SCREENING: PHQ-2 (2015 EDITION) LITTLE INTEREST OR PLEASURE IN DOING THINGS?NOT AT ALL FEELING DOWN, DEPRESSED, OR HOPELESS?NOT AT ALL TOTAL SCORE0 50-YEAR-OLD FEMALE IN FOR CHRONIC PAIN FOLLOW-UP. SHE RATES HER PAIN CURRENTLY AT A 7 OUT OF 10 AND DESCRIBES IT CONTINUOUS, STABBING, AND SHOOTING. PATIENT FEELS HER MEDICATIONS ARE HELPFUL AND DENIES MED SIDE EFFECTS AT THIS TIME. PATIENT HAD RECENT MRI WHICH WILL BE REVIEWED WITH PATIENT TODAY. GENERAL: -. FALL RISK SCREENING: SCREENING :ONE FALL WITH INJURY IN THE PAST YEAR FALL WITH BRUISING. PATIENT DID NOT SEEK MEDICAL TREATMENT. PAIN SCREENING: PATIENT HAS A COMPLAINT OF ACUTE OR CHRONIC PAIN :YES LOCATION OF PAIN:OTHER: PATIENT STATES THE PAIN IS "ALL OVER." INTENSITY OF PAIN (SCALE OF 1 TO 10):7 WHAT DOES YOUR PAIN FEEL LIKE:CONTINOUS, STABBING, SHOOTING DURATION:CONTINOUS, CONSTANT, ALL DAY, AWAKENS FROM SLEEP PAIN IS INCREASED BY:ACTIVITIES, PROLONGED STANDING POSITIONAL AND STANDING PAIN IS DECREASED BY:USE OF PAIN MEDICATIONS XTAMPZA SEEMS TO HELP IN THE BEGINNING TREATMENT/MEDICATIONS USED TO MANAGE PAIN: XTAMPZA LEVEL OF RELIEF FROM PAIN TREATMENTS IN THE PAST:25% NURSING NOTE: -. PAIN CENTER INTAKE QUESTIONS: DO YOU HAVE A HISTORY OF MRSA? :NO DO YOU TAKE A BLOOD THINNERS? :YES PLAVIX DO YOU HAVE ANY BLEEDING DISORDERS? :NO ANY NEW NUMBNESS OR WEAKNESS IN YOUR LEGS OR ARMS? :NO ANY PACEMAKER,DEFIBRILLATOR, OR DORSAL COLUMN STIMULATOR? :NO DO YOU HAVE ANY RASHES OR OPEN SORES? :NO ARE YOU ALLERGIC TO IV DYE? :NO ARE YOU DIABETIC? :NO ANY NEW PROBLEMS WITH YOUR MEDICATIONS? :NO HAVE YOU RECEIVED A VACCINE IN THE PAST 30 DAYS? :NO DO YOU PLAN TO RECEIVE A VACCINE IN THE NEXT 21 DAYS? :NO DO YOU NEED ANY PRESCRIPTION? :NO DO YOU TAKE ANY IMMUNOSUPPRESSIVE MEDICATIONS? :NO IS THERE A CHANCE YOU COULD BE ? :NO ARE YOU BREAST FEEDING? :NO CURRENT MEDICATIONS TAKING TRAZODONE HCL 150 MG TABLET 1 TABLET AT BEDTIME NEEDED ORALLY ONCE A DAY TAKING OMEPRAZOLE 20 MG CAPSULE DELAYED RELEASE 1 CAPSULE ORALLY ONCE A DAY TAKING PLAVIX 75 MG TABLET 1 TABLET ORALLY ONCE A DAY/DR FERRIS TAKING EPIPEN 2-GISELL 0.3 MG/0.3ML (1:1000) DEVICE INJECTION INTRAMUSCULAR 1 TIME NEEDED FOR ANGIOEDEMA REACTION TAKING ALBUTEROL SULFATE HFA 108 (90 BASE) MCG/ACT AEROSOL SOLUTION 2 PUFFS NEEDED INHALATION EVERY 4 HRS TAKING SUMATRIPTAN SUCCINATE 100 MG TABLET DIRECTED ORALLY BID, MDD 2 IN 24 HOURS TAKING VITAMIN D3 COMPLETE - TABLET 3,000 ORALLY DAILY TAKING STOOL SOFTENER 100 MG CAPSULE 1 CAPSULE NEEDED ORALLY BID TAKING DIPHENHYDRAMINE HCL 25 MG CAPSULE 2 CAPSULE NEEDED ORALLY AT BEDTIME NEEDED TAKING REFRESH LIQUIGEL 1 % SOLUTION 2 DROP INTO AFFECTED EYE NEEDED OPHTHALMIC BID TAKING DULOXETINE HCL 30 MG CAPSULE DELAYED RELEASE PARTICLES 1 CAPSULE ORALLY DAILY TAKING VERAPAMIL HCL ER 120 MG TABLET EXTENDED RELEASE 1 TABLET ORALLY ONCE A DAY TAKING KLONOPIN 0.5 MG TABLET 1 TABLET ORALLY TWICE A DAY NEEDED TAKING ASTELIN 137 MCG/SPRAY SOLUTION 1 SPRAY IN EACH NOSTRIL NASALLY TWICE A DAY TAKING ATORVASTATIN CALCIUM 20 MG TABLET 1 TABLET ORALLY DAILY TAKING ERYTHROMYCIN 5 MG/GM OINTMENT 1 APPLICATION OPHTHALMIC BID TO AREAS OF FACE WHEN RASH FLARES (VERY SMALL AMOUNT NEEDED, 1/4 PEA SIZE) TAKING TURMERIC 1 TAB ORALLY DAILY TAKING FLAXSEED OIL - OIL 1 TAB ORALLY DAILY TAKING XTAMPZA ER 27 MG CAPSULE ER 12 HOUR ABUSE-DETERRENT 1 CAPSULE WITH FOOD ORALLY EVERY 12 HRS MDD2 NOT-TAKING SKELAXIN 800 MG TABLET 1 TABLET ORALLY THREE TIMES A DAY NOT-TAKING SKELAXIN 800 MG TABLET 1 TABLET ORALLY THREE TIMES A DAY MEDICATION LIST REVIEWED AND RECONCILED WITH THE PATIENT PAST MEDICAL HISTORY CAROTID ATHEROSCLEROSIS -- FOLLOWS WITH DR. 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, RADIATION AND CHEMOTHERAPY BILATERAL TMJ HYPER PARA THYROIDISM HX OF MULTIPLE THYROID NODULES PROVEN NON-MALIGNANT HX ABNORMAL PAP SMEAR HX OF CHEST PAIN 2008 WITH NEGATIVE HEART CATHETERIZATION MIGRAINE HEADACHES LUPUS ANGIOEDEMA OBSTRUCTIVE SLEEP APNEA ARTHRITIS BOTH KNEES KIDNEY STONES RIGHT 4TH TOE BROKEN 09/2018 CHRONIC PAIN ALLERGIES SULFA (FOR ALLERGY USE ONLY): HIVES - ALLERGY FLEXERIL: MIGAINES - ALLERGY ASPIRIN: UNKNOWN - ALLERGY HYDROXYCHLOROQUINE SULFATE: UNKNOWN - ALLERGY BEE STINGS: UNKNOWN - ALLERGY VENLAFEXINE: WORSENING SYMPTOMS/ BLACKED OUT WELLBUTRIN: WORSENS MIGRAINS,SWEATS - ALLERGY LYRICA: ANAPHYLAXIS - ALLERGY BUTRANS: NAUSEA/BLISTERS - ALLERGY TIZANIDINE : MAKES HEADACHES WORSE - SIDE EFFECTS SOCIAL HISTORY GENERAL: TOBACCO USE ARE YOU A:NONSMOKER LATEX QUESTIONNAIRE LATEX ALLERGY : HAVE YOU EVER DEVELOPED ANY TYPE OF REACTION AFTER HANDLING LATEX PRODUCTS SUCH RUBBER GLOVES, CONDOMS, DIAPHRAGMS, BALLOONS, SOCKS, OR UNDERWEAR?NO LATEX ALLERGY : HAVE YOU EVER DEVELOPED ANY TYPE OF REACTION DURING OR AFTER DENTAL APPOINTMENT, VAGINAL/RECTAL EXAMINATION, SURGICAL PROCEDURE, OR ANY OTHER EXPOSURE?NO LATEX RISK : HAVE YOU EVER HAD ANY DIFFICULTY BREATHING OR HIVES AFTER EATING OR HANDLING ANY FRUITS, OR VEGETABLES; SUCH KIWI, BANANAS, STONE FRUITS, OR CHESTNUTSNO LATEX RISK : DO YOU HAVE A PREVIOUS PERSONAL HISTORY OF MORE THAN NINE SURGERIES, SPINA BIFIDA, OR REPEATED CATHERIZATIONS? YES - PLEASE INDICATE : > 9 SURGERIES LATEX RISK : ARE YOU FREQUENTLY EXPOSED TO LATEX PRODUCTS IN YOUR OCCUPATION?YES DATE ASKED : 12/06/2020 ALCOHOL SCREENING DID YOU HAVE A DRINK CONTAINING ALCOHOL IN THE PAST YEAR?YES HOW OFTEN DID YOU HAVE SIX OR MORE DRINKS ON ONE OCCASION IN THE PAST YEAR?NEVER (0 POINTS) HOW MANY DRINKS DID YOU HAVE ON A TYPICAL DAY WHEN YOU WERE DRINKING IN THE PAST YEAR?1 OR 2 (0 POINTS) HOW OFTEN DID YOU HAVE A DRINK CONTAINING ALCOHOL IN THE PAST YEAR?MONTHLY OR LESS (1 POINT) POINTS1 INTERPRETATIONNEGATIVE RECREATIONAL DRUG USE DRUG USE?NO CAFFEINE CAFFEINE USE?YES HOW OFTEN AND HOW MUCH? 2 SODAS DAILY HIV / HEP-C SCREENING HIV TEST OFFERED TO PATIENT:YES DATE OFFERED:03/11/2019 TEST ACCEPTED:NO HEP-C TEST OFFERED TO PATIENT:YES DATE OFFERED:03/11/2019 REASON:PATIENT DECLINED TEST ACCEPTED:NO REASON:PATIENT DECLINED BROCHURE PROVIDED TO PATIENTYES FAITH [id number] CONFUCIANISM LANGUAGE LANGUAGES SPOKEN:KOSOV[place] LEARNING BARRIERS / SPECIAL NEEDS CHANGE FROM LAST VISIT?NO 08/27/19 BARRIERS TO LEARNING?NO HEARING IMPAIRED?NO VISION IMPAIRED?YES :CORRECTIVE LENSES COGNITIVELY IMPAIRED?NO READINESS TO LEARN?YES LEARNING PREFERENCES?NO LEARNING CAPABILITIES PRESENT?YES EMOTIONAL BARRIERS?NO SPECIAL DEVICES?NO PHOTOGRAPHY INSTRUCTOR NEEDED?NO TODAY'S VISIT 4/20/20 PATIENT DESCRIBES PAIN :ACHING, IT COMES AND GOES, THROBBING, SHOOTING FROM 0-10, WHAT LEVEL IS YOUR PAIN TODAY?9 PAIN CLINIC PFS, CLERGY, PUBLIC HEALTH REFERRALS PFS REFERRAL NEEDED?NO CLERGY REFERRAL NEEDED?NO PUBLIC HEALTH REFERRAL NEEDED?NO WAS THE PROVIDER NOTIFIED OF ANY PERTINENT INFO?YES HAS THE PATIENT BEEN EDUCATED REGARDING HIS/HER PLAN OF CARE?YES HAS THE PATIENT BEEN EDUCATED REGARDING PAIN, THE RISK FOR PAIN, THE IMPORTANCE OF EFFECTIVE PAIN MANAGEMENT, AND THE PAIN ASSESSMENT PROCESS?YES ADVANCE DIRECTIVE ADVANCE DIRECTIVE DISCUSSED WITH PATIENT:YES HCP - BRUNA PEDRAZA (DAUGHTER) [phone] REVIEW OF SYSTEMS CONSTITUTIONAL: ANY RECENT FEVER NO, NO . CHILLS NO, NO . WEIGHT CHANGE OF UNKNOWN REASONS NO, NO . GASTROENTEROLOGY: NEW UNEXPLAINABLE CHANGES IN BOWEL CONTROL NO, NO . CONSTIPATION NO, NO . GENITOURINARY: ANY NEW CHANGE IN BLADDER CONTROL? NO, NO . NEUROLOGY: NEW ONSET DIZZINESS OR NEUROLOGICAL CHANGES NOT MENTIONED NO, NO . NEW NUMBNESS OR PAIN PATTERNS NOT MENTIONED AND PERTINENT TO TODAY'S VISIT NO, NO . CARDIOLOGY: NEW CHEST PRESSURE NO, NO . NEW CHEST PAIN NO, NO . RESPIRATORY: UNEXPLAINABLE COUGH NO, NO . NEW SHORTNESS OF BREATH NO, NO . VITAL SIGNS WT 288.4 LBS, HT 66 IN, BMI 46.54 INDEX, BP 125/62 MM HG, HR 89 /MIN, RR 18 /MIN, TEMP 95.5 F, OXYGEN SAT % 95%, SAFE IN ENV? (Y/N) YES, REVIEWED BY: CAROL HOFFMAN MA. EXAMINATION GENERAL EXAMINATION: GENERALNO ACUTE DISTRESS, WELL NOURISHED AND HYDRATED. PSYCHAPPROPRIATE MOOD AND AFFECT . LUNGS:CLEAR TO AUSCULTATION BILATERALLY, NO WHEEZES, RHONCHI, RALES. HEART:NO MURMURS, REGULAR RATE AND RHYTHM. BACK:POINT TENDER BILATERAL LUMBAR SPINE, STARTING SKIN SHOWS NO ERYTHEMA, ECCHYMOSIS, INCREASED WARMTH, AND/OR SKIN ERUPTIONS NOTED. POSITIVE MODIFIED SLR LEFT SIDE. MUSCULOSKELETAL:BILATERAL WEAKNESS OF THE LOWER EXTREMITIES NOTED LEFT GREATER THAN RIGHT . ASSESSMENTS INTERVERTEBRAL DISC DISORDER WITH RADICULOPATHY OF LUMBOSACRAL REGION - M51.17 (PRIMARY) TREATMENT INTERVERTEBRAL DISC DISORDER WITH RADICULOPATHY OF LUMBOSACRAL REGION NOTES: 50-YEAR-OLD FEMALE IN FOR CHRONIC PAIN FOLLOW-UP. GIVEN PRESENTING SYMPTOMS AND RESULTS OF PHYSICAL EXAMINATION RECOMMENDED LUMBAR EPIDURAL STEROID INJECTIONS WITH POSTPROCEDURAL FOLLOW-UP. PATIENT EXPRESSED UNDERSTANDING OF AND WAS IN AGREEMENT WITH TREATMENT PLAN. GIVEN TIME TO ASK QUESTIONS AND EXPRESS CONCERNS. , ISTOP REGISTRY REVIEWED AND DEMONSTRATES COMPLLIANCE. (REF # [id number] ) BRINGS IN MEDICATIONS WHICH IS APPROPRIATE FOR WHAT WAS DISPENSED. RECENT URINE TOXICOLOGY REVIEWED. NO UNAUTHORIZED MEDICATIONS. NO ILLICIT SUBSTANCES AND PRESCRIBED MEDICATIONS WERE PRESENT. PROCEDURE CODES FA211 ESTABILISHED PATIENT [facility] CHARGE DISPOSITION & COMMUNICATION FOLLOW UP POST PROCEDURE (REASON: LUMBAR EPIDURAL STEROID INJECTION PLEASE OBTAIN ORDER TO HOLD PLAVIX) ELECTRONICALLY SIGNED BY TOMMIE MURILLO ON 12/07/2020 AT 09:22 AM EST DISCLAIMER : THIS IS A VISIT SUMMARY EXTRACTED FROM THE [employer] CHART. IT IS NOT A COPY OF THE [employer] PROGRESS NOTE. VIVEK
== END ==
LOC: M PAIN 13:45
PROVIDERS: ATTEND Family Medicine
DX: M51.17 Intervertebral disc disorders with radiculopathy, lumbosacral region (principal); G89.29 Other chronic pain; G43.909 Migraine, unspecified, not intractable, without status migrainosus; G47.33 Obstructive sleep apnea (adult) (pediatric); Z88.2 Allergy status to sulfonamides; Z88.6 Allergy status to analgesic agent; Z88.8 Allergy status to other drugs, medicaments and biological substances; Z91.030 Bee allergy status; E66.01 Morbid (severe) obesity due to excess calories; Z68.42 Body mass index [BMI] 45.0-49.9, adult; Z79.01 Long term (current) use of anticoagulants; Z79.891 Long term (current) use of opiate analgesic; Z79.899 Other long term (current) drug therapy

== ENCOUNTER → 2021-01-13 | Outpatient (CLI) | payer MEDICARE, MEDICAID | LOC: M LABSMTC 10:56 | PROVIDERS: ATTEND Anesthesiology | DX: Z01.812 Encounter for preprocedural laboratory examination (principal); Z20.822 Contact with and (suspected) exposure to COVID-19 ==

== ENCOUNTER → 2021-01-18 | Outpatient (CLI) | payer MEDICARE, MEDICAID ==
[~2021-01-18] MED LIST changes: +ISOVUE-M 300 61% 15ML VIAL As Ordered ONE; +LIDOCAINE 1% SDV 30ML VIAL As Ordered ONE; +diazePAM 5MG TABLET As Ordered ONE; +methylPREDNISolone SUSP 40MG/ML 1ML VIAL (DEPO MEDROL) As Ordered ONE; +oxyCODONE 5MG TAB As Ordered ONE
--- NOTE | 2021-01-18 11:33 | REP ---
INDICATION: LESI. COMPARISON: None. TECHNIQUE: Intraoperative fluoroscopic imaging using portable C-arm technique. FINDINGS: Catheter overlies the lower lumbar spine with contrast outlining the epidural space. Total fluoroscopic time 14.2 seconds. IMPRESSION: Status post lumbar epidural injection. <Electronically signed by Esau Ga > 01/18/21 1129
--- NOTE | 2021-01-19 00:20 | ECWPNPC ---
PATIENT NAME: ACOSTA ALBRIGHT : 1970 GENDER: FEMALE VISIT DATE: 01/18/2021 DISCHARGE DATE: 01/18/21 1107 VISIT LOCKED DATE TIME: PHYSICIAN: LUIS JAIMES MD PHYSICIAN PAGER NO: ACTIVE RESOURCE: LUIS JAIMES MD REASON FOR APPOINTMENT 1. LUMBAR EPIDURAL STEROID INJECTION HISTORY OF PRESENT ILLNESS GENERAL: -. FALL RISK SCREENING: SCREENING :ONE FALL WITHOUT INJURY IN THE PAST YEAR PAIN SCREENING: PATIENT HAS A COMPLAINT OF ACUTE OR CHRONIC PAIN :YES LOCATION OF PAIN: WHOLE BODY INTENSITY OF PAIN (SCALE OF 1 TO 10):9 WHAT DOES YOUR PAIN FEEL LIKE:ACHING, SHOOTING DURATION:CONTINOUS, CONSTANT PAIN IS INCREASED BY:ACTIVITIES PAIN IS DECREASED BY:USE OF PAIN MEDICATIONS NURSING NOTE: -. PAIN CENTER INTAKE QUESTIONS: DO YOU HAVE A HISTORY OF MRSA? :NO DO YOU TAKE A BLOOD THINNERS? :YES PLAVIX LAST DOSE 01/11/21 DO YOU HAVE ANY BLEEDING DISORDERS? :NO ANY NEW NUMBNESS OR WEAKNESS IN YOUR LEGS OR ARMS? :NO ANY PACEMAKER,DEFIBRILLATOR, OR DORSAL COLUMN STIMULATOR? :NO DO YOU HAVE ANY RASHES OR OPEN SORES? :NO ARE YOU ALLERGIC TO IV DYE? :NO ARE YOU DIABETIC? :NO ANY NEW PROBLEMS WITH YOUR MEDICATIONS? :NO HAVE YOU RECEIVED A VACCINE IN THE PAST 30 DAYS? :NO DO YOU PLAN TO RECEIVE A VACCINE IN THE NEXT 21 DAYS? :NO DO YOU TAKE ANY IMMUNOSUPPRESSIVE MEDICATIONS? :NO ANY HISTORY OF SEIZURES? :NO ANY HISTORY OF CARDIAC ISSUES OR EVENTS? :NO DO YOU HAVE ANY KIDNEY OR LIVER DISEASE? :NO DO YOU HAVE SLEEP APNEA? :YES DO YOU WEAR A CPAP?YES ANY RECENT HEAD INJURY? :NO DO YOU HAVE ANY NEW INFECTIONS? :NO IS THERE A CHANCE YOU COULD BE ? :NO ARE YOU BREAST FEEDING? :NO WHEN DID YOU LAST EAT? : 01/17/21 11PM WHEN DID YOU LAST DRINK? : 01/18/21 0300 WHAT DID YOU LAST DRINK? : WATER NAME OF PERSON DRIVING YOU HOME? : SON DO YOU HAVE ANY OTHER QUESTIONS OR CONCERNS? : - CURRENT MEDICATIONS TAKING TRAZODONE HCL 150 MG TABLET 1 TABLET AT BEDTIME NEEDED ORALLY ONCE A DAY, NOTES: 01/17/21 TAKING OMEPRAZOLE 20 MG CAPSULE DELAYED RELEASE 1 CAPSULE ORALLY ONCE A DAY TAKING PLAVIX 75 MG TABLET 1 TABLET ORALLY ONCE A DAY/DR FERRIS, NOTES: 01/11/21 TAKING EPIPEN 2-GISELL 0.3 MG/0.3ML (1:1000) DEVICE INJECTION INTRAMUSCULAR 1 TIME NEEDED FOR ANGIOEDEMA REACTION TAKING ALBUTEROL SULFATE HFA 108 (90 BASE) MCG/ACT AEROSOL SOLUTION 2 PUFFS NEEDED INHALATION EVERY 4 HRS TAKING SUMATRIPTAN SUCCINATE 100 MG TABLET DIRECTED ORALLY BID, MDD 2 IN 24 HOURS TAKING VITAMIN D3 COMPLETE - TABLET 3,000 ORALLY DAILY TAKING STOOL SOFTENER 100 MG CAPSULE 1 CAPSULE NEEDED ORALLY BID TAKING DIPHENHYDRAMINE HCL 25 MG CAPSULE 2 CAPSULE NEEDED ORALLY AT BEDTIME NEEDED TAKING REFRESH LIQUIGEL 1 % SOLUTION 2 DROP INTO AFFECTED EYE NEEDED OPHTHALMIC BID TAKING DULOXETINE HCL 30 MG CAPSULE DELAYED RELEASE PARTICLES 1 CAPSULE ORALLY DAILY TAKING VERAPAMIL HCL ER 120 MG TABLET EXTENDED RELEASE 1 TABLET ORALLY ONCE A DAY TAKING KLONOPIN 0.5 MG TABLET 1 TABLET ORALLY TWICE A DAY NEEDED, NOTES: 01/16/21 TAKING ASTELIN 137 MCG/SPRAY SOLUTION 1 SPRAY IN EACH NOSTRIL NASALLY TWICE A DAY TAKING ATORVASTATIN CALCIUM 20 MG TABLET 1 TABLET ORALLY DAILY TAKING TURMERIC 1 TAB ORALLY DAILY TAKING FLAXSEED OIL - OIL 1 TAB ORALLY DAILY TAKING XTAMPZA ER 27 MG CAPSULE ER 12 HOUR ABUSE-DETERRENT 1 CAPSULE WITH FOOD ORALLY EVERY 12 HRS MDD2, NOTES: 01/17/21 NOT-TAKING ERYTHROMYCIN 5 MG/GM OINTMENT 1 APPLICATION OPHTHALMIC BID TO AREAS OF FACE WHEN RASH FLARES (VERY SMALL AMOUNT NEEDED, 1/4 PEA SIZE) NOT-TAKING SKELAXIN 800 MG TABLET 1 TABLET ORALLY THREE TIMES A DAY NOT-TAKING SKELAXIN 800 MG TABLET 1 TABLET ORALLY THREE TIMES A DAY MEDICATION LIST REVIEWED AND RECONCILED WITH THE PATIENT PAST MEDICAL HISTORY CAROTID ATHEROSCLEROSIS -- FOLLOWS WITH DR. 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, RADIATION AND CHEMOTHERAPY BILATERAL TMJ HYPER PARA THYROIDISM HX OF MULTIPLE THYROID NODULES PROVEN NON-MALIGNANT HX ABNORMAL PAP SMEAR HX OF CHEST PAIN 2008 WITH NEGATIVE HEART CATHETERIZATION MIGRAINE HEADACHES LUPUS ANGIOEDEMA OBSTRUCTIVE SLEEP APNEA ARTHRITIS BOTH KNEES KIDNEY STONES RIGHT 4TH TOE BROKEN 09/2018 CHRONIC PAIN ALLERGIES SULFA (FOR ALLERGY USE ONLY): HIVES - ALLERGY FLEXERIL: MIGAINES - ALLERGY ASPIRIN: UNKNOWN - ALLERGY HYDROXYCHLOROQUINE SULFATE: UNKNOWN - ALLERGY BEE STINGS: UNKNOWN - ALLERGY VENLAFEXINE: WORSENING SYMPTOMS/ BLACKED OUT WELLBUTRIN: WORSENS MIGRAINS,SWEATS - ALLERGY LYRICA: ANAPHYLAXIS - ALLERGY BUTRANS: NAUSEA/BLISTERS - ALLERGY TIZANIDINE : MAKES HEADACHES WORSE - SIDE EFFECTS SOCIAL HISTORY GENERAL: TOBACCO USE ARE YOU A:NONSMOKER LATEX QUESTIONNAIRE LATEX ALLERGY : HAVE YOU EVER DEVELOPED ANY TYPE OF REACTION AFTER HANDLING LATEX PRODUCTS SUCH RUBBER GLOVES, CONDOMS, DIAPHRAGMS, BALLOONS, SOCKS, OR UNDERWEAR?NO LATEX ALLERGY : HAVE YOU EVER DEVELOPED ANY TYPE OF REACTION DURING OR AFTER DENTAL APPOINTMENT, VAGINAL/RECTAL EXAMINATION, SURGICAL PROCEDURE, OR ANY OTHER EXPOSURE?NO DATE ASKED : 12/06/2020 LATEX RISK : HAVE YOU EVER HAD ANY DIFFICULTY BREATHING OR HIVES AFTER EATING OR HANDLING ANY FRUITS, OR VEGETABLES; SUCH KIWI, BANANAS, STONE FRUITS, OR CHESTNUTSNO LATEX RISK : DO YOU HAVE A PREVIOUS PERSONAL HISTORY OF MORE THAN NINE SURGERIES, SPINA BIFIDA, OR REPEATED CATHERIZATIONS? YES - PLEASE INDICATE : > 9 SURGERIES LATEX RISK : ARE YOU FREQUENTLY EXPOSED TO LATEX PRODUCTS IN YOUR OCCUPATION?YES ALCOHOL SCREENING DID YOU HAVE A DRINK CONTAINING ALCOHOL IN THE PAST YEAR?YES HOW OFTEN DID YOU HAVE SIX OR MORE DRINKS ON ONE OCCASION IN THE PAST YEAR?NEVER (0 POINTS) HOW MANY DRINKS DID YOU HAVE ON A TYPICAL DAY WHEN YOU WERE DRINKING IN THE PAST YEAR?1 OR 2 (0 POINTS) HOW OFTEN DID YOU HAVE A DRINK CONTAINING ALCOHOL IN THE PAST YEAR?MONTHLY OR LESS (1 POINT) POINTS1 INTERPRETATIONNEGATIVE RECREATIONAL DRUG USE DRUG USE?NO CAFFEINE CAFFEINE USE?YES HOW OFTEN AND HOW MUCH? 2 SODAS DAILY HIV / HEP-C SCREENING HIV TEST OFFERED TO PATIENT:YES DATE OFFERED:03/11/2019 TEST ACCEPTED:NO HEP-C TEST OFFERED TO PATIENT:YES DATE OFFERED:03/11/2019 REASON:PATIENT DECLINED TEST ACCEPTED:NO REASON:PATIENT DECLINED BROCHURE PROVIDED TO PATIENTYES CHRISTIANITY [id number] SPIRITISM LANGUAGE LANGUAGES SPOKEN:UZBEK LEARNING BARRIERS / SPECIAL NEEDS CHANGE FROM LAST VISIT?NO 08/27/19 BARRIERS TO LEARNING?NO HEARING IMPAIRED?NO VISION IMPAIRED?YES COGNITIVELY IMPAIRED?NO :CORRECTIVE LENSES READINESS TO LEARN?YES LEARNING PREFERENCES?NO LEARNING CAPABILITIES PRESENT?YES EMOTIONAL BARRIERS?NO SPECIAL DEVICES?NO ALUMNAE SECRETARY NEEDED?NO TODAY'S VISIT 03/07/20 PATIENT DESCRIBES PAIN :ACHING, IT COMES AND GOES, THROBBING, SHOOTING FROM 0-10, WHAT LEVEL IS YOUR PAIN TODAY?9 - PFS REFERRAL NEEDED?NO CLERGY REFERRAL NEEDED?NO PUBLIC HEALTH REFERRAL NEEDED?NO WAS THE PROVIDER NOTIFIED OF ANY PERTINENT INFO?YES HAS THE PATIENT BEEN EDUCATED REGARDING HIS/HER PLAN OF CARE?YES HAS THE PATIENT BEEN EDUCATED REGARDING PAIN, THE RISK FOR PAIN, THE IMPORTANCE OF EFFECTIVE PAIN MANAGEMENT, AND THE PAIN ASSESSMENT PROCESS?YES ADVANCE DIRECTIVE ADVANCE DIRECTIVE DISCUSSED WITH PATIENT:YES HCP - BRUNA PEDRAZA (DAUGHTER) [phone] VITAL SIGNS WT 289.6 LBS, HT 66 IN, BMI 46.74 INDEX, BP 131/71 MM HG, HR 92 /MIN, RR 18 /MIN, TEMP 98.2 F, OXYGEN SAT % 93%, SAFE IN ENV? (Y/N) Y, NA INITIALS AW 0925, REVIEWED BY: EM. EXAMINATION GENERAL EXAMINATION: THE PATIENT IS ALERT, ORIENTED TIMES THREE AND COOPERATIVE. LUNGS ARE CLEAR TO AUSCULTATION. HEART SHOWS REGULAR RHYTHM, NO MURMURS AND NO GALLOPS. ASSESSMENTS INTERVERTEBRAL DISC DISORDERS WITH RADICULOPATHY, LUMBOSACRAL REGION - M51.17 TREATMENT INTERVERTEBRAL DISC DISORDERS WITH RADICULOPATHY, LUMBOSACRAL REGION [facility] FLUORO GUIDE SPINE INJECTION (PAIN)[id number] SALINE LOCKJEER NUNES 01/18/2021 10:01:25 AM > SL STARTED ON 1ST ATTEMPT WITHOUT INCIDENT. CATHETER FLUSHED EASILY WITHOUT RESISTANCE OR SWELLING. PATIENT TOLERATED WELL. THIS PROCEDURE WAS REVIEWED BY JERE NUNES ON 01/18/2021 AT 18:06 PM EST MEDICATION: VALIUM TAB 10MG ORALLY (DIAZEPAM)PARAM RASMUSSEN 01/18/2021 9:42:54 AM > VERIFIED JERE NUNES 01/18/2021 9:44:39 AM > ADMINISTERED MEDICATION: OXYCODONE HCL TAB 10MG ORALLYPARAM RASMUSSEN 01/18/2021 9:43:10 AM > VERIFIED JERE NUNES 01/18/2021 9:45:02 AM > ADMINISTERED COMPLETION OF PROCEDURAL VISIT WHEN MEETS CRITERIAPARAM RASMUSSEN 01/18/2021 11:10:56 AM > CRITERIA MET PROCEDURES PAIN NURSING RECORD PROCEDURE IN ROOM 1015, PHYSICIAN IN ROOM 1030, START 1033, FINISH 1037, PHYSICIAN OUT OF ROOM 1035, OUT OF ROOM 1045, ECG NORMAL SINUS, PATIENT SHIELDED YES, SAFETY STRAP YES, PREP BETADINE Raissa RASMUSSEN DRAWING HAND, DRESSING TEGADERM DR JAIMES LOC: 1. ALERT, ORIENTED RESP: 1. REGULAR, NO DYSPNEA COLOR: 1. PINK SKIN: 1. WARM, DRY POSITION: 1. PRONE VITALS: 187/91, 79, 16, 95%, PARAM RASMUSSEN 01/18/2021 10:15:56 AM > , 183/81, 77, 18, 93%, TREY RASMUSSENBETH 01/18/2021 10:30:23 AM > , 162/81, 76, 16, 92%, TREY RASMUSSENBETH 01/18/2021 10:45:50 AM > 176/76, 70, 16, 95%, TREY RASMUSSENBETH 01/18/2021 10:50:09 AM > NOTES Elsi RASMUSSEN RN COMPLETION OF PROCEDURE APPOINTMENT: POST PAIN 0, DRESSING SITE DRY AND INTACT, IV DISCONTINUED, SITE CLEAR, CATHETER INTACT, GAIT STEADY, TEACHING COMPLETED, PATIENT ACKNOWLEDGES UNDERSTANDING YES, PROCEDURE APPOINTMENT COMPLETED AT 1106 PRE PROCEDURE DIAGNOSIS LUMBOSACRAL DISC DISORDER WITH RADICULOPATHY POST PROCEDURE DIAGNOSIS LUMBOSACRAL DISC DISORDER WITH RADICULOPATHY PROCEDURE LUMBAR EPIDURAL STEROID INJECTION UNDER FLUOROSCOPIC GUIDANCE SURGEON DR. LUIS JAIMES TUG BOAT ENGINEER NONE ANESTHESIA LOCAL PRE PROCEDURE NOTE THE PATIENT HAS A HISTORY OF CHRONIC LOW BACK PAIN. I EVALUATED THE PATIENT AND REVIEWED THE CHART. I WENT OVER THE RISKS, ALTERNATIVES, AND BENEFITS ASSOCIATED WITH THIS PROCEDURE. THE PATIENT WOULD LIKE TO PROCEED AND GIVE CONSENT TO PERFORMED THE PROCEDURE. THE PATIENT DENIES UNEXPLAINABLE WEIGHT LOSS, FEVER, CHILLS, OR NEW CHANGES IN URINARY OR BOWEL CONTROL. THE PATIENT IS COVID-19 NEGATIVE DESCRIPTION OF PROCEDURE THE PATIENT WAS BROUGHT TO THE PROCEDURE ROOM AND PLACED IN THE PRONE POSITION. THE LUMBOSACRAL AREA WAS CLEANED WITH BETADINE SOLUTION AND DRAPED ASEPTICALLY. THE PROCEDURE WAS DONE UNDER STERILE CONDITIONS. A TIMEOUT WAS PERFORMED WHERE THE CONSENTED SITE WAS VERIFIED WITH EVERYONE IN THE ROOM. UNDER FLUOROSCOPIC GUIDANCE, THE TARGET POINT WAS SELECTED AT THE INTERLAMINAR LEVEL OF L5-S1. I CONFIRMED AGAIN THE SITE OF TARGET. LIDOCAINE WAS USED TO NUMB THE SKIN AND THE SUBCUTANEOUS TISSUE BELOW IT. EPIDURAL TUOHY NEEDLE, 17-GAUGE, WAS ADVANCED UNDER FLUOROSCOPIC GUIDANCE AND FOLLOWING PATIENT FEEDBACK UNTIL THE EPIDURAL SPACE WAS REACHED 10 CM DEEP INTO THE SKIN BY THE LOSS OF RESISTANCE TECHNIQUE. ISOVUE-M DYE 30%, 0.25 ML, WAS INJECTED SHOWING ADEQUATE SPREAD OF THE DYE. THEN, A SOLUTION OF 3 ML OF NORMAL SALINE WITH DEPO-MEDROL 40 MG WAS INJECTED SLOWLY FOLLOWING PATIENT FEEDBACK. THE MEDICATIONS WERE VERIFIED WITH THE NURSE. THERE WAS NO EVIDENCE OF BLOOD, PARESTHESIA OR CEREBROSPINAL FLUID DURING THE PROCEDURE. THE PATIENT WAS SENT TO THE RECOVERY ROOM. THE PATIENT WAS MOVING THE EXTREMITIES AND DOING WELL. THERE WERE NO COMPLICATIONS DURING THE PROCEDURE. ESTIMATED BLOOD LOSS WAS LESS THAN 5 ML. FLUOROSCOPY TIME WAS 14 SECONDS POST PROCEDURE NOTE DEPENDING ON THE RESULTS, CONSIDER AN EPIDURAL AT L4-L5. THE PATIENT WILL BE SEEN IN A FOLLOW UP IN THE NEXT FEW WEEKS. I AM LOOKING FOR LONG LASTING RELIEF FOR THE PATIENT WITH THIS INTERVENTION. INSTRUCTIONS WERE GIVEN, QUESTIONS WERE ANSWERED, AND THE PATIENT EXPRESSED UNDERSTANDING AND AGREES WITH THE PLAN. I, GAGE CROOKS, DOCUMENTED THE ABOVE INFORMATION ACTING A SCRIBE FOR DR. JAIMES. I HAVE REVIEWED THE ABOVE DOCUMENT, WRITTEN BY GAGE CROOKS, DIRECTOR STRATEGIC PLANNING, AND I VERIFY THAT IT IS ACCURATE PROCEDURE CODES 55188 LUMBAR/SACRAL W/ IMAGING DISPOSITION & COMMUNICATION FOLLOW UP FOLLOW UP WITH LEAD APPLICATION ARCHITECT (REASON: POST LUMBAR EPIDURAL STEROID INJECTION) ELECTRONICALLY SIGNED BY LUIS JAIMES MD, MD ON 01/18/2021 AT 11:57 AM EST DISCLAIMER : THIS IS A VISIT SUMMARY EXTRACTED FROM THE [facility] [employer] CHART. IT IS NOT A COPY OF THE [facility] [facility] [employer] PROGRESS NOTE. VIVEK
== END ==
LOC: M PAIN 09:30
PROVIDERS: ATTEND Anesthesiology
DX: M51.17 Intervertebral disc disorders with radiculopathy, lumbosacral region (principal); G47.33 Obstructive sleep apnea (adult) (pediatric); G43.909 Migraine, unspecified, not intractable, without status migrainosus; Z88.2 Allergy status to sulfonamides; Z88.6 Allergy status to analgesic agent; Z88.8 Allergy status to other drugs, medicaments and biological substances; Z91.030 Bee allergy status; E66.01 Morbid (severe) obesity due to excess calories; Z68.42 Body mass index [BMI] 45.0-49.9, adult; Z79.01 Long term (current) use of anticoagulants; Z79.891 Long term (current) use of opiate analgesic; Z79.899 Other long term (current) drug therapy
CPT/HCPCS: 62323; J1030; Q9967

== ENCOUNTER → 2021-02-08 | Outpatient (CLI) | payer MEDICARE, MEDICAID ==
[~2021-02-08] MED LIST changes: -ISOVUE-M 300 61% 15ML VIAL As Ordered ONE; -LIDOCAINE 1% SDV 30ML VIAL As Ordered ONE; -diazePAM 5MG TABLET As Ordered ONE; -methylPREDNISolone SUSP 40MG/ML 1ML VIAL (DEPO MEDROL) As Ordered ONE; -oxyCODONE 5MG TAB As Ordered ONE
--- NOTE | 2021-02-11 08:21 | ECWPNPC ---
PATIENT NAME: ACOSTA ALBRIGHT : 1970 GENDER: FEMALE VISIT DATE: 02/08/2021 DISCHARGE DATE: 02/08/21 1140 VISIT LOCKED DATE TIME: PHYSICIAN: KUSHAL MONTGOMERY PHYSICIAN PAGER NO: ACTIVE RESOURCE: KUSHAL MONTGOMERY REASON FOR APPOINTMENT 1. POST LUMBAR EPIDURAL STEROID INJECTION HISTORY OF PRESENT ILLNESS GENERAL: - 50-YEAR-OLD FEMALE IN FOR POST LUMBAR EPIDURAL STEROID INJECTION FOLLOW-UP. PATIENT FEELS THE PROCEDURE WAS UNSUCCESSFUL. SHE RATES HER PAIN CURRENTLY AT A 10 OUT OF 10 AND DESCRIBES IT ACHING, CONTINUOUS, SHARP, STABBING, AND SHOOTING. FALL RISK SCREENING: SCREENING : NO FALLS REPORTED IN THE LAST YEAR. PAIN SCREENING: PATIENT HAS A COMPLAINT OF ACUTE OR CHRONIC PAIN :YES LOCATION OF PAIN:LOW BACK INTENSITY OF PAIN (SCALE OF 1 TO 10):10 WHAT DOES YOUR PAIN FEEL LIKE:ACHING, CONTINOUS, SHARP, STABBING, SHOOTING DURATION:CONTINOUS, CONSTANT, AWAKENS FROM SLEEP PAIN IS INCREASED BY:ACTIVITIES, PROLONGED STANDING PAIN IS DECREASED BY:USE OF PAIN MEDICATIONS, SITTING BREAKTHROUGH PAIN NURSING NOTE: -. PAIN CENTER INTAKE QUESTIONS: DO YOU HAVE A HISTORY OF MRSA? :NO DO YOU TAKE A BLOOD THINNERS? :YES PLAVIX, TURMERIC DO YOU HAVE ANY BLEEDING DISORDERS? :NO ANY NEW NUMBNESS OR WEAKNESS IN YOUR LEGS OR ARMS? :NO ANY PACEMAKER,DEFIBRILLATOR, OR DORSAL COLUMN STIMULATOR? :NO DO YOU HAVE ANY RASHES OR OPEN SORES? :NO ARE YOU ALLERGIC TO IV DYE? :NO ARE YOU DIABETIC? :NO ANY NEW PROBLEMS WITH YOUR MEDICATIONS? :NO HAVE YOU RECEIVED A VACCINE IN THE PAST 30 DAYS? :NO DO YOU PLAN TO RECEIVE A VACCINE IN THE NEXT 21 DAYS? :YES IF SO WHAT VACCINE AND WHEN? FIRST COVID VACCINATION ON 02/16/2021 DO YOU NEED ANY PRESCRIPTION? :NO DO YOU TAKE ANY IMMUNOSUPPRESSIVE MEDICATIONS? :NO DO YOU HAVE ANY KIDNEY OR LIVER DISEASE? :NO IS THERE A CHANCE YOU COULD BE ? :NO ARE YOU BREAST FEEDING? :NO CURRENT MEDICATIONS TAKING TRAZODONE HCL 150 MG TABLET 1 TABLET AT BEDTIME NEEDED ORALLY ONCE A DAY, NOTES: 01/17/21 TAKING OMEPRAZOLE 20 MG CAPSULE DELAYED RELEASE 1 CAPSULE ORALLY ONCE A DAY TAKING PLAVIX 75 MG TABLET 1 TABLET ORALLY ONCE A DAY/DR FERRIS, NOTES: 01/11/21 TAKING EPIPEN 2-GISELL 0.3 MG/0.3ML (1:1000) DEVICE INJECTION INTRAMUSCULAR 1 TIME NEEDED FOR ANGIOEDEMA REACTION TAKING ALBUTEROL SULFATE HFA 108 (90 BASE) MCG/ACT AEROSOL SOLUTION 2 PUFFS NEEDED INHALATION EVERY 4 HRS TAKING SUMATRIPTAN SUCCINATE 100 MG TABLET DIRECTED ORALLY BID, MDD 2 IN 24 HOURS TAKING VITAMIN D3 COMPLETE - TABLET 3,000 ORALLY DAILY TAKING STOOL SOFTENER 100 MG CAPSULE 1 CAPSULE NEEDED ORALLY BID TAKING DIPHENHYDRAMINE HCL 25 MG CAPSULE 2 CAPSULE NEEDED ORALLY AT BEDTIME NEEDED TAKING REFRESH LIQUIGEL 1 % SOLUTION 2 DROP INTO AFFECTED EYE NEEDED OPHTHALMIC BID TAKING DULOXETINE HCL 30 MG CAPSULE DELAYED RELEASE PARTICLES 1 CAPSULE ORALLY DAILY TAKING VERAPAMIL HCL ER 120 MG TABLET EXTENDED RELEASE 1 TABLET ORALLY ONCE A DAY TAKING KLONOPIN 0.5 MG TABLET 1 TABLET ORALLY TWICE A DAY NEEDED, NOTES: 01/16/21 TAKING ASTELIN 137 MCG/SPRAY SOLUTION 1 SPRAY IN EACH NOSTRIL NASALLY TWICE A DAY TAKING ATORVASTATIN CALCIUM 20 MG TABLET 1 TABLET ORALLY DAILY TAKING TURMERIC 1 TAB ORALLY DAILY TAKING FLAXSEED OIL - OIL 1 TAB ORALLY DAILY TAKING XTAMPZA ER 27 MG CAPSULE ER 12 HOUR ABUSE-DETERRENT 1 CAPSULE WITH FOOD ORALLY EVERY 12 HRS MDD2, NOTES: 01/17/21 UNKNOWN ERYTHROMYCIN 5 MG/GM OINTMENT 1 APPLICATION OPHTHALMIC BID TO AREAS OF FACE WHEN RASH FLARES (VERY SMALL AMOUNT NEEDED, 1/4 PEA SIZE) UNKNOWN SKELAXIN 800 MG TABLET 1 TABLET ORALLY THREE TIMES A DAY UNKNOWN SKELAXIN 800 MG TABLET 1 TABLET ORALLY THREE TIMES A DAY MEDICATION LIST REVIEWED AND RECONCILED WITH THE PATIENT PAST MEDICAL HISTORY CAROTID ATHEROSCLEROSIS -- FOLLOWS WITH DR. 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, RADIATION AND CHEMOTHERAPY BILATERAL TMJ HYPER PARA THYROIDISM HX OF MULTIPLE THYROID NODULES PROVEN NON-MALIGNANT HX ABNORMAL PAP SMEAR HX OF CHEST PAIN 2008 WITH NEGATIVE HEART CATHETERIZATION MIGRAINE HEADACHES LUPUS ANGIOEDEMA OBSTRUCTIVE SLEEP APNEA ARTHRITIS BOTH KNEES KIDNEY STONES RIGHT 4TH TOE BROKEN 09/2018 CHRONIC PAIN ALLERGIES SULFA (FOR ALLERGY USE ONLY): HIVES - ALLERGY FLEXERIL: MIGAINES - ALLERGY ASPIRIN: UNKNOWN - ALLERGY HYDROXYCHLOROQUINE SULFATE: UNKNOWN - ALLERGY BEE STINGS: UNKNOWN - ALLERGY VENLAFEXINE: WORSENING SYMPTOMS/ BLACKED OUT WELLBUTRIN: WORSENS MIGRAINS,SWEATS - ALLERGY LYRICA: ANAPHYLAXIS - ALLERGY BUTRANS: NAUSEA/BLISTERS - ALLERGY TIZANIDINE : MAKES HEADACHES WORSE - SIDE EFFECTS SOCIAL HISTORY GENERAL: TOBACCO USE ARE YOU A:NONSMOKER LATEX QUESTIONNAIRE LATEX ALLERGY : HAVE YOU EVER DEVELOPED ANY TYPE OF REACTION AFTER HANDLING LATEX PRODUCTS SUCH RUBBER GLOVES, CONDOMS, DIAPHRAGMS, BALLOONS, SOCKS, OR UNDERWEAR?NO LATEX ALLERGY : HAVE YOU EVER DEVELOPED ANY TYPE OF REACTION DURING OR AFTER DENTAL APPOINTMENT, VAGINAL/RECTAL EXAMINATION, SURGICAL PROCEDURE, OR ANY OTHER EXPOSURE?NO LATEX RISK : HAVE YOU EVER HAD ANY DIFFICULTY BREATHING OR HIVES AFTER EATING OR HANDLING ANY FRUITS, OR VEGETABLES; SUCH KIWI, BANANAS, STONE FRUITS, OR CHESTNUTSNO LATEX RISK : DO YOU HAVE A PREVIOUS PERSONAL HISTORY OF MORE THAN NINE SURGERIES, SPINA BIFIDA, OR REPEATED CATHERIZATIONS? YES - PLEASE INDICATE : > 9 SURGERIES LATEX RISK : ARE YOU FREQUENTLY EXPOSED TO LATEX PRODUCTS IN YOUR OCCUPATION?YES DATE ASKED : 02/08/2021 ALCOHOL USE: NO. ALCOHOL SCREENING DID YOU HAVE A DRINK CONTAINING ALCOHOL IN THE PAST YEAR?YES HOW OFTEN DID YOU HAVE SIX OR MORE DRINKS ON ONE OCCASION IN THE PAST YEAR?NEVER (0 POINTS) HOW MANY DRINKS DID YOU HAVE ON A TYPICAL DAY WHEN YOU WERE DRINKING IN THE PAST YEAR?1 OR 2 (0 POINTS) HOW OFTEN DID YOU HAVE A DRINK CONTAINING ALCOHOL IN THE PAST YEAR?MONTHLY OR LESS (1 POINT) POINTS1 INTERPRETATIONNEGATIVE RECREATIONAL DRUG USE DRUG USE?NO CAFFEINE CAFFEINE USE?YES HOW OFTEN AND HOW MUCH? 2 SODAS DAILY HIV / HEP-C SCREENING HIV TEST OFFERED TO PATIENT:YES DATE OFFERED:03/11/2019 TEST ACCEPTED:NO HEP-C TEST OFFERED TO PATIENT:YES DATE OFFERED:03/11/2019 REASON:PATIENT DECLINED TEST ACCEPTED:NO REASON:PATIENT DECLINED BROCHURE PROVIDED TO PATIENTYES [id number] L[employer] SPOKEN:SPANISH LEARNING BARRIERS / SPECIAL NEEDS CHANGE FROM LAST VISIT?NO 08/27/19 BARRIERS TO LEARNING?NO HEARING IMPAIRED?NO VISION IMPAIRED?YES :CORRECTIVE LENSES COGNITIVELY IMPAIRED?NO READINESS TO LEARN?YES LEARNING PREFERENCES?NO LEARNING CAPABILITIES PRESENT?YES EMOTIONAL BARRIERS?NO SPECIAL DEVICES?NO PSYCH NP NEEDED?NO TODAY'S VISIT 03/07/20 PATIENT DESCRIBES PAIN :ACHING, IT COMES AND GOES, THROBBING, SHOOTING FROM 0-10, WHAT LEVEL IS YOUR PAIN TODAY?9 - PFS REFERRAL NEEDED?NO CLERGY REFERRAL NEEDED?NO PUBLIC HEALTH REFERRAL NEEDED?NO WAS THE PROVIDER NOTIFIED OF ANY PERTINENT INFO?YES HAS THE PATIENT BEEN EDUCATED REGARDING HIS/HER PLAN OF CARE?YES HAS THE PATIENT BEEN EDUCATED REGARDING PAIN, THE RISK FOR PAIN, THE IMPORTANCE OF EFFECTIVE PAIN MANAGEMENT, AND THE PAIN ASSESSMENT PROCESS?YES ADVANCE DIRECTIVE ADVANCE DIRECTIVE DISCUSSED WITH PATIENT:YES HCP - BRUNA PEDRAZA (DAUGHTER) [phone] HOSPITALIZATION/MAJOR DIAGNOSTIC PROCEDURE CAROTID STENT 2008 LEFT SIDED CAROTID BYPASS WITH HOMOGRAFT SECONDARY TO RE-OCCULUSION 05/2010 MENTAL HEALTH 07/2015 REVIEW OF SYSTEMS CONSTITUTIONAL: ANY RECENT FEVER NO . CHILLS NO . WEIGHT CHANGE OF UNKNOWN REASONS NO . GASTROENTEROLOGY: NEW UNEXPLAINABLE CHANGES IN BOWEL CONTROL NO . CONSTIPATION NO . GENITOURINARY: ANY NEW CHANGE IN BLADDER CONTROL? NO . NEUROLOGY: NEW ONSET DIZZINESS OR NEUROLOGICAL CHANGES NOT MENTIONED NO . NEW NUMBNESS OR PAIN PATTERNS NOT MENTIONED AND PERTINENT TO TODAY'S VISIT NO . CARDIOLOGY: NEW CHEST PRESSURE NO . PATIENT DENIES NO . RESPIRATORY: UNEXPLAINABLE COUGH NO . NEW SHORTNESS OF BREATH NO . VITAL SIGNS WT 294 LBS, HT 66 IN, BMI 47.45 INDEX, BP 131/64 MM HG, HR 96 /MIN, RR 18 /MIN, TEMP 98.1 F, OXYGEN SAT % 90%, SAFE IN ENV? (Y/N) YES, NA INITIALS OK 11:07, REVIEWED BY: CAROL HOFFMAN MA. EXAMINATION GENERAL EXAMINATION: GENERALNO ACUTE DISTRESS, WELL NOURISHED AND HYDRATED. PSYCHAPPROPRIATE MOOD AND AFFECT . LUNGS:CLEAR TO AUSCULTATION BILATERALLY, NO WHEEZES, RHONCHI, RALES. HEART:NO MURMURS, REGULAR RATE AND RHYTHM. ASSESSMENTS OTHER CHRONIC PAIN - G89.29 (PRIMARY) INTERVERTEBRAL DISC DISORDER WITH RADICULOPATHY OF LUMBOSACRAL REGION - M51.17 TREATMENT OTHER CHRONIC PAIN PAIN PROCEDURE LOGDATE OF [id number]/03/2021PROCEDURE:LUMBAR EPIDURAL STEROID INJECTIONAMOUNT OF PRE SEDATEVALIUM 10MG; OXYCODONE 10MGRESULT:UNSUCCESSFUL NOTES: 50-YEAR-OLD FEMALE IN FOR POST LUMBAR EPIDURAL STEROID INJECTION FOLLOW-UP. GIVEN PRESENTING SYMPTOMS RECOMMEND STARTING BACLOFEN 5 MG 3 TIMES A DAY WITH FOLLOW-UP IN 2 MONTHS. PATIENT HAS EXCESS UNDERSTANDING OF AND WAS IN AGREEMENT WITH TREATMENT PLAN. GIVEN TIME TO ASK QUESTIONS AND EXPRESS CONCERNS. , ISTOP REGISTRY REVIEWED AND DEMONSTRATES COMPLLIANCE. (REF # ) BRINGS IN MEDICATIONS WHICH IS APPROPRIATE FOR WHAT WAS DISPENSED. RECENT URINE TOXICOLOGY REVIEWED. NO UNAUTHORIZED MEDICATIONS. NO ILLICIT SUBSTANCES AND PRESCRIBED MEDICATIONS WERE PRESENT. INTERVERTEBRAL DISC DISORDER WITH RADICULOPATHY OF LUMBOSACRAL REGION START BACLOFEN TABLET, 5 MG, 1 TABLET NEEDED, ORALLY, THREE TIMES A DAY, 30 DAY(S), 90 PROCEDURE CODES [id number] ESTABILISHED PATIENT [facility] CHARGE DISPOSITION & COMMUNICATION FOLLOW UP 2 MONTHS (REASON: BACK PAIN ) ELECTRONICALLY SIGNED BY TOMMIE MURILLO ON 02/10/2021 AT 08:10 AM EDT DISCLAIMER : THIS IS A VISIT SUMMARY EXTRACTED FROM THE [employer] CHART. IT IS NOT A COPY OF THE [employer] PROGRESS NOTE. VIVEK
== END ==
LOC: M PAIN 11:00
PROVIDERS: ATTEND Family Medicine
DX: M51.17 Intervertebral disc disorders with radiculopathy, lumbosacral region (principal); G89.29 Other chronic pain; G43.909 Migraine, unspecified, not intractable, without status migrainosus; G47.33 Obstructive sleep apnea (adult) (pediatric); Z88.2 Allergy status to sulfonamides; Z88.6 Allergy status to analgesic agent; Z88.8 Allergy status to other drugs, medicaments and biological substances; Z91.030 Bee allergy status; E66.01 Morbid (severe) obesity due to excess calories; Z68.42 Body mass index [BMI] 45.0-49.9, adult; Z79.01 Long term (current) use of anticoagulants; Z79.891 Long term (current) use of opiate analgesic; Z79.899 Other long term (current) drug therapy

== ENCOUNTER → 2021-04-06 | Outpatient (CLI) | payer MEDICARE, MEDICAID ==
[~2021-04-06] MED LIST changes: +OMEP20TA2 PO; -OMEP20TA9 PO
--- NOTE | 2021-04-11 05:10 | ECWPNPC ---
PATIENT NAME: ACOSTA ALBRIGHT : 1970 GENDER: FEMALE VISIT DATE: 04/06/2021 DISCHARGE DATE: 04/06/21 0947 VISIT LOCKED DATE TIME: PHYSICIAN: KUSHAL MONTGOMERY PHYSICIAN PAGER NO: ACTIVE RESOURCE: KUSHAL MONTGOMERY REASON FOR APPOINTMENT 1. BACK PAIN HISTORY OF PRESENT ILLNESS GENERAL: HPI 50-YEAR-OLD FEMALE IN FOR CHRONIC PAIN FOLLOW-UP. AT LAST CLINIC VISIT PATIENT WAS STARTED ON BACLOFEN AND SHE ADMITS THAT SHE HAD TO DISCONTINUE USE IT GAVE HER HEADACHES. SHE RATES HER PAIN CURRENTLY AT AN 8 OUT OF 10 AND DESCRIBES IT CONTINUOUS, STABBING, AND SHOOTING. SHE FEELS THE MEDICATIONS ARE HELPFUL AND DENIES MED SIDE EFFECTS AT THIS TIME.. -. FALL RISK SCREENING: SCREENING : NO FALLS REPORTED IN THE LAST YEAR. PAIN SCREENING: PATIENT HAS A COMPLAINT OF ACUTE OR CHRONIC PAIN :YES LOCATION OF PAIN:LOW BACK INTENSITY OF PAIN (SCALE OF 1 TO 10):8 WHAT DOES YOUR PAIN FEEL LIKE:CONTINOUS, STABBING, SHOOTING DURATION:CONTINOUS, AWAKENS FROM SLEEP PAIN IS INCREASED BY:ACTIVITIES, PROLONGED STANDING PAIN IS DECREASED BY:USE OF PAIN MEDICATIONS, SITTING NURSING NOTE: -. PAIN CENTER INTAKE QUESTIONS: DO YOU HAVE A HISTORY OF MRSA? :NO DO YOU TAKE A BLOOD THINNERS? :YES PLAVIX, TURMERIC DO YOU HAVE ANY BLEEDING DISORDERS? :NO ANY NEW NUMBNESS OR WEAKNESS IN YOUR LEGS OR ARMS? :NO ANY PACEMAKER,DEFIBRILLATOR, OR DORSAL COLUMN STIMULATOR? :NO DO YOU HAVE ANY RASHES OR OPEN SORES? :NO ARE YOU ALLERGIC TO IV DYE? :NO ARE YOU DIABETIC? :NO ANY NEW PROBLEMS WITH YOUR MEDICATIONS? :NO HAVE YOU RECEIVED A VACCINE IN THE PAST 30 DAYS? :YES IF SO WHAT VACCINE AND WHEN? SECOND COVID VACCINATION RECEIVED 03/09/2021 DO YOU NEED ANY PRESCRIPTION? :NO DO YOU TAKE ANY IMMUNOSUPPRESSIVE MEDICATIONS? :NO DO YOU HAVE ANY KIDNEY OR LIVER DISEASE? :NO IS THERE A CHANCE YOU COULD BE ? :NO ARE YOU BREAST FEEDING? :NO CURRENT MEDICATIONS TAKING VITAMIN D3 COMPLETE - TABLET 3,000 ORALLY DAILY TAKING TURMERIC 1 TAB ORALLY DAILY TAKING FLAXSEED OIL - OIL 1 TAB ORALLY DAILY TAKING DIPHENHYDRAMINE HCL 25 MG CAPSULE 2 CAPSULE NEEDED ORALLY AT BEDTIME NEEDED TAKING REFRESH LIQUIGEL 1 % SOLUTION 2 DROP INTO AFFECTED EYE NEEDED OPHTHALMIC BID TAKING PLAVIX 75 MG TABLET 1 TABLET ORALLY ONCE A DAY/DR FERRIS, NOTES: 01/11/21 TAKING EPIPEN 2-GISELL 0.3 MG/0.3ML (1:1000) DEVICE INJECTION INTRAMUSCULAR 1 TIME NEEDED FOR ANGIOEDEMA REACTION TAKING ALBUTEROL SULFATE HFA 108 (90 BASE) MCG/ACT AEROSOL SOLUTION 2 PUFFS NEEDED INHALATION EVERY 4 HRS TAKING SUMATRIPTAN SUCCINATE 100 MG TABLET DIRECTED ORALLY BID, MDD 2 IN 24 HOURS TAKING STOOL SOFTENER 100 MG CAPSULE 1 CAPSULE NEEDED ORALLY BID TAKING DULOXETINE HCL 30 MG CAPSULE DELAYED RELEASE PARTICLES 1 CAPSULE ORALLY DAILY TAKING VERAPAMIL HCL ER 120 MG TABLET EXTENDED RELEASE 1 TABLET ORALLY ONCE A DAY TAKING KLONOPIN 0.5 MG TABLET 1 TABLET ORALLY TWICE A DAY NEEDED, NOTES: 01/16/21 TAKING ASTELIN 137 MCG/SPRAY SOLUTION 1 SPRAY IN EACH NOSTRIL NASALLY TWICE A DAY TAKING ATORVASTATIN CALCIUM 20 MG TABLET 1 TABLET ORALLY DAILY TAKING XTAMPZA ER 27 MG CAPSULE ER 12 HOUR ABUSE-DETERRENT 1 CAPSULE WITH FOOD ORALLY EVERY 12 HRS MDD2, NOTES: 01/17/21- OXYCODONE TAKING TRAZODONE HCL 150 MG TABLET 1 TABLET AT BEDTIME NEEDED ORALLY ONCE A DAY TAKING OMEPRAZOLE 20 MG CAPSULE DELAYED RELEASE 1 CAPSULE ORALLY ONCE A DAY NOT-TAKING BACLOFEN 5 MG TABLET 1 TABLET NEEDED ORALLY THREE TIMES A DAY, NOTES: LAST DOSE -01/2021 HEADACHES NOT-TAKING ERYTHROMYCIN 5 MG/GM OINTMENT 1 APPLICATION OPHTHALMIC BID TO AREAS OF FACE WHEN RASH FLARES (VERY SMALL AMOUNT NEEDED, 1/4 PEA SIZE) NOT-TAKING SKELAXIN 800 MG TABLET 1 TABLET ORALLY THREE TIMES A DAY NOT-TAKING SKELAXIN 800 MG TABLET 1 TABLET ORALLY THREE TIMES A DAY MEDICATION LIST REVIEWED AND RECONCILED WITH THE PATIENT PAST MEDICAL HISTORY CAROTID ATHEROSCLEROSIS -- FOLLOWS WITH DR. 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, RADIATION AND CHEMOTHERAPY BILATERAL TMJ HYPER PARA THYROIDISM HX OF MULTIPLE THYROID NODULES PROVEN NON-MALIGNANT HX ABNORMAL PAP SMEAR HX OF CHEST PAIN 2008 WITH NEGATIVE HEART CATHETERIZATION MIGRAINE HEADACHES LUPUS ANGIOEDEMA OBSTRUCTIVE SLEEP APNEA ARTHRITIS BOTH KNEES KIDNEY STONES RIGHT 4TH TOE BROKEN 09/2018 CHRONIC PAIN ALLERGIES SULFA (FOR ALLERGY USE ONLY): HIVES - ALLERGY FLEXERIL: MIGAINES - ALLERGY ASPIRIN: UNKNOWN - ALLERGY HYDROXYCHLOROQUINE SULFATE: UNKNOWN - ALLERGY BEE STINGS: UNKNOWN - ALLERGY VENLAFEXINE: WORSENING SYMPTOMS/ BLACKED OUT WELLBUTRIN: WORSENS MIGRAINS,SWEATS - ALLERGY LYRICA: ANAPHYLAXIS - ALLERGY BUTRANS: NAUSEA/BLISTERS - ALLERGY TIZANIDINE : MAKES HEADACHES WORSE - SIDE EFFECTS BACLOFEN: HEADACHES - SIDE EFFECTS SURGICAL HISTORY CSECTION 1992 TROUBLE WAKING FROM ANESTHESIA AND HYPOXIA S/P ANESTHESIA 01/2015 TUBAL LIGATION 1993 HEART CATH WITHOUT STENT 2008 LEFT SIDED CAROTID STENT 09/2009 LEFT SIDED CAROTID BYPASS WITH HOMOGRAFT SECONDARY TO RE-OCCULUSION 05/2010 LASER CERVICAL SURGERY/BIOPSY SECONDARY TO ABNORMAL PAP L CARPAL TUNNEL 12/28/2013 HYSTERECTOMY WITHOUT SALPINGOOPHORECTOMY 01/2015 KIDNEY STONES REMOVED SEP 21, 2016 COLONOSCOPY AND EDG AT [facility] 2018 SOCIAL HISTORY GENERAL: TOBACCO USE ARE YOU A:NONSMOKER LATEX QUESTIONNAIRE LATEX ALLERGY : HAVE YOU EVER DEVELOPED ANY TYPE OF REACTION AFTER HANDLING LATEX PRODUCTS SUCH RUBBER GLOVES, CONDOMS, DIAPHRAGMS, BALLOONS, SOCKS, OR UNDERWEAR?NO LATEX ALLERGY : HAVE YOU EVER DEVELOPED ANY TYPE OF REACTION DURING OR AFTER DENTAL APPOINTMENT, VAGINAL/RECTAL EXAMINATION, SURGICAL PROCEDURE, OR ANY OTHER EXPOSURE?NO LATEX RISK : HAVE YOU EVER HAD ANY DIFFICULTY BREATHING OR HIVES AFTER EATING OR HANDLING ANY FRUITS, OR VEGETABLES; SUCH KIWI, BANANAS, STONE FRUITS, OR CHESTNUTSNO LATEX RISK : DO YOU HAVE A PREVIOUS PERSONAL HISTORY OF MORE THAN NINE SURGERIES, SPINA BIFIDA, OR REPEATED CATHERIZATIONS? YES - PLEASE INDICATE : > 9 SURGERIES LATEX RISK : ARE YOU FREQUENTLY EXPOSED TO LATEX PRODUCTS IN YOUR OCCUPATION?YES DATE ASKED : 04/06/2021 ALCOHOL USE: NO. LUNG CANCER SCREENING SMOKING STATUS:NON SMOKER ALCOHOL SCREENING DID YOU HAVE A DRINK CONTAINING ALCOHOL IN THE PAST YEAR?NO POINTS0 INTERPRETATIONNEGATIVE RECREATIONAL DRUG USE DRUG USE?NO CAFFEINE CAFFEINE USE?YES HOW OFTEN AND HOW MUCH? 2 SODAS DAILY SEXUAL HX HAD SEX IN THE LAST 12 MONTHS (VAGINAL, ORAL, OR ANAL)?NO HAVE YOU EVER HAD AN STD?NO HIV / HEP-C SCREENING HIV TEST OFFERED TO PATIENT:YES DATE OFFERED:03/11/2019 TEST ACCEPTED:NO HEP-C TEST OFFERED TO PATIENT:YES DATE OFFERED:03/11/2019 REASON:PATIENT DECLINED TEST ACCEPTED:NO REASON:PATIENT DECLINED BROCHURE PROVIDED TO PATIENTYES LATTER-DAY [id number] LANGUAGES SPOKEN:YI LEARNING BARRIERS / SPECIAL NEEDS CHANGE FROM LAST VISIT?NO BARRIERS TO LEARNING?NO HEARING IMPAIRED?NO VISION IMPAIRED?YES :CORRECTIVE LENSES COGNITIVELY IMPAIRED?NO READINESS TO LEARN?YES LEARNING PREFERENCES?NO LEARNING CAPABILITIES PRESENT?YES EMOTIONAL BARRIERS?YES DEPRESSION, ANXIETY, PTSD SPECIAL DEVICES?NO MECHANIC SENIOR NEEDED?NO DOMESTIC VIOLENCE STATUS: DIET: REGULAR. OTHERS AT HOME: GRANDDAUGHTER 1 YR OLD. TODAY'S VISIT 03/07/20 PATIENT DESCRIBES PAIN :ACHING, IT COMES AND GOES, THROBBING, SHOOTING FROM 0-10, WHAT LEVEL IS YOUR PAIN TODAY?9 - PFS REFERRAL NEEDED?NO CLERGY REFERRAL NEEDED?NO PUBLIC HEALTH REFERRAL NEEDED?NO WAS THE PROVIDER NOTIFIED OF ANY PERTINENT INFO?YES HAS THE PATIENT BEEN EDUCATED REGARDING HIS/HER PLAN OF CARE?YES HAS THE PATIENT BEEN EDUCATED REGARDING PAIN, THE RISK FOR PAIN, THE IMPORTANCE OF EFFECTIVE PAIN MANAGEMENT, AND THE PAIN ASSESSMENT PROCESS?YES ADVANCE DIRECTIVE ADVANCE DIRECTIVE DISCUSSED WITH PATIENT:YES HCP - BRUNA PEDRAZA (DAUGHTER) [phone] HOSPITALIZATION/MAJOR DIAGNOSTIC PROCEDURE CAROTID STENT 2008 LEFT SIDED CAROTID BYPASS WITH HOMOGRAFT SECONDARY TO RE-OCCULUSION 05/2010 MENTAL HEALTH 07/2015 REVIEW OF SYSTEMS CONSTITUTIONAL: ANY RECENT FEVER NO . CHILLS NO . WEIGHT CHANGE OF UNKNOWN REASONS NO . GASTROENTEROLOGY: NEW UNEXPLAINABLE CHANGES IN BOWEL CONTROL NO . CONSTIPATION NO . GENITOURINARY: ANY NEW CHANGE IN BLADDER CONTROL? NO . NEUROLOGY: NEW ONSET DIZZINESS OR NEUROLOGICAL CHANGES NOT MENTIONED NO . NEW NUMBNESS OR PAIN PATTERNS NOT MENTIONED AND PERTINENT TO TODAY'S VISIT NO . CARDIOLOGY: NEW CHEST PRESSURE NO . PATIENT DENIES NO . RESPIRATORY: UNEXPLAINABLE COUGH NO . NEW SHORTNESS OF BREATH NO . VITAL SIGNS WT 285 LBS, HT 66 IN, BMI 46.00 INDEX, BP 130/60 MM HG, HR 91 /MIN, RR 18 /MIN, TEMP 98.3 F, OXYGEN SAT % 95%, SAFE IN ENV? (Y/N) YES, NA INITIALS MA 09:18, REVIEWED BY: CAROL HOFFMAN MA. EXAMINATION GENERAL EXAMINATION: GENERALNO ACUTE DISTRESS, WELL NOURISHED AND HYDRATED. PSYCHAPPROPRIATE MOOD AND AFFECT . LUNGS:CLEAR TO AUSCULTATION BILATERALLY, NO WHEEZES, RHONCHI, RALES. HEART:NO MURMURS, REGULAR RATE AND RHYTHM. ASSESSMENTS LUMBAR BACK PAIN WITH RADICULOPATHY AFFECTING LEFT LOWER EXTREMITY - M54.17 (PRIMARY), RISK: (NULL) TREATMENT LUMBAR BACK PAIN WITH RADICULOPATHY AFFECTING LEFT LOWER EXTREMITY START METHOCARBAMOL TABLET, 750 MG, 1 TABLET, ORALLY, EVERY 4 HRS, 30 DAY(S), 180 NOTES: 50-YEAR-OLD FEMALE IN FOR CHRONIC PAIN FOLLOW-UP. GIVEN PRESENTING SYMPTOMS RECOMMEND STARTING METHOCARBAMOL WITH FOLLOW-UP IN 3 MONTHS. PATIENT HAS EXPRESSED UNDERSTANDING OF AND WAS IN AGREEMENT WITH TREATMENT PLAN. GIVEN TIME TO ASK QUESTIONS AND EXPRESS CONCERNS. ISTOP REGISTRY REVIEWED AND DEMONSTRATES COMPLLIANCE. (REF #[id number] ) BRINGS IN MEDICATIONS WHICH IS APPROPRIATE FOR WHAT WAS DISPENSED. RECENT URINE TOXICOLOGY REVIEWED. NO UNAUTHORIZED MEDICATIONS. NO ILLICIT SUBSTANCES AND PRESCRIBED MEDICATIONS WERE PRESENT. CLINICAL NOTES: METHOCARBAMOL INFORMATION PRINTED AND PROVIDED TO PATIENT. PATIENT VERBALIZED AN UNDERSTANDING. FROYLAN HOFFMAN MA. PROCEDURE CODES [id number] ESTABILISHED PATIENT [facility] CHARGE DISPOSITION & COMMUNICATION FOLLOW UP 3 MONTHS (REASON: NEW MED ) ELECTRONICALLY SIGNED BY TOMMIE MURILLO ON 04/10/2021 AT 08:47 AM EDT DISCLAIMER : THIS IS A VISIT SUMMARY EXTRACTED FROM THE [employer] CHART. IT IS NOT A COPY OF THE [employer] PROGRESS NOTE. MTDD
== END ==
LOC: M PAIN 09:15
PROVIDERS: ATTEND Family Medicine
DX: M54.17 Radiculopathy, lumbosacral region (principal); G89.29 Other chronic pain; G43.909 Migraine, unspecified, not intractable, without status migrainosus; G47.33 Obstructive sleep apnea (adult) (pediatric); Z88.2 Allergy status to sulfonamides; Z88.5 Allergy status to narcotic agent; Z88.6 Allergy status to analgesic agent; Z88.8 Allergy status to other drugs, medicaments and biological substances; Z91.030 Bee allergy status; E66.01 Morbid (severe) obesity due to excess calories; Z68.42 Body mass index [BMI] 45.0-49.9, adult; Z79.01 Long term (current) use of anticoagulants; Z79.891 Long term (current) use of opiate analgesic; Z79.899 Other long term (current) drug therapy

== ENCOUNTER → 2021-08-23 | Outpatient (CLI) | payer MEDICARE, MEDICAID | LOC: M PAIN 10:45 | PROVIDERS: ATTEND Nurse Practitioner Family | DX: M51.16 Intervertebral disc disorders with radiculopathy, lumbar region (principal); Z79.891 Long term (current) use of opiate analgesic; I65.29 Occlusion and stenosis of unspecified carotid artery; E78.5 Hyperlipidemia, unspecified; G43.909 Migraine, unspecified, not intractable, without status migrainosus; M32.9 Systemic lupus erythematosus, unspecified; G47.33 Obstructive sleep apnea (adult) (pediatric); M17.0 Bilateral primary osteoarthritis of knee; E21.3 Hyperparathyroidism, unspecified; Z79.02 Long term (current) use of antithrombotics/antiplatelets; Z79.899 Other long term (current) drug therapy; Z88.2 Allergy status to sulfonamides; Z88.6 Allergy status to analgesic agent; Z88.8 Allergy status to other drugs, medicaments and biological substances; Z91.030 Bee allergy status ==

== ENCOUNTER → 2021-09-05 | Outpatient (REF) | payer MEDICARE, MEDICAID ==
[~2021-09-05] MED LIST changes: -CYMB60CA3 PO; +CYMB60CA4 PO
[2021-09-05 13:41] LABS: RSV AMPLIFICATION POSITIVE (NEGATIVE)
== END ==
LOC: M LAB REF 12:12
PROVIDERS: ATTEND Physician Assistant Medical
DX: R05.9 Cough, unspecified (principal)

== ENCOUNTER → 2022-01-25 | Outpatient (CLI) | payer MEDICARE, MEDICAID | LOC: M PAIN 10:45 | PROVIDERS: ATTEND Anesthesiology | DX: M51.16 Intervertebral disc disorders with radiculopathy, lumbar region (principal); G89.29 Other chronic pain; G43.909 Migraine, unspecified, not intractable, without status migrainosus; G47.33 Obstructive sleep apnea (adult) (pediatric); Z88.2 Allergy status to sulfonamides; Z88.5 Allergy status to narcotic agent; Z88.6 Allergy status to analgesic agent; Z88.8 Allergy status to other drugs, medicaments and biological substances; Z91.030 Bee allergy status; E66.01 Morbid (severe) obesity due to excess calories; Z68.42 Body mass index [BMI] 45.0-49.9, adult; Z79.01 Long term (current) use of anticoagulants; Z79.891 Long term (current) use of opiate analgesic; Z79.899 Other long term (current) drug therapy ==

== ENCOUNTER → 2022-02-02 | Outpatient (CLI) | payer MEDICARE, MEDICAID | LOC: M PLARAD 08:24 | PROVIDERS: ATTEND Orthopaedic Surgery | DX: M50.31 Other cervical disc degeneration, high cervical region (principal) ==

== ENCOUNTER → 2022-02-22 | Outpatient (REF) | payer MEDICARE, MEDICAID | LOC: M LAB REF 20:00 | PROVIDERS: ATTEND Physician Assistant | DX: R50.9 Fever, unspecified (principal); R05.9 Cough, unspecified; R09.81 Nasal congestion ==

== ENCOUNTER → 2022-04-02 | Outpatient (CLI) | payer MEDICARE, MEDICAID | LOC: M WHC 12:51 | PROVIDERS: ATTEND Nurse Practitioner Family | DX: I65.23 Occlusion and stenosis of bilateral carotid arteries (principal) ==

== ENCOUNTER → 2022-04-12 | Outpatient (CLI) | payer MEDICARE, MEDICAID | LOC: M PAIN 09:30 | PROVIDERS: ATTEND Anesthesiology | DX: M54.17 Radiculopathy, lumbosacral region (principal); M54.2 Cervicalgia; M79.18 Myalgia, other site; E66.01 Morbid (severe) obesity due to excess calories; Z68.42 Body mass index [BMI] 45.0-49.9, adult; Z79.01 Long term (current) use of anticoagulants; Z79.891 Long term (current) use of opiate analgesic; Z79.899 Other long term (current) drug therapy ==

== ENCOUNTER → 2022-05-07 | Outpatient (CLI) | payer MEDICARE, MEDICAID | LOC: M RAD 07:37 | PROVIDERS: ATTEND Anesthesiology | DX: M54.2 Cervicalgia (principal); M47.812 Spondylosis without myelopathy or radiculopathy, cervical region ==

== ENCOUNTER → 2022-05-07 | Outpatient (REF) | payer MEDICARE, MEDICAID | LOC: M SFHCPLAZ 16:09 | PROVIDERS: ATTEND Nurse Practitioner Adult Health | DX: I65.29 Occlusion and stenosis of unspecified carotid artery (principal); R73.09 Other abnormal glucose; E21.0 Primary hyperparathyroidism; Z53.9 Procedure and treatment not carried out, unspecified reason ==

== ENCOUNTER → 2022-05-15 | Outpatient (CLI) | payer MEDICARE, MEDICAID ==
[2022-05-15 15:37] LABS: HEMATOCRIT 44.1 % (36.0-47.0); MEAN CORPUSCULAR HEMOGLOBIN 28.3 pg (27.0-33.0); MEAN CORPUSCULAR HGB CONC 31.7 g/dl (32.0-36.5); MEAN CORPUSCULAR VOLUME 89.3 fl (80.0-96.0); PLATELET COUNT, AUTOMATED 175 10^3/uL (150-450); RED BLOOD COUNT 4.94 10^6/uL (4.00-5.40); WHITE BLOOD COUNT 4.5 10^3/uL (4.0-10.0)
[2022-05-15 15:47] LABS: ALBUMIN 3.9 GM/DL (3.2-5.2); ALT/SGPT 27 U/L (12-78); BILIRUBIN,TOTAL 0.6 MG/DL (0.2-1.0); BLOOD UREA NITROGEN 14 MG/DL (7-18); CALCIUM LEVEL 10.6 MG/DL (8.5-10.1); CARBON DIOXIDE LEVEL 28 MEQ/L (21-32); CHLORIDE LEVEL 111 MEQ/L (98-107); CHOLESTEROL LEVEL 153 MG/DL (<200); CHOLESTEROL RISK RATIO 2.684 (<5); CREATININE FOR GFR 0.87 MG/DL (0.55-1.30); FREE T4 0.84 NG/DL (0.76-1.46); GLOMERULAR FILTRATION RATE > 60.0 (>51); GLUCOSE, FASTING 98 MG/DL (70-100); HDL CHOLESTEROL 57 MG/DL (>40); LDL CHOLESTEROL 82 MG/DL (<100); NON-HDL-C 96 MG/DL; POTASSIUM SERUM 4.3 MEQ/L (3.5-5.1); SODIUM LEVEL 143 MEQ/L (136-145); TOTAL PROTEIN 7.2 GM/DL (6.4-8.2); TRIGLYCERIDES LEVEL 68 MG/DL (<150)
[2022-05-15 16:06] LABS: HEMOGLOBIN A1c 5.6 %
== END ==
LOC: M PLALAB 13:08
PROVIDERS: ATTEND Nurse Practitioner Adult Health
DX: R73.09 Other abnormal glucose (principal); E21.0 Primary hyperparathyroidism; I65.29 Occlusion and stenosis of unspecified carotid artery; Z79.899 Other long term (current) drug therapy

== ENCOUNTER → 2022-08-10 | Outpatient (CLI) | payer MEDICARE, MEDICAID | LOC: M PAIN 09:30 | PROVIDERS: ATTEND Anesthesiology | DX: M47.816 Spondylosis without myelopathy or radiculopathy, lumbar region (principal); G89.29 Other chronic pain; G43.909 Migraine, unspecified, not intractable, without status migrainosus; G47.33 Obstructive sleep apnea (adult) (pediatric); Z88.2 Allergy status to sulfonamides; Z88.5 Allergy status to narcotic agent; Z88.6 Allergy status to analgesic agent; Z91.030 Bee allergy status; E66.01 Morbid (severe) obesity due to excess calories; Z68.42 Body mass index [BMI] 45.0-49.9, adult; Z79.01 Long term (current) use of anticoagulants; Z79.891 Long term (current) use of opiate analgesic; Z79.899 Other long term (current) drug therapy | CPT/HCPCS: 76000; G0463 ==

== ENCOUNTER → 2022-08-29 | Outpatient (CLI) | payer MEDICARE, MEDICAID | LOC: M PAIN 11:30 | PROVIDERS: ATTEND Anesthesiology | DX: M47.816 Spondylosis without myelopathy or radiculopathy, lumbar region (principal); G89.29 Other chronic pain; G43.909 Migraine, unspecified, not intractable, without status migrainosus; G47.33 Obstructive sleep apnea (adult) (pediatric); Z88.2 Allergy status to sulfonamides; Z88.6 Allergy status to analgesic agent; Z88.8 Allergy status to other drugs, medicaments and biological substances; Z91.030 Bee allergy status; Z79.01 Long term (current) use of anticoagulants; Z79.891 Long term (current) use of opiate analgesic; Z79.899 Other long term (current) drug therapy ==

== ENCOUNTER → 2022-12-02 | Outpatient (CLI) | payer MEDICARE, MEDICAID ==
[~2022-12-02] MED LIST changes: +CLOP75TA99 PO; -PLAV1TAB2 PO
== END ==
LOC: M LABSMTC 09:51
PROVIDERS: ATTEND Anesthesiology
DX: Z01.812 Encounter for preprocedural laboratory examination (principal); Z11.52 Encounter for screening for COVID-19

== ENCOUNTER → 2022-12-03 | Outpatient (CLI) | payer MEDICARE, MEDICAID ==
[~2022-12-03] MED LIST changes: +BUPIVACAINE HCL 0.25% 30ML VIAL As Ordered ONE; +ISOVUE-M 300 61% 15ML VIAL As Ordered ONE; +LIDOCAINE 1% SDV 30ML VIAL As Ordered ONE
== END ==
LOC: M PAIN 10:00
PROVIDERS: ATTEND Anesthesiology
DX: M47.816 Spondylosis without myelopathy or radiculopathy, lumbar region (principal); G89.29 Other chronic pain; G47.33 Obstructive sleep apnea (adult) (pediatric); G43.909 Migraine, unspecified, not intractable, without status migrainosus; Z88.2 Allergy status to sulfonamides; Z88.5 Allergy status to narcotic agent; Z88.6 Allergy status to analgesic agent; Z88.8 Allergy status to other drugs, medicaments and biological substances; Z91.030 Bee allergy status; E66.01 Morbid (severe) obesity due to excess calories; Z68.42 Body mass index [BMI] 45.0-49.9, adult; Z79.01 Long term (current) use of anticoagulants; Z79.891 Long term (current) use of opiate analgesic; Z79.899 Other long term (current) drug therapy
CPT/HCPCS: 64493; 64494; Q9967

== ENCOUNTER → 2022-12-31 | Outpatient (CLI) | payer MEDICARE, MEDICAID ==
[~2022-12-31] MED LIST changes: -BUPIVACAINE HCL 0.25% 30ML VIAL As Ordered ONE; -ISOVUE-M 300 61% 15ML VIAL As Ordered ONE; -LIDOCAINE 1% SDV 30ML VIAL As Ordered ONE
== END ==
LOC: M PAIN 11:15
PROVIDERS: ATTEND Nurse Practitioner Family
DX: M47.816 Spondylosis without myelopathy or radiculopathy, lumbar region (principal); G47.33 Obstructive sleep apnea (adult) (pediatric); G43.909 Migraine, unspecified, not intractable, without status migrainosus; Z88.2 Allergy status to sulfonamides; Z88.5 Allergy status to narcotic agent; Z88.6 Allergy status to analgesic agent; Z88.8 Allergy status to other drugs, medicaments and biological substances; Z91.030 Bee allergy status; E66.01 Morbid (severe) obesity due to excess calories; Z68.42 Body mass index [BMI] 45.0-49.9, adult; Z79.01 Long term (current) use of anticoagulants; Z79.891 Long term (current) use of opiate analgesic; Z79.899 Other long term (current) drug therapy

== ENCOUNTER → 2023-02-11 | Outpatient (CLI) | payer MEDICARE, MEDICAID | LOC: M PAIN 10:15 | PROVIDERS: ATTEND Nurse Practitioner Family | DX: M47.816 Spondylosis without myelopathy or radiculopathy, lumbar region (principal); G89.29 Other chronic pain; G47.33 Obstructive sleep apnea (adult) (pediatric); G43.909 Migraine, unspecified, not intractable, without status migrainosus; Z88.2 Allergy status to sulfonamides; Z88.5 Allergy status to narcotic agent; Z88.8 Allergy status to other drugs, medicaments and biological substances; Z91.030 Bee allergy status; E66.01 Morbid (severe) obesity due to excess calories; Z68.42 Body mass index [BMI] 45.0-49.9, adult; Z79.01 Long term (current) use of anticoagulants; Z79.891 Long term (current) use of opiate analgesic; Z79.899 Other long term (current) drug therapy ==

== ENCOUNTER → 2023-04-08 | Outpatient (CLI) | payer MEDICARE, MEDICAID | LOC: M WHC 07:55 | PROVIDERS: ATTEND Nurse Practitioner Adult Health | DX: Z12.31 Encounter for screening mammogram for malignant neoplasm of breast (principal) ==

== ENCOUNTER → 2023-05-14 | Outpatient (CLI) | payer MEDICARE, MEDICAID | LOC: M PLAIMG 09:58 | PROVIDERS: ATTEND Nurse Practitioner Adult Health | DX: M79.89 Other specified soft tissue disorders (principal); R05.9 Cough, unspecified ==

== ENCOUNTER → 2023-05-24 | Outpatient (CLI) | payer MEDICARE, MEDICAID ==
[~2023-05-24] MED LIST changes: +ISOVUE-M 300 61% 15ML VIAL As Ordered ONE; +LIDOCAINE 1% SDV 30ML VIAL As Ordered ONE
== END ==
LOC: M PAIN 12:00
PROVIDERS: ATTEND Anesthesiology
DX: M47.816 Spondylosis without myelopathy or radiculopathy, lumbar region (principal); G89.29 Other chronic pain; G47.33 Obstructive sleep apnea (adult) (pediatric); G43.909 Migraine, unspecified, not intractable, without status migrainosus; Z88.2 Allergy status to sulfonamides; Z88.5 Allergy status to narcotic agent; Z88.6 Allergy status to analgesic agent; Z88.8 Allergy status to other drugs, medicaments and biological substances; Z91.030 Bee allergy status; E66.01 Morbid (severe) obesity due to excess calories; Z68.42 Body mass index [BMI] 45.0-49.9, adult; Z79.01 Long term (current) use of anticoagulants; Z79.891 Long term (current) use of opiate analgesic; Z79.899 Other long term (current) drug therapy
CPT/HCPCS: 64493; 64494; J0665; Q9967

== ENCOUNTER → 2023-05-31 | Outpatient (CLI) | payer MEDICARE, MEDICAID ==
[~2023-05-31] MED LIST changes: -ISOVUE-M 300 61% 15ML VIAL As Ordered ONE; -LIDOCAINE 1% SDV 30ML VIAL As Ordered ONE
== END ==
LOC: M PAIN 11:30
PROVIDERS: ATTEND Nurse Practitioner Family
DX: M47.816 Spondylosis without myelopathy or radiculopathy, lumbar region (principal); E78.5 Hyperlipidemia, unspecified; G43.909 Migraine, unspecified, not intractable, without status migrainosus; L93.0 Discoid lupus erythematosus; G47.33 Obstructive sleep apnea (adult) (pediatric); I65.29 Occlusion and stenosis of unspecified carotid artery; M17.0 Bilateral primary osteoarthritis of knee; G89.29 Other chronic pain; M26.603 Bilateral temporomandibular joint disorder, unspecified; Z79.02 Long term (current) use of antithrombotics/antiplatelets; Z79.899 Other long term (current) drug therapy; Z88.2 Allergy status to sulfonamides; Z88.6 Allergy status to analgesic agent; Z88.8 Allergy status to other drugs, medicaments and biological substances; Z91.030 Bee allergy status

== ENCOUNTER → 2023-07-02 | Outpatient (CLI) | payer MEDICARE, MEDICAID ==
[2023-07-02 13:52] LABS: BASO % 0.8 % (0.0-1.0); EOS # 0.2 10^3/uL (0.0-0.5); EOS % 5.8 % (0.0-3.0); HEMATOCRIT 43.4 % (36.0-47.0); HEMOGLOBIN 13.6 g/dl (12.0-15.5); LYMPH # 1.1 10^3/uL (1.5-5.0); LYMPH % 31.2 % (24.0-44.0); MEAN CORPUSCULAR HEMOGLOBIN 28.6 pg (27.0-33.0); MEAN CORPUSCULAR HGB CONC 31.3 g/dl (32.0-36.5); MEAN CORPUSCULAR VOLUME 91.2 fl (80.0-96.0); MONO # 0.2 10^3/uL (0.0-0.8); NEUTROPHILS % 55.7 % (36.0-66.0); PLATELET COUNT, AUTOMATED 161 10^3/uL (150-450); RED BLOOD COUNT 4.76 10^6/uL (4.00-5.40); WHITE BLOOD COUNT 3.7 10^3/uL (4.0-10.0)
[2023-07-02 13:59] LABS: ERYTHROCYTE SEDIMENTATION RATE 8 mm/hr (0-30)
[2023-07-02 14:23] LABS: URIC ACID 4.1 MG/DL (3.1-7.8)
[2023-07-02 14:26] LABS: ALBUMIN 3.9 G/DL (3.2-5.2); ALKALINE PHOSPHATASE 100 U/L (46-116); ALT/SGPT 19 U/L (7.0-40); AST/SGOT 12 U/L (<34); BILIRUBIN,TOTAL 0.5 MG/DL (0.3-1.2); BLOOD UREA NITROGEN 14 MG/DL (9-23); CALCIUM LEVEL 9.9 MG/DL (8.5-10.1); CARBON DIOXIDE LEVEL 28 MMOL/L (20-31); CHLORIDE LEVEL 108 MMOL/L (98-107); CREATININE FOR GFR 0.74 MG/DL (0.55-1.30); GLOMERULAR FILTRATION RATE > 60.0 (>51); GLUCOSE, FASTING 111 MG/DL (60-100); RHEUMATOID FACTOR QUANT < 3.5 IU/ML (<14); SODIUM LEVEL 145 MMOL/L (136-145); TOTAL PROTEIN 6.4 G/DL (5.7-8.2)
[2023-07-03 23:08] LABS: ANA (HEP2) Negative (.); CYCLIC CITRULLINATED PEPTIDE < 1 units (0-19)
== END ==
LOC: M PLALAB 10:36
PROVIDERS: ATTEND Nurse Practitioner Adult Health
DX: M32.9 Systemic lupus erythematosus, unspecified (principal)

== ENCOUNTER → 2023-07-05 | Outpatient (CLI) | payer MEDICARE, MEDICAID | LOC: M PAIN 11:45 | PROVIDERS: ATTEND Nurse Practitioner Family | DX: M47.816 Spondylosis without myelopathy or radiculopathy, lumbar region (principal); G89.29 Other chronic pain; G47.33 Obstructive sleep apnea (adult) (pediatric); G43.909 Migraine, unspecified, not intractable, without status migrainosus; Z88.2 Allergy status to sulfonamides; Z88.5 Allergy status to narcotic agent; Z88.6 Allergy status to analgesic agent; Z88.8 Allergy status to other drugs, medicaments and biological substances; Z91.030 Bee allergy status; E66.01 Morbid (severe) obesity due to excess calories; Z68.42 Body mass index [BMI] 45.0-49.9, adult; Z79.02 Long term (current) use of antithrombotics/antiplatelets; Z79.891 Long term (current) use of opiate analgesic; Z79.899 Other long term (current) drug therapy ==

== ENCOUNTER → 2023-10-29 | Outpatient (CLI) | payer MEDICARE, MEDICAID | LOC: M PAIN 09:45 | PROVIDERS: ATTEND Nurse Practitioner Family | DX: M47.816 Spondylosis without myelopathy or radiculopathy, lumbar region (principal); Z79.891 Long term (current) use of opiate analgesic; E78.5 Hyperlipidemia, unspecified; G43.909 Migraine, unspecified, not intractable, without status migrainosus; L93.0 Discoid lupus erythematosus; G47.33 Obstructive sleep apnea (adult) (pediatric); M17.0 Bilateral primary osteoarthritis of knee; Z79.899 Other long term (current) drug therapy; Z88.2 Allergy status to sulfonamides; Z88.6 Allergy status to analgesic agent; Z88.8 Allergy status to other drugs, medicaments and biological substances; Z91.030 Bee allergy status ==

== ENCOUNTER → 2023-11-25 | Outpatient (CLI) | payer MEDICARE, MEDICAID | LOC: M WUC 10:37 | PROVIDERS: ATTEND Student in an Organized Health Care Education/Training Program | DX: M79.672 Pain in left foot (principal); M79.89 Other specified soft tissue disorders; M19.072 Primary osteoarthritis, left ankle and foot; S92.41 Fracture of proximal phalanx of great toe ==

== ENCOUNTER → 2024-01-17 | Outpatient (CLI) | payer MEDICARE, MEDICAID ==
[2024-01-17 15:20] LABS: FREE T4 0.72 NG/DL (0.89-1.76)
[2024-01-17 15:21] LABS: TOTAL 25(OH) VITAMIN D 77.2 NG/ML (20.0-100.0)
[2024-01-17 15:23] LABS: THYROID STIMULATING HORMONE 2.386 uIU/ML (0.55-4.78)
[2024-01-17 15:24] LABS: ALBUMIN 3.7 G/DL (3.2-5.2); ALKALINE PHOSPHATASE 116 U/L (46-116); ALT/SGPT 18 U/L (7.0-40); AST/SGOT 13 U/L (<34); BILIRUBIN,TOTAL 0.6 MG/DL (0.3-1.2); BLOOD UREA NITROGEN 10 MG/DL (9-23); CALCIUM LEVEL 9.9 MG/DL (8.5-10.1); CARBON DIOXIDE LEVEL 33 MMOL/L (20-31); CHLORIDE LEVEL 109 MMOL/L (98-107); CHOLESTEROL LEVEL 159 MG/DL (<200); CHOLESTEROL RISK RATIO 3.46 (<5); GLOMERULAR FILTRATION RATE > 60.0 (>51); GLUCOSE, FASTING 98 MG/DL (60-100); HDL CHOLESTEROL 45.9 MG/DL (>40); LDL CHOLESTEROL 97.9 MG/DL (<100); NON-HDL-C 113.1 MG/DL; POTASSIUM SERUM 4.1 MMOL/L (3.5-5.1); SODIUM LEVEL 144 MMOL/L (136-145); TOTAL PROTEIN 6.6 G/DL (5.7-8.2); TRIGLYCERIDES LEVEL 76 MG/DL (<150)
[2024-01-17 15:32] LABS: HEMOGLOBIN A1c 5.8 % (4.0-6.0)
== END ==
LOC: M PLALAB 11:46
PROVIDERS: ATTEND Nurse Practitioner Adult Health
DX: M32.9 Systemic lupus erythematosus, unspecified (principal); R73.09 Other abnormal glucose; I65.29 Occlusion and stenosis of unspecified carotid artery; E21.0 Primary hyperparathyroidism; R07.9 Chest pain, unspecified

== ENCOUNTER → 2024-02-11 | Outpatient (CLI) | payer MEDICARE, MEDICAID | LOC: M PAIN 17:00 | PROVIDERS: ATTEND Nurse Practitioner Family | DX: M47.816 Spondylosis without myelopathy or radiculopathy, lumbar region (principal); Z79.891 Long term (current) use of opiate analgesic; Z88.2 Allergy status to sulfonamides; Z88.5 Allergy status to narcotic agent; Z88.6 Allergy status to analgesic agent; Z88.8 Allergy status to other drugs, medicaments and biological substances ==

== ENCOUNTER 2024-04-26 12:32 | Emergency (ER) | payer MEDICARE, MEDICAID ==
[~2024-04-26] VITALS: Ht 167.6 cm; Wt 136.1 kg
[2024-04-26] MEDS: BENZONATATE 100MG CAPSULE PO ONE (13:55)
[2024-04-26] MEDS: guaiFENesin ER TABLET 600 MG TAB PO STA (13:55)
[2024-04-26 14:15] LABS: RSV AMPLIFICATION NEGATIVE (NEGATIVE)
[2024-04-26] MEDS ORDERED: MUCI1TAB16 PO (15:21)
[2024-04-26] MEDS ORDERED: BENZ200C70 PO (15:21)
[2024-04-26 15:39] VITALS: BP 146/71; TEMP 97.3; O2SAT 97
[2024-04-26] MEDS ORDERED: guaiFENesin ER TABLET 600 MG TAB PO SCH (21:00)
== END 2024-04-26 15:40 | disposition home or self-care (01) ==
LOC: M ED 12:32
DX: R05.9 Cough, unspecified (principal); R07.0 Pain in throat; M32.9 Systemic lupus erythematosus, unspecified; K21.9 Gastro-esophageal reflux disease without esophagitis; R56.9 Unspecified convulsions; D86.9 Sarcoidosis, unspecified; Z79.02 Long term (current) use of antithrombotics/antiplatelets; Z79.899 Other long term (current) drug therapy; Z88.2 Allergy status to sulfonamides; Z88.8 Allergy status to other drugs, medicaments and biological substances

== ENCOUNTER → 2024-05-13 | Outpatient (REF) | payer MEDICARE, MEDICAID ==
[~2024-05-13] MED LIST changes: +BENZ200C70 PO; +MUCI1TAB16 PO
== END ==
LOC: M SFHCPLAZ 10:40
PROVIDERS: ATTEND Nurse Practitioner Adult Health
DX: R09.81 Nasal congestion (principal)

== ENCOUNTER → 2024-05-14 | Outpatient (CLI) | payer MEDICARE, MEDICAID | LOC: M PAIN 09:00 | PROVIDERS: ATTEND Nurse Practitioner Family | DX: M47.816 Spondylosis without myelopathy or radiculopathy, lumbar region (principal); Z79.891 Long term (current) use of opiate analgesic; G89.29 Other chronic pain; E78.5 Hyperlipidemia, unspecified; G43.909 Migraine, unspecified, not intractable, without status migrainosus; L93.0 Discoid lupus erythematosus; G47.33 Obstructive sleep apnea (adult) (pediatric); M17.0 Bilateral primary osteoarthritis of knee; Z79.899 Other long term (current) drug therapy; Z88.2 Allergy status to sulfonamides; Z88.6 Allergy status to analgesic agent; Z88.8 Allergy status to other drugs, medicaments and biological substances; Z91.030 Bee allergy status ==

== ENCOUNTER → 2024-07-07 | Outpatient (CLI) | payer MEDICARE, MEDICAID | LOC: M RAD 14:01 | PROVIDERS: ATTEND Physician Assistant | DX: I65.23 Occlusion and stenosis of bilateral carotid arteries (principal) ==

== ENCOUNTER → 2024-08-14 | Outpatient (CLI) | payer MEDICARE, MEDICAID ==
[~2024-08-14] MED LIST changes: +GABA-1172 PO; -GABA-282 PO
== END ==
LOC: M PAIN 09:00
PROVIDERS: ATTEND Nurse Practitioner Family
DX: M47.816 Spondylosis without myelopathy or radiculopathy, lumbar region (principal); Z79.891 Long term (current) use of opiate analgesic; G89.29 Other chronic pain; E78.5 Hyperlipidemia, unspecified; G43.909 Migraine, unspecified, not intractable, without status migrainosus; G47.33 Obstructive sleep apnea (adult) (pediatric); M17.0 Bilateral primary osteoarthritis of knee; Z79.899 Other long term (current) drug therapy; Z88.2 Allergy status to sulfonamides; Z88.8 Allergy status to other drugs, medicaments and biological substances; Z91.030 Bee allergy status; Z88.6 Allergy status to analgesic agent

== ENCOUNTER → 2024-09-14 | Outpatient (CLI) | payer MEDICARE, MEDICAID | LOC: M RAD 11:30 | PROVIDERS: ATTEND Physician Assistant | DX: E04.2 Nontoxic multinodular goiter (principal) ==

== ENCOUNTER → 2024-10-01 | Outpatient (CLI) | payer MEDICARE, MEDICAID ==
[2024-10-01 10:35] LABS: HEMATOCRIT 42.9 % (36.0-47.0); HEMOGLOBIN 14.1 g/dl (12.0-15.5); MEAN CORPUSCULAR HEMOGLOBIN 29.1 pg (27.0-33.0); MEAN CORPUSCULAR HGB CONC 32.9 g/dl (32.0-36.5); MEAN CORPUSCULAR VOLUME 88.5 fl (80.0-96.0); PLATELET COUNT, AUTOMATED 162 10^3/uL (150-450); RED BLOOD COUNT 4.85 10^6/uL (4.00-5.40); WHITE BLOOD COUNT 4.3 10^3/uL (4.0-10.0)
[2024-10-01 10:47] LABS: HEMOGLOBIN A1c 5.9 % (4.0-6.0)
[2024-10-01 10:57] LABS: ERYTHROCYTE SEDIMENTATION RATE 16 mm/hr (0-30); URIC ACID 5.2 MG/DL (3.1-7.8)
[2024-10-01 10:58] LABS: C REACTIVE PROTEIN QUANTITATIV < 0.40 MG/DL (<1.0)
[2024-10-01 11:00] LABS: ALBUMIN 3.9 G/DL (3.2-5.2); ALKALINE PHOSPHATASE 109 U/L (35-104); ALT/SGPT 17 U/L (7.0-40); AST/SGOT 9 U/L (<34); BILIRUBIN,TOTAL 0.6 MG/DL (0.3-1.2); BLOOD UREA NITROGEN 13 MG/DL (9-23); CALCIUM LEVEL 10.6 MG/DL (8.5-10.1); CARBON DIOXIDE LEVEL 31 MMOL/L (20-31); CHLORIDE LEVEL 108 MMOL/L (98-107); CHOLESTEROL LEVEL 179 MG/DL (<200); CHOLESTEROL RISK RATIO 3.65 (<5); CREATININE FOR GFR 0.79 MG/DL (0.55-1.30); FREE T4 0.89 NG/DL (0.89-1.76); GLOMERULAR FILTRATION RATE > 60.0 (>51); GLUCOSE, FASTING 122 MG/DL (60-100); LDL CHOLESTEROL 113.6 MG/DL (<100); POTASSIUM SERUM 4.3 MMOL/L (3.5-5.1); PTH INTACT 126.3 PG/ML (18.5-88.0); RHEUMATOID FACTOR QUANT 6.8 IU/ML (<14); SODIUM LEVEL 144 MMOL/L (136-145); THYROID STIMULATING HORMONE 1.733 uIU/ML (0.55-4.78); TRIGLYCERIDES LEVEL 82 MG/DL (<150)
[2024-10-01 11:01] LABS: TOTAL 25(OH) VITAMIN D 95.5 NG/ML (20.0-100.0)
[2024-10-02 13:32] LABS: ANA SCREEN, IFA NEGATIVE (NEGATIVE)
[2024-10-02 23:42] LABS: CYCLIC CITRULLINATED PEPTIDE < 16 UNITS (<20)
== END ==
LOC: M LAB 09:48
PROVIDERS: ATTEND Nurse Practitioner Adult Health
DX: R73.09 Other abnormal glucose (principal); I65.29 Occlusion and stenosis of unspecified carotid artery; E21.0 Primary hyperparathyroidism; M32.9 Systemic lupus erythematosus, unspecified

== ENCOUNTER → 2024-10-12 | Outpatient (CLI) | payer MEDICARE, MEDICAID ==
[2024-10-12 13:02] LABS: ALBUMIN 3.8 G/DL (3.2-5.2); ALKALINE PHOSPHATASE 111 U/L (35-104); ALT/SGPT 16 U/L (7.0-40); AST/SGOT < 8 U/L (<34); BILIRUBIN,TOTAL 0.5 MG/DL (0.3-1.2); BLOOD UREA NITROGEN 14 MG/DL (9-23); CALCIUM LEVEL 10.4 MG/DL (8.5-10.1); CARBON DIOXIDE LEVEL 31 MMOL/L (20-31); CHLORIDE LEVEL 108 MMOL/L (98-107); CREATININE FOR GFR 0.72 MG/DL (0.55-1.30); GLOMERULAR FILTRATION RATE > 60.0 (>51); GLUCOSE, FASTING 117 MG/DL (60-100); PHOSPHORUS LEVEL 2.6 MG/DL (2.5-4.9); POTASSIUM SERUM 4.3 MMOL/L (3.5-5.1); PTH INTACT 167.4 PG/ML (18.5-88.0); SODIUM LEVEL 143 MMOL/L (136-145); TOTAL PROTEIN 7.3 G/DL (5.7-8.2)
== END ==
LOC: M PLALAB 11:12
PROVIDERS: ATTEND Nurse Practitioner Family
DX: E21.0 Primary hyperparathyroidism (principal)

== ENCOUNTER → 2024-10-13 | Outpatient (CLI) | payer MEDICARE, MEDICAID | LOC: M WHC 10:18 | PROVIDERS: ATTEND Nurse Practitioner Adult Health | DX: Z12.31 Encounter for screening mammogram for malignant neoplasm of breast (principal); R10.32 Left lower quadrant pain; R92.313 Mammographic fatty tissue density, bilateral breasts ==

== ENCOUNTER → 2024-10-13 | Outpatient (CLI) | payer MEDICARE, MEDICAID | LOC: M PLAIMG 11:28 | PROVIDERS: ATTEND Nurse Practitioner Adult Health | DX: R10.32 Left lower quadrant pain (principal) ==

== ENCOUNTER → 2024-10-28 | Outpatient (REF) | payer MEDICARE, MEDICAID ==
[~2024-10-28] MED LIST changes: +OMEP-611 PO; -OMEP20TA2 PO
== END ==
LOC: M LAB REF 15:02
PROVIDERS: ATTEND Internal Medicine Endocrinology, Diabetes & Metabolism
DX: E04.2 Nontoxic multinodular goiter (principal)

== ENCOUNTER → 2024-11-10 | Outpatient (CLI) | payer MEDICARE, MEDICAID | LOC: M PAIN 09:30 | PROVIDERS: ATTEND Anesthesiology | DX: M47.816 Spondylosis without myelopathy or radiculopathy, lumbar region (principal); G89.29 Other chronic pain; M54.50 Low back pain, unspecified; E78.5 Hyperlipidemia, unspecified; G43.909 Migraine, unspecified, not intractable, without status migrainosus; L93.0 Discoid lupus erythematosus; G47.33 Obstructive sleep apnea (adult) (pediatric); M17.0 Bilateral primary osteoarthritis of knee; Z79.02 Long term (current) use of antithrombotics/antiplatelets; Z79.899 Other long term (current) drug therapy; Z88.2 Allergy status to sulfonamides; Z88.8 Allergy status to other drugs, medicaments and biological substances; Z88.6 Allergy status to analgesic agent; E21.0 Primary hyperparathyroidism | CPT/HCPCS: 81050; 82340; G0463 ==

== ENCOUNTER → 2024-11-10 | Outpatient (REF) | payer MEDICARE, MEDICAID ==
[2024-11-10 11:16] LABS: CALCIUM, 24 HOUR URINE 248.2 MG/24HR (42-353); CALCIUM, URINE 29.2 MG/DL
== END ==
LOC: M LAB REF 09:41
PROVIDERS: ATTEND Nurse Practitioner Family
DX: E21.0 Primary hyperparathyroidism (principal)

== ENCOUNTER → 2024-12-14 | Outpatient (CLI) | payer MEDICARE, MEDICAID | LOC: M PLAIMG 12:43 | PROVIDERS: ATTEND Anesthesiology | DX: M47.816 Spondylosis without myelopathy or radiculopathy, lumbar region (principal) ==

== ENCOUNTER 2024-12-20 17:42 | Emergency (ER) | payer MEDICARE, MEDICAID ==
[~2024-12-20] VITALS: Ht 170.2 cm; Wt 140.9 kg
[2024-12-20] MEDS ORDERED: ATOR1TAB21 (17:56)
[2024-12-20] MEDS ORDERED: TRAZ-257 (17:56)
[2024-12-20] MEDS ORDERED: DULO1CAP5 (17:56)
[2024-12-20 18:36] LABS: BASO % 0.6 % (0.0-1.0); EOS # 0.2 10^3/uL (0.0-0.5); EOS % 4.8 % (0.0-3.0); HEMATOCRIT 40.6 % (36.0-47.0); HEMOGLOBIN 13.5 g/dl (12.0-15.5); LYMPH # 1.3 10^3/uL (1.5-5.0); LYMPH % 26.2 % (24.0-44.0); MEAN CORPUSCULAR HEMOGLOBIN 29.7 pg (27.0-33.0); MEAN CORPUSCULAR HGB CONC 33.3 g/dl (32.0-36.5); MEAN CORPUSCULAR VOLUME 89.4 fl (80.0-96.0); MONO # 0.3 10^3/uL (0.0-0.8); MONO % 6.8 % (2.0-8.0); NEUTROPHILS # 3.1 10^3/uL (1.5-8.5); NEUTROPHILS % 61.4 % (36.0-66.0); PLATELET COUNT, AUTOMATED 174 10^3/uL (150-450); RED BLOOD COUNT 4.54 10^6/uL (4.00-5.40)
[2024-12-20 19:01] LABS: LIPASE 24 U/L (12-53)
[2024-12-20 19:03] LABS: ALBUMIN 3.7 G/DL (3.2-5.2); ALKALINE PHOSPHATASE 111 U/L (35-104); ALT/SGPT 15 U/L (7.0-40); AST/SGOT 13 U/L (<34); BILIRUBIN,DIRECT 0.2 MG/DL (<0.4); BILIRUBIN,TOTAL 0.5 MG/DL (0.3-1.2); BLOOD UREA NITROGEN 13 MG/DL (9-23); CALCIUM LEVEL 9.5 MG/DL (8.5-10.1); CARBON DIOXIDE LEVEL 28 MMOL/L (20-31); CHLORIDE LEVEL 108 MMOL/L (98-107); CK-MB VALUE MASS < 1.0 NG/ML (<3.6); CREATININE FOR GFR 0.73 MG/DL (0.55-1.30); GLOMERULAR FILTRATION RATE > 60.0 (>51); GLUCOSE, FASTING 111 MG/DL (60-100); POTASSIUM SERUM 3.8 MMOL/L (3.5-5.1); SODIUM LEVEL 145 MMOL/L (136-145); TOTAL PROTEIN 6.7 G/DL (5.7-8.2)
[2024-12-20 19:05] LABS: FREE T4 0.93 NG/DL (0.89-1.76); THYROID STIMULATING HORMONE 2.126 uIU/ML (0.55-4.78)
[2024-12-20] MEDS: MAALOX 30 ML SUSP *UDC PO ONE (19:09)
[2024-12-20] MEDS: LIDOCAINE VISCOUS 2% SOLN 15ML UDC PO ONE (19:09)
[2024-12-20 19:22] LABS: CPK CREATINE PHOSPHOKINASE 65 U/L (34-145); MB/CK RELATIVE INDEX 1.53 (< OR =4)
[2024-12-20 20:37] LABS: CK-MB VALUE MASS < 1.0 NG/ML (<3.6)
[2024-12-20 20:38] LABS: CPK CREATINE PHOSPHOKINASE 57 U/L (34-145); MB/CK RELATIVE INDEX 1.75 (< OR =4)
[2024-12-20 21:00] VITALS: TEMP 97.4; O2SAT 94
[2024-12-20] MEDS ORDERED: KETOROLAC 30 MG/ML 1ML VIAL IV ONE (21:05)
[2024-12-20 21:15] VITALS: BP 136/61
[2024-12-20] MEDS: predniSONE 20 MG TAB PO ONE (21:28)
[2024-12-20] MEDS: oxyCODONE 5MG TAB PO ONE (21:29)
== END 2024-12-20 21:39 | disposition home or self-care (01) ==
LOC: M ED 17:42
DX: U07.1 COVID-19 (principal); E21.3 Hyperparathyroidism, unspecified; E78.5 Hyperlipidemia, unspecified; M32.9 Systemic lupus erythematosus, unspecified; G43.909 Migraine, unspecified, not intractable, without status migrainosus; Z98.61 Coronary angioplasty status; Z79.899 Other long term (current) drug therapy; Z88.2 Allergy status to sulfonamides; Z88.8 Allergy status to other drugs, medicaments and biological substances
CPT/HCPCS: 71045; 80048; 80076; 82550; 82553; 83690; 83880; 84439; 84443; 84484; 85025; 87486; 87581; 87633; 87798; 93005; 93041; 94760; 99285; J7512

== ENCOUNTER → 2024-12-29 | Outpatient (CLI) | payer MEDICARE ==
[~2024-12-29] MED LIST changes: +ATOR1TAB21; +DULO1CAP5; +TRAZ-257
== END ==
LOC: M TMPAIN 13:30 → M PAIN 13:30
PROVIDERS: ATTEND Nurse Practitioner Family
DX: M47.816 Spondylosis without myelopathy or radiculopathy, lumbar region (principal); M79.10 Myalgia, unspecified site; G89.29 Other chronic pain; Z79.02 Long term (current) use of antithrombotics/antiplatelets; Z79.891 Long term (current) use of opiate analgesic; Z79.899 Other long term (current) drug therapy; Z88.2 Allergy status to sulfonamides; Z88.5 Allergy status to narcotic agent; Z88.6 Allergy status to analgesic agent; Z88.8 Allergy status to other drugs, medicaments and biological substances; Z91.030 Bee allergy status

== ENCOUNTER → 2025-01-11 | Outpatient (CLI) | payer MEDICARE ==
[~2025-01-11] MED LIST changes: +ISOVUE-370 76% 100ML VIAL ONE
== END ==
LOC: M PLAIMG 10:43
PROVIDERS: ATTEND Nurse Practitioner Adult Health
DX: E04.2 Nontoxic multinodular goiter (principal); I65.23 Occlusion and stenosis of bilateral carotid arteries
CPT/HCPCS: 70491; Q9967

== ENCOUNTER → 2025-02-17 | Outpatient (REF) | payer MEDICARE, MEDICAID ==
[~2025-02-17] MED LIST changes: -ISOVUE-370 76% 100ML VIAL ONE
== END ==
LOC: M LAB REF 13:57
PROVIDERS: ATTEND Physician Assistant
DX: B34.9 Viral infection, unspecified (principal)

== ENCOUNTER → 2025-06-23 | Outpatient (CLI) | payer MEDICARE, MEDICAID ==
[~2025-06-23] MED LIST changes: -AMBI10TA PO; -ATOR1TAB21; +ATOR1TAB21 PO; +AZEL1SPR3; +CEFD1CAP9 PO; +DEXT1TAB19 PO; -DULO1CAP5; +DULO1CAP5 PO; +DULO60CA35 PO; +FURO20TA2 PO; +MAGN400T33 PO; +MED REC COMMENT; +METO100T5 PO; +NYST-38 SSP; +PROB250C PO; -TRAZ-257; +TRAZ-257 PO; -XTAM27CA; +XTAM27CA PO; +ZOLP-533 PO
[2025-06-23 14:19] LABS: ESTIMATED AVERAGE GLUCOSE 126.0 MG/DL (60-110)
[2025-06-23 14:32] LABS: ALT/SGPT 16.0 U/L (7.0-40); AST/SGOT 14.0 U/L (<34); CALCIUM LEVEL 10.3 MG/DL (8.5-10.1); CARBON DIOXIDE LEVEL 31.0 MMOL/L (20-31); CHLORIDE LEVEL 107.0 MMOL/L (98-107); CHOLESTEROL LEVEL 152.0 MG/DL (<200); CHOLESTEROL RISK RATIO 3.55 (<5); CREATININE FOR GFR 0.88 MG/DL (0.55-1.30); GLOMERULAR FILTRATION RATE 77.1 (>51); LDL CHOLESTEROL 96.2 MG/DL (<100); NON-HDL-C 109.2 MG/DL; POTASSIUM SERUM 4.1 MMOL/L (3.5-5.1); SODIUM LEVEL 145.0 MMOL/L (136-145); TRIGLYCERIDES LEVEL 65.0 MG/DL (<150)
== END ==
LOC: M PLALAB 10:19
PROVIDERS: ATTEND Nurse Practitioner Adult Health
DX: M32.9 Systemic lupus erythematosus, unspecified (principal); I65.29 Occlusion and stenosis of unspecified carotid artery; R73.09 Other abnormal glucose

== ENCOUNTER → 2025-06-23 | Outpatient (CLI) | payer MEDICARE, MEDICAID ==
[~2025-06-23] MED LIST changes: +ATOR1TAB21; -ATOR1TAB21 PO; -AZEL1SPR3; -CEFD1CAP9 PO; -DEXT1TAB19 PO; +DULO1CAP5; -DULO1CAP5 PO; -DULO60CA35 PO; -FURO20TA2 PO; -MAGN400T33 PO; -MED REC COMMENT; -METO100T5 PO; -NYST-38 SSP; -PROB250C PO; +TRAZ-257; -TRAZ-257 PO; +XTAM27CA; -XTAM27CA PO
[2025-06-23 14:02] LABS: PLATELET COUNT, AUTOMATED 197 10^3/uL (150-450)
[2025-06-23 14:20] LABS: ESTIMATED AVERAGE GLUCOSE 128.0 MG/DL (60-110)
== END ==
LOC: M PLALAB 10:18
DX: B37.0 Candidal stomatitis (principal); Z79.899 Other long term (current) drug therapy

== ENCOUNTER 2025-07-06 12:05 | Inpatient (IN) | payer MEDICARE, MEDICAID ==
[~2025-07-06] VITALS: Ht 165.1 cm; Wt 130.9 kg
[~2025-07-06 12:05] MED LIST changes: -ATOR1TAB21; +ATOR1TAB21 PO; -DULO1CAP5; +DULO1CAP5 PO; -TRAZ-257; +TRAZ-257 PO; -XTAM27CA; +XTAM27CA PO
[2025-07-06 12:51] LABS: BASO # 0.0 10^3/uL (0.0-0.2); BASO % 0.2 % (0.0-1.0); EOS # 0.0 10^3/uL (0.0-0.5); EOS % 0.0 % (0.0-3.0); LYMPH # 0.6 10^3/uL (1.5-5.0); LYMPH % 4.6 % (24.0-44.0); MONO # 1.0 10^3/uL (0.0-0.8); MONO % 8.1 % (2.0-8.0); NEUTROPHILS # 10.4 10^3/uL (1.5-8.5); NEUTROPHILS % 86.5 % (36.0-66.0); PLATELET COUNT, AUTOMATED 151 10^3/uL (150-450)
[2025-07-06 13:19] LABS: ALT/SGPT 18.0 U/L (7.0-40); AST/SGOT 19.0 U/L (<34)
[2025-07-06] MEDS: ONDANSETRON 4MG 2ML VIAL IV ONE (14:20)
[2025-07-06] MEDS: PANTOPRAZOLE 40MG VIAL IV ONE (14:20)
[2025-07-06] MEDS: NS (Normal Saline) 0.9% 1,000 ML IV ONE ×2 (14:20→22:40)
[2025-07-06] MEDS ORDERED: ISOVUE-370 76% 100 ML VIAL As Ordered ONE (14:24)
[2025-07-06] MEDS ORDERED: NYST-38 SSP (16:09)
[2025-07-06] MEDS ORDERED: AZEL1SPR3 (16:09)
[2025-07-06] MEDS ORDERED: DEXT1TAB19 PO (16:09)
[2025-07-06] MEDS ORDERED: MED REC COMMENT (16:09)
[2025-07-06] MEDS ORDERED: FURO20TA2 PO (16:09)
[2025-07-06] MEDS ORDERED: METO100T5 PO (16:09)
[2025-07-06] MEDS ORDERED: DULO60CA35 PO (16:09)
[2025-07-06] MEDS ORDERED: HOME MED LIST COMPLETE! XX SCH (16:10)
[2025-07-06 16:22] LABS: KETONE, URINE AUTO RFX NEGATIVE (NEGATIVE); NITRITE, URINE AUTO RFX NEGATIVE (NEGATIVE); RBC, URINE AUTO RFX 41 /HPF (0-3); SQUAM EPITHELIAL CELL UR AURFX 0 /HPF (0-6)
[2025-07-06 16:26] LABS: LEUKOCYTE ESTERASE UR AUTO RFX 3+ (NEGATIVE); WBC, URINE AUTO RFX TNTC /HPF (0-3)
[2025-07-06] MEDS: cefTRIAXone SOD 2 GM in DEXTROSE 5% (D5W) ADV/MINI-BAG 50 ML IV ONE (16:47)
[2025-07-06] MEDS ORDERED: ONDANSETRON 4MG ORAL DISINTEGRATING TAB SL PRN (17:15)
[2025-07-06] MEDS ORDERED: GLUCAGON INJ 1 MG VIAL SC PRN (17:45)
[2025-07-06] MEDS ORDERED: GLUCOSE 4 GM CHEW PO PRN (17:45)
[2025-07-06] MEDS ORDERED: DEXTROSE 50% 50 ML SYRINGE IV PRN (17:45)
[2025-07-06] MEDS: ACETAMINOPHEN 325 MG TAB PO PRN (18:04)
[2025-07-06] MEDS: NS (Normal Saline) 0.9% 1,000 ML IV SCH (18:05)
[2025-07-06 18:09] LABS: ALT/SGPT 20.0 U/L (7.0-40); AST/SGOT 25.0 U/L (<34); CALCIUM LEVEL 10.0 MG/DL (8.5-10.1); CARBON DIOXIDE LEVEL 27.0 MMOL/L (20-31); CHLORIDE LEVEL 104.0 MMOL/L (98-107); CREATININE FOR GFR 1.04 MG/DL (0.55-1.30); GLOMERULAR FILTRATION RATE 63.1 (>51); POTASSIUM SERUM 3.9 MMOL/L (3.5-5.1); SODIUM LEVEL 142.0 MMOL/L (136-145)
[2025-07-06 19:05] LABS: INR 1.21
[2025-07-06 19:12] LABS: CHOLESTEROL LEVEL 126.0 MG/DL (<200); CHOLESTEROL RISK RATIO 4.42 (<5); LDL CHOLESTEROL 75.5 MG/DL (<100); NON-HDL-C 97.5 MG/DL; TRIGLYCERIDES LEVEL 110.0 MG/DL (<150)
[2025-07-06] MEDS: ATORVASTATIN 20 MG TAB PO SCH (20:33)
[2025-07-06] MEDS: NYSTATIN 500,000 UNITS/5 ML SUSP UDC SSP SCH (20:33)
[2025-07-06] MEDS: INSULIN LISPRO (NovoLOG) PER UNIT SC SCH (20:33)
[2025-07-06] MEDS: traZODone 100 MG TAB PO SCH (20:34)
[2025-07-06] MEDS: METOPROLOL TARTRATE 100 MG TAB PO SCH (20:36)
[2025-07-06] MEDS: AZELASTINE 137 MCG NASAL SPY 30 ML SCH (20:37)
[2025-07-06] MEDS ORDERED: DEXTROMETHORPHAN PO SCH (21:00)
[2025-07-06] MEDS ORDERED: BUPROPION PO SCH (21:00)
[2025-07-07] VITALS (9 sets, daily range): BP systolic 98–152; BP diastolic 64–81; TEMP 97.2–98.6; O2SAT 84–95
[2025-07-07 07:09] LABS: PLATELET COUNT, AUTOMATED 115 10^3/uL (150-450)
[2025-07-07 07:31] LABS: ALT/SGPT 18.0 U/L (7.0-40); AST/SGOT 21.0 U/L (<34); CALCIUM LEVEL 10.2 MG/DL (8.5-10.1); CARBON DIOXIDE LEVEL 24.0 MMOL/L (20-31); CHLORIDE LEVEL 108.0 MMOL/L (98-107); CREATININE FOR GFR 0.98 MG/DL (0.55-1.30); GLOMERULAR FILTRATION RATE 67.7 (>51); POTASSIUM SERUM 4.0 MMOL/L (3.5-5.1); SODIUM LEVEL 142.0 MMOL/L (136-145)
[2025-07-07 08:23] LABS: MAGNESIUM LEVEL 1.5 MG/DL (1.8-2.4)
[2025-07-07 08:28] LABS: TOTAL 25(OH) VITAMIN D 65.0 NG/ML (20.0-100.0)
[2025-07-07] MEDS: INSULIN LISPRO (NovoLOG) PER UNIT SC SCH ×2 (08:37→20:25)
[2025-07-07] MEDS: CLOPIDOGREL 75 MG TAB PO SCH (08:38)
[2025-07-07] MEDS: ENOXAPARIN 40 MG/0.4 ML SYRINGE (J1650 PER 10MG) SC SCH (08:38)
[2025-07-07] MEDS: OMEPRAZOLE 20MG CAP PO SCH (08:38)
[2025-07-07] MEDS: oxyCODONE 20MG CR TAB PO SCH (08:40)
[2025-07-07 08:59] LABS: PTH INTACT 82.8 PG/ML (18.5-88.0)
[2025-07-07] MEDS: MAG SULF 1GM/100ML (MAG RUN) 1 GM in IV 1 EA IV SCH (16:12)
[2025-07-07] MEDS: cefTRIAXone SOD 2 GM in DEXTROSE 5% (D5W) ADV/MINI-BAG 50 ML IV SCH (18:51)
[2025-07-07] MEDS: MAGNESIUM OXIDE 400 MG TAB PO SCH (20:24)
[2025-07-08] VITALS (8 sets, daily range): BP systolic 112–131; BP diastolic 62–70; TEMP 97.7–97.9; O2SAT 84–94
[2025-07-08 06:13] LABS: PLATELET COUNT, AUTOMATED 129 10^3/uL (150-450)
[2025-07-08 06:39] LABS: ALT/SGPT 18.0 U/L (7.0-40); AST/SGOT 15.0 U/L (<34); CALCIUM LEVEL 10.6 MG/DL (8.5-10.1); CARBON DIOXIDE LEVEL 27.0 MMOL/L (20-31); CHLORIDE LEVEL 105.0 MMOL/L (98-107); CREATININE FOR GFR 1.11 MG/DL (0.55-1.30); GLOMERULAR FILTRATION RATE 58.3 (>51); POTASSIUM SERUM 3.8 MMOL/L (3.5-5.1); SODIUM LEVEL 143.0 MMOL/L (136-145)
[2025-07-08] MEDS: LanTUS (INSULIN GLARGINE INJ) 1 UNITS/0.01 ML SC SCH (08:08)
[2025-07-09 04:09] VITALS: BP 129/82; TEMP 98.1; O2SAT 92
[2025-07-09 06:27] LABS: PLATELET COUNT, AUTOMATED 151 10^3/uL (150-450)
[2025-07-09 07:04] LABS: ALT/SGPT 23.0 U/L (7.0-40); AST/SGOT 24.0 U/L (<34); CALCIUM LEVEL 10.4 MG/DL (8.5-10.1); CARBON DIOXIDE LEVEL 24.0 MMOL/L (20-31); CHLORIDE LEVEL 108.0 MMOL/L (98-107); CREATININE FOR GFR 1.01 MG/DL (0.55-1.30); GLOMERULAR FILTRATION RATE 65.3 (>51); MAGNESIUM LEVEL 2.1 MG/DL (1.8-2.4); POTASSIUM SERUM 3.7 MMOL/L (3.5-5.1); SODIUM LEVEL 143.0 MMOL/L (136-145)
[2025-07-09] MEDS ORDERED: PROB250C PO (07:44)
[2025-07-09] MEDS ORDERED: MAGN400T33 PO (07:44)
[2025-07-09] MEDS ORDERED: CEFD1CAP9 PO (07:44)
[2025-07-09] MEDS: INSULIN GLARGINE-YFGN 1 UNITS/0.01 ML SC SCH (09:10)
[2025-07-09 09:17] VITALS: BP 129/81
[2025-07-09 12:00] VITALS: BP 129/80; TEMP 97.9; O2SAT 94
== END 2025-07-09 12:46 | disposition home or self-care (01) | DRG 872 ==
LOC: M ED 12:05 → M ED INP 17:14 → M MSPAV 07-07 02:20
PROVIDERS: ADMIT Internal Medicine; ATTEND Internal Medicine
DX: A41.9 Sepsis, unspecified organism (principal); N10 Acute pyelonephritis; E11.51 Type 2 diabetes mellitus with diabetic peripheral angiopathy without gangrene; M26.603 Bilateral temporomandibular joint disorder, unspecified; J45.909 Unspecified asthma, uncomplicated; G43.909 Migraine, unspecified, not intractable, without status migrainosus; M32.9 Systemic lupus erythematosus, unspecified; G47.33 Obstructive sleep apnea (adult) (pediatric); G89.29 Other chronic pain; E78.5 Hyperlipidemia, unspecified; E87.6 Hypokalemia; F32.A Depression, unspecified; I73.9 Peripheral vascular disease, unspecified; K21.9 Gastro-esophageal reflux disease without esophagitis; Z85.21 Personal history of malignant neoplasm of larynx; Z92.21 Personal history of antineoplastic chemotherapy; Z92.3 Personal history of irradiation; Z95.828 Presence of other vascular implants and grafts; Z79.899 Other long term (current) drug therapy; Z79.891 Long term (current) use of opiate analgesic; Z88.2 Allergy status to sulfonamides; Z88.6 Allergy status to analgesic agent; Z88.8 Allergy status to other drugs, medicaments and biological substances; B96.20 Unspecified Escherichia coli [E. coli] as the cause of diseases classified elsewhere; R65.20 Severe sepsis without septic shock; E83.51 Hypocalcemia; E83.42 Hypomagnesemia

== ENCOUNTER → 2025-07-20 | Outpatient (REF) | payer MEDICARE ==
[~2025-07-20] MED LIST changes: +AZEL1SPR3; +CEFD1CAP9 PO; +DEXT1TAB19 PO; +DULO60CA35 PO; +FURO20TA2 PO; +MAGN400T33 PO; +MED REC COMMENT; +METO100T5 PO; +NYST-38 SSP; +PROB250C PO
== END ==
LOC: M SFHCPLAZ 10:16
PROVIDERS: ATTEND Family Medicine
DX: Z53.9 Procedure and treatment not carried out, unspecified reason (principal)

== ENCOUNTER → 2025-07-20 | Outpatient (CLI) | payer MEDICARE ==
[2025-07-27 21:42] LABS: ACETONE SP None Detected; ETHANOL SP None Detected; ISOPROPANOL SP None Detected; METHANOL SP None Detected
== END ==
LOC: M PLALAB 11:51
PROVIDERS: ATTEND Nurse Practitioner Family
DX: Z79.891 Long term (current) use of opiate analgesic (principal)

== ENCOUNTER → 2025-07-20 | Outpatient (CLI) | payer MEDICARE ==
[2025-07-20 15:50] LABS: APPEARANCE, URINE CLEAR (CLEAR); BACTERIA, URINE AUTO NEGATIVE (NEGATIVE); BILIRUBIN, URINE AUTO NEGATIVE (NEGATIVE); BLOOD, URINE BLOOD NEGATIVE (NEGATIVE); GLUCOSE, URINE (UA) AUTO NEGATIVE (NEGATIVE); KETONE, URINE AUTO NEGATIVE (NEGATIVE); LEUKOCYTE ESTERASE, URINE AUTO 2+ (NEGATIVE); MUCUS, URINE SMALL (NEGATIVE); NITRITE, URINE AUTO NEGATIVE (NEGATIVE); PROTEIN, URINE AUTO NEGATIVE (NEGATIVE); RBC, URINE AUTO 1 /HPF (0-3); SPECIFIC GRAVITY URINE AUTO 1.005 (1.002-1.035); SQUAMOUS EPITHELIAL CELL UR AU 3 /HPF (0-6); TRANSITIONAL EPITHELIAL AUTO <1 /HPF; UROBILINOGEN, URINE AUTO 0.2 mg/dL (0.0-2.0); WBC, URINE AUTO 26 /HPF (0-3)
[2025-07-20 16:22] LABS: ALT/SGPT 24.0 U/L (7.0-40); AST/SGOT 17.0 U/L (<34); CALCIUM LEVEL 10.3 MG/DL (8.5-10.1); CARBON DIOXIDE LEVEL 31.0 MMOL/L (20-31); CHLORIDE LEVEL 105.0 MMOL/L (98-107); CREATININE FOR GFR 0.95 MG/DL (0.55-1.30); GLOMERULAR FILTRATION RATE 70.3 (>51); MAGNESIUM LEVEL 2.2 MG/DL (1.8-2.4); PHOSPHORUS LEVEL 2.7 MG/DL (2.5-4.9); POTASSIUM SERUM 3.8 MMOL/L (3.5-5.1); PTH INTACT 166.9 PG/ML (18.5-88.0); SODIUM LEVEL 145.0 MMOL/L (136-145)
[2025-07-20 16:25] LABS: TOTAL 25(OH) VITAMIN D 67.7 NG/ML (20.0-100.0)
== END ==
LOC: M PLALAB 11:55
DX: E83.52 Hypercalcemia (principal); N12 Tubulo-interstitial nephritis, not specified as acute or chronic; I50.9 Heart failure, unspecified

== ENCOUNTER → 2025-07-22 | Outpatient (REF) | payer MEDICARE ==
[2025-07-22 09:56] LABS: CALCIUM, 24 HOUR URINE 143.0 MG/24HR (42-353)
== END ==
LOC: M LAB REF 07:24
DX: N12 Tubulo-interstitial nephritis, not specified as acute or chronic (principal); E83.52 Hypercalcemia

== ENCOUNTER → 2025-09-30 | Outpatient (CLI) | payer MEDICARE, MEDICAID | LOC: M RAD 12:26 | PROVIDERS: ATTEND Nurse Practitioner Acute Care | DX: I65.23 Occlusion and stenosis of bilateral carotid arteries (principal) ==